=== PATIENT | female | born 1955 | race Caucasian/White ===

== ENCOUNTER 2021-04-30 12:50 | Emergency (ER) | payer OTHER, MEDICARE ==
--- OUTSIDE RECORDS SUMMARY | 2021-04-30 12:54 | XMS REPORT | Continuity of Care Document ---
:1955 Author Organization [facility] t Address [address] [place] [address] Care Team Providers Name Role Phone Arturo Salazar Primary Care Physician TESTING, COVID Attending Clinician Unavailable LAB90 Attending Clinician Unavailable ELVIA BECKETT Attending Clinician Unavailable Nba WANG T Attending Clinician Unavailable Jesus ESCOBEDO Attending Clinician Doctor Unassigned, Name Attending Clinician Unavailable Singer IRWIN Attending Clinician Stanislaw ESCOBEDO Attending Clinician Radiology Attending Clinician Unavailable Payers Payer Name Policy Policy Number Effective Expiration Source Type Date Date MEDICARE-PART B 5 [id number] 2020 00:00:00 AARP/IND 4 [id number] 2021 00:00:00 MEDICAREMEDICARE [id number] 2018 Univers ity of PART A & 00:00:00 [facility] [id number] 2018 Matthew -[phone] [address]IR[address] [place] [id number] [facility] [id number] 2019 [facility] HEALTHCAREUNITED 00:00:00 [facility] dicnd HEALTHCARE MEDICARE Branc h [id number] 2020-Present[address] [address], [place] [address]Medicare Supplement Problems Condition Condition Condition Status Onset Resolution Last Treating Co mments Source Name Details Category Date Date Treatment Clinician Date Obesity Obesity Disease Active Univers (BMI (BMI 2-06 ity of 30-39.9) 30-39.9) 00:00: [place] 00 Medical Branch Allergies, Adverse Reactions, Alerts Allergy Allergy Status Severity Reaction(s) Onset Inactive Treating Comm ents Source Name Type Date Date Clinician Sulfur Propensi Active Shortness Of Says she [facility] ty to Breath 3-18 can't [facility] - adverse 00:00: breath Medical reaction 00 Center s Sulfa DA Active [facility] (Sulfona 1 [place] mide 00:00: [facility] Antibiot 00 are ics) Medical Center Penicill Propensi Active Rash Univer s ins ty to 2-06 ity of adverse 00:00: [place] reaction 00 Medical s Branch Sulfa Propensi Active Rash Univers (Sulfona ty to 2-06 ity of mide adverse 00:00: [place] Antibiot reaction 00 Medica l ics) s Branch Penicill DA Active [facility] ins 09-15 [place] 00:00: [facility] 00 [facility] Sulfa DA Active [facility] (Sulfona 09-15 [place] mide 00:00: Orthope Antibiot 00 dic ics) Hospita l adhesive DA Active [facility] tape 09-15 [place] 00:00: [facility] 00 dic Hospita l Social History Social Habit Start Date Stop Date Quantity Comments Source Exposure to Not sure [facility] SARS-CoV-2 (event) Medica l Branch Sex Assigned At [facility] Tobacco use and 2021-04-27 2021-04-27 Never used [facility] [place] exposure 00:00:00 00:00:00 Medical Branch Smoking Status Start Date Stop Date Source Never smoker [facility] Medical Branch Medications Ordered Filled Start Stop Current Ordering Indication Dosage Frequency Signature Comments Components Source Medication Medication Date Date Medication? Clinician (SIG) Name Name acetdeliaph 2020- No [id number] 650mg 650 mg, Univers en 04-28 Oral, ity of (TYLENOL) 01:30: 00:30 ONCE, 1 [place] tablet 650 00 :00 dose, Tue Medi paul mg 04/27/21 at Branch 2030, Routine acetaminoph Yes [id number] 1{tbl} Take 1 Un sheila en-codeine 1-21 tablet by ity of (TYLENOL-CO 00:00: mouth [place] DEINE #3) 00 every 4 Medical 300-30 mg (four) Branch tablet hours as needed for Pain (scale 7-10). Indication s: acute pain ondansetron Yes [id number] 4mg Take 1 Univers 4 mg 1-21 [id number] tablet by ity of disintegrat 00:00: mouth [place] ing tablet 00 every 8 Medica l (eight) Branch hours as needed for Nausea and Vomiting (N/V). acetaminoph Yes [id number] 1{tbl} Take 1 Un sheila en-codeine 1-21 tablet by ity of (TYLENOL-CO 00:00: mouth [place] DEINE #3) 00 every 4 Medical 300-30 mg (four) Branch tablet hours as needed for Pain (scale 7-10). Indication s: acute pain ondansetron Yes [id number] 4mg Take 1 Univers 4 mg 1-21 [id number] tablet by ity of disintegrat 00:00: mouth [place] ing tablet 00 every 8 Medica l (eight) Branch hours as needed for Nausea and Vomiting (N/V). acetaminoph Yes [id number] 1{tbl} Take 1 Un sheila en-codeine 1-21 tablet by ity of (TYLENOL-CO 00:00: mouth [place] DEINE #3) 00 every 4 Medical 300-30 mg (four) Branch tablet hours as needed for Pain (scale 7-10). Indication s: acute pain ondansetron Yes [id number] 4mg Take 1 Univers 4 mg 1-21 [id number] tablet by ity of disintegrat 00:00: mouth [place] ing tablet 00 every 8 Medica l (eight) Branch hours as needed for Nausea and Vomiting (N/V). acetaminoph Yes [id number] 1{tbl} Take 1 Un sheila en-codeine 1-21 tablet by ity of (TYLENOL-CO 00:00: mouth [place] DEINE #3) 00 every 4 Medical 300-30 mg (four) Branch tablet hours as needed for Pain (scale 7-10). Indication s: acute pain ondansetron Yes [id number] 4mg Take 1 Univers 4 mg 1-21 [id number] tablet by ity of disintegrat 00:00: mouth [place] ing tablet 00 every 8 Medica l (eight) Branch hours as needed for Nausea and Vomiting (N/V). acetaminoph Yes [id number] 1{tbl} Take 1 Un sheila en-codeine 1-21 tablet by ity of (TYLENOL-CO 00:00: mouth [place] DEINE #3) 00 every 4 Medical 300-30 mg (four) Branch tablet hours as needed for Pain (scale 7-10). Indication s: acute pain ondansetron Yes [id number] 4mg Take 1 Univers 4 mg 1-21 [id number] tablet by ity of disintegrat 00:00: mouth [place] ing tablet 00 every 8 Medica l (eight) Branch hours as needed for Nausea and Vomiting (N/V). atorvastati Yes 10mg Take 10 mg Univers n 10 mg 4-14 by mouth ity of tablet 23:16: at [place] 42 bedtime. Medical Branch hydroCHLORO Yes 12.5mg Take 12.5 Univers thiazide 4-14 mg by ity of 12.5 mg 23:16: mouth [place] capsule 42 daily. Medical Branch valsartan-h Yes 1{tbl} Take 1 Un sheila ydrochlorot 4-14 tablet by ity of hiazide 23:16: mouth [place] 160-12.5 mg 42 daily. Medica l per tablet Branch estradiol 1 Yes 1mg Take 1 mg U nivers mg tablet 4-14 by mouth ity of 23:16: daily. [place] [address] Medical Branch PANTOPRAZOL 0 Yes 40mg Take 40 mg Univers E SODIUM 4-14 by mouth. ity of (PANTOPRAZO 23:16: [place] LE ORAL) 42 Medical Branch allopurinol 0 Yes 100mg Take 100 U nivers 100 mg 4-14 mg by ity of tablet 23:16: mouth [place] 42 daily. Medical Branch levothyroxi 0 Yes 50ug Take 50 Uni vers ne 4-14 mcg by ity of (SYNTHROID) 23:16: mouth [place] 50 mcg 42 every Medical tablet morning. Branch DULoxetine Yes 30mg Take 30 mg U nivers 30 mg 4-14 by mouth ity of capsule 23:16: daily. [place] [address] Medical Branch atorvastati 0 Yes 10mg Take 10 mg Univers n 10 mg 4-14 by mouth ity of tablet 23:16: at [place] [address] bedtime. Medical Branch hydroCHLORO 0 Yes 12.5mg Take 12.5 Univers thiazide 4-14 mg by ity of 12.5 mg 23:16: mouth [place] capsule 42 daily. Medical Branch valsartan-h 0 Yes 1{tbl} Take 1 Un sheila ydrochlorot 4-14 tablet by ity of hiazide 23:16: mouth [place] 160-12.5 mg 42 daily. Medica l per tablet Branch estradiol 1 0 Yes 1mg Take 1 mg U nivers mg tablet 4-14 by mouth ity of 23:16: daily. [place] [address] Medical Branch PANTOPRAZOL 0 Yes 40mg Take 40 mg Univers E SODIUM 4-14 by mouth. ity of (PANTOPRAZO 23:16: [place] LE ORAL) Medical Branch allopurinol 0 Yes 100mg Take 100 U nivers 100 mg 4-14 mg by ity of tablet 23:16: mouth [place] 42 daily. Medical Branch levothyroxi 0 Yes 50ug Take 50 Uni vers ne 4-14 mcg by ity of (SYNTHROID) 23:16: mouth [place] 50 mcg 42 every Medical tablet morning. Branch DULoxetine 20180 Yes 30mg Take 30 mg U nivers 30 mg 4-14 by mouth ity of capsule 23:16: daily. [place] [address] Medical Branch atorvastati 0 Yes 10mg Take 10 mg Univers n 10 mg 4-14 by mouth ity of tablet 23:16: at [place] [address] bedtime. Medical Branch hydroCHLORO 2017-0 Yes 12.5mg Take 12.5 Univers thiazide 4-14 mg by ity of 12.5 mg 23:16: mouth [place] capsule 42 daily. Medical Branch valsartan-h 2017- Yes 1{tbl} Take 1 Un sheila ydrochlorot 4-14 tablet by ity of hiazide 23:16: mouth [place] 160-12.5 mg 42 daily. Medica l per tablet Branch estradiol 1 Yes 1mg Take 1 mg U nivers mg tablet 4-14 by mouth ity of 23:16: daily. [place] [address] Medical Branch PANTOPRAZOL 0 Yes 40mg Take 40 mg Univers E SODIUM 4-14 by mouth. ity of (PANTOPRAZO 23:16: [place] LE ORAL) 42 Medical Branch allopurinol Yes 100mg Take 100 U nivers 100 mg 4-14 mg by ity of tablet 23:16: mouth [place] 42 daily. Medical Branch levothyroxi Yes 50ug Take 50 Uni vers ne 4-14 mcg by ity of (SYNTHROID) 23:16: mouth [place] 50 mcg 42 every Medical tablet morning. Branch DULoxetine Yes 30mg Take 30 mg U nivers 30 mg 4-14 by mouth ity of capsule 23:16: daily. [place] [address] Medical Branch atorvastati Yes 10mg Take 10 mg Univers n 10 mg 4-14 by mouth ity of tablet 23:16: at [place] 42 bedtime. Medical Branch hydroCHLORO Yes 12.5mg Take 12.5 Univers thiazide 4-14 mg by ity of 12.5 mg 23:16: mouth [place] capsule 42 daily. Medical Branch valsartan-h 2017- Yes 1{tbl} Take 1 Un sheila ydrochlorot 4-14 tablet by ity of hiazide 23:16: mouth [place] 160-12.5 mg 42 daily. Medica l per tablet Branch estradiol 1 Yes 1mg Take 1 mg U nivers mg tablet 4-14 by mouth ity of 23:16: daily. [place] [address] Medical Branch PANTOPRAZOL 0 Yes 40mg Take 40 mg Univers E SODIUM 4-14 by mouth. ity of (PANTOPRAZO 23:16: [place] LE ORAL) 42 Medical Branch allopurinol 0 Yes 100mg Take 100 U nivers 100 mg 4-14 mg by ity of tablet 23:16: mouth [place] 42 daily. Medical Branch levothyroxi Yes 50ug Take 50 Uni vers ne 4-14 mcg by ity of (SYNTHROID) 23:16: mouth [place] 50 mcg 42 every Medical tablet morning. Branch DULoxetine 0 Yes 30mg Take 30 mg U nivers 30 mg 4-14 by mouth ity of capsule 23:16: daily. [place] [address] Medical Branch atorvastati 0 Yes 10mg Take 10 mg Univers n 10 mg 4-14 by mouth ity of tablet 23:16: at [place] 42 bedtime. Medical Branch hydroCHLORO [id number] Yes 12.5mg Take 12.5 Univers thiazide 4-14 mg by ity of 12.5 mg 23:16: mouth [place] capsule 42 daily. Medical Branch valsartan-h 0 Yes 1{tbl} Take 1 Un sheila ydrochlorot 4-14 tablet by ity of hiazide 23:16: mouth [place] 160-12.5 mg 42 daily. Medica l per tablet Branch estradiol 1 Yes 1mg Take 1 mg U nivers mg tablet 4-14 by mouth ity of 23:16: daily. [place] [address] Medical Branch PANTOPRAZOL 0 Yes 40mg Take 40 mg Univers E SODIUM 4-14 by mouth. ity of (PANTOPRAZO 23:16: [place] LE ORAL) Medical Branch allopurinol 0 Yes 100mg Take 100 U nivers 100 mg 4-14 mg by ity of tablet 23:16: mouth [place] 42 daily. Medical Branch levothyroxi Yes 50ug Take 50 Uni vers ne 4-14 mcg by ity of (SYNTHROID) 23:16: mouth [place] 50 mcg 42 every Medical tablet morning. Branch DULoxetine 0 Yes 30mg Take 30 mg U nivers 30 mg 4-14 by mouth ity of capsule 23:16: daily. [place] [address] Medical Branch hydrOXYzine 2017-0 Yes [id number] 1-2 tabs Univers 25 mg 4-14 Every ity of tablet 00:00: 3-6hr as [place] 00 needed for Medical itch or Branch rash, at least 3 times a day. hydrOXYzine 2018-0 Yes [id number] 1-2 tabs Univers 25 mg 4-14 Every ity of tablet 00:00: 3-6hr as [place] 00 needed for Medical itch or Branch rash, at least 3 times a day. hydrOXYzine 0 Yes [id number] 1-2 tabs Univers 25 mg 4-14 Every ity of tablet 00:00: 3-6hr as [place] 00 needed for Medical itch or Branch rash, at least 3 times a day. hydrOXYzine 2018-0 Yes [id number] 1-2 tabs Univers 25 mg 4-14 Every ity of tablet 00:00: 3-6hr as [place] 00 needed for Medical itch or Branch rash, at least 3 times a day. hydrOXYzine 2018-0 Yes [id number] 1-2 tabs Univers 25 mg 4-14 Every ity of tablet 00:00: 3-6hr as [place] 00 needed for Medical itch or Branch rash, at least 3 times a day. ASPIR-81 81 2017-0 Yes 81mg Take 1 Univ ers mg EC 2-06 tablet by ity of tablet 00:00: mouth [place] 00 daily. Medical Branch LISINOPRIL 2017-0 Yes 10mg Take 1 Unive rs 10 mg 2-06 tablet by ity of tablet 00:00: mouth at [place] 00 bedtime. Medical Branch meclizine 2017-0 Yes 25mg Take 1 Univer s 25 mg 2-06 tablet by ity of tablet 00:00: mouth [place] 00 every 6 Medical (six) Branch hours. ASPIR- 81 2017-0 Yes 81mg Take 1 Univ ers mg EC 2-06 tablet by ity of tablet 00:00: mouth [place] 00 daily. Medical Branch LISINOPRIL 2017-0 Yes 10mg Take 1 Unive rs 10 mg 2-06 tablet by ity of tablet 00:00: mouth at [place] 00 bedtime. Medical Branch meclizine 2017-0 Yes 25mg Take 1 Univer s 25 mg 2-06 tablet by ity of tablet 00:00: mouth [place] 00 every 6 Medical (six) Branch hours. ASPIR-81 81 2017-0 Yes 81mg Take 1 Univ ers mg EC 2-06 tablet by ity of tablet 00:00: mouth [place] 00 daily. Medical Branch LISINOPRIL 2017-0 Yes 10mg Take 1 Unive rs 10 mg 2-06 tablet by ity of tablet 00:00: mouth at [place] 00 bedtime. Medical Branch meclizine 2017-0 Yes 25mg Take 1 Univer s 25 mg 2-06 tablet by ity of tablet 00:00: mouth [place] 00 every 6 Medical (six) Branch hours. ASPIR-81 81 0 Yes 81mg Take 1 Univ ers mg EC 2-06 tablet by ity of tablet 00:00: mouth [place] 00 daily. Medical Branch LISINOPRIL 0 Yes 10mg Take 1 Unive rs 10 mg 2-06 tablet by ity of tablet 00:00: mouth at [place] 00 bedtime. Medical Branch meclizine 0 Yes 25mg Take 1 Univer s 25 mg 2-06 tablet by ity of tablet 00:00: mouth [place] 00 every 6 Medical (six) Branch hours. ASPIR-81 81 0 Yes 81mg Take 1 Univ ers mg EC 2-06 tablet by ity of tablet 00:00: mouth [place] 00 daily. Medical Branch LISINOPRIL 0 Yes 10mg Take 1 Unive rs 10 mg 2-06 tablet by ity of tablet 00:00: mouth at [place] 00 bedtime. Medical Branch meclizine Yes 25mg Take 1 Univer s 25 mg 2-06 tablet by ity of tablet 00:00: mouth [place] 00 every 6 Medical (six) Branch hours. Vital Signs Vital Name Observation Time Observation Value Comments Source Systolic blood 2021-04-28 00:15:00 139 mm[Hg] Univer sity of pressure [facility] Diastolic blood 2021-04-28 00:15:00 77 mm[Hg] Unive rsity of pressure [facility] Heart rate 2021-04-28 00:15:00 103 /min [facility] Body temperature 2021-04-28 00:15:00 38.89 Katie [facility] Respiratory rate 2021-04-28 00:15:00 16 /min [facility] Body height 2021-04-28 00:15:00 160 cm [facility] Body weight 2021-04-28 00:15:00 79.493 kg [facility] BMI 2021-04-28 00:15:00 31.04 kg/m2 [facility] Oxygen saturation in 2021-04-28 00:15:00 94 /min [facility] blood by [facility] Pulse oximetry Branch Procedures Procedure Date / Time Performed Performing Clinician [facility] e ASSIGNMENT OF BENEFITS 2021-04-27 23:53:17 Doctor Unassigned, No [facility] Encounters Start End Encounter Admission Attending Care Care Encounter Source Date/Time Date/Time Type Type Clinicians Facility Department ID 2021-04-30 2021-04-30 Outpatient TESTING, LASHONDA BLANKENSHIP [id number] Angel[place] 15:45:00 15:45:00 Seybol d 2021-04-28 2021-04-28 Outpatient LAB90 ANGELIQUE BLANKENSHIP [id number] [place] 15:15:00 15:15:00 Seybol d 2021-04-28 2021-04-28 Outpatient ANGELIQUE BECKETT [id number] [place] 14:30:00 14:30:00 KELLY jennings 2021-04-28 2021-04-28 Letter YA [place] 1.2.840.114 [id number] Univers 00:00:00 00:00:00 (Out) Christine PERDOMO 350.1.13.10 it y of HOSPITAL 4.2.7.2.686 Tray as [id number] [facility] [address] [place] 2021-04-27 2021-04-27 Urgent Jesus [facility] 1.2.840.114 [id number] Univers 18:54:12 19:14:12 Care [facility] 350.1.13.10 it y of [place] 4.2.7.2.686 Tray as Joon?Blea [id number] [address] Medical Office Building 2021-04-27 2021-04-27 Outpatient ANGELIQUE BECKETT [id number] [place] 00:00:00 00:00:00 KELLY jennings 2021-04-27 2021-04-27 Letter Doctor PANDYA 1.2.840.114 [id number] Univers 00:00:00 00:00:00 (Out) UnassignedCONOR 350.1.13.10 ity of [place] [facility] 4.2.7.2.686 Tray as [id number] [facility] [address] [place] 2021-04-27 2021-04-27 Orders Doctor PANDYA 1.2.840.114 [id number] Univers 00:00:00 00:00:00 Only Unassigned CONOR 350.1.13.10 ity of [place] [facility] 4.2.7.2.686 Tray as [id number] [facility] 009 Branch 2021-04-27 2021-04-27 Letter Doctor YA 1.2.840.114 [id number] Univers 00:00:00 00:00:00 (Out) Unassigned, CONOR 350.1.13.10 ity of [place] [facility] 4.2.7.2.686 Tray as [id number] [facility] 044 Branch 2020-09-24 2020-09-24 Emergency [place], [facility] [id number] 13:18:00 17:07:00 Dmitriy Pastrana 350.1.13.10 [place] 4.2.7.2.686 [place] [id number] [id number] 2019-11-04 2019-11-04 Orders Doctor YA 1.2.840.114 [id number] 00:00:00 00:00:00 Only Unassigned, CONOR 350.1.13.10 [place] [facility] 4.2.7.2.686 [id number] 2019-10-10 2019-10-10 Office [place], [facility] 1.2.840.114 [id number] 14:17:48 16:43:56 Visit Perez AMBULATOR 350.1.13.21 Y 0.2.7.2.686 [id number] 2019-10-07 2019-10-07 Hospital Radiology [facility] 1.2.840.114 [id number] 10:00:00 23:59:00 Encounter Victoriano 350.1.13.10 [place] 4.2.7.2.686 [place] [id number] [id number] Results Test Description Test Time Test Comments Results Result Comments Source COVID 19 Asymptomatic IH AG 2020-09-29 15:12:00 Test Item Value Reference Range Interpretation Comme nts COVID 19 Asymptomatic IH AG (test code = COVNONPUIAG) NEGATIVE NEGATIVE SURGICAL [id number] 11:39:00 RUN DATE: 09/17/19 [facility] - LAB PAGE 1 RUN TIME: 1139 Specimen Inquiry RUN USER: INTERFACE PATIENT: JENNIFER VALLADARES LOC: [place] U #: [id number] AGE/SX: 64/F ROOM: RE09/13/19[facility] DR: Markie Holman MD : 53 BED: DIS: STATUS: [facility] [place]: SPEC #: [id number] RECD: 09/13/19 STATUS: NORMA GONZALES #: [id number] FACUNDO: 09/13/[address]: Markie Holman MD ENTERED: 09/13/19 SP TYPE: SURG OTHR DR: ORDERED: PATHGM4, PATH SPEC, H E STAIN HISTOLOGY: TISSUE ID BLK PCS CHRIS LEV / PROCEDURE DISPOSITION ____ ___ ___ ___ ___ ASCENDING COL PA 1 3 1 TISSUES: A. ASCENDING COLON POLYP - AscendingColon Polyp CLINICAL HISTORY Screening Colonoscopy COMMENT Multiple additional tissue levels were examined. FINAL DIAGNOSIS ASCENDING COLON POLYP, BIOPSY: - Non-neoplastic colonic mucosa, not otherwise specified. - No dysplasia or malignancy identified. GROSS DESCRIPTION ASCENDING COLON POLYP: One fragment of pink soft tissue, 0.7 cm. Entirely submitted in one cassette. ELIDA/shruthi MICROSCOPIC DESCRIPTION Microscopic performed. Signed SIGNATURE ON FILE Kierra Angel 09/17/19 1139 END OFREPORT SURGICAL [id number] 12:11:00 RUN DATE: 09/10/19 [facility] - LAB PAGE 1 RUN TIME: 1211 Specimen Inquiry RUN USER: INTERFACE PATIENT: JENNIFER VALLADARES LOC: [place] U #: [id number] AGE/SX: 64/F ROOM: RE09/06/19[facility] DR: Markie Holman MD : 53 BED: DIS: STATUS: [facility] TLOC: SPEC #: [id number] RECD: 09/06/19 STATUS: NORMA HERBERTHVel #: [id number] FACUNDO: [birth year][address]: Markie Holman MD ENTERED: 09/06/19 SP TYPE: SURG OTHR DR: Undefined Provider ORDERED: PATHGM4/2, PATH SPEC, H E STAIN/2, IHC AB STAIN I/2 HISTOLOGY: TISSUE ID BLK PCS CHRIS LEV / PROCEDURE DISPOSITION ____ ___ ___ ___ ___ GASTRIC BIOPSYA 1 3 1 GASTRIC POLYP B 1 3 1 TISSUES: A. GASTRIC BIOPSY - Gastric Antrum Bx B. GASTRIC POLYP - Gastric Polyp X2 CLINICAL HISTORY Abdominal Pain/ Family Hx Of Polyps FINAL DIAGNOSIS A-GASTRIC ANTRUM BIOPSY: - Antral type gastric mucosa with mild chronic gastritis and reactive epithelial changes. - Negative for H. pylori organisms (H. pylori immunostain). B-GASTRIC POLYP X2, BIOPSY: - Two pieces of fundic gland polyp. - Separate piece of antral type gastric mucosa with mild chronic gastritis and reactive epithelial changes, including features suggestive of reactive gastropathy/chemical gastritis versus hyperplastic polyp. - Negative for H. pylori organisms (H. pylori immunostain). GROSS DESCRIPTION A-GASTRIC ANTRUM: Two pieces of tissue which measure 2 mm each. Entirely submitted in a single cassette. B-GASTRIC POLYP X2: Three pices of tissue which measure less than 1 mm to 2 mm. Entirely submitted in single cassette. RAB/eb MICROSCOPIC DESCRIPTION Microscopic performed. CONTINUED ON NEXT PAGE RUN DATE: 09/10/19 [place] [facility] - LAB PAGE 2 RUN TIME: 1211 Specimen Inquiry RUN USER: INTERFACE SPEC #: [id number] PATIENT: JENNIFER VALLADARES#[id number] (Continued) Signed SIGNATURE ON FILE Nata Ortega MD 09/10/19 1211 -------- ---- END OF REPORT
[2021-04-30 13:28] LABS: Urine Blood Trace-intact (Negative); Urine Glucose Negative (Negative); Urine Protein 2+ (Negative); Urine Specific Gravity 1.025 (1.005-1.030); Urine pH 5.5 (5.0-7.0)
[2021-04-30] MEDS ORDERED: NA CHLORIDE 0.9% 1,000 ML ONE (14:21)
[2021-04-30] MEDS ORDERED: PROMETHAZINE INJ 25 MG/ML AMP ONE (14:21)
[2021-04-30] MEDS ORDERED: MEPERIDINE HCL 50 MG/ML ONE (14:21)
[2021-04-30 15:46] LABS: ALT/SGPT 36 U/L (12-78); AST/SGOT 36 U/L (15-37); Albumin 3.3 g/dL (3.4-5.0); Alkaline Phosphatase 116 U/L (45-117); BUN Blood Urea Nitrogen 25 mg/dL (7-18); Bicarbonate 29 mmol/L (21-32); Bilirubin Direct 0.2 mg/dL (0-0.2); Bilirubin Total 0.5 mg/dL (0.2-1.0); Glucose Level 109 mg/dL (74-106); Lipase 25 U/L (73-393); NT PRO-BNP 62 pg/mL (<125); Potassium 3.4 mmol/L (3.5-5.1); Protein, Total 8.5 g/dL (6.4-8.2); Sodium Level 133 mmol/L (136-145); Troponin (Emerg Dept Use Only) < 0.02 ng/mL (0.0-0.045); Urine Bacteria 20-50 /HPF (<20); Urine RBC <5 /HPF (NONE SEEN)
[2021-04-30 15:47] LABS: Calcium Oxalate Crystals- Ur FEW (NONE SEEN); Urine Urothelial Cells <5 /HPF (NONE SEEN)
[2021-04-30 16:47] LABS: Protime INR 1.11
[2021-04-30 17:08] LABS: Absolute Lymphocytes (CBC) 1.6 K/uL (0.7-4.9); Basophils % 0.5 % (0-1.3); Hematocrit 35.2 % (36.0-45.0); Lymphocytes % 16.4 % (15.3-44.8); RBC Red Blood Cell Count 4.05 M/uL (3.86-4.86)
[2021-04-30 17:09] LABS: MPV 9.1 fL (7.6-11.3)
--- NOTE | 2021-04-30 17:22 | RAD REPORT ---
EXAM DESCRIPTION: CT - Head Brain Wo Cont - 04/30/2021 5:07 pm CLINICAL HISTORY: Headache COMPARISON: 2011 TECHNIQUE: Computed axial tomography of the head was obtained. IV contrast was not requested. All CT scans are performed using dose optimization technique as appropriate and may include automated exposure control or mA/KV adjustment according to patient size. FINDINGS: An intracranial bleed is not seen . The ventricles are normal in caliber. No extra-axial fluid collection is noted. Fluid within the sinuses/ mastoids is not seen. IMPRESSION: No acute intracranial abnormality is seen. If patient's symptoms persist MRI of the bra in would be recommended.
--- NOTE | 2021-04-30 17:23 | RAD REPORT ---
EXAM DESCRIPTION: [place] Single View04/30/2021 3:06 pm CLINICAL HISTORY: Abdominal pain COMPARISON: 2019 FINDINGS: A few areas of scarring are present within the lungs The lungs appear clear of acute infiltrate. The heart is normal size IMPRESSION: No acute abnormalities displayed
--- NOTE | 2021-04-30 17:27 | RAD REPORT ---
EXAM DESCRIPTION: CT - Abdomen Pelvis Wo Contrast - 04/30/2021 5:07 pm CLINICAL HISTORY: Abdominal pain COMPARISON: 2015 TECHNIQUE: Computed axial tomography of the abdomen and pelvis was obtained. IV was not requested. O ral contrast was given. Coronal reconstructions performed. All CT scans are performed using dose optimization technique as appropriate and may include automated exposure control or mA/KV adjustment according to patient size. FINDINGS: The evaluation of solid organs and vessels is limited secondary to the lack of contrast a dministration. Cholecystectomy. The liver, spleen, pancreas, adrenals and kidneys appear grossly normal. Hysterectomy There is no evidence of diverticulitis. IMPRESSION: No acute abnormality is displayed.
--- NOTE | 2021-04-30 18:13 | ER ---
Nurse's Notes [facility] Name: Carlos Canada Age: 65 yrs Sex: Female : 1955 Arrival Date: 04/30/2021 Time: 12:56 Bed 14 Private MD: Diagnosis: Urinary tract infection. Chronic renal disease Presentation: 04/30 13:05 Chief complaint: Patient states: JAMES, abd pain, back pain and joint fatigue that began ss 4-5 days ago. Pt reports she had a negative covid test 3 days ago. Coronavirus screen: Client presents with at least one sign or symptom that may indicate coronavirus-19. Ebola Screen: Patient denies exposure to infectious person. Patient denies travel to an Ebola-affected area in the 21 days before illness onset. Initial Sepsis Screen: Does the patient meet any 2 criteria? No. Patient's initial sepsis screen is negative. Does the patient have a suspected source of infection? No. Patient's initial sepsis screen is negative. Risk Assessment: Do you want to hurt yourself or someone else? Patient reports no desire to harm self or others. Note Pt states, "When she ran my blood test she said that by WBC count was high, and she said she thought it might be kidney failure.". Onset of symptoms was April 26, 2021. 13:05 Method Of Arrival: Ambulatory ss 13:05 Acuity: REGINE 3 ss Triage Assessment: 13:12 General: Appears in no apparent distress. comfortable, well developed, well nourished, aj2 Behavior is calm, cooperative. 13:12 Pain: Denies pain. Complains of pain in Patients states "all over" aching pain. aj2 Historical: - Allergies: 13:08 PENICILLINS; ss 13:08 Sulfa (Sulfonamide Antibiotics); ss - PMHx: 13:08 High Cholesterol; Hypertension; Hypothyroidism; ss - Immunization history:: Client reports receiving the 2nd dose of the Covid vaccine. - Social history:: Smoking status: Patient denies any tobacco usage or history of. Vital Signs: 13:05 BP 121 / 77; Pulse 110; Resp 19; Temp 98.0(TE); Pulse Ox 99% on R/A; Weight 78.47 kg; ss Height 5 ft. 3 in. (160.02 cm); Pain 8/10; 13:05 Body Mass Index 30.65 (78.47 kg, 160.02 cm) ss ED Course: 12:56 Patient arrived in ED. ja2 13:08 Triage completed. ss 13:08 Arm band placed on right wrist. ss 13:09 Dc Dunlap MD is Attending Physician. pkl 13:11 Lisseth Plascencia is Primary Nurse. aj2 15:06 XRAY Chest (1 view) In Process Unspecified. EDMS 15:17 Patient has correct armband on for positive identification. Placed in gown. Bed in low mh5 position. Call light in reach. Side rails up X2. Warm blanket given. Pillow given. matcher on. Pulse ox on. NIBP on. 15:17 Initial lab(s) drawn, by ED staff, sent to lab. EKG done, by ED staff, reviewed by Dc Dunlap MD COVID swab sent to lab. 15:18 Lactate Sent. 5 15:18 Blood Culture Adult (2) Sent. 5 15:19 Lipase Sent. 5 15:19 Basic Metabolic Panel Sent. 5 15:19 CBC with Diff Sent. 5 15:19 LFT's Sent. 5 15:19 Magnesium Sent. 5 15:19 NT PRO-BNP Sent. 5 15:19 PT-INR Sent. 5 15:19 Troponin (emerg Dept Use Only) Sent. 5 15:22 TSH Sent. mh5 16:11 Inserted saline lock: 20 gauge. aj2 17:07 CT Head Brain wo Cont In Process Unspecified. EDMS 17:07 Abdomen In Process Unspecified. EDMS 18:53 No provider procedures requiring assistance completed. IV discontinued, intact, ss bleeding controlled, No redness/swelling at site. Pressure dressing applied. Administered Medications: 14:59 Drug: NS 0.9% 1000 ml Route: IV; Rate: 125 ml/hr; Site: right antecubital; tr6 14:59 Drug: Demerol (meperidine) 50 mg Route: IVP; Site: right antecubital; tr6 14:59 Drug: Phenergan (promethazine) 12.5 mg Route: IVP; Site: right antecubital; tr6 18:44 Not Given (Other Intervention Used): Cipro (ciprofloxacin) 400 mg 200 ml IVPB once over ss 60 mins 18:50 Drug: Cipro (ciprofloxacin) 500 mg Route: PO; tr6 18:54 Follow up: Response: Medication administered at discharge. Outcome: 18:12 Discharge ordered by . deirdre 18:53 Discharged to home ambulatory. ss 18:53 Condition: good 18:53 Discharge instructions given to patient, Instructed on discharge instructions, follow up and referral plans. Demonstrated understanding of instructions, follow-up care. 18:55 Patient left the ED. Signatures: Dispatcher [employer] EDSC Dc Dunlap MD MD pkl Smirch, Shelby, RN RN Beth Rajput [facility] Azucena Bolaños RN RN tr6 Lisseth Plascencia2 Zee Encarnacion Corrections: (The following items were deleted from the chart) 15:25 15:19 CORONAVIRUS+ drawn and sent. [address]
--- NOTE | 2021-04-30 18:13 | EDPHYS ---
Physician Documentation [facility] Name: Carlos Canada Age: 65 yrs Sex: Female : 1955 Arrival Date: 04/30/2021 Time: 12:56 Bed 14 Private MD: ED Physician Dc Dunlap HPI: 04/30 13:35 This 65 yrs old Female presents to ER via Ambulatory with complaints of pkl Fever, LIGHT HEADED, COVID SYMPTOMS. 13:35 The patient presents with abdominal pain in the upper abdomen. Onset: The pkl symptoms/episode began/occurred 4 day(s) ago. The symptoms do not radiate. Associated signs and symptoms: Pertinent positives: fever, nausea, headache, fever, chills, back pain fatigue. Historical: - Allergies: 13:08 PENICILLINS; ss 13:08 Sulfa (Sulfonamide Antibiotics); ss - PMHx: 13:08 High Cholesterol; Hypertension; Hypothyroidism; ss - Immunization history:: Client reports receiving the 2nd dose of the Covid vaccine. - Social history:: Smoking status: Patient denies any tobacco usage or history of. ROS: 13:38 Eyes: Negative for injury, pain, redness, and discharge, ENT: Negative for injury, pkl pain, and discharge, Neck: Negative for injury, pain, and swelling, Cardiovascular: Negative for chest pain, palpitations, and edema, Respiratory: Negative for shortness of breath, cough, wheezing, and pleuritic chest pain. 13:38 Abdomen/GI: Positive for abdominal pain, nausea, of the right upper quadrant and left upper quadrant. 13:38 Back: Positive for pain at rest, of the lower back. 13:38 : Negative for urinary symptoms. 13:38 MS/extremity: Negative for acute changes. 13:38 Skin: Negative for rash. 13:38 Neuro: Positive for headache, Negative for altered mental status, loss of consciousness. Exam: 13:38 Head/Face: Normocephalic, atraumatic. Eyes: Pupils equal round and reactive to light, pkl extra-ocular motions intact. Lids and lashes normal. Conjunctiva and sclera are non-icteric and not injected. Cornea within normal limits. Periorbital areas with no swelling, redness, or edema. ENT: Nares patent. No nasal discharge, no septal abnormalities noted. Tympanic membranes are normal and external auditory canals are clear. Oropharynx with no redness, swelling, or masses, exudates, or evidence of obstruction, uvula midline. Mucous membranes moist. Neck: Trachea midline, no thyromegaly or masses palpated, and no cervical lymphadenopathy. Supple, full range of motion without nuchal rigidity, or vertebral point tenderness. No Meningismus. Chest/axilla: Normal chest wall appearance and motion. Nontender with no deformity. No lesions are appreciated. Cardiovascular: Regular rate and rhythm with a normal S1 and S2. No gallops, murmurs, or rubs. Normal PMI, no JVD. No pulse deficits. Respiratory: Lungs have equal breath sounds bilaterally, clear to auscultation and percussion. No rales, rhonchi or wheezes noted. No increased work of breathing, no retractions or nasal flaring. 13:38 Abdomen/GI: Bowel sounds: normal, Palpation: soft, mild abdominal tenderness, in the right upper quadrant and left upper quadrant. 13:38 Back: Exam negative for acute changes. 13:38 : Exam negative for acute changes. 13:38 Musculoskeletal/extremity: Exam is negative for acute changes. 13:38 Skin: Exam negative for rash. 13:38 Neuro: Orientation: is normal, Mentation: is normal, Cranial nerves: grossly normal, Motor: is normal. Vital Signs: 13:05 BP 121 / 77; Pulse 110; Resp 19; Temp 98.0(TE); Pulse Ox 99% on R/A; Weight 78.47 kg; ss Height 5 ft. 3 in. (160.02 cm); Pain 8/10; 13:05 Body Mass Index 30.65 (78.47 kg, 160.02 cm) ss MDM: 13:09 Patient medically screened. pkl 18:08 Data reviewed: vital signs, nurses notes, lab test result(s), EKG, radiologic studies, pkl CT scan, plain films. ED course: Patient feeling better. Discussed lab and imaging results with patient. Advised to follow up with PCP in 2 to 3 days. To return if symptoms are worse. Patient understood instructions. 04/30 13:28 Order name: Urine Dipstick-Ancillary; Complete Time: 13:34 EDMS 04/30 13:28 Order name: Urine Culture eb 04/30 13:28 Order name: Urine Microscopic Only; Complete Time: 16:28 eb 04/30 13:29 Order name: Basic Metabolic Panel; Complete Time: 16:28 pkl 04/30 13:29 Order name: CBC with Diff pkl 04/30 13:29 Order name: LFT's; Complete Time: 16:28 pkl 04/30 13:29 Order name: Magnesium; Complete Time: 16:28 pkl 04/30 13:29 Order name: NT PRO-BNP; Complete Time: 16:28 pkl 04/30 13:29 Order name: PT-INR; Complete Time: 16:57 pkl 04/30 13:29 Order name: Troponin (emerg Dept Use Only); Complete Time: 16:28 pkl 04/30 13:29 Order name: Lipase; Complete Time: 16:28 pkl 04/30 13:34 Order name: Blood Culture Adult (2) pk 04/30 13:34 Order name: Lactate; Complete Time: 16:28 pkl 04/30 13:29 Order name: XRAY Chest (1 view); Complete Time: 18:02 pkl 04/30 13:29 Order name: EKG; Complete Time: 13:30 pkl 04/30 13:29 Order name: Cardiac monitoring; Complete Time: 14:59 pkl 04/30 13:29 Order name: EKG - Nurse/Tech; Complete Time: 15:19 pkl 04/30 13:29 Order name: IV Saline Lock; Complete Time: 14:59 pkl 04/30 13:34 Order name: CT Head Brain wo Cont; Complete Time: 18:02 pkl 04/30 13:38 Order name: TSH; Complete Time: 16:28 pkl 04/30 14:26 Order name: Abdomen ; Complete Time: 18:02 EDMS 04/30 16:23 Order name: SARS-COV-2 RT PCR; Complete Time: 16:28 EDMS 04/30 18:17 Order name: CBC Smear Scan EDMS 04/30 13:29 Order name: Labs collected and sent; Complete Time: 14:59 pkl 04/30 13:29 Order name: O2 Per Protocol; Complete Time: 14:59 pkl 04/30 13:29 Order name: O2 Sat Monitoring; Complete Time: 14:59 pkl 04/30 15:32 Order name: Labs - recollect needed: recollect blue and purple top; Complete Time: 16:53eb Administered Medications: 14:59 Drug: NS 0.9% 1000 ml Route: IV; Rate: 125 ml/hr; Site: right antecubital; tr6 14:59 Drug: Demerol (meperidine) 50 mg Route: IVP; Site: right antecubital; tr6 14:59 Drug: Phenergan (promethazine) 12.5 mg Route: IVP; Site: right antecubital; tr6 18:44 Not Given (Other Intervention Used): Cipro (ciprofloxacin) 400 mg 200 ml IVPB once over ss 60 mins 18:50 Drug: Cipro (ciprofloxacin) 500 mg Route: PO; tr6 18:54 Follow up: Response: Medication administered at discharge. Disposition Summary: 04/30/21 18:12 Discharge Ordered Location: Home pkl Problem: new pkl Symptoms: have improved pkl Condition: Stable pkl Diagnosis - Urinary tract infection. Chronic renal disease pkl Followup: pkl - With: Private Physician - When: 2 - 3 days - Reason: Re-evaluation by your physician Discharge Instructions: - Discharge Summary Sheet pkl Forms: - Medication Reconciliation Form pkl - Thank You Letter pkl - Antibiotic Education pkl - Prescription Opioid Use pkl Prescriptions: - Cipro 500 mg Oral Tablet - take 1 tablet by ORAL route every 12 hours for 7 days; 14 tablet; Refills: 0, pkl Product Selection Permitted Signatures: Dispatcher [employer] Dc Maddox MD MD pkl Massiel Navarro RN RN Dyana Patterson Tiffany RN RN tr6 Corrections: (The following items were deleted from the chart) 14:26 13:35 Abdomen Pelvis W Con+CT.RAD.BRZ ordered. EDMS EDMS 15:25 13:34 CORONAVIRUS+MR.LAB.BRZ ordered. EDMS EDMS
[2021-04-30 18:17] LABS: Blood Morphology Comment NOT SEEN (NOT SEEN); Platelet Estimate ADEQ; Platelets, Giant PRESENT; White Blood Cell Scan OK (OK)
[2021-04-30 19:04] VITALS: BP 121/77; TEMP 98; O2SAT 99
[2021-04-30] MEDS ORDERED: CIPROFLOXACIN HCL 500 MG TAB ONE (19:09)
== END 2021-04-30 18:55 | disposition home or self-care (01) ==
LOC: ER 12:50
DX: N39.0 Urinary tract infection, site not specified (principal); I12.9 Hypertensive chronic kidney disease with stage 1 through stage 4 chronic kidney disease, or unspecified chronic kidney disease; N18.9 Chronic kidney disease, unspecified; Z20.822 Contact with and (suspected) exposure to COVID-19; Z88.0 Allergy status to penicillin; Z88.2 Allergy status to sulfonamides
CPT/HCPCS: 93005; 87040 ×2; 87088; 85025; 87086; 80048; 36415; 83735; 85610; 82565; 80076; 83605; 84443; 84484; 83690; 83880; 70450; 74176; 71045; 96375; 96374; 99284; U0003; J2550; J2175; J7030; 81003; 81015

== ENCOUNTER 2022-12-28 09:01 | Day surgery (SDC) | payer OTHER, MEDICARE ==
--- OUTSIDE RECORDS SUMMARY | 2022-12-28 09:34 | XMS REPORT | Continuity of Care Document ---
:1955 Author Organization [facility] t Address [address] [place] [address]. [address] [place] [address] Care Team Providers Name Role Phone Asked, No Pcp Primary Care Physician Unavailable Larissa Lee MD Attending Clinician Unknown, Attending Attending Clinician Unavailable LARISSA LEE Attending Clinician Unavailable Doctor Unassigned, [place] Attending Clinician Unavailable KELLY BECKETT Attending Clinician Unavailable ABENA THOMPSON Attending Clinician Unavailable Kelly Beckett MD Attending Clinician Only, Ang Db Test Attending Clinician Unavailable Karolyn Cox Attending Clinician KAROLYN STOVALL Attending Clinician Unavailable Kelly Beckett MD Attending Clinician [phone] Attending Clinician Unavailable VANESSA YI Attending Clinician Unavailable Vanessa Yi MD Attending Clinician Kevin Rodríguez DO Attending Clinician KEVIN RODRÍGUEZ Attending Clinician Unavailable DANACAROLE Sharlene Attending Clinician Unavailable TESTING, PL ERICID Attending Clinician Unavailable Nba WANG, Christine Snow Attending Clinician Unavailable Vanessa Victoria Attending Clinician Unavailable Melendez DO Dmitriy Attending Clinician Perez Dover MD Attending Clinician Radiology Attending Clinician Unavailable Markie Holman Attending Clinician Unavailable VANESSA YI Admitting Clinician Unavailable Physician, No Primary or Family Admitting Clinician UnavailKETTY Saunders Admitting Clinician Unavailable Payers Payer Name Policy Type Policy Number Effective Date Expiration Date S luna MEDICARE PART A AND [id number] 2018 B 00:00:00 $20 F [id number] 2015 00:00:00 CIGNA II [id number] 2016 00:00:00 MEDICARE PART A \T\ [id number] 2018 B 00:00:00 [facility] [id number] 2019 MEDICARE SUPPLEMENT 00:00:00 MEDICARE-PART B 5 [id number] 2020 00:00:00 AARP/IND 4 [id number] 2021 00:00:00 Problems Condition Condition Condition Status Onset Resolution Last Treating Co mments Source Name Details Category Date Date Treatment Clinician Date Other Other Disease Active Tirso Merino specified specified 03-05 Assessmen S eybold menopausal menopausal 00:00: t & Plan: and and 00 Formattin perimenopa perimenopa g of this [facility] note disorders disorders might be different from the original. Unchanged , cont Estradiol 0.05mg/24 h transderm al patch biweekly as prescribe d. DEXA scan ordered. Other Other Disease Active Tirso Merino hyperlipid hyperlipid -14 Assessmen Filiberto emia emia 00:00: t & Plan: 00 Formattin g of this note might be different from the original. Controlle d, cont Atorvasta tin 10mg daily. Will increase as indicated pending lab results. Other Other Disease Active Tirso Merino chronic chronic -14 Assessmen Lamin ld pain pain 00:00: t & Plan: 00 Formattin g of this note might be different from the original. Unchanged , will get labs to eval for systemic disorders . Essential Essential Disease Active Tirso buchanan hypertensi hypertensi 4-08 Assessmen Filiberto on on 00:00: t & Plan: 00 Formattin g of this note might be different from the original. Juan jennings, cont w/ HCTZ 12.5mg. Hypothyroi Hypothyroi Disease Active Tirso jennings d 4-08 Assessrichard De Los Santos 00:00: t & Plan: 00 Formattin g of this note might be different from the original. Juan jennings, labs ordered, will contact Pt pending results. Gastroesop Gastroesop Disease Active Tirso Banks manju hageal hageal 4-08 Assessrichard De [place] reflux reflux 00:00: t & Plan: disease disease 00 Formattin without without g of this esophagiti esophagiti note s s might be different from the original. Juan jennings, cont current Rx. Obesity Obesity Disease Active Tirso Merino (BMI (BMI 2-06 Assessrichard De Los Santos 30-39.9) 30-39.9) 00:00: t & Plan: 00 Formattin g of this note might be different from the original. Unchanged , encourage d Pt to start exercise regimen as soon as pain is under control. Allergies, Adverse Reactions, Alerts Allergy Allergy Status Severity Reaction(s) Onset Inactive Treating Comm ents Source Name Type Date Date Clinician Penicill Propensi Active Rash Angelique in V ty to 908 Seybold Potassiu adverse 00:00: m reaction 00 s Sulfur Propensi Active Angelique ty to 4-08 Sey[facility] adverse 00:00: reaction 00 s SULFUR DRUG Active High SOB Univers INGREDI 3-18 ity of 00:00: [address] Branch Sulfur Propensi Active Shortness Of Says she [facility] Bre[facility] 3-18 [facility]: breath Medical reaction 00 Center s Sulfa DA Active SV [facility] (Sulfona 1-03 [facility] 00:00: [facility] Antibiot 00 are ics) Medical Center Sulfa DA Active SV CAN'T 2020 [facility] Antibiot 00 are ics) Medical Center Sulfa Propensi Active Rash Univers (Sulfona ty to 2-06 ity of mide adverse 00:00: [place] Antibiot reaction 00 Medica l ics) s Branch Penicill Propensi Active Rash Univer s ins ty to 2-06 ity of adverse 00:00: [place] reaction 00 Medical s Branch PENICILL Drug Active Rash Univers INS Class 2-06 ity of 00:00: [place] 00 Medical Branch SULFA Drug Active Rash Univers (SULFONA Class 2-06 ity of MIDE 00:00: [place] ANTIBIOT 00 Medical ICS) Branch Adhesive Propensi Active Rash Angelique ty to 1-12 [facility] adverse 00:00: reaction 00 s Adhesive Propensi Active Rash Univer s ty to 1-12 ity of adverse 00:00: [place] reaction 00 Medical s Branch ADHESIVE Drug Active Rash Univers Class 1-12 ity of 00:00: [place] 00 Medical Branch Penicill DA Active MO [facility] ins 09-15 [place] 00:00: [facility] 00 [facility] Sulfa DA Active SV [facility] (Sulfona 09-15 [facility] [place] 00:00: Orthope Antibiot 00 dic ics) Hospita l adhesive DA Active MO [facility] tape 09-15 [place] 00:00: Orthope 00 dic Hospita l Penicill DA Active MO ITCH [facility] ins 09-15 [place] 00:00: Orthope 00 dic Hospita l Sulfa DA Active SV CANT BREATH [facility] Antibiot 00 dic ics) Hospita l adhesive DA Active MO RASH [facility] tape 09-15 [place] 00:00: Orthope 00 dic Hospita l Penicill Propensi Active Shortness Of 2015-09 [facility] ins ty to Breath 09-05 st adverse 00:00: Hospita reaction 00 l s to drug Penicill Propensi Active Shortness Of 2015-09 Methodi ins ty to Breath 09-05 st adverse 00:00: Hospita reaction 00 l s to drug Sulfa Propensi Active Shortness Of 2015-09 [facility] th[facility] (Sulfona ty to Breath 09-05 st mide adverse 00:00: Hospita Antibiot reaction 00 l ics) s to drug Sulfa Propensi Active Anaphylaxis 2014-09 Can't [place] Antibiot ty to 0-12 breathe [place] ics adverse 00:00: of reaction 00 Medicin s to e drug Penicill Propensi Active Shortness Of [place] ins ty to Breath 6-12 College adverse 00:00: of reaction 00 Medicin s to e drug Penicill Propensi Active Shortness of Angelique ins ty to Breath 6-12 [facility] adverse 00:00: reaction 00 s SULFUR Allergy Active [facility] Social History Social Habit Start Date Stop Date Quantity Comments Source History SDOH [facility] Alcohol Frequency Hospita l History SDOH [facility] Alcohol Std Drinks Hospit al History SDOH [facility] Sexual orientation [facility] Exposure to 2022-04-22 2022-05-02 Not sure [facility]-CoV-2 (event) 00:00:00 19:16:00 [facility] Tobacco use and 2017-12-16 2017-12-16 Smokeless Universit y of exposure 00:00:00 00:00:00 tobacco non-user [facility] Alcohol intake 2016-07-07 2016-07-07 Current drinker [facility] 00:00:00 00:00:00 of alcohol [facility] (finding) Alcohol Comment 2016-07-06 2016-07-06 socially [facility]ast[facility]arian 00:00:00 00:00:00 Hospital Sex Assigned At [birth year] [facility] 00:00:00 00:00:00 Medical Center Smoking Status Start Date Stop Date Source Never smoked tobacco [facility] Medications Ordered Filled Start Stop Current Ordering Indication Dosage Frequency Signature Comments Components Source Medication Medication Date Date Medication? Clinician (SIG) Name Name gabapentin Yes 1 capsule Un sheila 300 mg 3-21 ity of capsule 19:22: [address] tiZANidine Yes 1 tablet Uni vers 2 mg tablet 3-21 as needed ity of 19:22: [address] atorvastati Yes 10mg Take 1 Univ ers n 10 mg 3-21 tablet by ity of tablet 19:21: mouth at [place] 02 bedtime. Medical Branch hydroCHLORO 0 Yes 12.5mg Take 1 Un sheila thiazide 3-21 capsule by ity o f 12.5 mg 19:21: mouth in [place] capsule 02 the Medical morning. Branch valsartan-h 2022-0 Yes 1{tbl} Take 1 Un sheila ydrochlorot 3-21 tablet by ity of hiazide 19:21: mouth in [place] 160-12.5 mg 02 the Medical per tablet morning. Branc h estradiol 1 2022-0 Yes 1mg Take 1 Univ ers mg tablet 3-21 tablet by ity o f 19:21: mouth in [place] 02 the Medical morning. Branch PANTOPRAZOL Yes 40mg Take 40 mg Univers E SODIUM 3-21 by mouth. ity of (PANTOPRAZO 19:21: [place] LE ORAL) 02 Medical Branch allopurinol 0 Yes 100mg Take 1 Uni vers 100 mg 3-21 tablet by ity of tablet 19:21: mouth in [place] 02 the Medical morning. Branch levothyroxi 0 Yes 50ug Take 1 Univ ers ne 50 mcg 3-21 tablet by ity o f tablet 19:21: mouth [place] 02 every Medical morning. Branch DULoxetine 0 Yes 30mg Take 1 Unive rs 30 mg 3-21 capsule by ity of capsule 19:21: mouth in [place] 02 the Medical morning. Branch benzonatate 0 Yes [id number] 200mg Take 2 Univers 100 mg 3-21 capsules ity of capsule 00:00: by mouth [place] 00 every 8 Medical (eight) Branch hours as needed for Cough. ondansetron 2022-0 Yes [id number] 4mg Take 1 Univers 4 mg 3-21 tablet by ity of disintegrat 00:00: mouth [place] ing tablet 00 every 8 Medica l (eight) Branch hours as needed for Nausea and Vomiting (N/V). ibuprofen 2022-0 Yes [id number] 600mg Take 1 U nivers 600 mg 3-21 tablet by ity of tablet 00:00: mouth [place] 00 every 6 Medical (six) Branch hours as needed for Pain (scale 4-6) or Pain (scale 1-3). Estradiol 2021-0 Yes 1{patch Place 1 Ke lsey 0.05 3-01 } patch onto Seybold MG/24HR 10:40: the skin transdermal 47 once a PATCH week BIWEEKLY Gabapentin Yes 1{capsu Take 1 Ke lsey 300 MG oral 3- le} capsule by Se ybold Capsule 10:40: mouth 47 daily hydroCHLORO Yes 1{tbl} Take 1 Ke lsey thiazide 3- tablet by Seybol d 12.5 MG 10:40: mouth oral Tablet 47 daily Meloxicam Yes 1{tbl} Take 1 Vanessa ey 15 MG oral 3 tablet by Seyb old Tablet 10:40: mouth 47 daily Omeprazole Yes 1{capsu Take 1 Ke lsey 40 MG oral 3- le} capsule by Sey bold Delayed 10:40: mouth 3 Release 47 times Capsule daily Influenza Yes Fluzone Kelse y Vac Split 11-02 High-Dose Seybo ld High-Dose 10:40: (Fluzone 47 (PF) 180 High-Dose) mcg/0.5 mL 0.5 ML intramuscu intramuscul lar ar syringe Suspension ADM 0.5ML Prefilled IM UTD Syringe Zoster Vac Yes Shingrix Jonathan sey Recomb 11-02 (PF) 50 Seybold Adjuvanted 10:40: mcg/0.5 mL (Shingrix) 47 intramuscu 50 lar MCG/0.5ML suspension intramuscul , kit ar Recon Susp Losartan Yes 1{tbl} Take 1 Kelse y Potassium-H - tablet by Michelle noble CTZ 50-12.5 10:40: mouth MG oral 47 Tablet Venlafaxine Yes [id number] 37.5mg Take 1 Angelique HCl 37.5 MG 11-02 tablet Seybol d oral Tablet 00:00: (37.5 mg 00 total) by mouth daily Duloxetine 2021- No 30mg Take 30 mg Angelique HCl 30 MG 10-05 by mouth [address] 09:55: 00:00 times Particles 08 :00 daily Estradiol Yes 1{patch Place 1 Ke lsey 0.05 2- } patch onto Seybold MG/24HR 09:38: the skin transdermal 14 once a PATCH week BIWEEKLY Gabapentin Yes 1{capsu Take 1 Ke lsey 300 MG oral 2-01 le} capsule by Se ybold Capsule 09:38: mouth 14 daily hydroCHLORO Yes 1{tbl} Take 1 Ke lsey thiazide 2-01 tablet by Seybol d 12.5 MG 09:38: mouth oral Tablet 14 daily Meloxicam Yes 1{tbl} Take 1 Vanessa ey 15 MG oral 2-01 tablet by Kim old Tablet 09:38: mouth 14 daily Omeprazole Yes 1{capsu Take 1 Ke lsey 40 MG oral 2-01 le} capsule by Michelle aide Delayed 09:38: mouth 3 Release 14 times Capsule daily Influenza Yes Fluzone Kelse y Vac Split - High-Dose Seybo ld High-Dose 09:38: (Fluzone 14 (PF) 180 High-Dose) mcg/0.5 mL 0.5 ML intramuscu intramuscul lar ar syringe Suspension ADM 0.5ML Prefilled IM UTD Syringe Zoster Vac Yes Shingrix Jonathan sey Recomb 2-01 (PF) 50 Seybold Adjuvanted 09:38: mcg/0.5 mL (Shingrix) 14 intramuscu 50 lar MCG/0.5ML suspension intramuscul , kit ar Recon Susp Losartan Yes 1{tbl} Take 1 Kelse y Potassium-H 2-01 tablet by Michelle noble CTZ 50-12.5 09:38: mouth MG oral 14 Tablet Doxycycline Yes [id number] 100mg Take 1 Angelique Hyclate 100 2-01 tablet Seybol d MG oral 00:00: (100 mg Tablet 00 total) by mouth 2 times daily Duloxetine Yes [id number] 30mg Take 1 K elsey HCl 30 MG 2-01 capsule Seybold oral Cap DR 00:00: (30 mg Particles 00 total) by mouth 3 times daily Doxycycline Yes [id number] 100mg Take 1 Angelique Hyclate 100 2-01 tablet Seybol d MG oral 00:00: (100 mg Tablet 00 total) by mouth 2 times daily Duloxetine Yes [id number] 30mg Take 1 K elsey HCl 30 MG 2-01 capsule Seybold oral Cap DR 00:00: (30 mg Particles 00 total) by mouth 3 times daily Cetirizine Yes 10mg Take 10 mg K elsey 10 MG oral 1-10 by mouth Seybo ld Tablet 00:00: daily 00 levoFLOXaci Yes TAKE 1 Vanessa ey n 500 MG 1-10 TABLET BY Seybol d oral Tablet 00:00: MOUTH 00 EVERY 24 HOURS FOR 7 DAYS Ondansetron Yes 8mg Q8H Take 8 mg K elsey (ZOFRAN) 8 1-10 by mouth Seybo ld MG oral 00:00: every 8 tablet 00 hours as needed Cetirizine Yes 10mg Take 10 mg K elsey 10 MG oral 1-10 by mouth Seybo ld Tablet 00:00: daily 00 levoFLOXaci Yes TAKE 1 Vanessa ey n 500 MG 1-10 TABLET BY Seybol d oral Tablet 00:00: MOUTH 00 EVERY 24 HOURS FOR 7 DAYS Ondansetron Yes 8mg Q8H Take 8 mg K elsey (ZOFRAN) 8 1-10 by mouth Seybo ld MG oral 00:00: every 8 tablet 00 hours as needed ondansetron Yes [id number] 8mg Take 1 Univers 8 mg tablet 1-10 tablet by ity of 00:00: mouth [place] 00 every 8 Medical (eight) Branch hours as needed for Nausea and Vomiting (N/V). cetirizine Yes [id number] 10mg Take 1 U nivers (ZYRTEC) 10 1-10 tablet by ity of mg tablet 00:00: mouth [place] 00 daily. Medical Branch ondansetron Yes [id number] 8mg Take 1 Univers 8 mg tablet 1-10 tablet by ity of 00:00: mouth [place] 00 every 8 Medical (eight) Branch hours as needed for Nausea and Vomiting (N/V). cetirizine 2021-0 Yes [id number] 10mg Take 1 U nivers (ZYRTEC) 10 1-10 tablet by ity of mg tablet 00:00: mouth [place] 00 daily. Medical Branch ondansetron Yes [id number] 8mg Take 1 Univers 8 mg tablet 1-10 tablet by ity of 00:00: mouth [place] 00 every 8 Medical (eight) Branch hours as needed for Nausea and Vomiting (N/V). cetirizine 2021-0 Yes [id number] 10mg Take 1 U nivers (ZYRTEC) 10 1-10 tablet by ity of mg tablet 00:00: mouth [place] 00 daily. Medical Branch ondansetron 2021-0 Yes [id number] 8mg Take 1 Univers 8 mg tablet 1-10 tablet by ity of 00:00: mouth [place] 00 every 8 Medical (eight) Branch hours as needed for Nausea and Vomiting (N/V). cetirizine 2021-0 Yes [id number] 10mg Take 1 U nivers (ZYRTEC) 10 1-10 tablet by ity of mg tablet 00:00: mouth [place] 00 daily. Medical Branch ondansetron 2021-0 Yes [id number] 8mg Take 1 Univers 8 mg tablet 1-10 tablet by ity of 00:00: mouth [place] 00 every 8 Medical (eight) Branch hours as needed for Nausea and Vomiting (N/V). cetirizine 2021-0 Yes [id number] 10mg Take 1 U nivers (ZYRTEC) 10 1-10 tablet by ity of mg tablet 00:00: mouth [place] 00 daily. Medical Branch ondansetron 2021-0 Yes [id number] 8mg Take 1 Univers 8 mg tablet 1-10 tablet by ity of 00:00: mouth [place] 00 every 8 Medical (eight) Branch hours as needed for Nausea and Vomiting (N/V). cetirizine 2021-0 Yes [id number] 10mg Take 1 U nivers (ZYRTEC) 10 1-10 tablet by ity of mg tablet 00:00: mouth [place] 00 daily. Medical Branch ondansetron 2021-0 Yes [id number] 8mg Take 1 Univers 8 mg tablet 1-10 tablet by ity of 00:00: mouth [place] 00 every 8 Medical (eight) Branch hours as needed for Nausea and Vomiting (N/V). cetirizine 2021-0 Yes [id number] 10mg Take 1 U nivers (ZYRTEC) 10 1-10 tablet by ity of mg tablet 00:00: mouth [place] 00 daily. Medical Branch cetirizine 2021-0 Yes [id number] 10mg Take 1 U nivers (ZYRTEC) 10 1-10 tablet by ity of mg tablet 00:00: mouth [place] 00 daily. Medical Branch ondansetron 2022- No [id number] 8mg Take 1 Univers 8 mg tablet 1-10 03-21 tablet by it y of 00:00: 00:00 mouth [place] 00 :00 every 8 Medical (eight) Branch hours as needed for Nausea and Vomiting (N/V). diazePAM 5 2020-09 Yes TAKE 1 Kelse y MG oral 2-09 TABLET BY Seybold Tablet 00:00: MOUTH 00 EVERY DAY FOR 1 DAY NEEDED diazePAM 5 2020-09 Yes TAKE 1 Kelse y MG oral 2-09 TABLET BY Seybold Tablet 00:00: MOUTH 00 EVERY DAY FOR 1 DAY NEEDED Allopurinol 2020-09 Yes TAKE 1 Vanessa ey 100 MG oral 1-29 TABLET(100 Se ybold Tablet 00:00: MG) BY 00 MOUTH DAILY Allopurinol 2020-09 Yes TAKE 1 Vanessa ey 100 MG oral 1-29 TABLET(100 Se ybold Tablet 00:00: MG) BY 00 MOUTH DAILY Duloxetine 2020-09- No 60mg Take 1 Vanessa ey HCl 60 MG 0-26 02- capsule Seybol d oral Cap DR 00:00: 00:00 (60 mg Particles 00 :00 total) by mouth daily Duloxetine Yes 30mg Take 30 mg K elsey HCl 30 MG 9-20 by mouth 3 Seyb old oral Cap DR 14:03: times Particles 39 daily Estradiol Yes 1{patch Place 1 Ke lsey 0.05 9-20 } patch onto Seybold MG/24HR 14:03: the skin transdermal 39 once a PATCH week BIWEEKLY Gabapentin Yes 1{capsu Take 1 Ke lsey 300 MG oral 9-20 le} capsule by Se ybold Capsule 14:03: mouth 39 daily hydroCHLORO Yes 1{tbl} Take 1 Ke lsey thiazide 9-20 tablet by Seybol d 12.5 MG 14:03: mouth oral Tablet 39 daily Meloxicam Yes 1{tbl} Take 1 Vanessa ey 15 MG oral 9-20 tablet by Seyb old Tablet 14:03: mouth 39 daily Omeprazole Yes 1{capsu Take 1 Ke lsey 40 MG oral 9-20 le} capsule by Michelle noble Delayed 14:03: mouth 3 Release 39 times Capsule daily Influenza Yes Fluzone Kelse y Vac Split 05-24 High-Dose Seybo ld High-Dose 14:03: (Fluzone 39 (PF) 180 High-Dose) mcg/0.5 mL 0.5 ML intramuscu intramuscul lar ar syringe Suspension ADM 0.5ML Prefilled IM UTD Syringe Zoster Vac Yes Shingrix Jonathan sey Recomb 9-20 (PF) 50 Seybold Adjuvanted 14:03: mcg/0.5 mL (Shingrix) 39 intramuscu 50 lar MCG/0.5ML suspension intramuscul , kit ar Recon Susp Losartan Yes 1{tbl} Take 1 Kelse y Potassium-H -20 tablet by Michelle noble CTZ 50-12.5 14:03: mouth MG oral 39 Tablet Fluconazole 2020- No [id number] 150mg Take 1 Angelique 150 MG oral 9-20 05-25 tablet Seybo ld Tablet 00:00: 04:59 (150 mg 00 :00 total) by mouth once for 1 dose Allopurinol Yes TAKE 1 Vansesa ey 100 MG oral 9-13 TABLET(100 Se ybold Tablet 00:00: MG) BY 00 MOUTH DAILY Nitrofurant Yes [id number] 100mg Take 1 Angelique oin Monohyd 9-08 capsule Seybo ld Macro 100 00:00: (100 mg MG oral 00 total) by Capsule mouth 2 times daily Nitrofurant Yes [id number] 100mg Take 1 Angelique oin Monohyd 9-08 capsule Seybo ld Macro 100 00:00: (100 mg MG oral 00 total) by Capsule mouth 2 times daily Nitrofurant Yes [id number] 100mg Take 1 Angelique oin Monohyd 9-08 capsule Seybo ld Macro 100 00:00: (100 mg MG oral 00 total) by Capsule mouth 2 times daily Losartan Yes 1{tbl} Take 1 Kelse y Potassium-H 9-07 tablet by Michelle noble CTZ 50-12.5 13:39: mouth MG oral 45 Tablet Duloxetine Yes 30mg Take 30 mg K elsey HCl 30 MG 05-11 by mouth [address] Seyb [address] oral Cap DR 13:39: times Particles 44 daily Estradiol Yes 1{patch Place 1 Ke lsey 0.05 05-11 } patch onto Seybold MG/24HR 13:39: the skin transdermal 44 once a PATCH week BIWEEKLY Gabapentin Yes 1{capsu Take 1 Ke lsey 300 MG oral 05-11 le} capsule by Se ybold Capsule 13:39: mouth 44 daily hydroCHLORO Yes 1{tbl} Take 1 Ke lsey thiazide 05-11 tablet by Seybol d 12.5 MG 13:39: mouth oral Tablet 44 daily Meloxicam Yes 1{tbl} Take 1 Vanessa ey 15 MG oral 05-11 tablet by Seyb old Tablet 13:39: mouth 44 daily Omeprazole Yes 1{capsu Take 1 Ke lsey 40 MG oral 05-11 le} capsule by Michelle bold Delayed 13:39: mouth 3 Release 44 times Capsule daily Influenza Yes Fluzone Kelse y Vac Split 05-11 High-Dose Seybo ld High-Dose 13:39: (Fluzone 44 (PF) 180 High-Dose) mcg/0.5 mL 0.5 ML intramuscu intramuscul lar ar syringe Suspension ADM 0.5ML Prefilled IM UTD Syringe Zoster Vac Yes Shingrix Jonathan sey Recomb 05-11 (PF) 50 Seybold Adjuvanted 13:39: mcg/0.5 mL (Shingrix) 44 intramuscu 50 lar MCG/0.5ML suspension intramuscul , kit ar Recon Susp Ciprofloxac Yes 500mg Take 500 K elsey in HCl 500 8-28 mg by Seybold MG oral 00:00: mouth Tablet 00 every 12 hours FOR 7 DAYS Ciprofloxac Yes 500mg Take 500 K elsey in HCl 500 8-28 mg by Seybold MG oral 00:00: mouth Tablet 00 every 12 hours FOR 7 DAYS Ciprofloxac Yes 500mg Take 500 K elsey in HCl 500 8-28 mg by Seybold MG oral 00:00: mouth Tablet 00 every 12 hours FOR 7 DAYS Ciprofloxac Yes 500mg Take 500 K elsey in HCl 500 8-28 mg by Seybold MG oral 00:00: mouth Tablet 00 every 12 hours FOR 7 DAYS Promethazin Yes [id number] 25mg Q6H Take 1 Angelique e HCl 25 MG 8-25 tablet (25 Se ybold oral Tablet 00:00: mg total) 00 by mouth every 6 hours as needed for nausea Promethazin Yes [id number] 25mg Q6H Take 1 Angelique e HCl 25 MG 8-25 tablet (25 Se ybold oral Tablet 00:00: mg total) 00 by mouth every 6 hours as needed for nausea Nitrofurant Yes [id number] 100mg Take 1 Angelique oin Monohyd 8-25 capsule Seybo ld Macro 100 00:00: (100 mg MG oral 00 total) by Capsule mouth 2 times daily Promethazin Yes [id number] 25mg Q6H Take 1 Angelique e HCl 25 MG 8-25 tablet (25 Se ybold oral Tablet 00:00: mg total) 00 by mouth every 6 hours as needed for nausea Promethazin Yes [id number] 25mg Q6H Take 1 Angelique e HCl 25 MG 8-25 tablet (25 Se ybold oral Tablet 00:00: mg total) 00 by mouth every 6 hours as needed for nausea Atorvastati Yes 10mg Take 1 Vanessa ey n Calcium 8-10 tablet (10 Seyb old 10 MG oral 00:00: mg total) Tablet 00 by mouth at bedtime Valsartan-h Yes 1{tbl} Take 1 Ke lsey ydroCHLOROt 8-10 tablet by Sey bold hiazide 00:00: mouth 160-12.5 MG 00 daily oral Tablet Atorvastati Yes 10mg Take 1 Vanessa ey n Calcium 8-10 tablet (10 Seyb old 10 MG oral 00:00: mg total) Tablet 00 by mouth at bedtime Valsartan-h Yes 1{tbl} Take 1 Ke lsey ydroCHLOROt 8-10 tablet by Sey bold hiazide 00:00: mouth 160-12.5 MG 00 daily oral Tablet Atorvastati 2021-0 Yes 10mg Take 1 Vanessa ey n Calcium 8-10 tablet (10 Seyb old 10 MG oral 00:00: mg total) Tablet 00 by mouth at bedtime Valsartan-h Yes 1{tbl} Take 1 Ke lsey ydroCHLOROt 8-10 tablet by Sey bold hiazide 00:00: mouth 160-12.5 MG 00 daily oral Tablet Atorvastati Yes 10mg Take 1 Vanessa ey n Calcium 8-10 tablet (10 Seyb old 10 MG oral 00:00: mg total) Tablet 00 by mouth at bedtime Valsartan-h Yes 1{tbl} Take 1 Ke lsey ydroCHLOROt 8-10 tablet by Sey bold hiazide 00:00: mouth 160-12.5 MG 00 daily oral Tablet Duloxetine Yes 60mg Take 60 mg K elsey HCl 60 MG 8-07 by mouth Seybol d oral Cap DR 00:00: daily Particles 00 Duloxetine Yes 60mg Take 60 mg K elsey HCl 60 MG 8-07 by mouth Seybol d oral Cap DR 00:00: daily Particles 00 Levothyroxi Yes TAKE 1 Vanessa ey ne Sodium 7-25 TABLET(100 Seyb old 100 MCG 00:00: MCG) BY oral Tablet 00 MOUTH EVERY MORNING Levothyroxi Yes TAKE 1 Vanessa ey ne Sodium 7-25 TABLET(100 Seyb old 100 MCG 00:00: MCG) BY oral Tablet 00 MOUTH EVERY MORNING Levothyroxi Yes TAKE 1 Vanessa ey ne Sodium 7-25 TABLET(100 Seyb old 100 MCG 00:00: MCG) BY oral Tablet 00 MOUTH EVERY MORNING Levothyroxi Yes TAKE 1 Vanessa ey ne Sodium 7-25 TABLET(100 Seyb old 100 MCG 00:00: MCG) BY oral Tablet 00 MOUTH EVERY MORNING Omeprazole 2020-0 Yes 20mg Take 20 mg K elsey 20 MG oral 7-15 by mouth 2 Sey bold Delayed 00:00: times Release 00 daily Capsule Omeprazole 2020-0 Yes 20mg Take 20 mg K elsey 20 MG oral 7-15 by mouth 2 Sey bold Delayed 00:00: times Release 00 daily Capsule Omeprazole Yes 20mg Take 20 mg K elsey 20 MG oral 7-15 by mouth 2 Sey bold Delayed 00:00: times Release 00 daily Capsule Omeprazole 1-0 Yes 20mg Take 20 mg K elsey 20 MG oral 7-15 by mouth 2 Sey bold Delayed 00:00: times Release 00 daily Capsule Cyclobenzap 2021-0 Yes 5mg Q8H Take 5-10 K elsey rine HCl 5 6-09 mg by Seybold MG oral 00:00: mouth Tablet 00 every 8 hours as needed methylPREDN 2021-0 Yes See Admin K elsey ISolone 4 6-09 Instructio Seyb old MG oral 00:00: ns Tablet 00 Therapy Pack Cyclobenzap 1-0 Yes 5mg Q8H Take 5-10 K elsey rine HCl 5 6-09 mg by Seybold MG oral 00:00: mouth Tablet 00 every 8 hours as needed methylPREDN 2021-0 Yes See Admin K elsey ISolone 4 6-09 Instructio Seyb old MG oral 00:00: ns Tablet 00 Therapy Pack Cyclobenzap 1-0 Yes 5mg Q8H Take 5-10 K elsey rine HCl 5 6-09 mg by Seybold MG oral 00:00: mouth Tablet 00 every 8 hours as needed methylPREDN 2021-0 Yes See Admin K elsey ISolone 4 6-09 Instructio Seyb old MG oral 00:00: ns Tablet 00 Therapy Pack Cyclobenzap 1-0 Yes 5mg Q8H Take 5-10 K elsey rine HCl 5 6-09 mg by Seybold MG oral 00:00: mouth Tablet 00 every 8 hours as needed methylPREDN 2021-0 Yes See Admin K elsey ISolone 4 6-09 Instructio Seyb old MG oral 00:00: ns Tablet 00 Therapy Pack Tizanidine 1-0 Yes [id number] Take 1-2 Angelique HCl 2 MG 5-12 tabs by Seybold oral Tablet 00:00: mouth 00 every 6-8 hours as needed for muscle spasm. Tizanidine 1-0 Yes [id number] Take 1-2 Angelique HCl 2 MG 5-12 tabs by Sey[facility] oral Tablet 00:00: mouth 00 every 6-8 hours as needed for muscle spasm. Tizanidine 1-0 Yes [id number] Take 1-2 Angelique HCl 2 MG 5-12 tabs by [facility] oral Tablet 00:00: mouth 00 every 6-8 hours as needed for muscle spasm. Tizanidine Yes [id number] Take 1-2 Angelique HCl 2 MG 5-12 tabs by Seybold oral Tablet 00:00: mouth 00 every 6-8 hours as needed for muscle spasm. Allopurinol Yes TAKE 1 Vanessa ey 100 MG oral 4-27 TABLET(100 Se ybold Tablet 00:00: MG) BY 00 MOUTH DAILY Furosemide Yes 1{tbl} Take 1 Jonathan sey 20 MG oral 3-25 tablet by Seyb old Tablet 00:00: mouth 00 daily Furosemide Yes 1{tbl} Take 1 Jonathan sey 20 MG oral 3-25 tablet by Seyb old Tablet 00:00: mouth 00 daily Furosemide Yes 1{tbl} Take 1 Jonathan sey 20 MG oral 3-25 tablet by Seyb old Tablet 00:00: mouth 00 daily Furosemide Yes 1{tbl} Take 1 Jonathan sey 20 MG oral 3-25 tablet by Seyb old Tablet 00:00: mouth 00 daily traMADol-Ac Yes 1{tbl} Take 1 Ke l[place] etaminophen 3-15 tablet by Sey bold 37.5-325 MG 00:00: mouth 3 oral Tablet 00 times daily traMADol-Ac Yes 1{tbl} Take 1 [place] etaminophen 3-15 tablet by Sey bold 37.5-325 MG 00:00: mouth 3 oral Tablet 00 times daily traMADol-Ac Yes 1{tbl} Take 1 [place] etaminophen 3-15 tablet by Sey bold 37.5-325 MG 00:00: mouth 3 oral Tablet 00 times daily traMADol-Ac Yes 1{tbl} Take 1 [place] etaminophen 3-15 tablet by Sey bold 37.5-325 MG 00:00: mouth 3 oral Tablet 00 times daily acetaminoph Yes [id number] 1{tbl} Take 1 Un [facility]ila en-codeine 1-21 tablet by barbie samayoa (TYLENOL-CO 00:00: mouth [place] DEINE #3) 00 every 4 Medical 300-30 mg (four) Branch tablet hours as needed for Pain (scale 7-10). Indication s: acute pain ondansetron 2020-0 Yes [id number] 4mg Take 1 [facility] 4 mg 1-21 [id number] tablet by ity of disintegrat 00:00: mouth [place] ing tablet 00 every 8 Medica l (eight) Branch hours as needed for Nausea and Vomiting (N/V). acetaminoph 2020-0 Yes [id number] 1{tbl} Take 1 Un sheila en-codeine 1-21 tablet by ity of (TYLENOL-CO 00:00: mouth [place] DEINE #3) 00 every 4 Medical 300-30 mg (four) Branch tablet hours as needed for Pain (scale 7-10). Indication s: acute pain ondansetron 2020-0 Yes [id number] 4mg Take 1 [facility] 4 mg 1-21 [id number] tablet by ity of disintegrat 00:00: mouth [place] ing tablet 00 every 8 Medica l (eight) Branch hours as needed for Nausea and Vomiting (N/V). acetaminoph 2020-0 Yes [id number] 1{tbl} Take 1 Un sheila en-codeine 1-21 tablet by ity of (TYLENOL-CO 00:00: mouth [place] DEINE #3) 00 every 4 Medical 300-30 mg (four) Branch tablet hours as needed for Pain (scale 7-10). Indication s: acute pain ondansetron 2020-0 Yes [id number] 4mg Take 1 [facility] 4 mg 1-21 [id number] tablet by ity of disintegrat 00:00: mouth [place] ing tablet 00 every 8 Medica l (eight) Branch hours as needed for Nausea and Vomiting (N/V). acetaminoph 2020-0 Yes [id number] 1{tbl} Take 1 Un sheila en-codeine 1-21 tablet by ity of (TYLENOL-CO 00:00: mouth [place] DEINE #3) 00 every 4 Medical 300-30 mg (four) Branch tablet hours as needed for Pain (scale 7-10). Indication s: acute pain ondansetron 2020-0 Yes [id number] 4mg Take 1 [facility] 4 mg 1-21 [id number] tablet by ity of disintegrat 00:00: mouth [place] ing tablet 00 every 8 Medica l (eight) Branch hours as needed for Nausea and Vomiting (N/V). acetaminoph 2021-0 Yes [id number] 1{tbl} Take 1 Un sheila en-codeine 1-21 tablet by ity of (TYLENOL-CO 00:00: mouth [place] DEINE #3) 00 every 4 Medical 300-30 mg (four) Branch tablet hours as needed for Pain (scale 7-10). Indication s: acute pain ondansetron 2021-0 Yes [id number] 4mg Take 1 [facility] 4 mg 1-21 [id number] tablet by ity of disintegrat 00:00: mouth [place] ing tablet 00 every 8 Medica l (eight) Branch hours as needed for Nausea and Vomiting (N/V). acetaminoph 2020-0 Yes [id number] 1{tbl} Take 1 Un sheila en-codeine 1-21 tablet by ity of (TYLENOL-CO 00:00: mouth [place] DEINE #3) 00 every 4 Medical 300-30 mg (four) Branch tablet hours as needed for Pain (scale 7-10). Indication s: acute pain ondansetron 202-0 Yes [id number] 4mg Take 1 [facility] 4 mg 1-21 [id number] tablet by ity of disintegrat 00:00: mouth [place] ing tablet 00 every 8 Medica l (eight) Branch hours as needed for Nausea and Vomiting (N/V). acetaminoph 2020-0 Yes [id number] 1{tbl} Take 1 Un sheila en-codeine 1-21 tablet by ity of (TYLENOL-CO 00:00: mouth [place] DEINE #3) 00 every 4 Medical 300-30 mg (four) Branch tablet hours as needed for Pain (scale 7-10). Indication s: acute pain ondansetron 2021-0 Yes [id number] 4mg Take 1 [facility] 4 mg 1-21 [id number] tablet by ity of disintegrat 00:00: mouth [place] ing tablet 00 every 8 Medica l (eight) Branch hours as needed for Nausea and Vomiting (N/V). acetaminoph 2020-0 Yes [id number] 1{tbl} Take 1 Un sheila en-codeine 1-21 tablet by ity of (TYLENOL-CO 00:00: mouth [place] DEINE #3) 00 every 4 Medical 300-30 mg (four) Branch tablet hours as needed for Pain (scale 7-10). Indication s: acute pain ondansetron 3- No [id number] 4mg Take 1 [facility] 4 mg 09-24 [id number] tablet by ity of disintegrat 00:00: 00:00 [place] tablet 00 :00 every 8 Medica l (eight) Branch hours as needed for Nausea and Vomiting (N/V). duloxetine 2019-0 Yes duloxetine [facility] (CYMBALTA) 2-06 60 mg [facility] 60 MG 20:35: capsule,de of capsule 13 layed Medicin release e valsartan 2019-0 Yes 160mg Take 160 [place] (DIOVAN) 2-06 mg by [place] 160 MG 20:35: mouth of tablet 13 daily. Medicin e meloxicam 2019-0 Yes 15mg Take 15 mg [facility] (MOBIC) 15 2-06 by mouth Colle ge MG tablet 20:35: daily. of 13 Medicin e allopurinol 2019-0 Yes 100mg Take 100 [facility] (ZYLOPRIM) 2-06 mg by [place] 100 MG 20:35: mouth of tablet 13 daily. Medicin e hydrochloro 2019-0 Yes 12.5mg Take 12.5 [place] thiazide 2-06 mg by [place] 12.5 MG 20:35: mouth of TABS 13 daily. Medicin e omeprazole 2019-0 Yes 40mg Take 40 mg [facility] (PRILOSEC) 2-06 by mouth Colle [facility] 40 MG 20:35: two times of capsule 13 daily. Medicin e levothyroxi 2019-0 Yes 50ug Take 50 [place] ne 2-06 mcg by [place] (SYNTHROID) 20:35: mouth of 50 MCG 13 daily. Medicin tablet e atorvastati Yes 10mg Take 10 mg [facility] n 10 mg 4-14 by mouth ity of tablet 18:16: at [place] 42 bedtime. Medical Branch hydroCHLORO 2017- Yes 12.5mg Take 12.5 [facility] thiazide 4-14 mg by ity of 12.5 mg 18:16: mouth [place] capsule 42 daily. Medical Branch valsartan-h Yes 1{tbl} Take 1 Un sheila ydrochlorot 4-14 tablet by ity of hiazide 18:16: mouth [place] 160-12.5 mg 42 daily. Medica l per tablet Branch estradiol 1 Yes 1mg Take 1 mg U nivers mg tablet 4-14 by mouth ity of 18:16: daily. [place] [address] Medical Branch PANTOPRAZOL 0 Yes 40mg Take 40 mg [facility] E SODIUM 4-14 by mouth. ity of (PANTOPRAZO 18:16: [place] LE ORAL) 42 Medical Branch allopurinol Yes 100mg Take 100 U nivers 100 mg 4-14 mg by ity of tablet 18:16: mouth [place] 42 daily. Medical Branch levothyroxi Yes 50ug Take 50 Uni vers ne 4-14 mcg by ity of (SYNTHROID) 18:16: mouth [place] 50 mcg 42 every Medical tablet morning. Branch DULoxetine Yes 30mg Take 30 mg U nivers 30 mg 4-14 by mouth ity of capsule 18:16: daily. [place] [address] Medical Branch atorvastati Yes 10mg Take 10 mg [facility] n 10 mg 4-14 by mouth ity of tablet 18:16: at [place] 42 bedtime. Medical Branch hydroCHLORO Yes 12.5mg Take 12.5 [facility] thiazide 4-14 mg by ity of 12.5 mg 18:16: mouth [place] capsule 42 daily. Medical Branch valsartan-h Yes 1{tbl} Take 1 Un sheila ydrochlorot 4-14 tablet by ity of hiazide 18:16: mouth [place] 160-12.5 mg 42 daily. Medica l per tablet Branch estradiol 1 Yes 1mg Take 1 mg U nivers mg tablet 4-14 by mouth ity of 18:16: daily. [place] [address] Medical Branch PANTOPRAZOL 0 Yes 40mg Take 40 mg [facility] E SODIUM 4-14 by mouth. ity of (PANTOPRAZO 18:16: [place] LE ORAL) Medical Branch allopurinol 0 Yes 100mg Take 100 U nivers 100 mg 4-14 mg by ity of tablet 18:16: mouth [place] 42 daily. Medical Branch levothyroxi 0 Yes 50ug Take 50 Uni vers ne 4-14 mcg by ity of (SYNTHROID) 18:16: mouth [place] 50 mcg 42 every Medical tablet morning. Branch DULoxetine Yes 30mg Take 30 mg U nivers 30 mg 4-14 by mouth ity of capsule 18:16: daily. [place] [address] Medical Branch atorvastati 2017-0 Yes 10mg Take 10 mg [facility] n 10 mg 4-14 by mouth ity of tablet 18:16: at [place] 42 bedtime. Medical Branch hydroCHLORO 2017-0 Yes 12.5mg Take 12.5 [facility] thiazide 4-14 mg by ity of 12.5 mg 18:16: mouth [place] capsule 42 daily. Medical Branch valsartan-h 2017-0 Yes 1{tbl} Take 1 Un sheila ydrochlorot 4-14 tablet by ity of hiazide 18:16: mouth [place] 160-12.5 mg 42 daily. Medica l per tablet Branch estradiol 1 Yes 1mg Take 1 mg U nivers mg tablet 4-14 by mouth ity of 18:16: daily. [place] [address] Medical Branch PANTOPRAZOL 0 Yes 40mg Take 40 mg [facility] E SODIUM 4-14 by mouth. ity of (PANTOPRAZO 18:16: [place] LE ORAL) Medical Branch allopurinol 0 Yes 100mg Take 100 U nivers 100 mg 4-14 mg by ity of tablet 18:16: mouth [place] 42 daily. Medical Branch levothyroxi 0 Yes 50ug Take 50 Uni vers ne 4-14 mcg by ity of (SYNTHROID) 18:16: mouth [place] 50 mcg 42 every Medical tablet morning. Branch DULoxetine Yes 30mg Take 30 mg U nivers 30 mg 4-14 by mouth ity of capsule 18:16: daily. [place] [address] Medical Branch atorvastati 0 Yes 10mg Take 10 mg [facility] n 10 mg 4-14 by mouth ity of tablet 18:16: at [place] [address] bedtime. Medical Branch hydroCHLORO Yes 12.5mg Take 12.5 [facility] thiazide 4-14 mg by ity of 12.5 mg 18:16: mouth [place] capsule 42 daily. Medical Branch valsartan-h 2017-0 Yes 1{tbl} Take 1 Un sheila ydrochlorot 4-14 tablet by ity of hiazide 18:16: mouth [place] 160-12.5 mg 42 daily. Medica l per tablet Branch estradiol 1 Yes 1mg Take 1 mg U nivers mg tablet 4-14 by mouth ity of 18:16: daily. [place] [address] Medical Branch PANTOPRAZOL Yes 40mg Take 40 mg [facility] E SODIUM 4-14 by mouth. ity of (PANTOPRAZO 18:16: [place] LE ORAL) 42 Medical Branch allopurinol 0 Yes 100mg Take 100 U nivers 100 mg 4-14 mg by ity of tablet 18:16: mouth [place] 42 daily. Medical Branch levothyroxi Yes 50ug Take 50 Uni vers ne 4-14 mcg by ity of (SYNTHROID) 18:16: mouth [place] 50 mcg 42 every Medical tablet morning. Branch DULoxetine Yes 30mg Take 30 mg U nivers 30 mg 4-14 by mouth ity of capsule 18:16: daily. [place] [address] Medical Branch atorvastati Yes 10mg Take 10 mg [facility] n 10 mg 4-14 by mouth ity of tablet 18:16: at [place] 42 bedtime. Medical Branch hydroCHLORO Yes 12.5mg Take 12.5 [facility] thiazide 4-14 mg by ity of 12.5 mg 18:16: mouth [place] capsule 42 daily. Medical Branch valsartan-h Yes 1{tbl} Take 1 Un sheila ydrochlorot 4-14 tablet by ity of hiazide 18:16: mouth [place] 160-12.5 mg 42 daily. Medica l per tablet Branch estradiol 1 Yes 1mg Take 1 mg U nivers mg tablet 4-14 by mouth ity of 18:16: daily. [place] [address] Medical Branch PANTOPRAZOL Yes 40mg Take 40 mg [facility] E SODIUM 4-14 by mouth. ity of (PANTOPRAZO 18:16: [place] LE ORAL) Medical Branch allopurinol 0 Yes 100mg Take 100 U nivers 100 mg 4-14 mg by ity of tablet 18:16: mouth [place] 42 daily. Medical Branch levothyroxi 0 Yes 50ug Take 50 Uni vers ne 4-14 mcg by ity of (SYNTHROID) 18:16: mouth [place] 50 mcg 42 every Medical tablet morning. Branch DULoxetine [id number] Yes 30mg Take 30 mg U nivers 30 mg 4-14 by mouth ity of capsule 18:16: daily. [place] [address] Medical Branch atorvastati 0 Yes 10mg Take 10 mg [facility] n 10 mg 4-14 by mouth ity of tablet 18:16: at [place] 42 bedtime. Medical Branch hydroCHLORO Yes 12.5mg Take 12.5 [facility] thiazide 4-14 mg by ity of 12.5 mg 18:16: mouth [place] capsule 42 daily. Medical Branch valsartan-h Yes 1{tbl} Take 1 Un sheila ydrochlorot 4-14 tablet by ity of hiazide 18:16: mouth [place] 160-12.5 mg 42 daily. Medica l per tablet Branch estradiol 1 Yes 1mg Take 1 mg U nivers mg tablet 4-14 by mouth ity of 18:16: daily. [place] [address] Medical Branch PANTOPRAZOL Yes 40mg Take 40 mg [facility] E SODIUM 4-14 by mouth. ity of (PANTOPRAZO 18:16: [place] LE ORAL) Medical Branch allopurinol Yes 100mg Take 100 U nivers 100 mg 4-14 mg by ity of tablet 18:16: mouth [place] 42 daily. Medical Branch levothyroxi Yes 50ug Take 50 Uni vers ne 4-14 mcg by ity of (SYNTHROID) 18:16: mouth [place] 50 mcg 42 every Medical tablet morning. Branch DULoxetine Yes 30mg Take 30 mg U nivers 30 mg 4-14 by mouth ity of capsule 18:16: daily. [place] [address] Medical Branch atorvastati 0 Yes 10mg Take 10 mg [facility] n 10 mg 4-14 by mouth ity of tablet 18:16: at [place] [address] bedtime. Medical Branch hydroCHLORO Yes 12.5mg Take 12.5 [facility] thiazide 4-14 mg by ity of 12.5 mg 18:16: mouth [place] capsule 42 daily. Medical Branch valsartan-h Yes 1{tbl} Take 1 Un sheila ydrochlorot 4-14 tablet by ity of hiazide 18:16: mouth [place] 160-12.5 mg 42 daily. Medica l per tablet Branch estradiol 1 Yes 1mg Take 1 mg U nivers mg tablet 4-14 by mouth ity of 18:16: daily. [place] [address] Medical Branch PANTOPRAZOL 0 Yes 40mg Take 40 mg [facility] E SODIUM 4-14 by mouth. ity of (PANTOPRAZO 18:16: [place] LE ORAL) 42 Medical Branch allopurinol 2018-0 Yes 100mg Take 100 U nivers 100 mg 4-14 mg by ity of tablet 18:16: mouth [place] 42 daily. Medical Branch levothyroxi 2018-0 Yes 50ug Take 50 Uni vers ne 4-14 mcg by ity of (SYNTHROID) 18:16: mouth [place] 50 mcg 42 every Medical tablet morning. Branch DULoxetine 2018-0 Yes 30mg Take 30 mg U nivers 30 mg 4-14 by mouth ity of capsule 18:16: daily. [place] 42 Medical Branch hydrOXYzine 2018-0 Yes [id number] 1-2 tabs [facility] 25 mg 4-14 Every ity of tablet 00:00: 3-6hr as [place] 00 needed for Medical itch or Branch rash, at least 3 times a day. hydrOXYzine 2017-0 Yes [id number] 1-2 tabs [facility] 25 mg 4-14 Every ity of tablet 00:00: 3-6hr as [place] 00 needed for Medical itch or Branch rash, at least 3 times a day. hydrOXYzine 2017-0 Yes [id number] 1-2 tabs [facility] 25 mg 4-14 Every ity of tablet 00:00: 3-6hr as [place] 00 needed for Medical itch or Branch rash, at least 3 times a day. hydrOXYzine 2018-0 Yes [id number] 1-2 tabs [facility] 25 mg 4-14 Every ity of tablet 00:00: 3-6hr as [place] 00 needed for Medical itch or Branch rash, at least 3 times a day. hydrOXYzine 2018-0 Yes [id number] 1-2 tabs [facility] 25 mg 4-14 Every ity of tablet 00:00: 3-6hr as [place] 00 needed for Medical itch or Branch rash, at least 3 times a day. hydrOXYzine 2018-0 Yes [id number] 1-2 tabs [facility] 25 mg 4-14 Every ity of tablet 00:00: 3-6hr as [place] 00 needed for Medical itch or Branch rash, at least 3 times a day. hydrOXYzine 2018-0 Yes [id number] 1-2 tabs [facility] 25 mg 4-14 Every ity of tablet 00:00: 3-6hr as [place] 00 needed for Medical itch or Branch rash, at least 3 times a day. hydrOXYzine 2017-0 Yes [id number] 1-2 tabs [facility] 25 mg 4-14 Every ity of tablet 00:00: 3-6hr as [place] 00 needed for Medical itch or Branch rash, at least 3 times a day. Aspirin 2017-0 Yes 81mg Take 81 mg [place] (ASPIRIN 2-06 by mouth [place] [address]) 81 MG 00:00: daily. of tablet 00 Medicin e ASPIR- 81 2017-0 Yes 81mg Take 1 Univ ers mg EC 2-06 tablet by ity of tablet 00:00: mouth [place] 00 daily. Medical Branch LISINOPRIL 2017-0 Yes 10mg Take 1 Un[facility] rs 10 mg 2-06 tablet by ity of tablet 00:00: mouth at [place] 00 bedtime. Medical Branch meclizine 2017-0 Yes 25mg Take 1 Univer s 25 mg 2-06 tablet by ity of tablet 00:00: mouth [place] 00 every 6 Medical (six) Branch hours. ASPIR 81 2017-0 Yes 81mg Take 1 Univ ers mg EC 2-06 tablet by ity of tablet 00:00: mouth [place] 00 daily. Medical Branch LISINOPRIL 2017-0 Yes 10mg Take 1 Unive rs 10 mg 2-06 tablet by ity of tablet 00:00: mouth at [place] 00 bedtime. Medical Branch meclizine 2017-0 Yes 25mg Take 1 Univer s 25 mg 2-06 tablet by ity of tablet 00:00: mouth [place] 00 every 6 Medical (six) Branch hours. ASPIR-81 81 2017-0 Yes 81mg Take 1 Univ ers mg EC 2-06 tablet by ity of tablet 00:00: mouth [place] 00 daily. Medical Branch LISINOPRIL 2017-0 Yes 10mg Take 1 Unive rs 10 mg 2-06 tablet by ity of tablet 00:00: mouth at [place] 00 bedtime. Medical Branch meclizine 2017-0 Yes 25mg Take 1 Univer s 25 mg 2-06 tablet by ity of tablet 00:00: mouth [place] 00 every 6 Medical (six) Branch hours. ASPIR-81 81 2017-0 Yes 81mg Take 1 Univ ers mg EC 2-06 tablet by ity of tablet 00:00: mouth [place] 00 daily. Medical Branch LISINOPRIL 2017-0 Yes 10mg Take 1 Unive rs 10 mg 2-06 tablet by ity of tablet 00:00: mouth at [place] 00 bedtime. Medical Branch meclizine 2017-0 Yes [...] 00 every 6 Medical (six) Branch hours. valsartan 2015-09 Yes 160mg QD Take 160 [facility] (DIOVAN) 1-[address] 160 MG 08:03: [facility] tablet 15 daily. l DULoxetine 2015-09 Yes 30mg Q.[id number] Take 30 mg [facility] (CYMBALTA) 1-04 [id number] by mouth [address] 30 MG 08:03: 3D (three) [facility]osp[facility] capsule 15 times a l day. thyroid, 2015-09 Yes 120mg QD Take 120 [facility] herb pork, 1-[address] (ARMOUR 08:03: mouth [facility] THYROID) 15 daily. l 120 mg tablet levothyroxi 2015-09 Yes 100ug QD Take 100 M [facility]i ne 1-[address] (SYNTHROID, 08:03: mouth Hospi [facility] LEVOTHROID) 15 every l 100 MCG morning. tablet estradiol 2015-09 Yes 1mg QD Take 1 mg [facility] (ESTRACE) [address] MG tablet 08:03: daily. Hospit a 15 l omeprazole 2015-09 Yes 40mg QD Take 40 mg [facility] (PriLOSEC) [address] 40 MG 08:03: daily. [facility]osp[facility] capsule 15 l gabapentin 2015-09 Yes 300mg Q.[id number] Take 300 [facility] (NEURONTIN) 1-04 [id number] mg by s t 300 MG 08:03: 3D mouth 3 [facility]ospita capsule 15 (three) l times a day. valsartan 2015-09 Yes 160mg QD Take 160 [facility] (DIOVAN) 1-[address] 160 MG 03:03: mouth [facility] tablet 15 daily. l DULoxetine 2015-09 Yes 30mg Q.[id number] Take 30 mg [facility] (CYMBALTA) 1-04 [id number] by mouth [facility] 30 MG 03:03: 3D (three) [facility]ospita capsule 15 times a l day. thyroid, 2015-09 Yes 120mg QD Take 120 Meth herb pork, 1-[address] (ARMOUR 03:03: mouth [facility] THYROID) 15 daily. l 120 mg tablet levothyroxi 2015-09 Yes 100ug QD Take 100 M ethodi ne 1-[address] (SYNTHROID, 03:03: mouth [facility]pi [facility] LEVOTHROID) 15 every l 100 MCG morning. tablet estradiol 2015-09 Yes 1mg QD Take 1 mg [facility] (ESTRACE) [address] MG tablet 03:03: daily. Hospit a 15 l omeprazole 2015-09 Yes 40mg QD Take 40 mg [facility] (PriLOSEC) [address] 40 MG 03:03: daily. [facility]osp[facility] capsule 15 l gabapentin 2015-09 Yes 300mg Q.[id number] Take 300 [facility] (NEURONTIN) 1-04 [id number] mg by s t 300 MG 03:03: 3D mouth 3 [facility]ospita capsule 15 (three) l times a day. valsartan 2015-09 Yes 160mg QD Take 160 [facility] (DIOVAN) 1-[address] 160 MG 03:03: mouth [facility] tablet 15 daily. l DULoxetine 2015-09 Yes 30mg Q.[id number] Take 30 mg [facility] (CYMBALTA) 1-04 [id number] by mouth [facility] [address] 30 MG 03:03: 3D (three) [facility]ospita capsule 15 times a l day. thyroid, 2015-09 Yes 120mg QD Take 120 Meth herb [place], 1-[address] (ARMOUR 03:03: mouth [facility] THYROID) 15 daily. l 120 mg tablet estradiol 2015-09 Yes 1mg QD Take 1 mg [facility] (ESTRACE) 1 09-[address] MG tablet 03:03: daily. Hospit a 15 l omeprazole 2015-09 Yes 40mg QD Take 40 mg [facility] (PriLOSEC) [address] 40 MG 03:03: daily. [facility]osp[facility] capsule 15 l gabapentin 2015-09 Yes 300mg Q.[id number] Take 300 [facility] (NEURONTIN) 1-04 [id number] mg by s t 300 MG 03:03: 3D mouth 3 [facility]ospita capsule 15 (three) l times a day. valsartan 2015-09 Yes 160mg QD Take 160 [facility] (DIOVAN) 1-[address] 160 MG 03:03: mouth [facility] tablet 15 daily. l DULoxetine 2015-09 Yes 30mg Q.[id number] Take 30 mg [facility] (CYMBALTA) 1-04 [id number] by mouth [facility] 30 MG 03:03: 3D (three) [facility]ospita capsule 15 times a l day. thyroid, 2015-09 Yes 120mg QD Take 120 Meth herb pork, 1-[address] (ARMOUR 03:03: mouth [facility] THYROID) 15 daily. l 120 mg tablet levothyroxi 2015-09 Yes 100ug QD Take 100 M ethodi ne 1-[address] (SYNTHROID, 03:03: mouth [facility] LEVOTHROID) 15 every l 100 MCG morning. tablet levothyroxi 2015-09 Yes 100ug QD Take 100 M ethodi ne 1-[address] (SYNTHROID, 03:03: mouth [facility]pi [facility] LEVOTHROID) 15 every l 100 MCG morning. tablet estradiol 2015-09 Yes 1mg QD Take 1 mg [facility] (ESTRACE) [address] MG tablet 03:03: daily. Hospit a 15 l omeprazole 2015-09 Yes 40mg QD Take 40 mg [facility] (PriLOSEC) [address] 40 MG 03:03: daily. [facility]ospita capsule 15 l gabapentin 2015-09 Yes 300mg Q.[id number] Take 300 [facility] (NEURONTIN) 1-04 [id number] mg by s t 300 MG 03:03: 3D mouth 3 [facility]ospita capsule 15 (three) l times a day. gabapentin Yes 300mg Take 300 [facility] (NEURONTIN) 8-18 mg by [place] 300 MG 00:00: mouth of capsule 00 daily. Medicin e Immunizations Ordered Immunization Filled Immunization Date Status Commen ts Source Name Name Influenza Virus 2021-05-27 Completed Angelique smith Vaccine, Quadrivalent, 00:00:00 High Dose, Age 65 And Up Influenza Virus 2021-05-27 Completed Angelique riveraold Vaccine, Quadrivalent, 00:00:00 High Dose, Age 65 And Up Covid-19 Vaccine 2020-11-29 Completed Angelique palmaboitalo (Moderna), Mrna-lnp, 00:00:00 Guy Protein, Pf, 100 Mcg/0.5ml,IM Covid-19 Vaccine 2020-11-29 Completed Angelique palmabold (Moderna), Mrna-lnp, 00:00:00 Guy Protein, Pf, 100 Mcg/0.5ml,IM Covid-19 Vaccine 2020-11-29 Completed Angelique gonsalesld (Moderna), Mrna-lnp, 00:00:00 Guy Protein, Pf, 100 Mcg/0.5ml,IM Covid-19 Vaccine 2020-11-29 Completed Angelique chung Moderna (Spikevax), 00:00:00 Mrna-lnp, Guy Protein, Pf Covid-19 Vaccine 2020-11-29 Completed Angelique gonsalesld (Moderna), Mrna-lnp, 00:00:00 Guy Protein, Pf, 100 Mcg/0.5ml,IM Covid-19 Vaccine 2020-11-29 Completed Angelique gonsalesld (Moderna), Mrna-lnp, 00:00:00 Guy Protein, Pf, 100 Mcg/0.5ml,IM Covid-19 Vaccine 2020-11-01 Completed Angelique chung (Moderna), Mrna-lnp, 00:00:00 Guy Protein, Pf, 100 Mcg/0.5ml,IM Covid-19 Vaccine 2020-11-01 Completed Angelique chung (Moderna), Mrna-lnp, 00:00:00 Guy Protein, Pf, 100 Mcg/0.5ml,IM Covid-19 Vaccine 2020-11-01 Completed Angelique palmabold (Moderna), Mrna-lnp, 00:00:00 Gyu Protein, Pf, 100 Mcg/0.5ml,IM Covid-19 Vaccine 2020-11-01 Completed Angelique chung Moderna (Spikevax), 00:00:00 Mrna-lnp, Guy Protein, Pf Covid-19 Vaccine 2020-11-01 Completed Angelique gonsalesld (Moderna), Mrna-lnp, 00:00:00 Guy Protein, Pf, 100 Mcg/0.5ml,IM Covid-19 Vaccine 2020-11-01 Completed Angelique palmabold (Moderna), Mrna-lnp, 00:00:00 Guy Protein, Pf, 100 Mcg/0.5ml,IM Shingles SQ (Zostavax) 2017-07-18 Completed Ke lsey Seybold 00:00:00 Shingles SQ (Zostavax) 2017-07-18 Completed Ke lsey Seybold 00:00:00 Shingles SQ (Zostavax) 2017-07-18 Completed Ke lsey Seybold 00:00:00 Shingles SQ (Zostavax) 2017-07-18 Completed Ke lsey Seybold 00:00:00 Tdap- (Boostrix, 2015-11-04 Completed Angelique S eybold Adacel) 00:00:00 Pneumococcal Vaccine, 2015-11-04 Completed Jonathan sey Seybold Polysaccharide 00:00:00 Tdap- (Boostrix, 2015-11-04 Completed Angelique S eybold Adacel) 00:00:00 Pneumococcal Vaccine, 2015-11-04 Completed Jonathan sey [facility] Polysaccharide 00:00:00 Tdap- (Boostrix, 2015-11-04 Completed Angelique S eybold Adacel) 00:00:00 Pneumococcal Vaccine, 2015-11-04 Completed Jonathan sey [facility] Polysaccharide 00:00:00 Tdap- (Boostrix, 2015-11-04 Completed Angelique S eybold Adacel) 00:00:00 Pneumococcal Vaccine, 2015-11-04 Completed Jonathan sey Sey[facility] Polysaccharide 00:00:00 Tdap- (Boostrix, 2012-04-12 Completed Angelique S eybold Adacel) 00:00:00 Tdap- (Boostrix, 2012-04-12 Completed Angelique S eybold Adacel) 00:00:00 Tdap- (Boostrix, 2012-04-12 Completed Angelique S eybold Adacel) 00:00:00 Tdap- (Boostrix, 2012-04-12 Completed Angelique S eybold Adacel) 00:00:00 Vital Signs Vital Name Observation Time Observation Value Comments Source Systolic blood 2022-11-23 00:13:00 134 mm[Hg] Univer sity of pressure [facility] Diastolic blood 2022-11-23 00:13:00 79 mm[Hg] [facility] Heart rate 2022-11-23 00:13:00 98 /min [facility] Body temperature 2022-11-23 00:13:00 37.72 Katie [facility] Respiratory rate 2022-11-23 00:13:00 18 /min [facility] Body height 2022-11-23 00:13:00 160 cm [facility] Body weight 2022-11-23 00:13:00 87.635 kg [facility] BMI 2022-11-23 00:13:00 34.22 kg/m2 [facility] Oxygen saturation in 2022-11-23 00:13:00 95 /min University of Arterial blood by [facility] Pulse oximetry Branch Systolic blood 2022-05-03 00:20:00 125 mm[Hg] Univer [facility] Diastolic blood 2022-05-03 00:20:00 84 mm[Hg] Unive rsity of pressure [facility] Heart rate 2022-05-03 00:18:00 106 /min [facility] [place] [facility] [place] Body temperature 2022-05-03 00:18:00 37.06 Katie [facility] [place] [facility] [place] Respiratory rate 2022-05-03 00:18:00 16 /min Univ ersity of [facility] Body height 2022-05-03 00:18:00 160 cm Universi ty [facility] Medical [place] Body weight 2022-05-03 00:18:00 82.736 kg Universi ty [facility] Medical Branch BMI 2022-05-03 00:18:00 32.31 kg/m2 Universi ty [facility] Medical Branch Oxygen saturation in 2022-05-03 00:18:00 98 /min University of Arterial blood by [facility] Pulse oximetry Branch Systolic blood 2021-11-02 16:35:00 132 mm[Hg] Angelique Seybold pressure Diastolic blood 2021-11-02 16:35:00 64 mm[Hg] Kelse y Seybold pressure Heart rate 2021-11-02 16:35:00 86 /min Angelique S eybold Body temperature 2021-11-02 16:35:00 36.56 Katie Vanessa ey Seybold Respiratory rate 2021-11-02 16:35:00 16 /min Vanessa ey Seybold Body height 2021-11-02 16:35:00 160 cm Angelique S eybold Body weight 2021-11-02 16:35:00 82.555 kg Angelique S eybold BMI 2021-11-02 16:35:00 32.24 kg/m2 Angelique S eybold Systolic blood 2021-10-05 15:27:00 144 mm[Hg] Angelique Seybold pressure Diastolic blood 2021-10-05 15:27:00 64 mm[Hg] Kelse y Seybold pressure Heart rate 2021-10-05 15:27:00 98 /min Angelique S eybold Body temperature 2021-10-05 15:27:00 36.5 Katie Vanessa ey Seybold Respiratory rate 2021-10-05 15:27:00 14 /min Vanessa ey Seybold Body height 2021-10-05 15:27:00 160 cm Angelique S eybold Body weight 2021-10-05 15:27:00 81.194 kg Angelique S eybold BMI 2021-10-05 15:27:00 31.71 kg/m2 Angelique S eybold Systolic blood 2021-05-24 18:59:00 140 mm[Hg] Angelique Seybold pressure Diastolic blood 2021-05-24 18:59:00 68 mm[Hg] Kelse y Seybold pressure Heart rate 2021-05-24 18:59:00 80 /min Angelique S eybold Body temperature 2021-05-24 18:59:00 36.06 Katie Vanessa ey Seybold Respiratory rate 2021-05-24 18:59:00 16 /min Vanessa ey Seybold Body height 2021-05-24 18:59:00 160 cm Angelique S eybold Body weight 2021-05-24 18:59:00 79.833 kg Angelique S eybold BMI 2021-05-24 18:59:00 31.18 kg/m2 Angelique S eybold Systolic blood 2021-05-11 18:36:00 106 mm[Hg] Angelique Seybold pressure Diastolic blood 2021-05-11 18:36:00 58 mm[Hg] Kelse y Seybold pressure Heart rate 2021-05-11 18:36:00 70 /min Angelique S eybold Body temperature 2021-05-11 18:36:00 36.5 Katie Vanessa ey Seybold Respiratory rate 2021-05-11 18:36:00 14 /min Vanessa ey Seybold Body height 2021-05-11 18:36:00 160 cm Angelique S eybold Body weight 2021-05-11 18:36:00 79.379 kg Angelique Saxena eyboitalo BMI 2021-05-11 18:36:00 31.00 kg/m2 Angelique chung Oxygen saturation in 2021-05-11 18:36:00 98 /min Angelique De Los Santos Arterial blood by Pulse oximetry Body height 2019-10-10 20:28:00 160 cm [facility] ollege of [facility] Body weight 2019-10-10 20:28:00 86.183 kg [facility] ollege of Medicine BMI 2019-10-10 20:28:00 33.66 kg/m2 [facility] ollege of Medicine Body height 2019-10-10 20:28:00 160 cm [facility] ollege of Medicine Body weight 2019-10-10 20:28:00 86.183 kg [facility] ollege of Medicine BMI 2019-10-10 20:28:00 33.66 kg/m2 [facility] ollege of Medicine Procedures Procedure Date / Time Performed Performing Clinician Sourc e POCT SARS-COV-2 2022-11-23 00:35:00 Larissa Lee [place] ANTIGEN (BINAX NOW) [facility] PATIENT FINANCIAL 2022-11-23 00:11:51 Doctor Unassigned, No [facility] POLICY Name Medical Branch XR HIPS 2 VW LEFT 2022-05-03 00:55:00 Jesus [facility] XR FOOT 3+ VW LEFT 2022-05-03 00:55:00 [facility] Larissa [facility] XR ANKLE 3+ VW LEFT 2022-05-03 00:55:00 Jesus Larissa [facility] URINALYSIS NONAUTO W/O 2021-05-24 19:34:00 Kelly Beckett SCOPE Somogyi Plan of Care Planned Activity Planned Date Details Comments Source Future Scheduled 2022-12-09 COVID-19 VACCINE (#1) [facility] Test 09:08:48 [code = COVID-19 VACCINE (#1)] Future Scheduled 2022-12-09 BREAST CANCER [facility] Test 09:08:48 SCREENING [code = BREAST CANCER SCREENING] Future Scheduled 2022-12-09 [facility] Test 09:08:48 [code = COLONOSCOPY SCREENING] Future Scheduled 2022-12-09 SHINGLES VACCINES (1 [facility] Test 09:08:48 of 2) [code = SHINGLES VACCINES (1 of 2)] Future Scheduled 2022-12-09 65+ P[facility]UMOCOCCAL [facility] Test 09:08:48 VACCINE (1 - PCV) [code = 65+ PNEUMOCOCCAL VACCINE (1 - PCV)] Future Scheduled 2022-12-09 INFLUENZA VACCINE [facility] Test 09:08:48 [code = INFLUENZA VACCINE] Future Scheduled 2021-08-25 COVID-19 VACCINE (1) Met [facility] Test 16:16:21 [code = COVID-19 VACCINE (1)] Future Scheduled 2021-08-25 BREAST CANCER [facility] Test 16:16:21 SCREENING [code = BREAST CANCER SCREENING] Future Scheduled 2021-08-25 COLONOSCOPY SCREENING [facility] Test 16:16:21 [code = COLONOSCOPY SCREENING] Future Scheduled 2021-08-25 SHINGLES VACCINES (#1) [facility] Test 16:16:21 [code = SHINGLES VACCINES (#1)] Future Scheduled 2021-08-25 65+ PNEUMOCOCCAL [facility] Test 16:16:21 VACCINE (1 of 1 - PPSV23) [code = 65+ PNEUMOCOCCAL VACCINE (1 of 1 - PPSV23)] Future Scheduled 2021-08-25 INFLUENZA VACCINE [facility] Test 16:16:21 [code = INFLUENZA VACCINE] Future Scheduled 2021-08-25 COVID-19 VACCINE (1) [facility] Hospital Test 16:16:21 [code = COVID-19 VACCINE (1)] Future Scheduled 2021-08-25 [facility]AST [facility]CER [facility] Test 16:16:21 SCREENING [code = BREAST CANCER SCREENING] Future Scheduled 2021-08-25 COLONOSCOPY SCREENING [facility] Test 16:16:21 [code = COLONOSCOPY SCREENING] Future Scheduled 2021-08-25 SHINGLES VACCINES (#1) [facility] Test 16:16:21 [code = SHINGLES VACCINES (#1)] Future Scheduled 2021-08-25 65+ PNEUMOCOCCAL [facility] Test 16:16:21 VACCINE (1 of 1 - PPSV23) [code = 65+ PNEUMOCOCCAL VACCINE (1 of 1 - PPSV23)] Future Scheduled 2021-08-25 INFLUENZA VACCINE [facility] Test 16:16:21 [code = INFLUENZA VACCINE] Future Scheduled COVID-19 VACCINE (1) [facility] Test [code = COVID-19 VACCINE (1)] Future Scheduled BREAST CANCER [facility] Test SCREENING [code = BREAST CANCER SCREENING] Future Scheduled [facility]ONOSCOPY [facility]ING [facility] Test [code = COLONOSCOPY SCREENING] Future Scheduled SHINGLES VACCINES (#1) [facility] Test [code = SHINGLES VACCINES (#1)] Future Scheduled 65+ [facility]OCOCCAL [facility] Test VACCINE (1 of 1 - PPSV23) [code = 65+ PNEUMOCOCCAL VACCINE (1 of 1 - PPSV23)] Future Scheduled INFLUENZA VACCINE [facility] Test [code = INFLUENZA VACCINE] Future Scheduled COLON CANCER [facility] ege of Test SCREENING: COLONOSCOPY Medic ine [code = COLON CANCER SCREENING: COLONOSCOPY] Future Scheduled MAMMOGRAM ANNUAL [code [facility] Test = MAMMOGRAM ANNUAL] Medicine Future Scheduled TETANUS SHOT (ADULT) [facility] of Test [code = TETANUS SHOT Medicin e (ADULT)] Future Scheduled BMI FOLLOW UP PLAN [facility] of Test [code = BMI FOLLOW UP Medici ne PLAN] Future Scheduled HEPATITIS C SCREENING Ba [facility] of Test [code = HEPATITIS C Medicine SCREENING] Future Scheduled MEDICARE AWV (Initial) [facility] Test [code = MEDICARE AWV Medicin e (Initial)] Future Scheduled FALL SCREEN [code = [employer] Test FALL SCREEN] Medicine Future Scheduled OSTEOPOROSIS SCREENING B [facility] of Test [code = OSTEOPOROSIS Medicin e SCREENING] Future Scheduled PNEUMOVAX >=65 [facility] llege of Test (PPSV23) [code = Medicine PNEUMOVAX >=65 (PPSV23)] Future Scheduled PREVNAR >= 65 (PCV13) [facility] [employer] [facility] Test [code = PREVNAR >= 65 Medici ne (PCV13)] Future Scheduled FLU VACCINE > [facility] [code = FLU VACCINE > Medici ne 6 MONTHS] Encounters Start End Encounter Admission Attending Care Care Encounter Source Date/Time Date/Time Type Type Clinicians Facility Department ID 2022-07-11 Outpatient [facility] [id number] [place] 14:43:[id number] [place] [address] 2022-06-27 Outpatient [facility] [id number] [place] 15:54:29 [id number] [facility] 2022-06-17 Outpatient [facility] [id number] [place] 10:04:52 [id number] [facility] 2021-11-27 Outpatient [facility] [id number] [place] 04:09:25 [id number] [facility] 2021-07-03 Emergency [facility] [id number] Univers 18:36:53 ity of [facility] 2022-11-22 2022-11-22 Urgent Larissa Lee [facility] 1.2.840.114 [id number] Univers 19:20:00 19:40:00 Care Unknown, Attending [facility] 350.1.13.10 ity of [place] 4.2.7.2.686 Tray as JOON?BLEA [id number] [address] MEDICAL OFFICE BUILDING 2022-11-22 2022-11-22 Outpatient R JESUS [facility] [id number] Univers 19:20:00 19:20:00 [facility] 2022-11-22 2022-11-22 Orders Doctor YA 1.2.840.114 [id number] Univers 00:00:00 00:00:00 Only Unassigned, CONOR 350.1.13.10 [facility] 4.2.7.2.686 Tray as [id number] [address] 2022-11-19 2022-11-19 Outpatient ANGELIQUE BECKETT [id number] Angelique 00:00:00 00:00:00 KELLY jennings 2022-09-20 2022-09-20 Outpatient ANGELIQUE BECKETT [id number] Angelique 00:00:00 00:00:00 KELLY jennings 2022-08-23 2022-08-23 Outpatient ANGELIQUE BECKETT [id number] Angelique 00:00:00 00:00:00 KELLY jennings 2022-07-11 2022-07-11 Outpatient JAY [facility] [id number] [place] 13:30:00 15:35:57 [facility] 2022-05-03 2022-05-03 Drake Lee [facility] 1.2.396.460 [id number] Univers 00:00:00 00:00:00 Larissa HEALTH 350.1.13.10 it y of [place] 4.2.7.2.686 Tray as JOON?BLEA [id number] [facility] [address] MEDICAL OFFICE [facility] 2022-05-03 2022-05-03 [facility] 1.2.840.114 [id number] Univers 00:00:00 00:00:00 Kelly HEALTH 350.1.13.10 it y of [place] 4.2.7.2.686 Tray as JOON?BLEA [id number] [address] MEDICAL OFFICE [facility] 2022-05-02 2022-05-02 [facility] [id number] Univers 19:33:59 23:59:00 LARISSA [facility] 2022-05-02 2022-05-02 [facility] 1.2.840.114 [id number] Univers 19:33:59 23:59:00 Encounter Larissa HEALTH 350.1.13.10 ity of [place] 4.2.7.2.686 Tray as JOON?BLEA [id number] [facility] [address] [place] [address] OFFICE [facility] 2022-05-02 2022-05-02 [facility] 1.2.840.114 [id number] Univers 19:33:59 23:59:00 Encounter Larissa HEALTH 350.1.13.10 ity of [place] 4.2.7.2.686 Tray as JOON?BLEA [id number] [address] MEDICAL OFFICE [facility] 2022-05-02 2022-05-02 [facility] 1.2.840.114 [id number] Univers 19:33:58 23:59:00 Encounter Larissa HEALTH 350.1.13.10 ity of [place] 4.2.7.2.686 Tray as JOON?BLEA [id number] [address] MEDICAL OFFICE [facility] 2022-05-02 2022-05-02 [facility] [id number] Univers 19:20:00 19:44:57 LARISSA ity [facility] 2022-05-022022-05-02 Urgent Song, [facility] 1.2.840.114 [id number] Univers 19:20:00 19:44:57 Care Larissa HEALTH 350.1.13.10 it y of [place] 4.2.7.2.686 Tray as JOON?BLEA [id number] [address] MEDICAL OFFICE [facility] 2022-05-02 2022-05-02 Orders Doctor YA 1.2.840.114 [id number] Univers 00:00:00 00:00:00 Only Unassigned, CONOR 350.1.13.10 ity of [place] [facility] 4.2.7.2.686 Tray as [id number] [facility] [address] [place] 2022-03-14 2022-03-14 Laboratory Only, Ang Db Test [facility] 1.2.8 40.114 [id number] Univers 12:45:00 13:00:00 Only Jackie Karolyn [facility] 350.1.13.10 [facility] 4.2.7.2.686 Tray as JOON?BLEA [id number] [address] MEDICAL OFFICE [facility] 2022-03-14 2022-03-14 Outpatient R JACKIE [facility] [id number] Univers 12:45:00 12:45:00 KAROLYN barbie o f [facility] 2022-03-14 2022-03-14 Letter Doctor YA 1.2.840.114 [id number] Univers 00:00:00 00:00:00 (Out) Unassigned, CONOR 350.1.13.10 ity of [place] [facility] 4.2.7.2.686 Tray as [id number] [facility] [address] [place] 2021-11-30 2021-11-30 Outpatient ANGELIQUE BECKETT [id number] Angelique 13:30:00 13:30:00 KELLY jennings 2021-11-30 2021-11-30 Outpatient ANGELIQUE BECKETT [id number] Angelique 00:00:00 00:00:00 KELLY jennings 2021-11-02 2021-11-02 Office Zachary Beckett 1.2.840.114 [id number] Angelique 10:45:00 11:15:00 Visit Kelly Almonte 350.1.13.13 Se ybold Somogyi 1.2.7.2.686 [id number] 2021-10-05 2021-10-05 Outpatient LAB90 ANGELIQUE MERINO [id number] Angelique 10:05:00 10:05:00 Seybol d 2021-10-05 2021-10-05 Office Zachary Beckett 1.2.840.114 [id number] Angelique 09:30:00 09:45:00 Visit Kelly Almonte 350.1.13.13 Se ybold Somogyi 1.2.7.2.686 [id number] 2021-09-13 2021-09-13 Emergency X LAINEY [facility] ERT [id number] Univers 13:13:00 17:20:00 [facility] 2021-09-13 2021-09-13 [facility] 1.2.958.556 [id number] Univers 13:13:00 17:20:00 Vanessa KIM 350.1.13.10 [facility] 4.2.7.2.686 [facility] [id number] [address] 2021-09-13 2021-09-13 Outpatient ANGELIQUE BECKETT [id number] Angelique 00:00:00 00:00:00 KELLY Alvarezol dick 2021-09-10 2021-09-10 Laboratory Only, Ang Db Test [facility] 1.2.8 40.114 [id number] Univers 12:15:00 12:30:00 Only Kevin Rodríguez Claudio [facility] 350.1.13. 10 [facility] 4.2.7.2.686 Tray as JOON?BLEA [id number] [address] MEDICAL OFFICE BUILDING 2021-09-10 2021-09-10 Outpatient Seth RODRÍGUEZ [facility] [id number] Univers 12:15:00 12:15:00 KEVIN [facility] 2021-08-02 2021-08-02 Outpatient CAROLE CORTEZ [id number] Angelique 00:00:00 00:00:00 Kimol dick 2021-05-24 2021-05-24 Office Zachary Beckett 1.2.840.114 [id number] Angelique 13:45:59 14:15:59 Visit Kelly Almonte 350.1.13.13 Se sarah Bennetthiginio 1.2.7.2.686 [id number] 2021-05-20 2021-05-20 Outpatient ANGELIQUE BECKETT [id number] Angelique 14:00:00 14:00:00 KELLY Seybol d 2021-05-11 2021-05-11 Outpatient LAB90 ANGELIQUE MERINO [id number] Angelique 14:20:00 14:20:00 Seybol d 2021-05-11 2021-05-11 Office PrinceZachary 1.2.840.114 [id number] Angelique 13:33:51 14:03:51 Visit Kelly Almonte 350.1.13.13 Se sarah Rachel 1.2.7.2.686 [id number] 2021-04-30 2021-04-30 Outpatient TESTING, PL ANGELIQUE MERINO [id number] Angelique 15:45:00 15:45:00 Seybol d 2021-04-28 2021-04-28 Outpatient LAB90 ANGELIQUE MERINO [id number] Angelique 15:15:00 15:15:00 Seybol d 2021-04-28 2021-04-28 Outpatient ANGELIQUE BECKETT [id number] Angelique 14:30:00 14:30:00 KELLY ybol d 2021-04-28 2021-04-28 Letter YA Arango 1.2.840.114 [id number] Univers 00:00:00 00:00:00 (Out) Christine PERDOMO 350.1.13.10 it y of [facility] 4.2.7.2.686 Tray as [id number] [address] 2021-04-27 2021-04-27 JOEL Oconnor 1.2.840.114 [id number] Univers 18:54:12 19:14:12 Care [facility] 350.1.13.10 it y of [place] 4.2.7.2.686 Tray as Joon?Blea [id number] Ma haris gonsalez [address] [place] [address] Medical Office Building 2021-04-27 2021-04-27 Outpatient Seth LEE [facility] [id number] Univers 19:00:00 19:00:00 LARISSA ittania of [facility] 2021-04-27 2021-04-27 Outpatient ANGELIQUE BECKETT [id number] Angelique 00:00:00 00:00:00 KELLY jennings 2021-04-27 2021-04-27 Letter Doctor YA 1.2.840.114 [id number] Univers 00:00:00 00:00:00 (Out) Unassigned, CONOR 350.1.13.10 ity of [place] [facility] 4.2.7.2.686 Tray as [id number] [address] 2021-04-27 2021-04-27 Orders Doctor YA 1.2.840.114 [id number] Univers 00:00:00 00:00:00 Only Unassigned, CONOR 350.1.13.10 ity of [place] [facility] 4.2.7.2.686 Tray as [id number] [facility] [address] 2021-04-27 2021-04-27 Letter Doctor YA 1.2.840.114 [id number] Univers 00:00:00 00:00:00 (Out) Unassigned, CONOR 350.1.13.10 ity of [place] [facility] 4.2.7.2.686 Tray as [id number] [facility] [address] 2020-10-01 2020-09-29 Inpatient EL Victoria, [facility]G [id number] [facility] 14:20:00 14:20:00 Vanessa [facility] 2020-09-24 2020-09-24 Emergency Singer [facility] 1.2.163.311 [id number] 13:18:00 17:07:00 Dmitriy Kim 350.1.13.10 [place] 4.2.7.2.686 [place] [id number] 2020-09-24 2020-09-24 Emergency Singer [facility] 1.2.655.302 [id number] [facility] 13:18:00 17:07:00 Dmitriy Kim 350.1.13.10 i ty of [place] 4.2.7.2.686 [facility] [id number] [facility] [address] 2019-11-20 2019-11-20 Outpatient [facility] [id number] [facility] 00:00:00 00:00:00 [id number] 2019-11-04 2019-11-04 Orders Doctor YA 1.2.840.114 [id number] 00:00:00 00:00:00 Only Unassigned, CONOR 350.1.13.10 [place] [facility] 4.2.7.2.686 [id number] 2019-11-04 2019-11-04 Orders Doctor YA 1.2.840.114 [id number] Univers 00:00:00 00:00:00 Only Unassigned, CONOR 350.1.13.10 ity of [place] [facility] 4.2.7.2.686 Tray [id number] [facility] [address] 2019-10-10 2019-10-10 Office Stanislaw, BCM 1.2.840.114 [id number] 14:17:48 16:43:56 Visit Perez AMBULATOR 350.1.13.21 Y 0.2.7.2.686 [id number] 2019-10-10 2019-10-10 Office Stanislaw, BCM 1.2.840.[id number] [place] [address] 14:17:48 16:43:56 Visit Perez AMBULATOR 350.1.13.21 College Y 0.2.7.2.686 [id number] [facility] 810 e 2019-10-07 2019-10-07 Hospital Radiology [facility] 1.2.840.114 [id number] 10:00:00 23:59:00 Encounter Victoriano 350.1.13.10 [place] 4.2.7.2.686 [place] [id number] 2019-10-07 2019-10-07 [facility] Radiology [facility] 1.2.840.114 [id number] Univers 10:00:00 23:59:00 Encounter [place] 350.1.13.10 ity of [place] 4.2.7.2.686 [facility] [id number] [place] [address] Branch 2019-09-13 2019-09-18 Inpatient Manda [facility] ENDO [id number] [facility] 10:30:00 04:41:58 Markie 58 [facility] Center 2019-09-06 2019-09-11 Inpatient EL Manda [facility] ENDO BP00 [id number] [facility] 08:30:00 23:45:52 Markie 88 [facility] Results Test Description Test Time Test Comments Results Result Comments Source POCT SARS-COV-2 ANTIGEN (BINAX NOW) 2022-11-23 00:35:00 Test Item Value Reference Range Interpretation Comme nts POCT SARS-COV-2 ANTIGEN (test code Not Detected Not Detected = 89317-2) On board controls acceptable with Yes C Line (test code = 3574) MARVA (test code = MARVA) accurate development and interpretation of all internal controls Lab Interpretation (test code = Normal 29312-6) [facility]/O [id number] 19:34:00 Test Item Value Reference Range Interpretation Comments UD KETONES (test code = neg 5-160 287793) UD GLUCOSE (test code = neg 100-2000 435960) UD PROTEIN (test code = neg Trace - 2000 mg/dL 372125) UD LEUKOCYTES (test neg Trace - Large @ 2 code = 515348) min. UD NITRITE (test code = neg Neg. - Pos. @ 60 534808) sec. UD UROBILINOGEN (test 0.2 mg/dL 0.2-8 code = 396007) UD PH (test code = See_Comment [Automat ed 850822) message] The sy stem which generated this result transmitted reference range : 5.0 - 8.5 @ 60 sec.. The refer ence range was not u sed to interpret th is result as normal/abnormal . UD BLOOD (test code = neg Neg. - Large @ 60 465024) sec. UD SPECIFIC GRAVITY See_Comment [Automa ann (test code = 410463) message ] The system which generated this result transmitted reference range : 1.000 - 1.030 @ 45 sec.. The refer ence range was not u sed to interpret th is result as normal/abnormal . UD BILIRUBIN (test code neg Neg. - Large @ 45 = 120665) sec. Lab Interpretation Normal (test code = 55306-6) Angelique Didier 19 Asymptomatic I[facility] [id number] 15:12:00 Test Item Value Reference Range Interpretation Comments COVID 19 Asymptomatic IH AG (test NEGATIVE NEGATIVE code = COVNONPUIAG) SURGICAL [id number] 11:39:00 RUN DATE: 09/17/19 [facility] - LAB PAGE 1 RUN TIME: 113 Specimen Inquiry RUN USER: INTERFACE ------- -----PATIENT: JENNIFER VALLADARES LOC: TyreeSEBLE U #: [id number] AGE/SX: 64/F ROOM: RE09/13/19[facility] DR:Markie Holman MD : 53 BED: DIS: STATUS: MAGAN ELLISON TLOC: SPEC #: [id number] RECD: 09/13/19 STATUS: NORMA REQ #: [id number] FACUNDO: 09/13/19 [facility] [address]: Markie Holman MD ENTERED: 01/10/20-1222 SP TYPE: SURG OTHR DR: ORDERED: PATHGM4, PATH SPEC, H E STAIN HISTOLOGY: TISSUE ID BLK PCS CHRIS LEV / PROCEDURE DISPOSITION ____ ___ ___ ___ ___ ASCENDING COL P A 1 3 1 TISSUES: A. ASCENDING COLON POLYP - Ascending Colon Polyp CLINICAL HISTORY Screening Colonoscopy COMMENT Multiple additional tissue levels were examined. FINAL DIAGNOSIS ASCENDING COLON POLYP, BIOPSY: - Non-neoplastic colonic mucosa, not otherwise specified. - No dysplasia or malignancy identified. GROSS DESCRIPTION ASCENDING COLON POLYP: One fragment of pink soft tissue, 0.7 cm. Entirely submitted in one cassette. ELIDA/shruthi MICROSCOPIC DESCRIPTION Microscopic performed. Signed SIGNATURE ON FILE Kierra Angel 09/17/19 1139 END OF REPORT SURGICAL [id number] 12:11:00 RUN DATE: 09/10/19 [facility] - LAB PAGE 1 RUN TIME: 1211 Specimen Inquiry RUN USER: INTERFACE ------ ------PATIENT: JENNIFER VALLDAARES LOC: [facility] U #: [id number] AGE/SX: 64/F ROOM: RE09/06/19[facility] DR: Markie Holman MD : [id number] BED: DIS: STATUS: [facility] TLOC: SPEC #: [id number] RECD: 09/06/19 STATUS: NORMA HERBERTHVel #: [id number] FACUNDO: 09/06/1944 [facility] DR: Markie Holman MD ENTERED: 09/06/19 SP TYPE: SURG OTHR DR: Undefined Provider ORDERED: PATHGM4/2, PATH SPEC, H E STAIN/2, IHC AB STAIN I/2 HISTOLOGY: TISSUE ID BLK PCS CHRIS LEV / PROCEDURE DISPOSITION ____ ___ ___ ___ ___ GASTRIC BIOPSY A 1 3 1 GASTRIC POLYP B 1 [...] A-GASTRIC ANTRUM: Two pieces of tissue which measure2 mm each. Entirely submitted in a single cassette. B-GASTRIC POLYP X2: Three pices of tissue which measure less than 1 mm to 2 mm. Entirely submitted in single cassette. RAB/eb MICROSCOPIC DESCRIPTIONMicroscopic performed. CONTINUED ON NEXT PAGE RUN DATE: 09/10/19 [facility] - LAB PAGE 2 RUN TIME: 1211 Specimen Inquiry RUN USER: INTERFACE SPEC #: [id number] PATIENT: JACQUELYNDUNGLETICIA BLEDSOE #[id number] (Con tinued) - Signed SIGNATURE ON Nata Garcia MD 09/10/19 1211 END OF REPORT
[2022-12-28 10:03] LABS: Absolute Lymphocytes (CBC) 3.1 K/uL (0.7-4.9); Hematocrit 39.6 % (36.0-45.0); MCV 87.2 fL (80-100); MPV 8.3 fL (7.6-11.3); RBC Red Blood Cell Count 4.54 M/uL (3.86-4.86)
[2022-12-28] MEDS ORDERED: AMPICILLIN/SULBACT 1.5GM VIAL ONE (10:16)
[2022-12-28] MEDS ORDERED: NA CHLORIDE 0.9% 100 ML ONE (10:17)
[2022-12-28] MEDS ORDERED: TETANUS & DIPHTHERIA TOX,ADULT 0.5 ML VIAL ONE (10:17)
--- NOTE | 2022-12-28 10:22 | EDPHYS ---
Physician Documentation [facility] Name: Carlos Canada Age: 67 yrs Sex: Female : 1955 Arrival Date: 12/28/2022 Time: 09:01 Bed 12 Private MD: Aakash Maynard V ED Physician Emile Watkins HPI: 12/28 09:39 This 67 yrs old Female presents to ER via Ambulatory with complaints of Laceration To pm1 right hand. 09:39 The patient has a laceration related to: Working on car occurred at home, The injury pm1 was accidental. The laceration(s) is(are) located on the dorsum of right hand just proximal to 4th knuckle. Onset: The symptoms/episode began/occurred yesterday, at 19:00. Associated signs and symptoms: Pertinent positives: Inability to move right ring finger. The patient has not experienced similar symptoms in the past. The patient has not recently seen a physician. 67-year-old female presents ER with complaints of laceration to right hand. Patient was attempting to work on her car, flip a switch in the motor resulting in a laceration to her right hand just proximal to the right fourth knuckle. Patient reports inability to move her fourth right finger since onset of injury. Historical: - Allergies: 09:20 PENICILLINS; ss 09:20 Sulfa (Sulfonamide Antibiotics); ss - PMHx: 09:20 High Cholesterol; Hypertension; Hypothyroidism; ss - Immunization history:: Vaccine Information Sheet provided regarding tetanus vaccine. - Social history:: Smoking status: Patient denies any tobacco usage or history of. ROS: 09:39 Constitutional: Negative for fever, chills, and weight loss. pm1 09:39 Neuro: Negative for headache, weakness, numbness, tingling, and seizure. 09:39 MS/extremity: Positive for decreased range of motion, of the right ring finger. 09:39 Skin: Positive for laceration(s), of the dorsum of right hand. 09:39 All other systems are negative. Exam: 09:39 Constitutional: This is a well developed, well nourished patient who is awake, alert, pm1 and in no acute distress. Head/Face: Normocephalic, atraumatic. 09:39 Back: No spinal tenderness. No costovertebral tenderness. Full range of motion. 09:39 Cardiovascular: Exam negative for acute changes, Rate: normal, Rhythm: regular, Pulses: no pulse deficits are appreciated. 09:39 Respiratory: Exam negative for acute changes, respiratory distress, shortness of breath. 09:39 Abdomen/GI: Exam negative for acute changes, Inspection: obese 09:39 Musculoskeletal/extremity: Extremities: grossly normal except: noted in the dorsum of right hand, just proximal to right knuckle: laceration approximately 2 cm in length 1 cm deep, inability to flex right fourth finger, Circulation is intact in all extremities. Sensation intact. 11:19 ECG was reviewed by the Attending Physician. pm1 Vital Signs: 09:17 BP 134 / 86; Pulse 85; Resp 18; Temp 98(TE); Pulse Ox 97% on R/A; Weight 83.91 kg; ss Height 5 ft. 3 in. ; Pain 9/10; 10:50 BP 135 / 64; Pulse 79; Resp 18; Pulse Ox 98% on R/A; nj1 13:50 BP 144 / 80; Pulse 67; Resp 17; Pulse Ox 99% on R/A; Pain 8/10; nj1 09:17 Body Mass Index 32.77 (83.91 kg, 160.02 cm) ss 09:17 Pain Scale: Adult ss 13:50 Pain Scale: Adult nj1 MDM: 09:05 Patient medically screened. pm1 09:46 Data reviewed: vital signs. pm1 09:46 Independent interpretation of the following test(s) in the Emergency Department X-Ray: pm1 My interpretation is Negative for fracture or dislocation to right hand. 09:46 Differential diagnosis: tendon injury, fracture, dislocation, superficial laceration. pm1 09:46 Consideration of Admission/Observation Discussed with patient need to admit or transfer pm1 for further treatment and evaluation due to concern of tendon laceration to dominant hand. 09:54 I considered the following discharge prescriptions or medication management in the pm1 emergency department Medications were administered in the Emergency Department. See NOV. 09:54 Care significantly affected by the following chronic conditions: Hypertension, pm1 hyperlipidemia. 10:13 Counseling: I had a detailed discussion with the patient and/or guardian regarding: the pm1 historical points, exam findings, and any diagnostic results supporting the discharge/admit diagnosis, radiology results, the need for further work-up and treatment in the hospital. 10:15 Management of patient was discussed with the following: Logistics Planning Manager: Dr Arroyo. Will pm1 take the patient to OR today. Would like NPO, CBC, chest xray, ekg, and antibiotics. 10:17 Management of patient was discussed with the following: Primary Care Provider: Aleyda. pm1 Admit outpatient to Dr Arroyo. Dr Maynard does not need to admit if she is discharged after surgery. 10:22 ED course: Patient's last PO intake of food and water at 1700 yesterday. pm1 10:39 ED course: Patient with anaphylaxis with PCN. Changed abx to vancomycin. pm1 11:20 ED course: Patient was concerned about possible yeast infection after antibiotics. pm1 Patient without any current urinary symptoms. Informed her abx therapy is important for her surgery and yeast infection can be address after surgery if it does occur. 11:23 ED course: Elevated troponin at 115.1 Patient without any chest pain, shortness of pm1 breath. Normal EKG - no STEMI. Patient given ASA in the ER. 12/28 09:22 Order name: CBC with Diff; Complete Time: 10:22 pm12/28 09:22 Order name: BMP; Complete Time: 10:22 pm12/28 09:17 Order name: Hand Right 3 View XRAY; Complete Time: 11:19 pm1 12/28 10:16 Order name: Chest Pa And Lat (2 Views) XRAY pm1 12/28 11:17 Order name: RAD; Complete Time: 11:19 EDMS 12/28 10:16 Order name: EKG; Complete Time: 10:17 pm12/28 09:22 Order name: IV Saline Lock; Complete Time: 09:57 pm1 12/28 10:13 Order name: NPO; Complete Time: 10:21 pm1 12/28 10:16 Order name: EKG - Nurse/Tech; Complete Time: 11:01 pm1 EC:19 Rate is 70 beats/min. Rhythm is regular, Normal Sinus Rhythm with No ectopy. QRS [place] pm1 is Normal. [place] interval is normal. QRS interval is normal. QT interval is normal. No Q waves. T waves are Normal. No ST changes noted. Clinical impression: Normal ECG. Administered Medications: 10:19 Drug: Tetanus-Diphtheria Toxoid IM Adult 0.5 ml {Tape Weaver: [employer]. Exp: nj1 02/12/2024. Lot #: [id number]. } Route: IM; Site: right deltoid; 10:31 Not Given (Physician Discretion; Allergy): Ampicillin-Sulbactam Sodium IVPB 1.5 grams pm1 IVPB once over 30 mins; (mix in 100 mL NS) 10:33 Drug: NS 0.9% IV 1000 ml Route: IV; Rate: 100 ml/hr; Site: right antecubital; nj1 12:50 Follow up: Response: No adverse reaction nj1 10:52 Drug: NS 0.9% IV 250 ml, vancoMYCIN IVPB 1 grams 1 grams Route: IVPB; Rate: 125 ml/hr; nj1 Infused Over: 2 hrs; Site: right antecubital; 12:50 Follow up: Response: No adverse reaction; IV Status: Completed infusion; IV Intake: nj1 250ml Disposition: 17:19 Co-signature as Attending Physician, Emile Watkins MD I reviewed the patient's care rn provided by the Advanced Practice Provider and agree with the diagnosis and treatment plan. Disposition Summary: 12/28/22 10:22 Hospitalization Ordered Hospitalization Status: Observation pm1 Provider: Wilder Arroyo pm1 Location: Telemetry/MedSurg (observation) pm1 Condition: Stable pm1 Problem: new pm1 Symptoms: have improved pm1 Bed/Room Type: Standard pm1 Room Assignment: pm1 Diagnosis - Laceration without foreign body of right hand pm1 - Laceration of extensor muscle, fascia and tendon of right ring finger at wrist and pm1 hand level, initial encounter Forms: - Medication Reconciliation Form pm1 - SBAR form pm1 Signatures: Dispatcher [employer] Emile Joseph MD MD rn Smirch, Shelby, RN RN ss Marinas, Patrick, NP MECHANICAL EQUIPMENT SALES ENGINEER pm1 Sybil Rodas RN RN nj1 Corrections: (The following items were deleted from the chart) 09:54 09:54 Care significantly affected by the following chronic conditions: Hypertension, pm1pm1 10:45 09:39 Musculoskeletal/extremity: Extremities: grossly normal except: noted in the pm1 dorsum of right hand, just proximal to right knuckle: inability to flex right fourth finger, Circulation is intact in all extremities. Sensation intact. pm1
--- NOTE | 2022-12-28 10:22 | ER ---
Nurse's Notes [facility] Name: Carlos Canada Age: 67 yrs Sex: Female : 1955 Arrival Date: 12/28/2022 Time: 09:01 Bed 12 Private MD: Aakash Maynard V Diagnosis: Laceration without foreign body of right hand;Laceration of extensor muscle, fascia and tendon of right ring finger at wrist and hand level, initial encounter Presentation: 12/28 09:17 Chief complaint: Patient states: 1 cm laceration to top of R hand that occurred at 1900 ss last night. 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 Coronavirus screen: Client denies travel out of the [place] in the last 14 days. Ebola Screen: Patient denies exposure to infectious person. Patient denies travel to an Ebola-affected area in the 21 days before illness onset. Complicating Factors: There are no complicating factors for this patient. Initial Sepsis Screen: Does the patient meet any 2 criteria? No. Patient's initial sepsis screen is negative. Does the patient have a suspected source of infection? No. Patient's initial sepsis screen is negative. Risk Assessment: Do you want to hurt yourself or someone else? Patient reports no desire to harm self or others. Onset of symptoms was December 27, 2022. 09:17 Method Of Arrival: Ambulatory 09:17 Acuity: REGINE 4 ss Historical: - Allergies: 09:20 PENICILLINS; ss 09:20 Sulfa (Sulfonamide Antibiotics); ss - PMHx: 09:20 High Cholesterol; Hypertension; Hypothyroidism; ss - Immunization history:: Vaccine Information Sheet provided regarding tetanus vaccine. - Social history:: Smoking status: Patient denies any tobacco usage or history of. Screenin:[address] [facility] ED Fall Risk Assessment (Adult) History of falling in the last 3 months, nj1 including since admission No falls in past 3 months (0 pts) Confusion or Disorientation No (0 pts) Intoxicated or Sedated No (0 pts) Impaired Gait No (0 pts) Mobility Assist Device Used No (0 pt) Altered Elimination No (0 pt) Score/Fall Risk Level 0 - 2 = Low Risk Oriented to surroundings, Maintained a safe environment, Hourly rounding (assess needs \T\ fall precautionary measures) done. Abuse screen: Denies threats or abuse. Denies injuries from another. Nutritional screening: No deficits noted. Tuberculosis screening: No symptoms or risk factors identified. Assessment: 10:15 Reassessment: Patient appears in no apparent distress at this time. Patient and/or nj1 family updated on plan of care and expected duration. Pain level reassessed. Patient is alert, oriented x 3, equal unlabored respirations, skin warm/dry/pink. General: Appears in no apparent distress. comfortable, Behavior is calm, cooperative, appropriate for age. Cardiovascular: Patient's skin is warm and dry. Respiratory: Airway is patent Respiratory effort is even, unlabored. Musculoskeletal: Unable to move right 4th digit. Injury Description: Laceration sustained to right hand is 0.5 to 2.5 cm long, not bleeding. 10:15 Pain: Complains of pain in right hand Pain currently is 8 out of 10 on a pain scale. nj1 11:00 Reassessment: Patient appears in no apparent distress at this time. Patient and/or nj1 family updated on plan of care and expected duration. Pain level reassessed. Patient is alert, oriented x 3, equal unlabored respirations, skin warm/dry/pink. 12:05 Reassessment: Patient appears in no apparent distress at this time. Patient and/or nj1 family updated on plan of care and expected duration. Pain level reassessed. Patient is alert, oriented x 3, equal unlabored respirations, skin warm/dry/pink. On the phone. 13:00 Reassessment: Patient appears in no apparent distress at this time. Patient and/or nj1 family updated on plan of care and expected duration. Pain level reassessed. Patient is alert, oriented x 3, equal unlabored respirations, skin warm/dry/pink. 13:00 Pain: Complains of pain in right hand Pain currently is 9 out of 10 on a pain scale. nj1 13:50 Reassessment: Patient appears in no apparent distress at this time. Patient and/or nj1 family updated on plan of care and expected duration. Pain level reassessed. Patient is alert, oriented x 3, equal unlabored respirations, skin warm/dry/pink. Vital Signs: 09:17 BP 134 / 86; Pulse 85; Resp 18; Temp 98(TE); Pulse Ox 97% on R/A; Weight 83.91 kg; Height 5 ft. 3 in. ; Pain 9/10; 10:50 BP 135 / 64; Pulse 79; Resp 18; Pulse Ox 98% on R/A; nj1 13:50 BP 144 / 80; Pulse 67; Resp 17; Pulse Ox 99% on R/A; Pain 8/10; nj1 09:17 Body Mass Index 32.77 (83.91 kg, 160.02 cm) ss 09:17 Pain Scale: Adult ss 13:50 Pain Scale: Adult [facility] ED Course: 09:02 Patient arrived in ED. mr 09:03 Aakash Maynard MD is Private Physician. mr 09:05 Raji Pacheco NP is PHCP. pm1 09:05 Emile Watkins MD is Attending Physician. pm1 09:20 Triage completed. ss 09:20 Arm band placed on left wrist. ss 09:34 Hand Right 3 View XRAY In Process Unspecified. EDMS 09:57 BMP Sent. bc6 09:57 CBC with Diff Sent. bc6 09:57 Inserted saline lock: 20 gauge in right antecubital area, using aseptic technique. bc6 10:07 Sybil Rodas, KATHLEEN is Primary Nurse. nj1 10:15 Patient has correct armband on for positive identification. Bed in low position. Call [facility] light in reach. 10:21 Wilder Arroyo MD is Hospitalizing Provider. pm1 11:00 Wound care: to laceration located on right hand was cleaned with soap and water, [facility] dressed with 4X4s. 13:00 Patient requests pain medication. Tryee Pacheco WELD ENGINEER notified. nj1 15:15 No provider procedures requiring assistance completed. Patient admitted, IV remains in ss place. Administered Medications: 10:19 Drug: Tetanus-Diphtheria Toxoid IM Adult 0.5 ml {Literacy Tutor: [employer]. Exp: nj1 02/12/2024. Lot #: [id number]. } Route: IM; Site: right deltoid; 10:31 Not Given (Physician Discretion; Allergy): Ampicillin-Sulbactam Sodium IVPB 1.5 grams pm1 IVPB once over 30 mins; (mix in 100 mL NS) 10:33 Drug: NS 0.9% IV 1000 ml Route: IV; Rate: 100 ml/hr; Site: right antecubital; nj1 12:50 Follow up: Response: No adverse reaction nj1 10:52 Drug: NS 0.9% IV 250 ml, vancoMYCIN IVPB 1 grams 1 grams Route: IVPB; Rate: 125 ml/hr; nj1 Infused Over: 2 hrs; Site: right antecubital; 12:50 Follow up: Response: No adverse reaction; IV Status: Completed infusion; IV Intake: nj1 250ml Medication: 10:19 Vaccine Information Statement (VIS) provided today. Questions and/or concerns nj1 addressed. VIS edition date: April 09, 2021. Intake: 12:50 IV: 250ml; Total: 250ml. nj1 Outcome: 10:22 Decision to Hospitalize by Provider. pm1 15:05 Admitted to OR accompanied by nurse, via stretcher, Report called to Dilan shelton 15:05 Condition: good 15:05 Instructed on the need for admit, Demonstrated understanding of instructions. 15:16 Patient left the ED. Signatures: Dispatcher [employer] Padmini Santizo Shelby, RN RN Raji Pacheco, WELD ENGINEER WELD ENGINEER pm1 Zora Spivey 6 Sybil Rodas, KATHLEEN RN nj1
[2022-12-28] MEDS ORDERED: NA CHLORIDE 0.9% 1,000 ML ONE ×2 (10:31→15:15)
[2022-12-28] MEDS ORDERED: VANCOMYCIN 1 GM/VIAL ONE (10:47)
[2022-12-28] MEDS ORDERED: NA CHLORIDE 0.9% 250 ML ONE (10:51)
[2022-12-28] MEDS ORDERED: BUPIVACAINE 0.25% PF 30 ML VIAL ONE (11:01)
--- NOTE | 2022-12-28 11:11 | RAD REPORT ---
EXAM DESCRIPTION: RAD - Hand Right 3 View - 12/28/2022 9:33 am CLINICAL HISTORY: Right hand pain status post injury FINDINGS: No acute fracture or dislocation is seen. Sideplate and screws affix an old radial fracture
--- NOTE | 2022-12-28 11:16 | RAD REPORT ---
EXAM DESCRIPTION: Maximus Newby (2 Views)12/28/2022 10:42 am CLINICAL HISTORY: Preop for hand surgery COMPARISON: 2020 FINDINGS: Chronic elevation right hemidiaphragm The lungs appear clear of acute infiltrate. The heart is normal size IMPRESSION: No acute abnormalities displayed
[2022-12-28] MEDS ORDERED: SUCCINYLCHOLINE 20 MG/ML (10 ML) IV ONE (15:30)
[2022-12-28] MEDS ORDERED: MIDAZOLAM HCL 2 MG/2 ML INJ ONE (15:34)
[2022-12-28] MEDS ORDERED: FENTANYL CITR 100 MCG/2 ML ONE (15:34)
[2022-12-28] MEDS ORDERED: propofoL 200 MG/20 ML VIAL IV ONE (15:34)
[2022-12-28] MEDS: FENTANYL CITR 100 MCG/2 ML ONE ×3 (16:51→17:09)
[2022-12-28] MEDS ORDERED: KETOROLAC 30 MG/ML INJ ONE (16:55)
[2022-12-28 17:11] VITALS: O2SAT 97
[2022-12-28] MEDS: HYDROMORPHONE HCL 1 MG/ML INJ ONE ×2 (17:15→17:22)
[2022-12-28] MEDS ORDERED: HYDROCODONE/APAP 7.5/325 MG TAB ONE (17:48)
[2022-12-28 17:55] VITALS: BP 127/63; TEMP 97.6
--- NOTE | 2022-12-29 11:37 | HP ---
Date of Admission: 12/28/2022 History Of Present Illness: This is a 67-year-old white female, right-hand dominant, who cut her rig ht ring finger today . Past Medical History: History of high blood pressure, thyroid disease, and gout. Past Surgical History: Appendectomy, gallbladder, breast reduction, tummy tuck, and fracture of the right wrist. Social History: Does smoke, does drink. Allergies: NO ALLERGIES. Medications: Multiple medications, see list. Physical Examination: Vital Signs: 5 feet, 185 pounds. Extremities: Transverse laceration over the MCP, right ring finger V shaped and inability to extend. Assessment: . Plan: Extensor tendon repair. ZACK/ALY Voice ID: [id number]
--- NOTE | 2022-12-29 11:39 | OP ---
Surgeon: Wilder Arroyo MD Preoperative Diagnosis: Laceration of right ring finger extensor tendon. Postoperative Diagnosis: Laceration of right ring finger extensor tendon. Procedure Performed: Debridement of skin and subcutaneous tissue, simple closure of 2 cm wounds, ext ensor tendon repair, and splint. Anesthesia: General. Procedure In Detail: After satisfactory induction of general anesthesia, the hand was prepped with B etadine scrub and paint. Dry sterile drapes were applied in the usual manner. The arm was elevated and exsanguinated with Esmarch. Tourniquet was inflated to 250 mmHg. The hand placed on roll lock ta ble. Skin and subcu tissue were debrided as needed. The wound had some debris in it and it was debr ided with 4 x 4 and then jet lavaged and irrigated with 3 L of dilute Betadine solution. The edges o f tendon were fashioned with tenotomy scissors, undermined, and repaired with 4-Prolene clear sutures , 2 of them. Then tourniquet released and electrocautery used for hemostasis and wound closed with 4 -0 Prolene vertical mattresses. Dressings consisted of Xeroform, 2-inch Charito, Kerlix, and a splint holding wrist 10 degrees dorsally and MCP, PIP, and DIP at 0 degrees. GH/MODL Voice ID: [id number] Report ID: [id number]
--- NOTE | 2022-12-30 07:05 | EKG ---
Test Date: 2022-12-28 Test Time: 10:51:19 Dock Operations Supervisor: SANTANA MEASUREMENT RESULTS: Intervals: Rate: 70 SD: 134 QRSD: 72 QT: 384 QTc: 414 [place]: P: 55 SD: 134 QRS: 70 T: 38 INTERPRETIVE STATEMENTS: Normal sinus rhythm Normal ECG Compared to ECG 04/30/2021 15:07:15 Myocardial infarct finding no longer present Electronically Signed On 12-30-22 07:00:30 CDT by Justen Simms
== END 2022-12-28 18:02 | disposition home or self-care (01) ==
LOC: ER 09:01 → DS 10:39
PROVIDERS: ATTEND Specialist
PROC: 0JQJ0ZZ Repair Right Hand Subcutaneous Tissue and Fascia, Open Approach (ICD-10-PCS; principal; 2022-12-28 14:30)
DX: S61.214A Laceration without foreign body of right ring finger without damage to nail, initial encounter (principal)
CPT/HCPCS: 96365; 93005; 85025; 80048; 36415; 71046; 73130; 90471; 90714; 99285; 96366; 13131; J2704; J2250; J3010 ×2; J1170; J7050; J7030 ×2; J0295

== ENCOUNTER 2023-01-03 07:33 | Day surgery (SDC) | payer OTHER, MEDICARE ==
[2023-01-03] MEDS ORDERED: Ringers Lactate 1,000 ML IV ONE (07:55)
[2023-01-03] MEDS ORDERED: propofoL 200 MG/20 ML VIAL IV ONE (08:39)
[2023-01-03] MEDS ORDERED: FENTANYL CITR 100 MCG/2 ML ONE (08:40)
[2023-01-03] MEDS ORDERED: MIDAZOLAM HCL 2 MG/2 ML INJ ONE (08:40)
[2023-01-03] MEDS ORDERED: ONDANSETRON 4 MG/2 ML VIAL ONE (08:42)
[2023-01-03] MEDS ORDERED: LIDOCAINE 2% MPF 5 ML VIAL ONE (08:45)
[2023-01-03] MEDS ORDERED: CLINDAMYCIN 600MG/D5W 50 ML IV ONE (08:51)
[2023-01-03] MEDS ORDERED: dexAMETHasone 4 MG/ML VIAL ONE (09:27)
[2023-01-03] MEDS: HYDROMORPHONE HCL 1 MG/ML INJ ONE ×4 (10:10→10:30)
[2023-01-03] MEDS ORDERED: HYDROCODONE/APAP 7.5/325 MG TAB ONE (11:25)
[2023-01-03 13:13] VITALS: BP 138/66; TEMP 98; O2SAT 98
--- NOTE | 2023-01-03 21:55 | HP ---
Date of Admission: 01/03/2023 History Of Present Illness: The patient is a 67-year-old white female who is right-hand dominant who tore her right ring finger extensor tendon that was lacerated on a sharp metal object and underwent repair. She returned to office for first postoperative visit. Has torn the repair despite wearing t he splint. She does not know how she did it, but in all, she was trying to use the hands, she said. Past Medical History: Increased blood pressure and gout. Past Surgical History: She had previously gallbladder, appendectomy, breast reduction, tummy tuck, _ and tendon repair. Allergies: PENICILLIN AND SULFA. Medications: She is on multiple medications. See her list. Physical Examination: Vital Signs: She is 5 feet 3 inches, 182 pounds. Extremities: Examination of the right ring finger is flexed at the MCP joint, cannot fully extend. Assessment: Torn tendon repair. Plan: Tendon repair. ZACK/ALY Voice ID: [id number]
--- NOTE | 2023-01-03 22:40 | OP ---
Surgeon: Wilder Arroyo MD Preoperative Diagnosis: Extensor tendon repair failure. Postoperative Diagnosis: Extensor tendon repair failure. Procedure Performed: Extensor tendon repair and splint surgical dressing. Anesthesia: General Procedure In Detail: After satisfactory induction of general anesthesia, the right hand was prepped with Betadine scrub, Betadine paint, dry sterile drapes applied in the usual manner. The arm was lisa vated and exsanguinated with Esmarch. Tourniquet was inflated to 250 mmHg. Hand was placed on the R emily Lock table. Sutures removed and then the wound was extended distally. Dissection proceeded down to the extensor tendon repair. Sutures which were intact were torn through. The wound was irrigate d with dilute Betadine solution and underwent core repair with 4-0 Prolene core sutures and epitendin ous repair with 6-0 Prolene. After this was done, the tourniquet was released and electrocautery was used for hemostasis. Skin closed with 4-0 Prolene vertical mattresses. Dressing consisted of Xerof orm, 2-inch Charito, Kerlix, and a splint holding the wrist 10 degrees dorsally, and MCP, PIP, and DIP at 0 degree. GH/MODL Voice ID: [id number] Report ID: [id number]
== END 2023-01-03 12:08 | disposition home or self-care (01) ==
LOC: OR 07:33
PROVIDERS: ATTEND Specialist
PROC: 0LQ70ZZ Repair Right Hand Tendon, Open Approach (ICD-10-PCS; principal; 2023-01-03 09:00)
DX: S61.214A Laceration without foreign body of right ring finger without damage to nail, initial encounter (principal); I10 Essential (primary) hypertension; E03.9 Hypothyroidism, unspecified; K21.9 Gastro-esophageal reflux disease without esophagitis; F32.A Depression, unspecified; M19.90 Unspecified osteoarthritis, unspecified site; K76.0 Fatty (change of) liver, not elsewhere classified; Z88.0 Allergy status to penicillin; Z88.2 Allergy status to sulfonamides
CPT/HCPCS: 26418; J2704; J1100; J2001; J2250; J3010; J1170 ×2; J2405; J7120

== ENCOUNTER 2023-03-21 13:39 | Observation (INO) | payer OTHER, MEDICARE ==
[2023-03-21] MEDS ORDERED: NA CHLORIDE 0.9% 1,000 ML ONE (14:37)
[2023-03-21] MEDS ORDERED: ONDANSETRON 4 MG/2 ML VIAL ONE (14:37)
[2023-03-21 14:38] LABS: Absolute Lymphocytes (CBC) 2.5 K/uL (0.7-4.9); Hematocrit 39.9 % (36.0-45.0); MCV 88.8 fL (80-100); MPV 8.9 fL (7.6-11.3)
[2023-03-21 14:42] LABS: Protime INR 1.06
[2023-03-21 14:52] LABS: Albumin 3.6 g/dL (3.4-5.0); Bilirubin Total 0.4 mg/dL (0.2-1.0); Potassium 3.5 mEq/L (3.5-5.1); Protein, Total 7.5 g/dL (6.4-8.2)
--- OUTSIDE RECORDS SUMMARY | 2023-03-21 14:58 | XMS REPORT | Continuity of Care Document ---
:1955 Author Organization [facility] t Address [address] [place] [address] Care Team Providers Name Role Phone Asked, No Pcp Primary Care Physician Unavailable MEG LOWE Attending Clinician Unavailable Meg Samano Attending Clinician Unknown, Attending Attending Clinician Unavailable KELLY BECKETT Attending Clinician Unavailable Larissa Lee MD Attending Clinician LARISSA LEE Attending Clinician Unavailable Doctor Unassigned, [place] Attending Clinician Unavailable ABENA THOMPSON Attending Clinician Unavailable Kelly Beckett MD Attending Clinician Only, Ang Db Test Attending Clinician Unavailable Karolyn Cxo Attending Clinician KAROLYN STOVALL Attending Clinician Unavailable Kelly Beckett MD Attending Clinician [phone] Attending Clinician Unavailable VANESSA YI Attending Clinician Unavailable Vanessa Yi MD Attending Clinician Kevin Rodríguez DO Attending Clinician KEVIN RODRÍGUEZ Attending Clinician Unavailable DANA CAROLE W Attending Clinician Unavailable TESTING, PL COVID Attending Clinician Unavailable Christine Arango RN Attending Clinician Unavailable Vanessa Victoria Attending Clinician Unavailable Dmitriy Melendez DO Attending Clinician Radiology Attending Clinician Unavailable Markie Holman Attending Clinician Unavailable VANESSA YI Admitting Clinician Unavailable Physician, No Primary or Family Admitting Clinician UnavailKETTY Saunders Admitting Clinician Unavailable Payers Payer Name Policy Type Policy Number Effective Date Expiration Date S lnua MEDICARE PART A AND [id number] 2018 B 00:00:00 $20 F [id number] 2015 00:00:00 CIGNA II [id number] 2016 00:00:00 MEDICARE PART A \T\ [id number] 2018 B 00:00:00 [facility] [id number] 2019 MEDICARE SUPPLEMENT 00:00:00 MEDICARE-PART B 5 [id number] 2020 00:00:00 AARP/IND 4 [id number] 2021 00:00:00 Problems Condition Condition Condition Status Onset Resolution Last Treating Co mments Source Name Details Category Date Date Treatment Clinician Date Other Other Disease Active Last Angelique specified specified 03-05 Assessmen S eybold menopausal menopausal 00:00: t & Plan: and and 00 Formattin perimenopa perimenopa g of this [facility] note disorders disorders might be different from the original. Unchanged , cont Estradiol 0.05mg/24 h transderm al patch biweekly as prescribe d. DEXA scan ordered. Other Other Disease Active Tirso Merino hyperlipid hyperlipid - Assessmen Filiberto juancarlos emia 00:00: t & Plan: 00 Formattin g of this note might be different from the original. Controlle d, cont Atorvasta tin 10mg daily. Will increase as indicated pending lab results. Other Other Disease Active Last Angelique chronic chronic 6-14 Assessmen Kimo ld pain pain 00:00: t & Plan: 00 Formattin g of this note might be different from the original. Unchanged , will get labs to evnd for systemic disorders . Essential Essential Disease Active Tirso buchanan hypertensi hypertensi 4-08 Assessmen Filiberto on on 00:00: t & Plan: 00 Formattin g of this note might be different from the original. Juan jennings, cont w/ HCTZ 12.5mg. Hypothyroi Hypothyroi Disease Active Tirso Banks manju jennings d 4-08 Assessmen Filiberto 00:00: t & Plan: 00 Formattin g of this note might be different from the original. Juan jennings, labs ordered, will contact Pt pending results. Gastroesop Gastroesop Disease Active Tirso nunes hageal hageal 4-08 Assessmen Filiberto reflux reflux 00:00: t & Plan: disease disease 00 Formattin without without g of this esophagiti esophagiti note s s might be different from the original. Juan jennings, cont current Rx. Obesity Obesity Disease Active Tirso Merino (BMI (BMI 2-06 Assessmen Filiberto 30-39.9) 30-39.9) 00:00: t & Plan: 00 Formattin g of this note might be different from the original. Unchanged , encourage d Pt to start exercise regimen as soon as pain is under control. Allergies, Adverse Reactions, Alerts Allergy Allergy Status Severity Reaction(s) Onset Inactive Treating Comm ents Source Name Type Date Date Clinician Penicill Propensi Active Rash Angelique in V ty to 9-08 Seybold Potassiu adverse 00:00: m reaction 00 s Sulfur Propensi Active Angelique ty to 4-08 Seybold adverse 00:00: reaction 00 s Sulfur Propensi Active Shortness of Says she Univers ty to Breath 3-18 can't ity of adverse 00:00: breathSay [place] reaction 00 s she Medical s can't Branch breath SULFUR DRUG Active High SOB Univers INGREDI 3-18 ity of 00:00: [place] 00 Medical Branch Sulfa DA Active SV [facility] (Sulfona 1- [facility] 00:00: [facility] Antibiot 00 are ics) Medical Center Sulfa DA Active SV CAN'T 2020-0 [facility] Antibiot 00 are ics) Medical Center Sulfa [...] 00 Medical Branch Penicill DA Active MO 0 [facility] ins 09-15 [place] 00:00: [facility] 00 dic [facility] l Sulfa DA Active SV 2016-0 [facility] (Sulfona 09-[address] [facility] Antibiot 00 dic ics) Hospita l adhesive DA Active MO 2016-0 [facility] tape 09-15 [place] 00:00: Orthope 00 dic Hospita l Penicill DA Active MO ITCH 2016-0 [facility] ins 09-15 [place] 00:00: Orthope 00 dic Hospita l Sulfa DA Active SV CANT BREATH 2016-0 [facility] (Sulfona 09-[address] [facility]: Orthope Antibiot 00 dic ics) Hospita l adhesive DA Active MO RASH 0 [facility] tape 09-15 [place] 00:00: Orthope 00 dic Hospita l Penicill Propensi Active Shortness Of 2015-09 Methodi ins ty to Breath 09-05 st adverse 00:00: Hospita reaction 00 l s to drug Sulfa Propensi Active Shortness Of 2015-09 Me thodi (Sulfona ty to Breath 09-05 st mide adverse 00:00: Hospita Antibiot reaction 00 l ics) s to drug Penicill Propensi Active Shortness Of 2015-09 Methodi ins ty to Breath 1-02 st adverse 00:00: Hospita reaction 00 l s to drug Penicill Propensi Active Shortness of Angelique ins ty to Breath 6-12 Seybold adverse 00:00: reaction 00 s SULFUR Allergy Active [facility] Social History Social Habit Start Date Stop Date Quantity Comments Source History SDOH Taoist Alcohol Frequency Hospita l History SDOH Taoist Alcohol Std Drinks Hospit al History SDSD Taoist Alcohol Binge Hospital Sexual orientation [facility] Gender identity [facility] Exposure to 2022-04-22 2022-05-02 Not sure [facility] SARS-CoV-2 (event) 00:00:00 19:16:00 [facility] Tobacco use and 2017-12-16 2017-12-16 Smokeless Universit y of exposure 00:00:00 00:00:00 tobacco non-user [facility] History of Social 2017-03-05 2017-03-[address] function 00:00:00 00:00:00 Hospital Alcohol intake 2016-07-07 2016-07-07 Current drinker [facility] dist 00:00:00 00:00:00 of [facility] (finding) Alcohol Comment 2016-07-06 2016-07-06 socially Taoist 00:00:00 00:00:00 Hospital Sex [birth year] Taoist 00:00:00 00:00:00 Hospital Smoking Status Start Date Stop Date Source Never smoked tobacco [facility] Medications Ordered Filled Start Stop Current Ordering Indication Dosage Frequency Signature Comments Components Source Medication Medication Date Date Medication? Clinician (SIG) Name Name benzonatate Yes [id number] 100mg Take 1 Univers (TESSALON 6-21 capsule by ity of PERLES) 100 00:00: mouth [place] mg capsule 00 every 8 Medica l (eight) Branch hours as needed for Cough. methylPREDN Yes [id number] Take by Univers ISolone 6-21 mouth ity of (MEDROL, 00:00: SEE-INSTRU Tray as JOAQUÍN,) 4 mg 00 CTIONS. Medica l tablets follow Branch package directions ondansetron Yes [id number] 4mg Take 1 Univers 4 mg 6-21 tablet by ity of disintegrat 00:00: mouth [place] ing tablet 00 every 8 Medica l (eight) Branch hours as needed for Nausea and Vomiting (N/V). gabapentin Yes 1 capsule Un sheila 300 mg 3-21 ity of capsule 19:22: [address] Branch tiZANidine 0 Yes 1 tablet Uni vers 2 mg tablet 3-21 as needed ity of 19:22: [address] gabapentin 0 Yes 1 capsule Un sheila 300 mg 3-21 ity of capsule 19:22: [address] Branch tiZANidine Yes 1 tablet Uni vers 2 mg tablet 3-21 as needed ity of 19:22: [address] Branch atorvastati Yes 10mg Take 1 Univ ers n 10 mg 3-21 tablet by ity of tablet 19:21: mouth at [place] [address] bedtime. Medical Branch hydroCHLORO Yes 12.5mg Take 1 Un sheila thiazide 3-21 capsule by ity o f 12.5 mg 19:21: mouth in [place] capsule 02 the Medical morning. Branch valsartan-h Yes 1{tbl} Take 1 Un sheila ydrochlorot 3-21 tablet by ity of hiazide 19:21: mouth in [place] 160-12.5 mg 02 the Medical per tablet morning. Branc h estradiol 1 Yes 1mg Take 1 Univ ers mg tablet 3-21 tablet by ity o f 19:21: mouth in [place] 02 the Medical morning. Branch PANTOPRAZOL Yes 40mg Take 40 mg Univers E SODIUM 3-21 by mouth. ity of (PANTOPRAZO 19:21: [place] LE ORAL) 02 Medical Branch allopurinol 0 Yes 100mg Take 1 Uni vers 100 mg 3-21 tablet by ity of tablet 19:21: mouth in [place] 02 the Medical morning. Branch levothyroxi Yes 50ug Take 1 Univ ers ne 50 mcg 3-21 tablet by ity o f tablet 19:21: mouth [place] 02 every Medical morning. Branch DULoxetine Yes 30mg Take 1 Unive rs 30 mg 3-21 capsule by ity of capsule 19:21: mouth in [place] 02 the Medical morning. Branch atorvastati 2023-0 Yes 10mg Take 1 Univ ers n 10 mg 3-21 tablet by ity of tablet 19:21: mouth at [place] 02 bedtime. Medical Branch hydroCHLORO 2022-0 Yes 12.5mg Take 1 Un sheila thiazide 3-21 capsule by ity o f 12.5 mg 19:21: mouth in [place] capsule 02 the Medical morning. Branch valsartan-h 2022-0 Yes 1{tbl} Take 1 Un sheila ydrochlorot 3-21 tablet by ity of hiazide 19:21: mouth in [place] 160-12.5 mg 02 the Medical per tablet morning. Branc h estradiol 1 2022-0 Yes 1mg Take 1 Univ ers mg tablet 3-21 tablet by ity o f 19:21: mouth in [place] 02 the Medical morning. Branch PANTOPRAZOL 0 Yes 40mg Take 40 mg Univers E SODIUM 3-21 by mouth. ity of (PANTOPRAZO 19:21: [place] LE ORAL) 02 Medical Branch allopurinol 2022-0 Yes 100mg Take 1 Uni vers 100 mg 3-21 tablet by ity of tablet 19:21: mouth in [place] 02 the Medical morning. Branch levothyroxi 0 Yes 50ug Take 1 Univ ers ne 50 mcg 3-21 tablet by ity o f tablet 19:21: mouth [place] 02 every Medical morning. Branch DULoxetine 0 Yes 30mg Take 1 Unive rs 30 mg 3-21 capsule by ity of capsule 19:21: mouth in [place] 02 the Medical morning. Branch benzonatate 2022-0 Yes [id number] 200mg Take 2 Univers 100 mg 3-21 capsules ity of capsule 00:00: by mouth [place] 00 every 8 Medical (eight) Branch hours as needed for Cough. ondansetron 2022-0 Yes [id number] 4mg Take 1 Univers 4 mg 3-21 tablet by ity of disintegrat 00:00: mouth [place] ing tablet 00 every 8 Medica l (eight) Branch hours as needed for Nausea and Vomiting (N/V). ibuprofen 2022-0 Yes [id number] 600mg Take 1 U nivers 600 mg 3-21 tablet by ity of tablet 00:00: mouth [place] 00 every 6 Medical (six) Branch hours as needed for Pain (scale 4-6) or Pain (scale 1-3). ibuprofen 2023-0 Yes [id number] 600mg Take 1 U nivers 600 mg 3-21 tablet by ity of tablet 00:00: mouth [place] 00 every 6 Medical (six) Branch hours as needed for Pain (scale 4-6) or Pain (scale 1-3). benzonatate 2022- No [id number] 200mg Take 2 Univers 100 mg 3-21 06-21 capsules ity of capsule 00:00: 00:00 by mouth [place] 00 :00 every 8 Medical (eight) Branch hours as needed for Cough. ondansetron 2022- No [id number] 4mg Take 1 Univers 4 mg 3-21 - tablet by ity of disintegrat 00:00: 00:00 [place] tablet 00 :00 every 8 Medica l (eight) Branch hours as needed for Nausea and Vomiting (N/V). Estradiol Yes 1{patch Place 1 Ke lsey 0.05 - } patch onto Seybold MG/24HR 10:40: the skin transdermal 47 once a PATCH week BIWEEKLY Gabapentin Yes 1{capsu Take 1 Ke lsey 300 MG oral 3-01 le} capsule by Se ybold Capsule 10:40: mouth 47 daily hydroCHLORO Yes 1{tbl} Take 1 Ke lsey thiazide 3-01 tablet by Seybol d 12.5 MG 10:40: mouth oral Tablet 47 daily Meloxicam Yes 1{tbl} Take 1 Vanessa ey 15 MG oral 3-01 tablet by Seyb old Tablet 10:40: mouth 47 daily Omeprazole Yes 1{capsu Take 1 Ke lsey 40 MG oral 3-01 le} capsule by Sey bold Delayed 10:40: [...] Yes 1{tbl} Take 1 Kelse y Potassium-H 3- tablet by Michelle noble CTZ 50-12.5 10:40: mouth MG oral 47 Tablet Venlafaxine Yes [id number] 37.5mg Take 1 Angelique HCl 37.5 MG 11-02 tablet Seybol d oral Tablet 00:00: (37.5 mg 00 total) by mouth daily Duloxetine 30mg Take 30 mg Angelique HCl 30 MG 10-05 by mouth 3 Michelle noble oral Cap DR 09:55: 00:00 times Particles 08 :00 daily Estradiol Yes 1{patch Place 1 Ke lsey 0.05 10-05 } patch onto Seybold MG/24HR 09:38: the skin transdermal 14 once a PATCH week BIWEEKLY Gabapentin Yes 1{capsu Take 1 Ke lsey 300 MG oral 2- le} capsule by ybold Capsule 09:38: mouth 14 daily hydroCHLORO Yes 1{tbl} Take 1 Ke lsey thiazide 2-01 tablet by Kimol d 12.5 MG 09:38: mouth oral Tablet 14 daily Meloxicam Yes 1{tbl} Take 1 Vanessa ey 15 MG oral 10-05 tablet by Kim old Tablet 09:38: mouth 14 daily Omeprazole Yes 1{capsu Take 1 Ke lsey 40 MG oral 2- le} capsule by Michelle noble Delayed 09:38: mouth 3 Release 14 times Capsule daily Influenza Yes Fluzone Kelse y Vac Split 10-05 High-Dose Seybo ld High-Dose 09:38: (Fluzone 14 (PF) 180 High-Dose) mcg/0.5 mL 0.5 ML intramuscu intramuscul lar ar syringe Suspension ADM 0.5ML Prefilled IM UTD Syringe Zoster Vac Yes Shingrix Jonathan sey Recomb 2- (PF) 50 Seybold Adjuvanted 09:38: mcg/0.5 mL (Shingrix) 14 intramuscu 50 lar MCG/0.5ML suspension intramuscul , kit ar Recon Susp Losartan Yes 1{tbl} Take 1 Kelse y Potassium-H 2-01 tablet by Michelle noble CTZ 50-12.5 09:38: mouth MG oral 14 Tablet Doxycycline Yes [id number] 100mg Take 1 Angelique Hyclate 100 2-01 tablet Seybol d MG oral 00:00: (100 mg Tablet 00 total) by mouth 2 times daily Duloxetine Yes [id number] 30mg Take 1 K elsey HCl 30 MG 2-01 capsule Seybold oral Cap DR 00:00: (30 mg Particles 00 total) by mouth 3 times daily Doxycycline Yes [id number] 100mg Take 1 Angelique Hyclate 100 2-01 tablet Seybol d MG oral 00:00: (100 mg Tablet 00 total) by mouth 2 times daily Duloxetine Yes [id number] 30mg Take 1 K elsey HCl 30 [...] tablet 00 hours as needed ondansetron Yes [id number] 8mg Take 1 Univers 8 mg tablet 1-10 tablet by ity of 00:00: mouth [place] 00 every 8 Medical (eight) Branch hours as needed for Nausea and Vomiting (N/V). cetirizine 2021-0 Yes [id number] 10mg Take 1 U nivers (ZYRTEC) 10 1-10 tablet by ity of mg tablet 00:00: mouth [place] 00 daily. Medical Branch ondansetron 2021-0 Yes [id number] 8mg Take 1 Univers 8 mg tablet 1-10 tablet by ity of 00:00: mouth [place] 00 every 8 Medical (eight) Branch hours as needed for Nausea and Vomiting (N/V). cetirizine 2021-0 Yes [id number] 10mg Take 1 U nivers (ZYRTEC) 10 1-10 tablet by ity of mg tablet 00:00: mouth [place] 00 daily. Medical Branch ondansetron 2021-0 Yes [id number] 8mg Take 1 Univers 8 mg tablet 1-10 tablet by ity of 00:00: mouth [place] 00 every 8 Medical (eight) Branch hours as needed for Nausea and Vomiting (N/V). cetirizine 2021-0 Yes [id number] 10mg Take 1 U nivers (ZYRTEC) 10 1-10 tablet by ity of mg tablet 00:00: mouth [place] 00 daily. Medical Branch ondansetron 2021-0 Yes [id number] 8mg Take 1 Univers 8 mg tablet 1-10 tablet by ity of 00:00: mouth [place] 00 every 8 Medical (eight) Branch hours as needed for Nausea and Vomiting (N/V). cetirizine 2021-0 Yes [id number] 10mg Take 1 U nivers (ZYRTEC) 10 1-10 tablet by ity of mg tablet 00:00: mouth [place] 00 daily. Medical Branch ondansetron 2021-0 Yes [id number] 8mg Take 1 Univers 8 mg tablet 1-10 tablet by ity of 00:00: mouth [place] 00 every 8 Medical (eight) Branch hours as needed for Nausea and Vomiting (N/V). cetirizine 2021-0 Yes [id number] 10mg Take 1 U nivers (ZYRTEC) 10 1-10 tablet by ity of mg tablet 00:00: mouth [place] 00 daily. Medical Branch ondansetron 2022-0 Yes [id number] 8mg Take 1 Univers 8 mg tablet 1-10 tablet by ity of 00:00: mouth [place] 00 every 8 Medical (eight) Branch hours as needed for Nausea and Vomiting (N/V). cetirizine Yes [id number] 10mg Take 1 U nivers (ZYRTEC) 10 1-10 tablet by ity of mg tablet 00:00: mouth [place] 00 daily. Medical Branch ondansetron Yes [id number] 8mg Take 1 Univers 8 mg tablet 1-10 tablet by ity of 00:00: mouth [place] 00 every 8 Medical (eight) Branch hours as needed for Nausea and Vomiting (N/V). cetirizine Yes [id number] 10mg Take 1 U nivers (ZYRTEC) 10 1-10 tablet by ity of mg tablet 00:00: mouth [place] 00 daily. Medical Branch cetirizine Yes [id number] 10mg Take 1 U nivers (ZYRTEC) 10 1-10 tablet by ity of mg tablet 00:00: mouth [place] 00 daily. Medical Branch cetirizine Yes [id number] 10mg Take 1 U nivers (ZYRTEC) 10 1-10 tablet by ity of mg tablet 00:00: mouth [place] 00 daily. Medical Branch ondansetron 0 3- No [id number] 8mg Take 1 Univers 8 mg tablet 1-10 03-21 tablet by it y of 00:00: 00:00 mouth [place] 00 :00 every 8 Medical (eight) Branch hours as needed for Nausea and Vomiting (N/V). diazePAM 2020-09 Yes TAKE 1 Kelse y MG [...] 00:00: MG) BY 00 MOUTH DAILY Duloxetine 2020-09 No 60mg Take 1 Vanessa ey HCl 60 MG 010-05 capsule Seybol d oral Cap DR 00:00: [...] MG oral 9-20 le} capsule by Se smith Capsule 14:03: mouth 39 daily hydroCHLORO Yes 1{tbl} Take 1 Ke lsey thiazide 9-20 tablet by Semiguelol d 12.5 MG 14:03: mouth oral Tablet 39 daily Meloxicam Yes 1{tbl} Take 1 Vanessa ey 15 MG oral 9-20 tablet by Kim fry Tablet 14:03: mouth 39 daily Omeprazole Yes 1{capsu Take 1 Ke lsey 40 MG oral 9-20 le} capsule by Michelle noble Delayed 14:03: mouth 3 Release 39 times Capsule daily Influenza Yes Fluzone Kelse y Vac Split 9-20 High-Dose Seybo ld High-Dose 14:03: (Fluzone 39 (PF) 180 High-Dose) mcg/0.5 mL 0.5 ML intramuscu intramuscul lar ar syringe Suspension ADM 0.5ML Prefilled IM UTD Syringe Zoster Vac Yes Shingrix Jonathan sey Recomb 9-20 (PF) 50 Seybold Adjuvanted 14:03: mcg/0.5 mL (Shingrix) 39 intramuscu 50 lar MCG/0.5ML suspension intramuscul , kit ar Recon Susp Losartan Yes 1{tbl} Take 1 Kelse y Potassium-H 9-20 tablet by Michelle noble CTZ 50-12.5 14:03: mouth MG oral 39 Tablet Fluconazole 2020- No [id number] 150mg Take 1 Angelique 150 MG oral 9-20 -21 tablet Seybo ld Tablet 00:00: 04:59 (150 mg 00 :00 total) by mouth once for 1 dose Allopurinol Yes TAKE 1 Vanessa ey 100 MG oral 9-13 TABLET(100 Se ybold Tablet 00:00: MG) BY 00 MOUTH DAILY Nitrofurant Yes [id number] 100mg Take 1 Angelique oin Monohyd 9-08 capsule Seybo ld Macro 100 00:00: (100 mg MG oral 00 total) by Capsule mouth 2 times daily Nitrofurant Yes [id number] 100mg Take 1 Angelique oin Monohyd 9-08 capsule Seybo ld Macro 100 00:00: (100 mg MG oral 00 total) by Capsule mouth 2 times daily Nitrofurant Yes [id number] 100mg Take 1 Angelique oin Monohyd 9-08 capsule Seybo ld Macro 100 00:00: (100 mg MG oral 00 total) by Capsule mouth 2 times daily Losartan Yes 1{tbl} Take 1 Kelse y Potassium-H - tablet by Michelle noble CTZ 50-12.5 13:39: mouth MG oral 45 Tablet Duloxetine Yes 30mg Take 30 mg K elsey HCl 30 MG 07 by mouth 3 Seyb old oral Cap [...] Yes 1{tbl} Take 1 Ke lsey thiazide 9-07 tablet by ybol d 12.5 MG 13:39: mouth oral Tablet 44 daily Meloxicam Yes 1{tbl} Take 1 Vanessa ey 15 MG oral -07 tablet by Seyb old Tablet 13:39: mouth 44 daily Omeprazole Yes 1{capsu Take 1 Ke lsey 40 MG oral - le} capsule by Michelle noble Delayed 13:39: mouth 3 Release 44 times Capsule daily Influenza Yes Fluzone Kelse y Vac Split 05-11 High-Dose Seybo ld High-Dose 13:39: 2019- (Fluzone 44 (PF) 180 High-Dose) mcg/0.5 mL [...] 12 hours FOR 7 DAYS Promethazin Yes [id number] 25mg Q6H Take 1 Angelique e HCl 25 MG 8-25 tablet (25 Se ybold oral Tablet 00:00: mg total) 00 by mouth every 6 hours as needed for nausea Promethazin Yes [id number] 25mg Q6H Take 1 Angelique e HCl 25 MG 8-25 tablet (25 Se ybold oral Tablet 00:00: mg total) 00 by mouth every 6 hours as needed for nausea Nitrofurant Yes [id number] 100mg Take 1 Angelique oin Monohyd 8-25 capsule Seybo ld Macro 100 00:00: (100 mg MG oral 00 total) by Capsule mouth 2 times daily Promethazin Yes [id number] 25mg Q6H Take 1 Angelique e HCl 25 MG 8-25 tablet (25 Se ybold oral Tablet 00:00: mg total) 00 by mouth every 6 hours as needed for nausea Promethazin 2020-0 Yes [id number] 25mg Q6H Take 1 Angelique e HCl 25 MG 8-25 tablet (25 Se ybold oral Tablet 00:00: mg total) 00 by mouth every 6 hours as needed for nausea Atorvastati 0 Yes 10mg Take 1 Vanessa ey n Calcium 8-10 tablet (10 Seyb old 10 MG oral 00:00: mg total) Tablet 00 by mouth at bedtime Valsartan-h Yes 1{tbl} Take 1 Ke lsey ydroCHLOROt 8-10 tablet by Sey bold hiazide 00:00: mouth 160-12.5 MG 00 daily oral Tablet Atorvastati 0 Yes 10mg Take 1 Vanessa ey n Calcium 8-10 tablet (10 Seyb old 10 MG oral 00:00: mg total) Tablet 00 by mouth at bedtime Valsartan-h Yes 1{tbl} Take 1 Ke lsey ydroCHLOROt 8-10 tablet by Sey bold hiazide 00:00: mouth 160-12.5 MG 00 daily oral Tablet Atorvastati 0 Yes 10mg Take 1 Vanessa ey n Calcium 8-10 tablet (10 Seyb old 10 MG oral 00:00: mg total) Tablet 00 by mouth at bedtime Valsartan-h Yes 1{tbl} Take 1 Ke lsey ydroCHLOROt 8-10 tablet by Sey bold hiazide 00:00: mouth 160-12.5 MG 00 daily oral Tablet Atorvastati 0 Yes 10mg Take 1 Vanessa ey n Calcium 8-10 tablet (10 Seyb old 10 MG oral 00:00: mg total) Tablet 00 by mouth at bedtime Valsartan-h Yes 1{tbl} Take 1 Ke lsey ydroCHLOROt 8-10 tablet by Sey bold hiazide 00:00: mouth 160-12.5 MG 00 daily oral Tablet Duloxetine 2020-0 Yes 60mg Take 60 mg K elsey HCl 60 MG 8-07 by mouth Seybol d oral Cap DR 00:00: daily Particles 00 Duloxetine 2020-0 Yes 60mg Take 60 mg K elsey [...] 00:00: times Release 00 daily Capsule Cyclobenzap 2020-0 Yes 5mg Q8H Take 5-10 K elsey rine HCl 5 6-09 mg by Seybold MG oral 00:00: mouth Tablet 00 every 8 hours as needed methylPREDN 2020-0 Yes See Admin K elsey ISolone 4 6-09 Instructio Seyb old MG oral 00:00: ns Tablet 00 Therapy Pack Cyclobenzap 2020-0 Yes 5mg Q8H Take 5-10 K elsey rine HCl 5 6-09 mg by Seybold MG oral 00:00: mouth Tablet 00 every 8 hours as needed methylPREDN 2021-0 Yes See Admin K elsey ISolone 4 6-09 Instructio Seyb old MG oral 00:00: ns Tablet 00 Therapy Pack Cyclobenzap 2020-0 Yes 5mg Q8H Take 5-10 K elsey rine HCl 5 6-09 mg by Seybold MG oral 00:00: mouth Tablet 00 every 8 hours as needed methylPREDN 2020-0 Yes See Admin K elsey ISolone 4 6-09 Instructio Seyb old MG oral 00:00: ns Tablet 00 Therapy Pack Cyclobenzap 2020-0 Yes 5mg Q8H Take 5-10 K elsey rine HCl 5 6-09 mg by Seybold MG oral 00:00: mouth Tablet 00 every 8 hours as needed methylPREDN 2020-0 Yes See Admin K elsey ISolone 4 6-09 Instructio Seyb old MG oral 00:00: ns Tablet 00 Therapy Pack Tizanidine 0 Yes [id number] Take 1-2 Angelique HCl 2 MG 5-12 tabs by Seybold oral Tablet 00:00: mouth 00 every 6-8 hours as needed for muscle spasm. Tizanidine 2020-0 Yes [id number] Take 1-2 Angelique HCl 2 MG 5-12 tabs by Seybold oral Tablet 00:00: mouth 00 every 6-8 hours as needed for muscle spasm. Tizanidine 2020-0 Yes [id number] Take 1-2 Angelique HCl 2 MG 5-12 tabs by Seybold oral Tablet 00:00: mouth 00 every 6-8 hours as needed for muscle spasm. Tizanidine 2020-0 Yes [id number] Take 1-2 Angelique HCl 2 MG 5-12 tabs by Seybold oral Tablet 00:00: mouth 00 every 6-8 hours as needed for muscle spasm. Allopurinol Yes TAKE 1 Vanessa ey 100 MG oral 4-27 TABLET(100 Se ybold Tablet 00:00: MG) BY 00 MOUTH DAILY Furosemide 2020-0 Yes 1{tbl} Take 1 Jonathan sey 20 MG oral 3-25 tablet by Seyb old Tablet 00:00: mouth 00 daily Furosemide 2020-0 Yes 1{tbl} Take 1 Jonathan sey 20 MG oral 3-25 tablet by Seyb old Tablet 00:00: mouth 00 daily Furosemide 2020-0 Yes 1{tbl} Take 1 Jonathan sey 20 MG oral 3-25 tablet by Seyb old Tablet 00:00: mouth 00 daily Furosemide 2020-0 Yes 1{tbl} Take 1 Jonathan sey 20 [...] 7-10). Indication s: acute pain ondansetron Yes [id number] 4mg Take 1 Univers 4 mg 1-21 [id number] tablet by ity of disintegrat 00:00: mouth [...] 7-10). Indication s: acute pain ondansetron Yes [id number] 4mg Take 1 Univers 4 mg 1-21 [id number] tablet by ity of disintegrat 00:00: mouth [...] Indication s: acute pain ondansetron 2020-0 Yes [id number] 4mg Take 1 Univers 4 mg 1-21 [id number] tablet by ity of disintegrat 00:00: mouth [...] Indication s: acute pain ondansetron 2020-0 Yes [id number] 4mg Take 1 Univers 4 mg 1-21 [id number] tablet by ity of disintegrat 00:00: mouth [...] Indication s: acute pain ondansetron 2020-0 Yes [id number] 4mg Take 1 Univers 4 mg 1-21 [id number] tablet by ity of disintegrat 00:00: mouth [...] (scale 7-10). Indication s: acute pain ondansetron 0 Yes [id number] 4mg Take 1 Univers 4 mg 1-21 [id number] tablet by ity of disintegrat 00:00: mouth [place] ing tablet 00 every 8 Medica l (eight) Branch hours as needed for Nausea and Vomiting (N/V). acetaminoph 0 Yes [id number] 1{tbl} Take 1 Un sheila en-codeine 1-21 tablet by ity of (TYLENOL-CO 00:00: mouth [place] DEINE #3) 00 every 4 Medical 300-30 mg (four) Branch tablet hours as needed for Pain (scale 7-10). Indication s: acute pain ondansetron Yes [id number] 4mg Take 1 Univers 4 mg 1-21 [id number] tablet by ity of disintegrat 00:00: mouth [...] Pain (scale 7-10). Indication s: acute pain acetaminoph 0 Yes [id number] 1{tbl} Take 1 Un sheila en-codeine 1-21 tablet by ity of (TYLENOL-CO 00:00: mouth [place] DEINE #3) 00 every 4 Medical 300-30 mg (four) Branch tablet hours as needed for Pain (scale 7-10). Indication s: acute pain ondansetron 0 2023- No [id number] 4mg Take 1 Univers 4 mg 1-21 03-21 [id number] tablet by ity of disintegrat 00:00: 00[place] tablet [place] :00 every 8 Medica l (eight) Branch hours as needed for Nausea and Vomiting (N/V). atorvastati Yes 10mg Take 10 mg Univers n 10 mg 4-14 by mouth ity of tablet 18:16: at [place] 42 bedtime. Medical Branch hydroCHLORO Yes 12.5mg [...] 4-14 by mouth ity of 18:16: daily. [place] [address] Medical Branch PANTOPRAZOL 0 Yes 40mg Take [...] by mouth ity of capsule 18:16: daily. [place] [address] Medical Branch atorvastati Yes 10mg Take 10 [...] 4-14 by mouth ity of 18:16: daily. [place] [address] Medical Branch PANTOPRAZOL 0 Yes 40mg Take [...] by mouth ity of capsule 18:16: daily. [place] [address] Medical Branch atorvastati Yes 10mg Take 10 [...] 4-14 by mouth ity of 18:16: daily. [place] [address] Medical Branch PANTOPRAZOL Yes 40mg Take 40 [...] by mouth ity of capsule 18:16: daily. [place] [address] Medical Branch atorvastati 0 Yes 10mg Take 10 mg Univers n 10 mg 4-14 by mouth ity of tablet 18:16: at [place] 42 bedtime. Medical Branch hydroCHLORO Yes 12.5mg [...] 4-14 by mouth ity of 18:16: daily. [place] [address] Medical Branch PANTOPRAZOL Yes 40mg Take 40 [...] by mouth ity of capsule 18:16: daily. [place] [address] Medical Branch atorvastati Yes 10mg Take 10 [...] 4-14 by mouth ity of 18:16: daily. [place] [address] Medical Branch PANTOPRAZOL Yes 40mg Take 40 [...] by mouth ity of capsule 18:16: daily. [place] [address] Medical Branch atorvastati Yes 10mg Take 10 [...] 4-14 by mouth ity of 18:16: daily. [place] [address] Medical Branch PANTOPRAZOL Yes 40mg Take 40 [...] by mouth ity of capsule 18:16: daily. [place] [address] Medical Branch atorvastati Yes 10mg Take 10 [...] 4-14 by mouth ity of 18:16: daily. [place] [address] Medical Branch PANTOPRAZOL 2018-0 Yes 40mg Take 40 mg Univers E [...] by mouth ity of capsule 18:16: daily. [place] [address] Medical Branch hydrOXYzine 2017-0 Yes [id number] 1-2 tabs Univers 25 mg 4-14 Every ity of tablet 00:00: 3-6hr as [place] 00 needed for Medical itch or Branch rash, at least 3 times a day. hydrOXYzine 2017-0 Yes [id number] 1-2 tabs Univers 25 mg 4-14 Every ity of tablet 00:00: 3-6hr as [place] 00 needed for Medical itch or Branch rash, at least 3 times a day. hydrOXYzine 2017-0 Yes [id number] 1-2 tabs Univers 25 mg 4-14 Every ity of tablet 00:00: 3-6hr as [place] 00 needed for Medical itch or Branch rash, at least 3 times a day. hydrOXYzine 2018-0 Yes [id number] 1-2 tabs Univers 25 mg 4-14 Every ity of tablet 00:00: 3-6hr as [place] 00 needed for Medical itch or Branch rash, at least 3 times a day. hydrOXYzine 2018-0 Yes [id number] 1-2 tabs Univers 25 mg 4-14 Every ity of tablet 00:00: 3-6hr as [place] 00 needed for Medical itch or Branch rash, at least 3 times a day. hydrOXYzine 2018-0 Yes [id number] 1-2 tabs Univers 25 mg 4-14 Every ity of tablet 00:00: 3-6hr as [place] 00 needed for Medical itch or Branch rash, at least 3 times a day. hydrOXYzine 2017-0 Yes [id number] 1-2 tabs Univers 25 mg 4-14 Every ity of tablet 00:00: 3-6hr as [place] 00 needed for Medical itch or Branch rash, at least 3 times a day. hydrOXYzine 2018-0 Yes [id number] 1-2 tabs Univers 25 mg 4-14 Every ity of tablet 00:00: 3-6hr as [place] 00 needed for Medical itch or Branch rash, at least 3 times a day. hydrOXYzine 2018-0 Yes [id number] 1-2 tabs Univers 25 mg 4-14 Every [...] at [place] 00 bedtime. Medical Branch meclizine 2017 Yes 25mg Take 1 Univer s 25 mg 2-06 tablet by ity of tablet 00:00: mouth [place] 00 every 6 Medical (six) Branch hours. ASPIR-81 [id number] Yes 81mg Take 1 Univ ers mg EC 2-06 tablet by ity of tablet 00:00: mouth [place] 00 daily. Medical Branch LISINOPRIL Yes 10mg Take 1 Unive rs 10 [...] 15 daily. l DULoxetine 2015-09 Yes 30mg Q.[id number] Take 30 mg [facility] (CYMBALTA) 04 [id number] mouth [address] 30 MG 08:03: [...] capsule 15 l gabapentin 2015-09 Yes 300mg Q.[id number] Take 300 [facility] (NEURONTIN) 1-04 [id number] mg by s t 300 MG 08:03: 3D mouth [facility]osp[facility] capsule 15 (three) l times a day. estradiol 2015-09 Yes 1mg QD Take 1 mg [facility] (ESTRACE) [address] MG tablet 03:03: daily. Hospit a 15 l omeprazole 2015-09 Yes 40mg QD Take 40 mg M [facility] (PriLOSEC) -[address] 40 MG 03:03: daily. [facility]ospita capsule 15 l gabapentin 2015-09 Yes 300mg Q.[id number] Take 300 [facility] (NEURONTIN) 1-04 [id number] mg by s t 300 MG 03:03: 3D mouth 3 [facility]ospita capsule 15 (three) l times a day. valsartan 2015-09 Yes 160mg QD Take 160 [facility] (DIOVAN) 1-[address] 160 MG 03:03: mouth [facility]ospita tablet 15 daily. l DULoxetine 2015-09 Yes 30mg Q.[id number] Take 30 mg [facility] (CYMBALTA) -04 [id number] by mouth [address] 30 MG 03:03: [...] QD Take 40 mg M [facility] (PriLOSEC) -[address] 40 MG 03:03: daily. Hospita capsule 15 l gabapentin 2015-09 Yes 300mg Q.[id number] Take 300 [facility] (NEURONTIN) 1-04 [id number] mg by s t 300 MG 03:03: 3D mouth 3 Hospita capsule 15 (three) l times a day. valsartan 2015-09 Yes 160mg QD Take 160 [facility] (DIOVAN) 1-[address] 160 MG 03:03: mouth [facility]ospita tablet 15 daily. l DULoxetine 2015-09 Yes 30mg Q.[id number] Take 30 mg [facility] (CYMBALTA) 1-[id number] mouth [address] 30 MG 03:03: [...] capsule 15 l gabapentin 2015-09 Yes 300mg Q.[id number] Take 300 [facility] (NEURONTIN) -04 [id number] mg by s t 300 MG 03:03: 3D mouth 3 Hospita capsule 15 (three) l times a day. valsartan 2015-09 Yes 160mg QD Take 160 [facility] (DIOVAN) 1-[address] 160 MG 03:03: mouth [facility]ospita tablet 15 daily. l DULoxetine 2015-09 Yes 30mg Q.[id number] Take 30 mg [facility] (CYMBALTA) -04 [id number] by mouth [address] 30 MG 03:03: [...] QD Take 40 mg M [facility] (PriLOSEC) 1-[address] 40 MG 03:03: daily. Hospita capsule 15 l gabapentin 2015-09 Yes 300mg Q.[id number] Take 300 [facility] (NEURONTIN) -04 [id number] mg by s t 300 MG 03:03: 3D mouth 3 Hospita capsule 15 (three) l times a day. valsartan 2015-09 Yes 160mg QD Take 160 [facility] (DIOVAN) 1-[address] 160 MG 03:03: mouth Hospita tablet 15 daily. l DULoxetine 2015-09 Yes 30mg Q.[id number] Take 30 mg [facility] (CYMBALTA) -04 [id number] by mouth [address] 30 MG 03:03: [...] 15 every l 100 MCG morning. tablet Immunizations Ordered Immunization Filled Immunization Date Status Commen ts Source Name Name Influenza Virus 2021-05-27 Completed Angelique smith Vaccine, Quadrivalent, 00:00:00 High Dose, Age 65 And Up Influenza Virus 2021-05-27 Completed Angelique riveraold Vaccine, Quadrivalent, 00:00:00 High Dose, Age 65 And Up Covid-19 Vaccine 2020-11-29 Completed Angelique chung (Moderna), Mrna-lnp, 00:00:00 Guy Protein, Pf, 100 Mcg/0.5ml,IM Covid-19 Vaccine 2020-11-29 Completed Angelique chung (Moderna), Mrna-lnp, 00:00:00 Guy Protein, Pf, 100 Mcg/0.5ml,IM Covid-19 Vaccine 2020-11-29 Completed Angelique chung (Moderna), Mrna-lnp, 00:00:00 Guy [...] 100 Mcg/0.5ml,IM Covid-19 Vaccine 2020-11-01 Completed Angelique gonsalesld (Moderna), Mrna-lnp, 00:00:00 Guy Protein, Pf, 100 Mcg/0.5ml,IM Covid-19 Vaccine 2020-11-01 Completed Angelique chung (Moderna), Mrna-lnp, 00:00:00 Guy Protein, Pf, 100 Mcg/0.5ml,IM Covid-19 Vaccine 2020-11-01 Completed Angelique chung Moderna (Spikevax), 00:00:00 Mrna-lnp, Guy Protein, Pf Covid-19 Vaccine 2020-11-01 Completed Angelique chung (Moderna), Mrna-lnp, 00:00:00 Guy Protein, Pf, 100 Mcg/0.5ml,IM Covid-19 Vaccine 2020-11-01 Completed Angelique gonsalesld (Moderna), [...] eybold Adacel) 00:00:00 Tdap- (Boostrix, 2012-04-12 Completed Angeliuqe S eybold Adacel) 00:00:00 Tdap- (Boostrix, 2012-04-12 Completed Angelique S eybold Adacel) 00:00:00 Vital Signs Vital Name Observation Time Observation Value Comments Source Systolic blood 2023-02-22 19:05:00 107 [facility] Diastolic blood 2023-02-22 19:05:00 67 mm[Hg] [facility] [place] Heart rate 2023-02-22 19:05:00 105 /min [facility] Body temperature 2023-02-22 19:05:00 37.11 Katie [facility] Respiratory rate 2023-02-22 19:05:00 17 /min [facility] Body weight 2023-02-22 19:05:00 81.103 kg [facility] BMI 2023-02-22 19:05:00 31.67 kg/m2 [facility] Oxygen saturation in 2023-02-22 19:05:00 97 /min University of Arterial blood by [place] Medi paul Pulse oximetry Branch Systolic blood 2022-11-23 00:13:00 134 mm[Hg] Univer sity of pressure [place] [facility] Diastolic blood 2022-11-23 00:13:00 79 mm[Hg] Unive rsity of pressure [place] [facility] Heart rate 2022-11-23 00:13:00 98 /min Universi ty of [place] [facility] Body temperature 2022-11-23 00:13:00 37.72 Katie Univ ersity of [place] [facility] Respiratory rate 2022-11-23 00:13:00 18 /min Univ ersity of [place] [facility] Body height 2022-11-23 00:13:00 160 cm [facility]i [facility] [place] [facility] Body weight 2022-11-23 00:13:00 87.635 kg [facility] [place] [facility] BMI 2022-11-23 00:13:00 34.22 kg/m2 [facility]i [facility] [place] [facility] Oxygen saturation in 2022-11-23 00:13:00 95 /min University of Arterial blood by [place] Medi paul Pulse oximetry Branch Systolic blood 2022-05-03 00:20:00 125 mm[Hg] Univer sity of pressure [place] [facility] Diastolic blood 2022-05-03 00:20:00 84 mm[Hg] Unive rsity of pressure [place] [facility] Heart rate 2022-05-03 00:18:00 106 /min Universi ty [facility] [place] [facility] Body temperature 2022-05-03 00:18:00 37.06 Katie Univ ersity of [place] [facility] Respiratory rate 2022-05-03 00:18:00 16 /min Univ ersity of [place] [facility] Body height 2022-05-03 00:18:00 160 cm Universi ty of [place] [facility] Body weight 2022-05-03 00:18:00 82.736 kg [facility]i ty [facility] [place] [facility] BMI 2022-05-03 00:18:00 32.31 kg/m2 [facility] [place] [facility] Oxygen saturation in 2022-05-03 00:18:00 98 /min University of Arterial blood by [place] Medi paul Pulse oximetry Branch Systolic blood 2021-11-02 16:35:00 132 mm[Hg] Angelique Seybold pressure Diastolic blood 2021-11-02 16:35:00 64 mm[Hg] Kelse y Seybold pressure Heart rate 2021-11-02 16:35:00 86 /min Angelique Saxena eybold Body temperature 2021-11-02 16:35:00 36.56 Katie Vanessa ey Seybold Respiratory rate 2021-11-02 16:35:00 16 /min Vanessa ey Seybold Body height 2021-11-02 16:35:00 160 cm Angelique S eybold Body weight 2021-11-02 16:35:00 82.555 kg Angelique Saxena eybold BMI 2021-11-02 16:35:00 32.24 kg/m2 Angelique S eybold Systolic blood 2021-10-05 15:27:00 144 mm[Hg] Angelique Seybold pressure Diastolic blood 2021-10-05 15:27:00 64 mm[Hg] Kelse y Seybold pressure Heart rate 2021-10-05 15:27:00 98 /min Angelique S eybold Body temperature 2021-10-05 15:27:00 36.5 Katie Vanessa ey Seybold Respiratory rate 2021-10-05 15:27:00 14 /min Vanessa ey Seybold Body height 2021-10-05 15:27:00 160 cm Angelique Saxena eybold Body weight 2021-10-05 15:27:00 81.194 kg Angelique Saxena eybold BMI 2021-10-05 15:27:00 31.71 kg/m2 Angelique S eybold Systolic blood 2021-05-24 18:59:00 140 mm[Hg] Angelique Seybold pressure Diastolic blood 2021-05-24 18:59:00 68 mm[Hg] Kelse y Seybold pressure Heart rate 2021-05-24 18:59:00 80 /min Angelique S eybold Body temperature 2021-05-24 18:59:00 36.06 Katie Vanessa ey Seybold Respiratory rate 2021-05-24 18:59:00 16 /min Vanessa ey Seybold Body height 2021-05-24 18:59:00 160 cm Angelique Saxena eybold Body weight 2021-05-24 18:59:00 79.833 kg Angelique palmaboitalo BMI 2021-05-24 18:59:00 31.18 kg/m2 Angelique palmaboitalo Systolic blood 2021-05-11 18:36:00 106 mm[Hg] Angelique Seybold pressure Diastolic blood 2021-05-11 18:36:00 58 mm[Hg] Ayan y Seybold pressure Heart rate 2021-05-11 18:36:00 70 /min Angelique palmaboitalo Body temperature 2021-05-11 18:36:00 36.5 Katie Vanessa palma Seybold Respiratory rate 2021-05-11 18:36:00 14 /min Vanessa palma Seybold Body height 2021-05-11 18:36:00 160 cm Angelique palmaboitalo Body weight 2021-05-11 18:36:00 79.379 kg Angelique chung BMI 2021-05-11 18:36:00 31.00 kg/m2 Angelique chung Oxygen saturation in 2021-05-11 18:36:00 98 /min Angelique De Los Santos Arterial blood by Pulse oximetry Procedures Procedure Date / Time Performed Performing Clinician Sour e POCT SARS-COV-2 2023-02-22 19:15:00 Nicol Giron [place] ANTIGEN (BINAX NOW) [facility] POCT MOLECULAR FLU 2023-02-22 19:13:00 Unknown, Attending [facility] POCT MOLECULAR STREP 2023-02-22 19:10:00 Unknown, Attending [facility] POCT SARS-COV-2 2022-11-23 00:35:00 Larissa Lee [place] ANTIGEN (BINAX NOW) Medical [facility] PATIENT FINANCIAL 2022-11-23 00:11:51 Doctor Unassigned, No [facility] POLICY Name [facility] XR HIPS 2 VW LEFT 2022-05-03 00:55:00 Larissa Lee [facility] XR FOOT 3+ VW LEFT 2022-05-03 00:55:00 Larissa [facility] XR ANKLE 3+ VW LEFT 2022-05-03 00:55:00 Larissa Lee [facility] URINALYSIS NONAUTO W/O 2021-05-24 19:34:00 Kelly Beckett y Filiberto SCOPE Somogyi Plan of Care Planned Activity Planned Date Details Comments Source Future Scheduled 2023-02-16 Screening for [facility] Test 22:14:42 malignant neoplasm of colon (procedure) [code = 154798771] Future Scheduled 2023-02-16 Screening for [facility] Test 22:14:42 malignant neoplasm of colon (procedure) [code = 391250729] Future Scheduled 2023-02-16 Screening for [facility] Test 22:14:42 malignant neoplasm of colon (procedure) [code = 683859421] Future Scheduled 2023-02-16 COVID-19 VACCINE (#1) [facility] Test 22:14:42 [code = COVID-19 VACCINE (#1)] Future Scheduled 2023-02-16 BREAST CANCER [facility] Test 22:14:42 SCREENING [code = BREAST CANCER SCREENING] Future Scheduled 2023-02-16 Screening for [facility] Test 22:14:42 malignant neoplasm of colon (procedure) [code = 343791865] Future Scheduled 2023-02-16 Screening for [facility] Test 22:14:42 malignant neoplasm of colon (procedure) [code = 749842262] Future Scheduled 2023-02-16 SHINGLES VACCINES (1 Met [facility] Test 22:14:42 of 2) [code = SHINGLES VACCINES (1 of 2)] Future Scheduled 2023-02-16 65+ [facility]OCOCCAL [facility] Test 22:14:42 VACCINE (1 - PCV) [code = 65+ PNEUMOCOCCAL VACCINE (1 - PCV)] Future Scheduled 2023-02-16 INFLUENZA VACCINE [facility] Test 22:14:42 [code = INFLUENZA VACCINE] Future Scheduled 2022-12-09 COVID-19 VACCINE (#1) [facility] Test 09:08:48 [code = COVID-19 VACCINE (#1)] Future Scheduled 2022-12-09 BREAST CANCER [facility] Test 09:08:48 SCREENING [code = BREAST CANCER SCREENING] Future Scheduled 2022-12-09 COLONOSCOPY SCREENING [facility] Test 09:08:48 [code = COLONOSCOPY SCREENING] Future Scheduled 2022-12-09 SHINGLES VACCINES (1 [facility] Test 09:08:48 of 2) [code = SHINGLES VACCINES (1 of 2)] Future Scheduled 2022-12-09 65+ P[facility]UMOCOCCAL [facility] Test 09:08:48 VACCINE (1 - PCV) [code = 65+ PNEUMOCOCCAL VACCINE (1 - PCV)] Future Scheduled 2022-12-09 INFLUENZA VACCINE Method [facility] Hospital Test 09:08:48 [code = INFLUENZA VACCINE] Future Scheduled 2021-08-25 COVID-19 VACCINE (1) [facility] Test 16:16:21 [code = COVID-19 VACCINE (1)] Future Scheduled 2021-08-25 BREAST CANCER [facility] Test 16:16:21 SCREENING [code = BREAST CANCER SCREENING] Future Scheduled 2021-08-25 COLONOSCOPY SCREENING [facility] Test 16:16:21 [code = COLONOSCOPY SCREENING] Future Scheduled 2021-08-25 SHINGLES VACCINES (#1) [facility] Test 16:16:21 [code = SHINGLES VACCINES (#1)] Future Scheduled 2021-08-25 65+ [facility]AL [facility] 16:16:21 VACCINE (1 of 1 - PPSV23) [code = 65+ PNEUMOCOCCAL VACCINE (1 of 1 - PPSV23)] Future Scheduled 2021-08-25 INFLUENZA VACCINE Method [facility] Test 16:16:21 [code = INFLUENZA VACCINE] Future Scheduled 2021-08-25 COVID-19 VACCINE (1) [facility] Test 16:16:21 [code = COVID-19 VACCINE (1)] Future Scheduled 2021-08-25 BREAST CANCER [facility] Test 16:16:21 SCREENING [code = BREAST CANCER SCREENING] Future Scheduled 2021-08-25 COLONOSCOPY SCREENING [facility] Test 16:16:21 [code = COLONOSCOPY SCREENING] Future Scheduled 2021-08-25 SHINGLES VACCINES (#1) [facility] Test 16:16:21 [code = SHINGLES VACCINES (#1)] Future Scheduled 2021-08-25 65+ PNEUMOCOCCAL [facility] Test 16:16:21 VACCINE (1 of 1 - PPSV23) [code = 65+ PNEUMOCOCCAL VACCINE (1 of 1 - PPSV23)] Future Scheduled 2021-08-25 INFLUENZA VACCINE Method [facility] Test 16:16:21 [code = INFLUENZA VACCINE] Future Scheduled COVID-19 [facility]ACCINE (1) [facility] [code = COVID-19 VACCINE (1)] Future Scheduled [facility] Test SCREENING [code = BREAST CANCER [...] ist Hospital Test [code = INFLUENZA VACCINE] Encounters Start End Encounter Admission Attending Care Care Encounter Source Date/Time Date/Time Type Type Clinicians Facility Department ID 2022-07-11 Outpatient [facility] [id number] [place] 14:43:51 [id number] [facility] 2022-06-27 Outpatient [facility] [id number] [place] 15:54:29 [id number] [facility] 2022-06-17 Outpatient [facility] [id number] [place] 10:04:52 [id number] [facility] 2021-11-27 Outpatient [facility] [id number] [place] 04:09:25 [id number] [facility] 2021-07-03 Emergency [facility] [id number] [facility] 2023-02-22 Outpatient Seth LOWE [facility] [id number] Univers 13:40:00 14:29:43 [facility]-22 2023-02-22 Urgent Meg Lowe [facility] 1.2.840.11 [id number] Univers 13:40:00 14:29:43 Care Unknown, Attending HEALTH 350.1.13.10 ity [facility] 4.2.7.2.686 Rtay as JOON?BLEA [id number] [address] MEDICAL OFFICE BUILDING 2023-01-22 2023-01-22 Outpatient ANGELIQUE BECKETT [id number] Angelique 00:00:00 00:00:00 KELLY jennings 2022-11-22 2022-11-22 Urgent Larissa Lee [facility] 1.2.840.114 [id number] Univers 19:20:00 19:40:00 Care Unknown, Attending HEALTH 350.1.13.10 ity of [facility] 4.2.7.2.686 Tray as JOON?BLEA [id number] [address] MEDICAL OFFICE [facility] 2022-11-22 2022-11-22 Outpatient Seth LEE [facility] [id number] [facility] 19:20:00 19:20:00 LARISSA ity [facility] 2022-11-22 2022-11-22 Orders Doctor YA 1.2.840.114 [id number] [facility] 00:00:00 00:00:00 Only Unassigned, CONOR 350.1.13.10 [facility] 4.2.7.2.686 Tray as [id number] [address] 2022-11-19 2022-11-19 Outpatient ANGELIQUE BECKETT [id number] Angelique 00:00:00 00:00:00 KELLY jennings 2022-09-20 2022-09-20 Outpatient ANGELIQUE BECKETT [id number] Angelique 00:00:00 00:00:00 KELLY jennings 2022-08-23 2022-08-23 Outpatient ANGELIQUE BECKETT [id number] Angelique 00:00:00 00:00:00 KELLY jennings 2022-07-11 2022-07-11 Outpatient JAY, [facility] [id number] [place] 13:30:00 15:35:57 [facility] 2022-05-03 2022-05-03 Drake Lee [facility] [id number] [facility] 00:00:00 00:00:00 Larissa HEALTH 350.1.13.10 it y of [facility] 4.2.7.2.686 Tray as JOON?BLEA [id number] [address] MEDICAL OFFICE [facility] 2022-05-03 2022-05-03 Telephone Prince RIDOMINIC 1.2.840.114 [id number] [facility] 00:00:00 00:00:00 Kelly HEALTH 350.1.13.10 it y of [facility] 4.2.7.2.686 Tray as JOON?BLEA [id number] [facility] [address] MEDICAL OFFICE [facility] 2022-05-02 2022-05-02 Outpatient [facility] [id number] Univers 19:33:59 23:59:00 LARISSA ity of [facility] 2022-05-02 2022-05-02 [facility] 1.2.840.114 [id number] Univers 19:33:59 23:59:00 Encounter Larissa HEALTH 350.1.13.10 ity of [place] 4.2.7.2.686 Tray as JOON?BLEA [id number] [facility] [address] MEDICAL OFFICE [facility] 2022-05-02 2022-05-02 [facility] 1.2.840.114 [id number] Univers 19:33:59 23:59:00 Encounter Larissa HEALTH 350.1.13.10 ity of [place] 4.2.7.2.686 Tray as JOON?BLEA [id number] [facility] [address] [facility] OFFICE [facility] 2022-05-02 2022-05-02 [facility] 1.2.840.114 [id number] Univers 19:33:58 23:59:00 Encounter Larissa HEALTH 350.1.13.10 ity of [place] 4.2.7.2.686 Tray as JOON?BLEA [id number] [facility] [address] [facility] OFFICE [facility] 2022-05-02 2022-05-02 Outpatient [facility] [id number] Univers 19:20:00 19:44:57 LARISSA ity [facility] 2022-05-02 2022-05-02 [facility] 1.2.840.114 [id number] Univers 19:20:00 19:44:57 Care Larissa HEALTH 350.1.13.10 it y of [place] 4.2.7.2.686 Tray as JOON?BLEA [id number] [facility] [address] MEDICAL OFFICE [facility] 2022-05-02 2022-05-02 Orders Doctor PANDYA 1.2.840.114 [id number] Univers 00:00:00 00:00:00 Only Unassigned, CONOR 350.1.13.10 ity of [place] [facility] 4.2.7.2.686 Tray as [id number] [facility] 009 Branch 2022-03-14 2022-03-14 Laboratory Only, Ang Db Test [facility] 1.2.8 40.114 [id number] Univers 12:45:00 13:00:00 Only Karolyn Stovall 350.1.13.10 ity of [facility] 4.2.7.2.686 Tray as JOON?BLEA [id number] [address] MEDICAL OFFICE BUILDING 2022-03-14 2022-03-14 Outpatient R WILMAN [facility] [id number] Univers 12:45:00 12:45:00 KAROLYN ittania o f [facility] 2022-03-14 2022-03-14 Letter Doctor YA 1.2.840.114 [id number] Univers 00:00:00 00:00:00 (Out) Unassigned, CONOR 350.1.13.10 ity of [place] [facility] 4.2.7.2.686 Tray as [id number] [facility] 044 Branch 2021-11-30 2021-11-30 Outpatient ANGELIQUE BECKETT [id number] Angelique 13:30:00 13:30:00 KELLY jennings 2021-11-30 2021-11-30 Outpatient ANGELIQUE BECKETT [id number] Angelique 00:00:00 00:00:00 KELLY jennings 2021-11-02 2021-11-02 Office Zachary Beckett 1.2.840.114 [id number] Angelique 10:45:00 11:15:00 Visit Kelly Almonte 350.1.13.13 Se sarah Ramos 1.2.7.2.686 [id number] 2021-10-05 2021-10-05 Outpatient LAB90 ANGELIQUE MERINO [id number] Angelique 10:05:00 10:05:00 Semiguelol dick 2021-10-05 2021-10-05 Office Zachary Beckett 1.2.840.114 [id number] Angelique 09:30:00 09:45:00 Visit Kelly Almonte 350.1.13.13 Se yblisandra Somogyi 1.2.7.2.686 [id number] 2021-09-13 2021-09-13 Emergency X LAINEY [facility] ERT [id number] Univers 13:13:00 17:20:00 VANESSA [facility] [place] 2021-09-13 2021-09-13 [facility] 1.2.942.059 [id number] Univers 13:13:00 17:20:00 Vanessa KIM 350.1.13.10 [facility] 4.2.7.2.686 [place] [facility] [id number] [address] 2021-09-13 2021-09-13 Outpatient ANGELIQUE BECKETT [id number] Angelique 00:00:00 00:00:00 KELLY jennings 2021-09-10 2021-09-10 Laboratory Only, Ang Db Test [facility] 1.2.8 40.114 [id number] Univers 12:15:00 12:30:00 Only Kevin Rodríguez [facility] 350.1.13. 10 [employer] [facility] 4.2.7.2.686 Tray as JOON?BLEA [id number] [address] MEDICAL OFFICE BUILDING 2021-09-10 2021-09-10 Outpatient Seth RODRÍGUEZ [facility] [id number] Univers 12:15:00 12:15:00 [facility] 2021-08-02 2021-08-02 Outpatient CAROLE CORTEZ [id number] Angelique 00:00:00 00:00:00 Seybol d 2021-05-24 2021-05-24 Office Zachary Beckett 1.2.840.114 [id number] Angelique 13:45:59 14:15:59 Visit Kelly Almonte 350.1.13.13 Se sarah Somogyi 1.2.7.2.686 [id number] 2021-05-20 2021-05-20 Outpatient ANGELIQUE BECKETT [id number] Angelique 14:00:00 14:00:00 KELLY Alvarezol dick 2021-05-11 2021-05-11 Outpatient LAB90 ANGELIQUE MERINO [id number] Angelique 14:20:00 14:20:00 Seybol d 2021-05-11 2021-05-11 Office Zachary Beckett 1.2.840.114 [id number] Angelique 13:33:51 14:03:51 Visit Kelly Almonte 350.1.13.13 sarah Ramos 1.2.7.2.686 [id number] 2021-04-30 2021-04-30 Outpatient TESTING, PL ANGELIQUE MERINO [id number] Angelique 15:45:00 15:45:00 Seybol d 2021-04-28 2021-04-28 Outpatient LAB90 ANGELIQUE MERINO [id number] Angelique 15:15:00 15:15:00 Seybol d 2021-04-28 2021-04-28 Outpatient ANGELIQUE BECKETT [id number] Angelique 14:30:00 14:30:00 KELLY jennings 2021-04-28 2021-04-28 Letter YA Arango 1.2.840.114 [id number] Univers 00:00:00 00:00:00 (Out) Christine Snow CONOR 350.1.13.10 it y of [facility] 4.2.7.2.686 Tray as [id number] [address] 2021-04-27 2021-04-27 Celso Lee [facility] 1.2.840.114 [id number] Univers 18:54:12 19:14:[address] [facility] 350.1.13.10 it y of [place] 4.2.7.2.686 Tray as Joon?Blea [id number] [address] Medical Office Building 2021-04-27 2021-04-27 Outpatient R MONALISA [facility] [id number] [facility] 19:00:00 19:00:00 [facility] 2021-04-27 2021-04-27 Outpatient ANGELIQUE BECKETT [id number] Angelique 00:00:00 00:00:00 KELLY jennings 2021-04-27 2021-04-27 Letter Doctor PANDYA 1.2.840.[id number] [place] [address] 00:00:00 00:00:00 (Out) Unassigned, CONOR 350.1.13.10 ity of [place] [facility] 4.2.7.2.686 Tray as [phone] [facility] [address] 2021-04-27 2021-04-27 Orders Doctor YA 1.2.840.114 [id number] Univers 00:00:00 00:00:00 Only Unassigned, CONOR 350.1.13.10 ity of [place] [facility] 4.2.7.2.686 Tray as [id number] [facility] [address] 2021-04-27 2021-04-27 Letter Doctor YA 1.2.840.114 [id number] Univers 00:00:00 00:00:00 (Out) Unassigned, CONOR 350.1.13.10 ity of [place] [facility] 4.2.7.2.686 Tray as [id number] [facility] [address] [place] 2020-10-01 2020-09-29 Inpatient EL Victoria, [facility]AT[facility] SURG [id number] [facility] 14:20:00 14:20:00 Vanessa [facility] 2020-09-24 2020-09-24 Emergency , [facility] 1.2.587.571 [id number] 13:18:00 17:07:00 Dmitriy Kim 350.1.13.10 [place] 4.2.7.2.686 [place] [id number] [facility] 2020-09-24 2020-09-24 Emergency Singer [facility] 1.2.043.049 [id number] [facility] 13:18:00 17:07:00 Dmitriy Kim 350.1.13.10 i ty of [place] 4.2.7.2.686 [facility] [id number] [place] [id number] [place] 2019-11-20 2019-11-20 Outpatient [facility] [id number] 7-2 [facility] 00:00:00 00:00:00 [id number] 2019-11-04 2019-11-04 Orders Doctor YA 1.2.840.114 [id number] 00:00:00 00:00:00 Only Unassigned, CONOR 350.1.13.10 [place] [facility] 4.2.7.2.686 [id number] 009 2019-11-04 2019-11-04 Orders Doctor YA 1.2.840.114 [id number] Univers 00:00:00 00:00:00 Only Unassigned, CONOR 350.1.13.10 [facility]y [facility] [place] [facility] 4.2.7.2.686 Tray as [phone] [facility] [address] 2019-10-07 2019-10-07 [facility] 1.2.840.114 [id number] 10:00:00 23:59:00 Encounter [place] 350.1.13.10 [place] 4.2.7.2.686 [place] [id number] 2019-10-07 2019-10-07 [facility] 1.2.840.114 [id number] Univers 10:00:00 23:59:00 Encounter [place] 350.1.13.10 it[place]2.[place] [id number] [address] [place] [address] 2019-09-13 2019-09-18 [id number] 10:30:00 04:41:58 Markie 58 [facility] are [facility] 2019-09-06 2019-09-11 Inpatient [facility] ENDO [id number] [facility] 08:30:00 23:45:52 Markie 88 [facility] are [facility] Results Test Description Test Time Test Comments Results Result Comments Source POCT MOLECULAR FLU 2023-02-22 19:24:40 Test Item Value Reference Range Interpretation Comme nts POCT Molecular FluA (test code = 75749-4) Negative Negative POCT Molecular FluB (test code = 14628-6) Negative Negative Lab Interpretation (test code = 33683-2) Normal [facility] MOLECULAR [id number] 19:17:28 Test Item Value Reference Range Interpretation Comments POCT Molecular Strep (test code = Negative Negative 90259-3) Lab Interpretation (test code = Normal 99614-1) [facility] SARS-COV-2 ANTIGEN (BINAX NOW)2023-02-22 19:16:00 Test Item Value Reference Range Interpretation Comments POCT SARS-COV-2 ANTIGEN Positive Not Detected A (test code = 69047-2) On board controls Yes acceptable with C Line (test code = 3574) MARVA (test code = MARVA) accurate development and interpretation of all internal controls Lab Interpretation Abnormal (test code = 99269-8) [facility] SARS-COV-2 ANTIGEN (BINAX NOW)2022-11-23 00:35:00 Test Item Value Reference Range Interpretation Comments POCT SARS-COV-2 ANTIGEN Not Detected Not Detected (test code = 32362-5) On board controls Yes acceptable with C Line (test code = 3574) MARVA (test code = AMRVA) accurate development and interpretation of all internal controls Lab Interpretation Normal (test code = 54886-7) [facility] [id number] 19:34:00 Test Item Value Reference Range Interpretation Comments UD KETONES (test code = neg 5-160 847423) UD GLUCOSE (test code = neg 100-2000 284169) UD PROTEIN (test code = neg Trace - 2000 mg/dL 795223) UD LEUKOCYTES (test neg Trace - Large @ 2 code = 675300) min. UD NITRITE (test code = neg Neg. - Pos. @ 60 658663) sec. UD UROBILINOGEN (test 0.2 mg/dL 0.2-8 code = 069674) UD PH (test code = See_Comment [Automat ed 885492) message] The sy stem which generated this result transmitted reference range : 5.0 - 8.5 @ 60 sec.. The refer ence range was not u sed to interpret th is result as normal/abnormal . UD BLOOD (test code = neg Neg. - Large @ 60 764507) sec. UD SPECIFIC GRAVITY See_Comment [Automa ann (test code = 602448) message ] The system which generated this result transmitted reference range : 1.000 - 1.030 @ 45 sec.. The refer ence range was not u sed to interpret th is result as normal/abnormal . UD BILIRUBIN (test code neg Neg. - Large @ 45 = 959362) sec. Lab Interpretation Normal (test code = 52901-6) Angelique Velásquez 19 Asymptomatic IH [id number] 15:12:00 Test Item Value Reference Range Interpretation Comments COVID 19 Asymptomatic IH AG (test NEGATIVE NEGATIVE code = COVNONPUIAG) SURGICAL [id number] 11:39:00 RUN DATE: 09/17/19 [facility] - LAB PAGE 1 RUN TIME: 113 Specimen Inquiry RUN USER: INTERFACE -------- ----PATIENT: JENNIFER VALLADARES LOC: APARNA U #: [id number] AGE/SX: 64/F ROOM: RE09/13/19REG DR: Markie Holman MD : 53 BED: DIS: STATUS: MAGAN ELLISON TLOC: SPEC #: [id number] RECD: 09/13/19 STATUS: NORMA GONZALES #: [id number] FACUNDO: 09/13/[address]: Markie Holman MD [...] 0.7 cm. Entirely submitted in one cassette. YG/eb MICROSCOPIC DESCRIPTION Microscopic performed. Signed SIGNATURE ON FILE Kierra Angel 09/17/19 1139 END OF REPORT SURGICAL [id number] 12:11:00 RUN DATE: 09/10/19 [facility] - LAB PAGE 1 RUN TIME: 1211 Specimen Inquiry RUN USER: INTERFACE ------- -----PATIENT: JENNIFER VALLADARES LOC: APARNA U #: [id number] AGE/SX: 64/F ROOM: RE09/06/19[facility] DR:Markie Holman MD : 53 BED: DIS: STATUS: [facility] TLOC: SPEC #: [id number] RECD: 09/06/19 STATUS: NORMA REQ #: [id number] FACUNDO: 09/06/[address] [facility] [address]: Markie Holman MD ENTERED: 09/06/19 SP TYPE: SURG OTHR DR: Gayle Provider ORDERED: PATHGM4/2, PATH SPEC, H E STAIN/2, IHC AB STAIN I/2 HISTOLOGY: TISSUE ID BLK PCS CHRIS LEV / PROCEDURE DISPOSITION ____ ___ ___ ___ GASTRIC BIOPSY A 1 3 1 GASTRIC POLYP B 1 3 1 TISSUES: A. GASTRIC BIOPSY - Gastric Antrum Bx B. GASTRIC POLYP - Gastric Polyp X2 CLINICAL HISTORY Abdominal Pain/ Family Hx OfPolyps FINAL DIAGNOSIS A-GASTRIC ANTRUM BIOPSY: - Antral [...] hyperplastic polyp. - Negative for H. pylori organisms(H. pylori immunostain). GROSS DESCRIPTION A-GASTRIC ANTRUM: Two pieces of tissue which measure 2 mmeach. Entirely submitted in a single cassette. B-GASTRIC POLYP X2: Three pices of tissue which measure less than 1 mm to 2 mm. Entirely submitted in single cassette. RAB/eb MICROSCOPIC DESCRIPTION Microscopic performed. CONTINUED ON NEXT PAGE RUN DATE: 09/10/19 [facility] - LAB PAGE 2 RUN TIME: 1211 Specimen Inquiry RUN USER: INTERFACE SPEC #: [id number] PATIENT: JENNIFER VALLADARES #[id number] (Continu ed) ----- ------- Signed SIGNATURE ON FILE ShannonNata Mendoza MD 09/10/19 1211 END OF REPORT Notes Date/Time Note Provider Source 2020-10-01 08:26:00-00:00 [id number] [place] [address] PATIENT NAME: JENNIFER VALLADARES ADMIT DATE: ACCOUNT NO: [id number] ROOM NO: AGE: 65 REPORT TYPE: OPERATIVE REPORT SEX: F ADMITTING PHYSICIAN: ATTENDING PHYSICIAN:Vanessa Victoria MD OPERATION DATE: 10/01/2020 PREOPERATIVE DIAGNOSIS: Comminuted intraarticula r fracture, right distal radius, S52.571A. POSTOPERATIVE DIAGNOSIS: Comminuted intraarticul ar fracture, right distal radius, S52.571A. OPERATIVE PROCEDURES PERFORMED: Open reduction a nd internal fixation, right distal radius fracture involving 3 or more [facility] ents, [address]. ANESTHESIA: General. TOURNIQUET TIME: 42 minutes. ESTIMATED BLOOD LOSS: None. SURGEON: Vanessa Victoria MD FIELD SERVICES DIRECTOR: Slim Miranda, DANISH/LSA CLINICAL INDICATIONS: Ms. Queenie gonzalez is a 65-year-old fpnhf-hfra-hlebdfli female from [place], [place], who sustained a traumatic injur y to her right wrist, status post fall one week earlier. Her clinical as well as radiographic evaluation revealed a comminuted intraarticular fracture of the right distal radius. She is admitted for open reduction and internal fixa tion. PROCEDURE IN DETAIL: OPEN REDUCTION AND INTERNAL FIXATION, COMMINUTED INTRAARTICULAR FRACTURE, RIGHT DISTAL RADIUS, 25 499. Ms. Valladares was brought into e operative suite, at which time, she was placed in supine on the operating room table. Rout ine monitors were established. General anesthesia was delivered. Af ter satisfactory induction of general anesthesia, a tourniquet was applied to the patient's right up per extremity per Mr. Miranda and the right ar m was circumferentially prepped and draped in usual sterile fashion per Mr. Miranda. The arm was then elevated, exsanguinated, tourniquet insufflated to 250 mmHg. A volar Henr y approach was performed. The interval between the FCR and neurovascular bundl e was identified. Fascia was divided in line with the skin incision. Pronator quadratus muscle was taken sharply off the volar aspect of the distal radius. The fracture was visualized. Hematoma and soft tissue were resected from the fracture site. Under direct visualization, the 3-part fracture was reduced. PATIENT NAME: JENNIFER VALLADARES ACCOUNT #: [id number] At this time, a Synthes volar distal radius plat e was applied to the volar aspect of the radius. Proximal fixation was achi eved with 3.5-mm bicortical screw. C-arm image was used to verify optimal po sition of the plate. Three locking screws were then placed in the dis leana aspect of the plate. The first one engaged in the rad ial styloid fracture, the second one engaged in the ulnar fracture. Under direct visualization, the anatomic reduction of the fracture was achieved with optimal implant positioning. Further proximal fixation was achieved with 2.7- mm locking screw. Copious antibiotic lavage was performed at the surgical site. Skin closure was performed with subcuticular 2-0 Vicryl f ollowed by 4-0 nylon vertical mattress suture. Sterile dressing was applied. e patient was then extubated, taken to recovery room awake and aler t without any anesthetic or operative complications. At the end of the case, sponge and needle count s were correct x2. During the procedure, Mr. Pradip murillo was invaluable in positioning the patient along with preparation and draping of the extrem ity. He was also responsible for providing surgical expos ure throughout the procedure in addition to closure of the postoperative incision and application of postoperative dressing and splint. Dictated By: Vanessa Victoria MD WT: OP:MELINA/IESHA/NTS Conf#: [id number]/DID#: [id number] Authenticated and Edited by Vanessa Victoria MD O n 10/01/20 4:21:40 PM Electronically Signed by Vanessa Victoria MD on 0 10/01/20 at 1624 PATIENT NAME: JENNIFER VALLADARES ACCOUNT #: [id number] 2020-10-01 08:19:00-00:00 [facility] ([facility]) Brief Op Note REPORT#:[id number] REPORT STATUS: Signed DATE:10/01/20 TIME: 818 PATIENT: JENNIFER VALLADARES UNIT #: [id number] ROOM/BED: : 53 AGE: 65 SEX: F ATTEND: David Victoria MD ADM AUTHOR: Vanessa Victoria MD * ALL edits or amendments must be made on the el [employer]ronic/computer document * Op/Inv Proc Note - Brief Pre-procedure diagnosis: right distal radius fracture Post-procedure diagnosis: same as pre procedure dx Procedures performed: ORIF [id number] Primary Surgeon: Julien Warehouse Coordinator(s): Ruth OPA/LSA Findings: as above Complications: none Estimated blood loss in ml's: none Specimens removed/altered: none Electronically Signed by Vanessa Victoria MD on at 0821 RPT #:[id number] END OF REPORT 2020-09-30 06:41:00-00:00 [id number] [place] [address] PATIENT NAME: JENNIFER VALLADARES ADMIT DATE: ACCOUNT NO: [id number] ROOM NO: AGE: 65 REPORT TYPE: HISTORY AND PHYSICAL SEX: F ADMITTING PHYSICIAN: ATTENDING PHYSICIAN:Vanessa Victoria MD ADMISSION DATE: 09/29/2020 ADMITTING DIAGNOSIS: Comminuted intraarticular f racture, right distal radius, S52.571A. HISTORY OF PRESENT ILLNESS: Ms. Valladares is a 65-yea r-old jpcyl-bixg-xpjelcdi female, who sustained a traumatic injury to her right wrist after a fall approximately 1 week earlier. As a result of the fall, she has sustained a comminuted displaced intraar ticular fracture of the right distal radius. She is admitted for open reduction and internal fixatio n of the said fracture. PAST MEDICAL HISTORY: Hypertension, renal stones , osteoarthritis, gout, anxiety, depression, skin carcinoma. PAST SURGICAL HISTORY: Include abdominal procedu re, appendectomy, cholecystectomy, knee arthroscopy. MEDICATIONS: She lists no medications. ALLERGIES: SHE NOTES ALLERGIES TO PENICILLIN. TH ERE IS NO ANAPHYLAXIS NOTED. REVIEW OF SYSTEMS: Negative. SOCIAL HISTORY: She is . She does not smo ke. She drinks an occasional glass of wine. PHYSICAL EXAMINATION: HEENT: Within normal limits. CARDIAC: Regular rate and rhythm. No murmur. CHEST: Clear. ABDOMEN: Benign. BACK: No CVA tenderness. PERTINENT ORTHOPEDIC EVALUATION: Examination of the right wrist reveals moderate swelling and deformity. There are no sk in lesions noted. 2+ pulses are palpable. Radial, median, and ulnar nerves a re intact. Examination of the right elbow and right shoulder were entirely wit hin normal limits. DIAGNOSTIC DATA: Radiographic evaluation demonst rates a displaced intraarticular fracture of the right distal radi us. ASSESSMENT: Displaced comminuted intraarticular fracture of the right distal radius. PATIENT NAME: JENNIFER VALLADARES ACCOUNT #: [id number] SURGICAL PLAN: Will be to proceed with o pen reduction and internal fixation. I have gone over at length with the patient the as sociated risks involved with this procedure. She understa nds that these include but not limited to bleeding, infection, neurovascular dam age, malunion, nonunion, need for further operative intervention to aid in fracture healing, implant failure, need for implant removal, posttraumatic arthritis, loss of motion , decreased esol instructor strength, painful scar along with comp lications secondary to anesthesia. Ms. Valladares further understands that there are a bsolutely no guarantees or warranties that she will be pain free as a result of the procedure. She a ccepts these risks and gives her informed consent to proceed. Dictated By: Vanessa Victoria MD WT: HP:MELINA/IESHA/PADDY Conf#: [id number]/DID#: [id number] Authenticated by Vanessa Victoria MD On 10:34:19 AM Electronically Signed by Vanessa Victoria MD on 0 09/30/20 at 1034 PATIENT NAME: JENNIFER VALLADARES ACCOUNT #: [id number] 2019-09-13 11:00:00-00:00 [id number] [facility] [address] [place] [address] PATIENT NAME: JENNIFER VALLADARES ADMIT DATE: ACCOUNT NO: [id number] ROOM NO: AGE: 64 REPORT TYPE: ENDOSCOPY REPORT SEX: F ADMITTING PHYSICIAN: ATTENDING PHYSICIAN:Markie Holman MD [facility] Gastroenterology Patient Name: Dread Jennifer Attending MD: Markie Carroll MD Procedure Date: 09/13/2019 11:00 AM 75 Date of : 05/15 Admit Type: Preadmit Age: 64 Room: Room 1 Gender: Female Note Status: Finalized Procedure: Colonoscopy Pre Procedure Diagnosis: Screening for colorecta l malignant neoplasm Assistants: Markie Holman MD, Kendell Shane RN (Nurse), Beth Fernando, Affiliate Manager, Brigida Winslow CRNA Anesthesia: Monitored Anesthesia Care Introduction: Last Colonoscopy: date unknown. Un able to locate last colonoscopy report. Procedure: Pre-Anesthesia Assessment: - Prior to the procedure, a History and Physica l was performed, and patient medications and allergies were reviewed. The patient is compete nt. The risks and benefits of the procedure and th e sedation options and risks were discussed with the patient. All questions were answered and inform ed consent was obtained. Patient identification an d proposed procedure were verified by the physici an, the nurse, the anesthesiologist, the anestheti st and the clinical pharmacy technician in the pre-procedure area in the procedure room in the endoscopy suite. Mental Status Examination: normal. Airway Examination: normal oropharyngeal airway and neck mobility. Respiratory Examination: clear to auscultation . CV Examination: normal. ASA Grade Assessment: II - A patient with mild systemic disease. After revie wing the risks and benefits, the patient was deemed in satisfactory condition to undergo the procedure . The anesthesia plan was to use monitored anest hesia care (MAC). Immediately prior to administration of medications, the patient was re-assessed for adequacy to receive sedatives. The heart rate, respiratory rate, oxygen saturations, blood pressure, adequacy of pulmonary ventilation, a nd PATIENT NAME: JENNIFER VALLADARES ACCOUNT #: [id number] response to care were monitored throughout the procedure. The physical status of the patient w as re-assessed after the procedure. The benefits, risks, and alternatives to the procedure were discussed and informed consent w as obtained from the patient. I've assesed the pat ient on this date and reviewed the medical history, drug history, and previous anesthesia experience. Af ter obtaining informed consent, the scope was pass ed under direct vision. Throughout the procedure, the patient's blood pressure, pulse, and oxygen saturations were monitored continuously. The Colonoscope was introduced through the anus and advanced to the cecum, identified by appendice al orifice and ileocecal valve. The colonoscopy wa s performed without difficulty. The patient sruthi ated the procedure well. The quality of the bowel preparation was adequate. Post Procedure Findings: The perianal and digital rectal examinations we re normal. Pertinent negatives include normal sphincter tone and no palpable rectal lesions. A diminutive polyp was found in the ascending c olon. The polyp was sessile. The polyp was removed with a cold biop sy forceps. Resection and retrieval were complete. Estimated blood loss w as minimal. To prevent bleeding after the polypectomy, one hemostatic clip was successfully placed. There was no bleeding at the end of the procedure. The exam was otherwise without abnormality. Complications: No immediate complications. Estim ated blood loss: Minimal. Estimated Blood Loss: Post Procedure Diagnosis: - One diminutive polyp in the ascending colon, removed with a cold biopsy forceps. Resected a nd retrieved. Clip was placed. - The examination was otherwise normal. Recommendation: - Discharge patient to home (via wheelchair). - Resume previous diet. - Continue present medications. - Await pathology results. - Repeat colonoscopy in 5 years for screening purposes. - Return to my office PRN. - Telephone my office for pathology results in 1 week. Markie Holman MD Markie Holman MD 09/13/2019 11:31:41 AM This report has been signed electronically. Number of Addenda: 0 PATIENT NAME: JENNIFER VALLADARES ACCOUNT #: [id number] Note Initiated On: 09/13/2019 11:00 AM Procedure Date: 09/13/2019 11:00:48 AM Provation {[id number]}.pdf ProVation FT PDF at 1131 PATIENT NAME: JENNIFER VALLADARES ACCOUNT #: [id number] 2019-09-06 08:23:00-00:00 1231-[address] [facility] [address] [place] [address], [place] [address] PATIENT NAME: JENNIFER VALLADARES ADMIT DATE: ACCOUNT NO: [id number] ROOM NO: AGE: 64 REPORT TYPE: ENDOSCOPY REPORT SEX: F ADMITTING PHYSICIAN: ATTENDING PHYSICIAN:Markie Holman MD [facility] Gastroenterology Patient Name: Dread Gonzalez Attending MD: Markie Carroll MD Procedure Date: 09/06/2019 8:23 AM Date of : 05/15 Admit Type: Preadmit Age: 64 Room: Room 1 Gender: Female Note Status: Finalized Procedure: Upper GI endoscopy Pre Procedure Diagnosis: Epigastric abdominal pa in Assistants: Markie Holman MD, Janelle Marie RN (Nurse), Mer Camejo, Affiliate Manager, Sammi Lopez Anesthesia: Monitored Anesthesia Care Procedure: Pre-Anesthesia Assessment: - Prior to the procedure, a History and Physic al was performed, and patient medications and allergies were reviewed. The patient is compete nt. The risks and benefits of the procedure and the sedation options and risks were discussed with the patient. All questions were answered and infor med consent was obtained. Patient identification an d proposed procedure were verified by the physici an, the nurse, the anesthesiologist, the anesthetis t and the clinical pharmacy technician in the pre-procedure area in the procedure room in the endoscopy suite. Mental Status Examination: alert and oriented. Airway Examination: normal oropharyngeal airway and ne ck mobility. Respiratory Examination: clear to auscultation. CV Examination: normal. ASA Grade Assessment: II - A patient with mild systemic disease. After reviewing the risks and benefits , the patient was deemed in satisfactory conditio n to undergo the procedure. The anesthesia plan was to use monitored anesthesia care (MAC). Immediatel y prior to administration of medications, the pa tient was re-assessed for adequacy to receive sedativ es. The heart rate, respiratory rate, oxygen saturations, blood pressure, adequacy of pulmon mare ventilation, and response to care were monitore d throughout the procedure. The physical status o f PATIENT NAME: JENNIFER VALLADARES ACCOUNT #: [id number] the patient was re-assessed after the procedure . The benefits, risks, and alternatives to the procedure were discussed and informed consent w as obtained from the patient. I've assesed the pa tient on this date and reviewed the medical history, drug history, and previous anesthesia experience. Af ter obtaining informed consent, the scope was passe d under direct vision. Throughout the procedure, the patient's blood pressure, pulse, and oxygen saturations were monitored continuously.s were monitored continuously. The Endoscope was introduced through the mouth, and advanced to t he third part of duodenum. The upper GI endoscopy was accomplished without difficulty. The patient tolerated the procedure well. Post Procedure Findings: The hypopharynx was normal. The upper third of the esophagus, middle third of the esophagus and lower third of the esophagus were normal. The Z-line was irregular and was found at the g astroesophageal junction. A medium-sized hiatal hernia was present. Multiple small sessile polyps with no bleeding and no stigmata of recent bleeding were found on the lesser curvature of the stomach. The polyp was removed with a piecemeal technique using a cold biopsy forceps. Resection and retrieval were complete. Estimate d blood loss was minimal. Mild inflammation characterized by congestion ( edema), erythema and granularity was found in the prepyloric region of the stomach. Biopsies were taken with a cold forceps for histology. E stimated blood loss was minimal. Mild inflammation characterized by granularity was found in the duodenal bulb. Complications: No immediate complications. Estim ated blood loss: Minimal. Estimated Blood Loss: Post Procedure Diagnosis: - Normal hypopharynx. - Normal upper third of esophagus, middle third of esophagus and lower third of esophagus. - Z-line irregular, at the gastroesophageal junction. - Medium-sized hiatal hernia. - Multiple gastric polyps. Resected and retriev ed. - Gastritis. Biopsied. - Duodenitis. Recommendation: - Discharge patient to home (via wheelchair). - Resume previous diet. - Continue present medications. - Await pathology results. - Return to my office in 1 week. Markie Holman MD PATIENT NAME: JENNIFER VALLADARES ACCOUNT #: [id number] Markie Holman MD 09/06/2019 8:54:21 AM This report has been signed electronically. Number of Addenda: 0 Note Initiated On: 09/06/2019 8:23 AM Procedure Date: 09/06/2019 8:23:14 AM Provation {[id number]}.pdf ProVation FT PDF at 0854 PATIENT NAME: JENNIFER VALLADARES ACCOUNT #: [id number]
--- NOTE | 2023-03-21 16:22 | RAD REPORT ---
EXAM DESCRIPTION: CTAbdomen Pelvis W Contrast - 03/21/2023 3:56 pm CLINICAL HISTORY: Abdominal pain. right flank pain, UTI COMPARISON: <Comparisons> TECHNIQUE: Biphasic CT imaging of the abdomen and pelvis was performed with 100 ml non-ionic IV cont rast. All CT scans are performed using dose optimization technique as appropriate and may include automated exposure control or mA/KV adjustment according to patient size. FINDINGS: The lung bases are clear.Cholecystectomy clips. The liver, spleen, pancreas, adrenal glands and kidneys are within normal limits. No bowel obstruction, free air, free fluid or abscess. Aortic atherosclerosis. Small fat containing u mbilical hernia. The appendix is normal. No evidence of significant lymphadenopathy. Lumbosacral degenerative changes. IMPRESSION: No acute intra-abdominal or pelvic finding.
[2023-03-21 16:40] LABS: Specific Gravity 1.015 (1.005-1.030); Urine Bacteria None Seen /HPF (<20); Urine Bilirubin NEGATIVE (Negative); Urine Blood Negative (Negative); Urine Clarity Extremely Turbid (Clear); Urine Color Light-Yellow (Yellow); Urine Glucose NEGATIVE (Negative); Urine Mucus Slight /HPF (None Seen); Urine Protein TRACE (Negative); Urine RBC <5 /HPF (None Seen); Urine Urobilinogen Normal (Normal)
--- NOTE | 2023-03-21 17:29 | EDPHYS ---
Physician Documentation [facility] Name: Carlos Canada Age: 67 yrs Sex: Female : 1955 Arrival Date: 03/21/2023 Time: 13:39 Bed 9 Private MD: ED Physician Emile Watkins HPI: 03/21 14:25 This 67 yrs old Female presents to ER via Ambulatory with complaints of Vomiting, rn Headache, Back Pain, Urinary Problem, Dehydration. 14:26 Pt reports taking cipro for 8 days now for UTI, feels like not getting better, now rn having headache, malaise, nausea/vomiting, right flank pain. Has hx of kidney stones. No abd pain. . Onset: The symptoms/episode began/occurred 8 day(s) ago. Severity of symptoms: At their worst the symptoms were moderate in the emergency department the symptoms are unchanged. The patient has not experienced similar symptoms in the past. The patient has been recently seen by a physician:. Historical: - Allergies: 13:56 PENICILLINS; aa5 13:56 Sulfa (Sulfonamide Antibiotics); aa5 - PMHx: 13:56 High Cholesterol; Hypertension; Hypothyroidism; aa5 - Immunization history:: Adult Immunizations unknown. - Social history:: Smoking status: Patient denies any tobacco usage or history of. - Family history:: not pertinent. - Hospitalizations: : No recent hospitalization is reported. ROS: 14:26 Constitutional: + subjective fever and chills Cardiovascular: Negative for chest pain, rn palpitations, and edema, Respiratory: Negative for shortness of breath, cough, wheezing, and pleuritic chest pain, Abdomen/GI: Negative for abdominal pain, diarrhea, and constipation, Back: + right flank pain : + dysuria MS/Extremity: Negative for injury and deformity, Skin: Negative for injury, rash, and discoloration, Neuro: Negative for weakness, numbness, tingling, and seizure Exam: 14:26 Constitutional: This is a well developed, well nourished patient who is awake, alert, rn and in no acute distress. Head/Face: Normocephalic, atraumatic. Cardiovascular: Tachycardic, regular. Respiratory: No increased work of breathing, no retractions or nasal flaring. Abdomen/GI: Soft, non-tender Back: No spinal tenderness. No costovertebral tenderness. Skin: Warm, dry MS/ Extremity: Pulses equal, no cyanosis. Neuro: Awake and alert, GCS 15 17:45 ECG was reviewed by the Attending Physician. rn Vital Signs: 13:54 BP 193 / 110; Pulse 109; Resp 20 S; Temp 98.2(O); Pulse Ox 95% on R/A; Weight 80.74 kg aa5 (R); Height 5 ft. 3 in. (R); 15:00 BP 147 / 77; Pulse 69; Resp 16; Pulse Ox 96% ; bp 16:00 BP 139 / 68; Pulse 68; Resp 16; Pulse Ox 96% ; bp 17:00 BP 138 / 62; Pulse 67; Resp 16; Pulse Ox 98% ; bp 18:03 BP 139 / 67; Pulse 64; Resp 16; Pulse Ox 97% ; bp 18:12 BP 173 / 96; Pulse 96; Resp 16; Pulse Ox 98% on R/A; iw 13:54 Body Mass Index 31.53 (80.74 kg, 160.02 cm) aa5 MDM: 13:54 Patient medically screened. rn 17:27 Differential Diagnosis UTI, pyelonephritis, viral syndrome. Data reviewed: vital signs, rn nurses notes, lab test result(s), radiologic studies, CT scan, and as a result, I will discharge patient. Counseling: I had a detailed discussion with the patient and/or guardian regarding: the historical points, exam findings, and any diagnostic results supporting the discharge/admit diagnosis, lab results, radiology results, the need for outpatient follow up, to return to the emergency department if symptoms worsen or persist or if there are any questions or concerns that arise at home. Response to treatment: the patient's symptoms have markedly improved after treatment, and as a result, I will discharge patient. Special discussion: I discussed with the patient/guardian in detail that at this point there is no indication for admission to the hospital. It is understood, however, that if the symptoms persist or worsen the patient needs to return immediately for re-evaluation. ED course: CT without acute findings, maybe residual UTI, COVID PCR + but patient states had COVID 5 weeks ago. Will dc home to finish her abx and will add prn zofran with return precautions.. 03/21 14:07 Order name: Blood Culture Adult (2) rn 03/21 14:07 Order name: CBC with Diff; Complete Time: 15:43 rn 03/21 14:07 Order name: CMP; Complete Time: 15:43 rn 03/21 14:07 Order name: Lactate w/ 2H reflex if indic.; Complete Time: 15:43 rn 03/21 14:07 Order name: Protime (+inr); Complete Time: 15:43 rn 03/21 14:07 Order name: Ptt, Activated; Complete Time: 15:43 rn 03/21 14:07 Order name: Urinalysis w/ reflexes; Complete Time: 16:43 rn 03/21 16:02 Order name: SARS-COV-2 RT PCR; Complete Time: 17:21 rn 03/21 18:20 Order name: Glucose, Ancillary Testing EDMS 03/21 14:07 Order name: CT Abd/Pelvis - IV Contrast Only; Complete Time: 16:23 rn 03/21 18:09 Order name: XRAY Ankle RIGHT 2 view rn 03/21 19:35 Order name: RAD EDMS 03/21 14:07 Order name: EKG; Complete Time: 14:08 rn 03/21 14:07 Order name: Accucheck; Complete Time: 14:35 rn 03/21 14:07 Order name: Cardiac monitoring; Complete Time: 14:35 rn 03/21 14:07 Order name: EKG - Nurse/Tech; Complete Time: 15:43 rn 03/21 14:07 Order name: IV Saline Lock - Large Bore; Complete Time: 14:25 rn 03/21 14:07 Order name: Labs collected and sent; Complete Time: 14:25 rn 03/21 14:07 Order name: O2 Per Protocol; Complete Time: 14:25 rn 03/21 14:07 Order name: O2 Sat Monitoring; Complete Time: 14:25 rn 03/21 14:07 Order name: Vital Signs; Complete Time: 14:35 rn EC:45 Rate is 62 beats/min. Rhythm is regular. QRS [place] is Normal. CO interval is normal. QRS rn interval is normal. QT interval is normal. No Q waves. T waves are Normal. No ST changes noted. Clinical impression: NSR w/ Non-specific ST/T Changes. Interpreted by me. Reviewed by me. Administered Medications: 14:35 Drug: Ondansetron IVP 4 mg Route: IVP; Site: right antecubital; bp 15:43 Follow up: Response: No adverse reaction bp 14:35 Drug: NS 0.9% IV 1000 ml Route: IV; Rate: 1000 ml; Site: right antecubital; bp 18:05 Follow up: IV Status: Completed infusion; IV Intake: 1000ml bp Disposition Summary: 03/21/23 18:08 Hospitalization Ordered Hospitalization Status: Observation rn Provider: Aakash Maynard rn Location: Telemetry/MedSurg (observation)(03/21/23 18:08) rn Condition: Stable(03/21/23 18:08) rn Problem: an ongoing problem(03/21/23 18:08) rn Symptoms: have improved(03/21/23 18:08) rn Bed/Room Type: Standard rn Room Assignment: [facility](03/21/23 19:43) kd3 Diagnosis - UTI/ Urinary tract infection, site not specified(03/21/23 18:08) rn - Dehydration rn - Syncope rn Forms: - Medication Reconciliation Form rn - SBAR form rn Signatures: Dispatcher [employer] EDEmile Greene MD MD rn Calderon, Audri, RN RN Shay Huitron, RN RN Luisa Chiang kj1 Claudette Barrera, RN RN kd3 Corrections: (The following items were deleted from the chart) 18:07 17:29 Home rn rn 18:07 17:29 an ongoing problem rn rn 18:07 17:29 have improved rn rn 18:07 17:29 Stable rn rn 18:07 17:29 UTI/ Urinary tract infection, site not specified rn rn 18:07 17:29 Nausea with vomiting, unspecified rn rn 18:44 18:08 rn kj1 19:43 18:44 207 kj1 kd3
--- NOTE | 2023-03-21 17:29 | ER ---
Nurse's Notes [facility] Name: Carlos Canada Age: 67 yrs Sex: Female : 1955 Arrival Date: 03/21/2023 Time: 13:39 Bed 9 Private MD: Diagnosis: UTI/ Urinary tract infection, site not specified;Dehydration;Syncope Presentation: 03/21 13:54 Chief complaint: Patient states: "I think I am dehydrated". Pt reports vomiting x 2 aa5 days ago, denies diarrhea. Reports right flank pain, taking Cipro for a UTI for approximately 8 days. 13:54 Coronavirus screen: At this time, the client does not indicate any symptoms associated aa5 with coronavirus-19. Ebola Screen: Patient denies travel to an Ebola-affected area in the 21 days before illness onset. Initial Sepsis Screen: Does the patient meet any 2 criteria? HR > 90 bpm. Does the patient have a suspected source of infection? Yes: Dysuria/Frequency/Urgency/UTI. Risk Assessment: Do you want to hurt yourself or someone else? Patient reports no desire to harm self or others. Onset of symptoms was March 2023. 13:54 Acuity: REGINE 3 aa5 13:54 Method Of Arrival: Ambulatory aa5 Triage Assessment: 14:00 General: Appears in no apparent distress. Behavior is calm, cooperative, appropriate bp for age. Pain: Complains of pain in back. EENT: No deficits noted. Neuro: No deficits noted. Cardiovascular: No deficits noted. Respiratory: No deficits noted. GI: Reports nausea, vomiting. : Reports pain in right flank(s). Derm: No deficits noted. Musculoskeletal: No deficits noted. Historical: - Allergies: 13:56 PENICILLINS; aa5 13:56 Sulfa (Sulfonamide Antibiotics); aa5 - PMHx: 13:56 High Cholesterol; Hypertension; Hypothyroidism; aa5 - Immunization history:: Adult Immunizations unknown. - Social history:: Smoking status: Patient denies any tobacco usage or history of. - Family history:: not pertinent. - Hospitalizations: : No recent hospitalization is reported. Screenin:45 [facility] ED Fall Risk Assessment (Adult) History of falling in the last 3 months, bp including since admission No falls in past 3 months (0 pts). Abuse screen: Denies threats or abuse. Denies injuries from another. Nutritional screening: No deficits noted. Tuberculosis screening: No symptoms or risk factors identified. Assessment: 14:00 General: SEE TRIAGE NOTE. bp 15:30 Reassessment: Patient appears in no apparent distress at this time. Patient is alert, bp oriented x 3, equal unlabored respirations, skin warm/dry/pink. GI: Abdomen is non-distended. 16:30 Reassessment: Patient appears in no apparent distress at this time. Patient is alert, bp oriented x 3, equal unlabored respirations, skin warm/dry/pink. 17:30 Neuro: Level of Consciousness is awake, alert, obeys commands, Oriented to Appropriate bp for age Gait is steady. 17:56 Reassessment: rapid response called to ED parking lot. pt reports feeling light headed kc6 and dizzy while ambulating to her car at discharge and fell. denies LOC. pt transferred to ER bed 9 by wheelchair for further eval. Dr. Watkins, housekeeper supervisor, and Johanne Rae RN at bedside. 18:00 Reassessment: PT DC AMBULATORY. bp 18:00 Reassessment: pt noted to have fallen while walking to the ER parking lot, pt was noted iw to be lying on right side, states she did not hit her head abrasions to abdoul knee , she states she got dizzy and fell to ground, pt was assisted to sitting position then assisted into wheelchair by ER staff, pt transported to ER room 9 , evaluated by Dr. Watkins. 18:10 General: Appears in no apparent distress. uncomfortable, Behavior is calm, cooperative, kc6 appropriate for age. Pain: Complains of pain in right foot, right knee and left knee, right ankle. Neuro: Level of Consciousness is awake, alert, obeys commands, Oriented to person, place, time, situation, Appropriate for age. Cardiovascular: Capillary refill < 3 seconds. Respiratory: Airway is patent Trachea midline Respiratory effort is even, unlabored, Respiratory pattern is regular, symmetrical. Derm: Skin is healthy with good turgor, Skin is pink, warm \\T\\ dry. Injury Description: Abrasion sustained to right knee and left knee. 18:52 Reassessment: attempted to call report to second floor. per Steph, equal opportunity assistant, kc6 stated "it will have to wait until after shift change." informed her I was notified I'm able to give report prior to shift change. she informed to talk to housekeeper supervisor. KATHLEEN Whiting notified. 19:13 Reassessment: report called to KATHLEEN Cueva. stated she does not have an isolation room kc6 available per her charge nurse and they will talk with housekeeper supervisor about a new room assignment. KATHLEEN Whiting notified. 19:17 Reassessment: attempted to call report to 4th floor. stated the nurse Denys will call kc6 back as he is still doing shift change. KATHLEEN Whiting and KATHLEEN Montelongo notified. 20:10 Reassessment: Patient and/or family updated on plan of care and expected duration. Pain ha1 level reassessed. Patient is alert, oriented x 3, equal unlabored respirations, skin warm/dry/pink. Vital Signs: 13:54 BP 193 / 110; Pulse 109; Resp 20 S; Temp 98.2(O); Pulse Ox 95% on R/A; Weight 80.74 kg aa5 (R); Height 5 ft. 3 in. (R); 15:00 BP 147 / 77; Pulse 69; Resp 16; Pulse Ox 96% ; bp 16:00 BP 139 / 68; Pulse 68; Resp 16; Pulse Ox 96% ; bp 17:00 BP 138 / 62; Pulse 67; Resp 16; Pulse Ox 98% ; bp 18:03 BP 139 / 67; Pulse 64; Resp 16; Pulse Ox 97% ; bp 18:12 BP 173 / 96; Pulse 96; Resp 16; Pulse Ox 98% on R/A; iw 13:54 Body Mass Index 31.53 (80.74 kg, 160.02 cm) aa5 ED Course: 13:45 Patient arrived in ED. mg5 13:54 Emile Watkins MD is Attending Physician. rn 13:54 Arm band placed on. aa5 13:55 Shay Meza, KATHLEEN is Primary Nurse. bp 13:59 Triage completed. aa5 14:25 Inserted saline lock: 20 gauge in right antecubital area, using aseptic technique. bp 15:45 Patient has correct armband on for positive identification. Bed in low position. Call bp light in reach. Side rails up X2. 15:58 CT Abd/Pelvis - IV Contrast Only In Process Unspecified. EDMS 18:00 IV discontinued, intact, bleeding controlled, No redness/swelling at site. Pressure bp dressing applied. 18:07 Aakash Maynard MD is Hospitalizing Provider. rn 19:00 Inserted saline lock: 20 gauge in right antecubital area, using aseptic technique. kc6 19:12 No provider procedures requiring assistance completed. kc6 20:16 Provided Education on: need for admission . ha1 Administered Medications: 14:35 Drug: Ondansetron IVP 4 mg Route: IVP; Site: right antecubital; bp 15:43 Follow up: Response: No adverse reaction bp 14:35 Drug: NS 0.9% IV 1000 ml Route: IV; Rate: 1000 ml; Site: right antecubital; bp 18:05 Follow up: IV Status: Completed infusion; IV Intake: 1000ml bp Medication: 19:13 VIS not applicable for this client. kc6 Intake: 18:05 IV: 1000ml; Total: 1000ml. bp Outcome: 17:29 Discharge ordered by MD. rn 18:08 Decision to Hospitalize by Provider. rn 19:13 Condition: stable kc6 20:16 Patient left the ED. 3 20:16 Admitted to Tele accompanied by nurse, via wheelchair, room 417, with chart, Report ha1 called to Bedside report given to KATHLEEN Mcfarlane 20:16 Discharge instructions given to patient, Instructed on the need for admit, Demonstrated understanding of instructions. Signatures: Dispatcher [employer] Johanne Wilson, Emile Clifford RN, MD MD rn Calderon, Audri, KATHLEEN RN aa5 Shay Meza RN RN bp Hall, Erin, RN RN [facility] Abida Fischer RN RN ha1 Lianet Decker RN RN [address] [place] [id number] Corrections: (The following items were deleted from the chart) 18:11 18:00 Reassessment: pt noted to have fallen while walking to the ER parking lot, pt was iw noted to be lying on right side, states she did not hit her head abrasions to abdoul knee , she states she got dizzy and fell to ground, pt was assisted to sitting position then assisted into wheelchair by ER staff, pt transported to ER room 9 , evaluated by Dr. Watkins iw 18:12 17:56 Reassessment: rapid response called to ED parking lot. pt reports feeling light kc6 headed and dizzy while ambulating to her car at discharge and fell. denies LOC. pt transferred to ER bed 9 for further eval, Dr. Watkins, housekeeper supervisor, and Johanne Rae RN at bedside kc6 19:18 19:17 Reassessment: attempted to call report to 4th floor. stated the nurse Denys will kc6 call back as he is still doing shift change. KATHLEEN Whiting and KATHLEEN Dominguez notified. kc6
--- NOTE | 2023-03-21 19:34 | RAD REPORT ---
EXAM DESCRIPTION: RAD - Ankle Right 2 View - 03/21/2023 7:06 pm CLINICAL HISTORY: PAIN COMPARISON: <Comparisons> FINDINGS: Moderate soft tissue swelling is seen adjacent to the lateral malleolus. Small plantar paul caneal spur. No acute fracture or dislocation.
[2023-03-21] MEDS ORDERED: NA CHLORIDE 0.9% 1,000 ML IV SCH (20:23)
[2023-03-21] MEDS ORDERED: ONDANSETRON 4 MG/2 ML VIAL IV PRN (20:23)
[2023-03-21] MEDS ORDERED: ACETAMINOPHEN 500 MG TAB PO PRN (20:23)
[2023-03-21] MEDS ORDERED: TRAMADOL HCL 50 MG TAB PO PRN (22:41)
[2023-03-22 00:18] VITALS: BMI 31.5
[2023-03-22 05:18] LABS: Absolute Lymphocytes (CBC) 2.6 K/uL (0.7-4.9); Hematocrit 33.6 % (36.0-45.0); Lymphocytes % 27.5 % (15.3-44.8); MCV 88.4 fL (80-100); MPV 8.6 fL (7.6-11.3)
[2023-03-22 05:27] LABS: Potassium 3.7 mEq/L (3.5-5.1)
[2023-03-22] MEDS ORDERED: LEVOTHYROXINE SOD 0.088 MG TAB PO SCH (08:00)
[2023-03-22] MEDS: allopurinoL 100 MG TAB PO SCH ×2 (08:59→09:00)
[2023-03-22] MEDS ORDERED: CIPROFLOXACIN HCL 500 MG TAB PO SCH (09:00)
[2023-03-22] MEDS ORDERED: PANTOPRAZOLE 40MG TABLET PO SCH (09:00)
[2023-03-22] MEDS ORDERED: MONTELUKAST 10 MG TAB PO SCH (09:00)
[2023-03-22] MEDS ORDERED: HOME MED 1 EA UNK (Omeprazole [Omeprazole] 20 MG Capsule.Dr) PO SCH (09:00)
[2023-03-22] MEDS ORDERED: ASPIRIN 81 MG CHEWABLE TABLET PO SCH (09:00)
[2023-03-22] MEDS ORDERED: NIRMATRELVIR/RITONAVIR TABLET PO SCH (09:00)
[2023-03-22] MEDS ORDERED: VENLAFAXINE HCL XR 75 MG CAP PO SCH (09:00)
[2023-03-22] MEDS ORDERED: VALSARTAN 160 MG TAB PO SCH (09:00)
[2023-03-22] MEDS ORDERED: HOME MED 1 EA UNK (Valsartan/Hydrochlorothiazide [Valsartan-Hctz 160-12.5 Mg Tab] 1 EACH T PO SCH (09:00)
[2023-03-22] MEDS ORDERED: hydroCHLOROthiazide 12.5 MG CAP PO SCH (09:00)
[2023-03-22 09:03] VITALS: O2SAT 96
[2023-03-22 11:02] VITALS: BP 126/70; TEMP 98.7
--- NOTE | 2023-03-22 13:17 | EKG ---
Test Date: 2023-03-21 Test Time: 15:26:03 Oil Well Driller: BP MEASUREMENT RESULTS: Intervals: Rate: 62 MI: 130 QRSD: 76 QT: 426 QTc: 432 [place]: P: 39 MI: 130 QRS: 30 T: 49 INTERPRETIVE STATEMENTS: Normal sinus rhythm Anterior infarct, age undetermined Abnormal ECG Compared to ECG 12/28/2022 10:51:19 Myocardial infarct finding now present Electronically Signed On 03-22-23 13:15:39 CDT by Vini Churchill
[2023-03-22] MEDS ORDERED: ATORVASTATIN 10 MG TAB PO SCH (21:00)
--- NOTE | 2023-03-22 21:15 | P.SSS ---
Patient History Date of Service: 03/22/23 Reason for admission: FALL, WEAKNESS, COVID POS History of Present Illness: JENNIFER HAD UTI AND WAS GIVEN CIPRO BY MY OFFICE. SHE LATER DEVELOPED WEAKNESS AND FELL DOWN. IN ER SHEW WAS FOUND TO HAVE COVID INFECTION. SHE DOES NOT KNOW HOW SHE GOT INFECTED BUT IT MAY BE FROM FAMILY. SHE IS LOT BETTER TODAY. SHE IS ABLE TO AMBLUATE WITH ALEX WRAP ON R ANKLE THAT SHE INJURED. THERE IS NO FRACTURE. SHE GOT A DOSE OF PAXLOVID. Allergies Penicillins Allergy (Verified 01/03/23 08:12) Unknown Sulfa (Sulfonamide Allergy (Uncoded 01/03/23 08:12) Unknown SULFA (SULFONAMIDES) Allergy (Uncoded 01/03/23 08:12) Unknown Home Medications: Allopurinol 1 tab PO DAILY 01/03/23 Aspirin [Vazalore] 1 cap PO DAILY 01/03/23 Atorvastatin Calcium [Lipitor*] 1 tab PO BEDTIME 01/03/23 Levothyroxine [Synthroid*] 1 tab PO DAILY 01/03/23 Valsartan/Hydrochlorothiazide [Valsartan-Hctz 160-12.5 mg Tab] 1 tab PO DAILY 01/03/23 Venlafaxine HCl *Xr* [Effexor XR] 1 cap PO DAILY 01/03/23 Ciprofloxacin HCl [Cipro] 1 tab PO BID 03/21/23 Montelukast [Singulair*] 10 mg PO DAILY 03/21/23 Omeprazole 20 mg PO DAILY 03/21/23 Vits A,C,E/Lutein/Minerals [Eye Health Plus Lutein Tablet] 1 tab PO DAILY 03/21/23 - Past Medical/Surgical History Has patient received pneumonia vaccine in the past: No Diabetic: No -: HTN -: hyperlipidemia -: hypothyroid -: UTI -: gout -: cataract sx - Social History Smoking Status: Never smoker Alcohol use: No CD- Drugs: No Caffeine use: Yes Place of Residence: Home Review of Systems 10-point ROS is otherwise unremarkable General: Weakness Physical Examination - Vital Signs Temperature: 98.7 F Blood Pressure: 126/70 Pulse: 93 Respirations: 16 Pulse Ox (%): 96 - Physical Exam General: Mild distress HEENT: Atraumatic, PERRLA, Mucous membr. moist/pink, EOMI, Sclerae nonicteric Neck: Supple, 2+ carotid pulse no bruit, No LAD, Without JVD or thyroid abnormality Respiratory: Clear to auscultation bilaterally, Normal air movement Cardiovascular: Regular rate/rhythm, Normal S1 S2 Gastrointestinal: Normal bowel sounds, No tenderness Musculoskeletal: No tenderness Integumentary: No rashes Neurological: Normal gait, Normal speech, Normal strength at 5/5 x4 extr, Normal tone, Normal affect Lymphatics: No axilla or inguinal lymphadenopathy - Diagnosis (Problem(s)) (1) COVID Status: Acute Plan: HER WEAKNESS MOST LIKELY IS FROM COVID SHE HAS NO SORE THROAT, COUGH OR FEVER. IV FLUIDS HELPED SHE WILL HYDRATE AT HOME. I CALLED IN PAXLOVID FROM OFFICE. (2) Near syncope Status: Acute Plan: MOSTLY FROM ABOVE. ABLE TO AMBULATE FU IN OFFICE IN TWO WEEKS. - Disposition Disposition: ROUTINE DISCHARGE Condition: FAIR
== END 2023-03-22 19:40 | disposition home or self-care (01) ==
LOC: ER 13:39 → ERHOLD 18:10 → 4TH 19:45
PROVIDERS: ADMIT Internal Medicine; ATTEND Internal Medicine
DX: U07.1 COVID-19 (principal); R55 Syncope and collapse; N39.0 Urinary tract infection, site not specified; E86.0 Dehydration; S99.911A Unspecified injury of right ankle, initial encounter; W19.XXXA Unspecified fall, initial encounter; Y93.9 Activity, unspecified; Y92.019 Unspecified place in single-family (private) house as the place of occurrence of the external cause; Z88.0 Allergy status to penicillin; Z88.2 Allergy status to sulfonamides
CPT/HCPCS: 96361; 93005; 87040 ×2; 85025 ×2; 81001; 80048; 36415; 85610; 82947; 83605; 85730; 80053; 87635; 74177; 73600; 94760 ×2; 96374; 99285; Q9967; J2405; J7030 ×2

== ENCOUNTER 2023-05-22 23:41 | Emergency (ER) | payer OTHER, MEDICARE ==
--- OUTSIDE RECORDS SUMMARY | 2023-05-22 23:48 | XMS REPORT | Continuity of Care Document ---
:1955 Author Organization [facility] t Address [address] [place] [address] [place] [id number] Care Team Providers Name Role Phone Asked, No Pcp Primary Care Physician Unavailable PREET BUCIO Attending Clinician Unavailable Preet Bucio PA-C Attending Clinician Unknown, Attending Attending Clinician Unavailable Doctor Unassigned, [place] Attending Clinician Unavailable LARISSA LEE Attending Clinician Unavailable Larissa Lee MD Attending Clinician MEG LOWE Attending Clinician Unavailable Meg Samano Attending Clinician KELLY BECKETT Attending Clinician Unavailable ABENA THOMPSON Attending Clinician Unavailable Kelly Beckett MD Attending Clinician Only, Ang Db Test Attending Clinician Unavailable Karolyn Cox Attending Clinician KAROLYN STOVALL Attending Clinician Unavailable Kelly Beckett MD Attending Clinician [phone] Attending Clinician Unavailable VANESSA YI Attending Clinician Unavailable Vanessa Yi MD Attending Clinician Kevin Rodríguez DO Attending Clinician KEVIN RODRÍGUEZ Attending Clinician Unavailable DANA CAROLE W Attending Clinician Unavailable TESTING, PL COVID Attending Clinician Unavailable Nba WANG, Christine Snow Attending Clinician Unavailable Vanessa Victoria Attending Clinician Unavailable Dmitriy Melendez DO Attending Clinician Radiology Attending Clinician Unavailable Markie Holman Attending Clinician Unavailable VANESSA YI Admitting Clinician Unavailable Physician, No Primary or Family Admitting Clinician UnavailKETTY Saunders Admitting Clinician Unavailable Payers Payer Name Policy Type Policy Number Effective Date Expiration Date S luna MEDICARE PART A AND [id number] 2018 B 00:00:00 $20 F [id number] 2015 00:00:00 CIGNA II [id number] 2016 00:00:00 MEDICARE PART A \T\ [id number] 2018 B 00:00:00 [facility] [id number] 2019 MEDICARE SUPPLEMENT 00:00:00 MEDICARE-PART B 5 [id number] 2020 00:00:00 AARP/IND 4 [id number] 2021 00:00:00 Problems Condition Condition Condition Status Onset Resolution Last Treating Co mments Source Name Details Category Date Date Treatment Clinician Date Other Other Disease Active Tirso Merino specified specified 02 Assessmen S eybold menopausal menopausal 00:00: t & Plan: and and 00 Formattin perimenopa perimenopa g of this usal usal note disorders disorders might be different from the original. Unchanged , cont Estradiol 0.05mg/24 h transderm al patch biweekly as prescribe d. DEXA scan ordered. Other Other Disease Active Tirso Merino hyperlipid hyperlipid 6-14 Assessmen Seybold emia emia 00:00: t & Plan: 00 Formattin g of this note might be different from the original. Controlle d, cont Atorvasta tin 10mg daily. Will increase as indicated pending lab results. Other Other Disease Active iTrso Merino chronic chronic 6-14 Assessmen Lamin ld pain pain 00:00: t [...] w/ HCTZ 12.5mg. Hypothyroi Hypothyroi Disease Active Last Jocelyn manju jennings d 4-08 Assessrichard De Los Santos [...] SOB Univers INGREDI 3-18 ity of 00:00: [address] Sulfur Propensi Active Shortness Of Says she [facility] Breath 3-18 [facility]: breath Medical reaction 00 Center s Sulfa DA Active SV 2019-0 [facility] (Sulfona 09-06 [place] mide 00:00: [facility] Antibiot 00 are ics) Medical Center Sulfa DA Active SV CAN'T 2020-0 [facility] (Sulfona BREATHE 09-06 [place] mide 00:00: [facility] Antibiot 00 are ics) Medical Center Sulfa Propensi Active Rash Univers (Sulfona ty to 2-06 ity of mide adverse 00:00: [place] Antibiot reaction 00 Medica l ics) s Branch Penicill Propensi Active Rash 0 Univer s ins ty to 2-06 ity of adverse 00:00: [place] reaction 00 Medical s Branch PENICILL Drug Active Rash Univers INS Class 2-06 ity of 00:00: [place] 00 Medical Branch SULFA Drug Active Rash Univers (SULFONA Class 2-06 ity of MIDE 00:00: [place] ANTIBIOT 00 Medical ICS) Branch Penicill DA Active MO 0 [facility] ins 09-15 [place] 00:[facility] Sulfa DA Active SV 0 [facility] (Sulfona 09-15 [facility] [place] [facility] [place] 00:00: [facility] Antibiot 00 dic ics) Hospita l adhesive DA Active MO 2016-0 [facility] tape 09-15 [place] 00:00: [facility] 00 dic Hospita l Penicill DA Active MO ITCH 2016-0 [facility] ins 09-15 [place] 00:00: [facility]ope 00 dic Hospita l Sulfa DA Active SV CANT BREATH [facility] (Sulfona 09-15 [facility] [place] [facility] [place] 00:00: Orthope Antibiot 00 dic ics) Hospita l adhesive DA Active MO RASH 2017-0 [facility] tape 09-15 [place] 00:00: Orthope 00 dic Hospita l Adhesive Propensi Active Rash 2017-0 Angelique ty to 12 Seybold adverse 00:00: reaction 00 s Adhesive Propensi Active Rash 0 Univer s ty to 112 ity of adverse 00:00: [place] reaction 00 Medical s Branch ADHESIVE Drug Active Rash 2017-0 Univers Class 1-12 ity of 00:00: [place] 00 Medical Branch Penicill Propensi Active Shortness Of 2015-09 Methodi ins ty to Breath 09-05 st adverse 00:00: Hospita reaction 00 l s to drug Penicill Propensi Active Shortness Of 2015-09 Methodi ins ty to Breath 1-02 st adverse 00:00: Hospita reaction 00 l s to drug Sulfa Propensi Active Shortness Of 2015-09 Me denis (Sulfona ty to Breath 1-02 st mide adverse 00:00: Hospita Antibiot reaction 00 l ics) s to drug Penicill Propensi Active Shortness of Angelique ins ty to Breath 6-12 Seybold adverse 00:00: reaction 00 s SULFUR Allergy Active [facility] Social History Social Habit Start Date Stop Date Quantity Comments Source History SDOH [facility] Alcohol Frequency Hospita l History SDOH [facility] Alcohol Std Drinks Hospit al History SDGA [facility] Sexual orientation [facility] Gender identity [facility] Tobacco use and 2023-03-29 2023-03-29 Smokeless Universit y of exposure 00:00:00 00:00:00 tobacco non-user [facility] dical [place] Exposure to 2022-04-22 2022-05-02 Not sure [facility]-CoV-2 (event) 00:00:00 19:16:00 [facility] History of Social 2017-03-05 2017-03-[address] function 00:00:00 00:00:00 Hospital Alcohol intake 2016-07-07 2016-07-07 Current drinker [facility] 00:00:00 00:00:00 of [facility] (finding) Alcohol Comment 2016-07-06 2016-07-06 socially [facility]ost[facility]ism 00:00:00 00:00:00 Hospital Sex Assigned At [birth year] [facility] 00:00:00 00:00:00 Medical Center Smoking Status Start Date Stop Date Source Never smoked tobacco [facility] Medications Ordered Filled Start Stop Current Ordering Indication Dosage Frequency Signature Comments Components Source Medication Medication Date Date Medication? Clinician (SIG) Name Name ondansetron 2022- No [id number] 4mg U nivers (ZOFRAN-ODT 05-11 ity of ) 21:30: 20:45 [place] disintegrat 00 :00 Medical [facility] Branch 4 mg ondansetron 2022- No [id number] 4mg 4 mg, Univers (ZOFRAN-ODT 05-11 Oral, ity of ) 21:30: 20:45 ONCE, 1 [place] disintegrat 00 :00 dose, On Medi paul ing tablet Eladia 05/11/23 Bra nch 4 mg at 1630, Routine ondansetron 2022-0 Yes [id number] 4mg Take 1 Univers 4 mg 9-07 tablet by ity of disintegrat 00:00: mouth [place] ing tablet 00 every 8 Medica l (eight) Branch hours as needed for Nausea and Vomiting (N/V). famotidine 2022-0 Yes [id number] 40mg Take 1 U nivers 40 mg 9-07 tablet by ity of tablet 00:00: mouth in [place] 00 the Medical morning. Branch albuterol 2022-0 2022- No [id number] 2.5mg Univers (PROVENTIL) 03-29 ity of 2.5 mg /3 23:15: 22:30 [place] mL (0.083 00 :00 Medical %) Branch nebulizer solution 2.5 mg albuterol 2022-0 2022- No [id number] 2.5mg 2.5 mg, Univers (PROVENTIL) 03-29 Inhalation i ty of 2.5 mg /3 23:15: 22:30 , ONCE [place] mL (0.083 00 :00 NOW, 1 Medical %) dose, On Branch nebulizer Wed solution 03/29/23 at 2.5 mg 1815, Routine ipratropium 2022- No [id number] .5mg Univers (ATROVENT) 03-29 ity of 0.02 % 23:00: 22:30 [place] nebulizer 00 :00 Medical solution Branch 0.5 mg methylPREDN 2022-0 2022- No [id number] 40mg Univers ISolone sod 03-29 ity of succ 23:00: 22:31 [place] (SOLU-MEDRO 00 :00 Medical L (PF)) Branch injection 40 mg methylPREDN 2022-0 2022- No [id number] 40mg 40 mg, Univers ISolone sod 03-29 Intramuscu i ty of succ 23:00: 22:31 lar, ONCE, [place] (SOLU-MEDRO 00 :00 1 dose, On Mn dical L (PF)) Wed Branch injection 03/29/23 at 40 mg 1800, Routine ipratropium 2022- No [id number] .5mg 0.5 mg, Univers (ATROVENT) 03-29 07-26 Inhalation it y of 0.02 % 23:00: 22:30 , ONCE, 1 [place] nebulizer 00 :00 dose, On Medica l solution Wed Branch 0.5 mg 03/29/23 at 1800, Routine gabapentin Yes 1 capsule Un sheila 300 mg 03-29 ity of capsule 17:01: [address] tiZANidine Yes 1 tablet Uni vers 2 mg tablet 03-29 as needed ity of 17:01: [address] gabapentin Yes 1 capsule Un sheila 300 mg 03-29 ity of capsule 17:01: [address] tiZANidine Yes 1 tablet Uni vers 2 mg tablet 03-29 as needed ity of 17:: [address] gabapentin Yes 1 capsule Un sheila 300 mg 03-29 ity of capsule 17:01: [address] tiZANidine Yes 1 tablet Uni vers 2 mg tablet 03-29 as needed ity of 17:01: [address] fluticasone Yes [id number] 2{puff} Inhale 2 Univers propionate 7-26 Puffs ity of (FLOVENT 00:00: every 12 [place] HFA) 220 00 (twelve) Medical mcg/actuati hours. Branch on inhaler fluticasone Yes [id number] 2{puff} Inhale 2 Univers propionate 7-26 Puffs ity of (FLOVENT 00:00: every 12 [place] HFA) 220 00 (twelve) Medical mcg/actuati hours. Branch on inhaler fluticasone Yes [id number] 2{puff} Inhale 2 Univers propionate 7-26 Puffs ity of (FLOVENT 00:00: every 12 [place] HFA) 220 00 (twelve) Medical mcg/actuati hours. Branch on inhaler benzonatate Yes [id number] 100mg Take 1 Univers (TESSALON 6-21 capsule by ity of JULITO) 100 00:00: mouth [place] mg capsule 00 every 8 Medica l (eight) Branch hours as needed for Cough. methylPREDN Yes [id number] Take by Univers ISolone 6-21 mouth ity of (MEDROL, 00:00: SEE-INSTRU Tray as JOAQUÍN,) 4 mg 00 CTIONS. Medica l tablets follow Branch package directions ondansetron 2023-0 Yes [id number] 4mg Take 1 Univers 4 mg 6-21 tablet by ity of disintegrat 00:00: mouth [place] ing tablet 00 every 8 Medica l (eight) Branch hours as needed for Nausea and Vomiting (N/V). benzonatate 2023-0 Yes [id number] 100mg Take 1 Univers (TESSALON 6-21 capsule by ity of PERLES) 100 00:00: mouth [place] mg capsule 00 every 8 Medica l (eight) Branch hours as needed for Cough. ondansetron 2023-0 Yes [id number] 4mg Take 1 Univers 4 mg 6-21 tablet by ity of disintegrat 00:00: mouth [place] ing tablet 00 every 8 Medica l (eight) Branch hours as needed for Nausea and Vomiting (N/V). benzonatate 2023-0 Yes [id number] 100mg Take 1 Univers (TESSALON 6-21 capsule by ity of PERLES) 100 00:00: mouth [place] mg capsule 00 every 8 Medica l (eight) Branch hours as needed for Cough. ondansetron 2023-0 Yes [id number] 4mg Take 1 Univers 4 mg 6-21 tablet by ity of disintegrat 00:00: mouth [place] ing tablet 00 every 8 Medica l (eight) Branch hours as needed for Nausea and Vomiting (N/V). benzonatate 2023-0 Yes [id number] 100mg Take 1 Univers (TESSALON 6-21 capsule by ity of PERLES) 100 00:00: mouth [place] mg capsule 00 every 8 Medica l (eight) Branch hours as needed for Cough. ondansetron 2023-0 Yes [id number] 4mg Take 1 Univers 4 mg 6-21 tablet by ity of disintegrat 00:00: mouth [place] ing tablet 00 every 8 Medica l (eight) Branch hours as needed for Nausea and Vomiting (N/V). methylPREDN 3-0 3- No [id number] Take by Univers ISolone 6-21 07-26 mouth ity of (MEDROL, 00:00: 00:00 SEE-INSTRU Te penny YANES,) 4 mg 00 :00 CTIONS. Medica l tablets follow Branch package directions gabapentin Yes 1 capsule Un sheila 300 mg 3-21 ity of capsule 19:22: [address] tiZANidine Yes 1 tablet Uni vers 2 mg tablet 3-21 as needed ity of 19:22: [address] gabapentin Yes 1 capsule Un sheila 300 mg 3-21 ity of capsule 19:22: [address] tiZANidine Yes 1 tablet Uni vers 2 mg tablet 3-21 as needed ity of 19:22: [address] Branch atorvastati Yes 10mg Take 1 Univ ers n 10 mg 3-21 tablet by ity of tablet 19:21: mouth at [place] [address] bedtime. Medical Branch hydroCHLORO Yes 12.5mg Take 1 Un sheila thiazide 3-21 capsule by ity o f 12.5 mg 19:21: mouth in [facility] 02 the Medical morning. Branch valsartan-h Yes 1{tbl} Take 1 Un sheila ydrochlorot 3-21 tablet by ity of hiazide 19:21: mouth in [place] 160-12.5 mg 02 the Medical per tablet morning. Branc h estradiol 1 Yes 1mg Take 1 Univ ers mg tablet 3-21 tablet by ity o f 19:21: mouth in [place] 02 the Medical morning. Branch PANTOPRAZOL Yes 40mg Take 40 mg Univers E SODIUM 3-21 by mouth. ity of (PANTOPRAZO 19:21: [place] LE ORAL) 02 Medical Branch allopurinol Yes 100mg Take 1 Uni vers 100 mg 3-21 tablet by ity of tablet 19:21: mouth in [place] 02 the Medical morning. Branch levothyroxi Yes 50ug Take 1 Univ ers ne 50 mcg 3-21 tablet by ity o f tablet 19:21: mouth [place] 02 every Medical morning. Branch DULoxetine Yes 30mg Take 1 Unive rs 30 mg 3-21 capsule by ity of capsule 19:21: mouth in [place] 02 the Medical morning. Branch atorvastati Yes 10mg Take 1 Univ ers n 10 mg 3-21 tablet by ity of tablet 19:21: mouth at [place] 02 bedtime. Medical Branch hydroCHLORO 2022-0 Yes 12.5mg Take 1 Un sheila thiazide 3-21 capsule by ity o f 12.5 mg 19:21: mouth in [place] capsule 02 the Medical morning. Branch valsartan-h 2022-0 Yes 1{tbl} Take 1 Un sheila ydrochlorot 3-21 tablet by ity of hiazide 19:21: mouth in [place] 160-12.5 mg 02 the Medical per tablet morning. Branc h estradiol 1 2022-0 Yes 1mg Take 1 Univ ers mg tablet 3-21 tablet by ity o f 19:21: mouth in [place] 02 the Medical morning. Branch PANTOPRAZOL 0 Yes 40mg Take 40 mg Univers E SODIUM 3-21 by mouth. ity of (PANTOPRAZO 19:21: [place] LE ORAL) 02 Medical Branch allopurinol 2022-0 Yes 100mg Take 1 Uni vers 100 mg 3-21 tablet by ity of tablet 19:21: mouth in [place] 02 the Medical morning. Branch levothyroxi 2022-0 Yes 50ug Take 1 Univ ers ne 50 mcg 3-21 tablet by ity o f tablet 19:21: mouth [place] 02 every Medical morning. Branch DULoxetine 2022-0 Yes 30mg Take 1 Unive rs 30 mg 3-21 capsule by ity of capsule 19:21: mouth in [place] 02 the Medical morning. Branch atorvastati 2022-0 Yes 10mg Take 1 Univ ers n 10 mg 3-21 tablet by ity of tablet 19:21: mouth at [place] 02 bedtime. Medical Branch hydroCHLORO 2022-0 Yes 12.5mg Take 1 Un sheila thiazide 3-21 capsule by ity o f 12.5 mg 19:21: mouth in [place] capsule 02 the Medical morning. Branch valsartan-h 2022-0 Yes 1{tbl} Take 1 Un sheila ydrochlorot 3-21 tablet by ity of hiazide 19:21: mouth in [place] 160-12.5 mg 02 the Medical per tablet morning. Branc h estradiol 1 2022-0 Yes 1mg Take 1 Univ ers mg tablet 3-21 tablet by ity o f 19:21: mouth in [place] 02 the Medical morning. Branch PANTOPRAZOL 0 Yes 40mg Take 40 mg Univers E SODIUM 3-21 by mouth. ity of (PANTOPRAZO 19:21: [place] LE ORAL) Medical Branch allopurinol 2022-0 Yes 100mg Take 1 Uni vers 100 mg 3-21 tablet by ity of tablet 19:21: mouth in [place] 02 the Medical morning. Branch levothyroxi 2022-0 Yes 50ug Take 1 Univ ers ne 50 mcg 3-21 tablet by ity o f tablet 19:21: mouth [place] 02 every Medical morning. Branch DULoxetine 2022-0 Yes 30mg Take 1 Unive rs 30 mg 3-21 capsule by ity of capsule 19:21: mouth in [place] 02 the Medical morning. Branch atorvastati 2022-0 Yes 10mg Take 1 Univ ers n 10 mg 3-21 tablet by ity of tablet 19:21: mouth at [place] [address] bedtime. Medical Branch hydroCHLORO 2022-0 Yes 12.5mg Take 1 Un sheila thiazide 3-21 capsule by ity o f 12.5 mg 19:21: mouth in [place] capsule 02 the Medical morning. Branch valsartan-h 2022-0 Yes 1{tbl} Take 1 Un sheila ydrochlorot 3-21 tablet by ity of hiazide 19:21: mouth in [place] 160-12.5 mg 02 the Medical per tablet morning. Branc h estradiol 1 0 Yes 1mg Take 1 Univ ers mg tablet 3-21 tablet by ity o f 19:21: mouth in [place] 02 the Medical morning. Branch PANTOPRAZOL 2022-0 Yes 40mg Take 40 mg Univers E SODIUM 3-21 by mouth. ity of (PANTOPRAZO 19:21: [place] LE ORAL) Medical Branch allopurinol 2022-0 Yes 100mg Take 1 Uni vers 100 mg 3-21 tablet by ity of tablet 19:21: mouth in [place] 02 the Medical morning. Branch levothyroxi 2022-0 Yes 50ug Take 1 Univ ers ne 50 mcg 3-21 tablet by ity o f tablet 19:21: mouth [place] 02 every Medical morning. Branch DULoxetine 2022-0 Yes 30mg Take 1 Unive rs 30 mg 3-21 capsule by ity of capsule 19:21: mouth in [place] 02 the Medical morning. Branch atorvastati 2022-0 Yes 10mg Take 1 Univ ers n 10 mg 3-21 tablet by ity of tablet 19:21: mouth at [place] 02 bedtime. Medical Branch hydroCHLORO 2022-0 Yes 12.5mg Take 1 Un sheila thiazide 3-21 capsule by ity o f 12.5 mg 19:21: mouth in [place] capsule 02 the Medical morning. Branch valsartan-h 2022-0 Yes 1{tbl} Take 1 Un sheila ydrochlorot 3-21 tablet by ity of hiazide 19:21: mouth in [place] 160-12.5 mg 02 the Medical per tablet morning. Branc h estradiol 1 2022-0 Yes 1mg Take 1 Univ ers mg tablet 3-21 tablet by ity o f 19:21: mouth in [place] 02 the Medical morning. Branch PANTOPRAZOL 0 Yes 40mg Take 40 mg Univers E SODIUM 3-21 by mouth. ity of (PANTOPRAZO 19:21: [place] LE ORAL) 02 Medical Branch allopurinol 2022-0 Yes 100mg Take 1 Uni vers 100 mg 3-21 tablet by ity of tablet 19:21: mouth in [place] 02 the Medical morning. Branch levothyroxi 0 Yes 50ug Take 1 Univ ers ne 50 mcg 3-21 tablet by ity o f tablet 19:21: mouth [place] 02 every Medical morning. Branch DULoxetine 0 Yes 30mg Take 1 Unive rs 30 mg 3-21 capsule by ity of capsule 19:21: mouth in [place] 02 the Medical morning. Branch benzonatate 2022-0 Yes [id number] 200mg Take 2 Univers 100 mg 3-21 capsules ity of capsule 00:00: by mouth [place] 00 every 8 Medical (eight) Branch hours as needed for Cough. ondansetron 2022-0 Yes [id number] 4mg Take 1 Univers 4 mg 3-21 tablet by ity of disintegrat 00:00: mouth [place] ing tablet 00 every 8 Medica l (eight) Branch hours as needed for Nausea and Vomiting (N/V). ibuprofen 2022-0 Yes [id number] 600mg Take 1 U nivers 600 mg 3-21 tablet by ity of tablet 00:00: mouth [place] 00 every 6 Medical (six) Branch hours as needed for Pain (scale 4-6) or Pain (scale 1-3). ibuprofen 2023-0 Yes [id number] 600mg Take 1 U nivers 600 mg 3-21 tablet by ity of tablet 00:00: mouth [place] 00 every 6 Medical (six) Branch hours as needed for Pain (scale 4-6) or Pain (scale 1-3). ibuprofen 0 Yes [id number] 600mg Take 1 U nivers 600 mg 3-21 tablet by ity of tablet 00:00: mouth [place] 00 every 6 Medical (six) Branch hours as needed for Pain (scale 4-6) or Pain (scale 1-3). ibuprofen 0 Yes [id number] 600mg Take 1 U nivers 600 mg 3-21 tablet by ity of tablet 00:00: mouth [place] 00 every 6 Medical (six) Branch hours as needed for Pain (scale 4-6) or Pain (scale 1-3). ibuprofen Yes [id number] 600mg Take 1 U nivers 600 mg 3-21 tablet by ity of tablet 00:00: mouth [place] 00 every 6 Medical (six) Branch hours as needed for Pain (scale 4-6) or Pain (scale 1-3). benzonatate 2022- No [id number] 200mg Take 2 Univers 100 mg 3-21 06-21 capsules ity of capsule 00:00: 00:00 by mouth [place] 00 :00 every 8 Medical (eight) Branch hours as needed for Cough. ondansetron 0 2022- No [id number] 4mg Take 1 Univers 4 mg 3-21 06-21 tablet by ity of disintegrat 00:00: 00:00 [...] ybold Capsule 10:40: mouth 47 daily hydroCHLORO 0 Yes 1{tbl} Take 1 Ke lsey thiazide 3-01 tablet by Seybol d 12.5 MG 10:40: mouth oral Tablet 47 daily Meloxicam Yes 1{tbl} Take 1 Vanessa ey 15 MG oral 3-01 tablet by Kim old Tablet 10:40: mouth 47 daily Omeprazole Yes 1{capsu Take 1 Ke lsey 40 MG oral 3- le} capsule by Michelle noble Delayed 10:40: mouth 3 Release 47 times Capsule daily Influenza Yes Fluzone Kelse y Vac Split 11-02 High-Dose Seybo ld High-Dose 10:40: (Fluzone 47 (PF) 180 High-Dose) mcg/0.5 mL 0.5 ML intramuscu intramuscul lar ar syringe Suspension ADM 0.5ML Prefilled IM UTD Syringe Zoster Vac Yes Shingrix Jonathan sey Recomb - (PF) 50 Seybold Adjuvanted 10:40: mcg/0.5 mL (Shingrix) 47 intramuscu 50 lar MCG/0.5ML suspension intramuscul , kit ar Recon Susp Losartan Yes 1{tbl} Take 1 Kelse y Potassium-H - tablet by Michelle noble CTZ 50-12.5 10:40: mouth MG oral 47 Tablet Venlafaxine Yes [id number] 37.5mg Take 1 Angelique HCl 37.5 MG - tablet Seybol d oral Tablet 00:00: (37.5 mg 00 total) by mouth daily Duloxetine 2021- No 30mg Take 30 mg Angelique HCl 30 MG 10-05 by mouth 3 Michelle noble oral Cap DR 09:55: 00:00 times Particles 08 :00 daily Estradiol Yes 1{patch Place 1 Ke lsey 0.05 2-01 } patch onto Seybold MG/24HR 09:38: the skin transdermal 14 once a PATCH week BIWEEKLY Gabapentin Yes 1{capsu Take 1 Ke lsey 300 MG oral 2- le} capsule by Se riveraold Capsule 09:38: mouth 14 daily hydroCHLORO Yes 1{tbl} Take 1 Ke l[place] thiazide 2-01 tablet by Seybol d 12.5 MG 09:38: mouth oral Tablet 14 daily Meloxicam Yes 1{tbl} Take 1 Vanessa ey 15 MG oral 2-01 tablet by Kim old Tablet 09:38: mouth 14 daily Omeprazole Yes 1{capsu Take 1 Ke lsey 40 MG oral 2-01 le} capsule by Michelle noble Delayed 09:38: mouth 3 Release 14 times Capsule daily Influenza Yes Fluzone Kelse y Vac Split 2- High-Dose Seybo ld High-Dose 09:38: (Fluzone 14 (PF) 180 High-Dose) mcg/0.5 mL 0.5 ML intramuscu intramuscul lar ar syringe Suspension ADM 0.5ML Prefilled IM UTD Syringe Zoster Vac Yes Shingrix Jonathan sey Recomb 2- (PF) 50 Seybold Adjuvanted 09:38: mcg/0.5 mL (Shingrix) 14 intramuscu 50 lar MCG/0.5ML suspension intramuscul , kit ar Recon Susp Losartan Yes 1{tbl} Take 1 Kelse y Potassium-H 2- tablet by Michelle noble CTZ 50-12.5 09:38: mouth MG oral 14 Tablet Doxycycline Yes [id number] 100mg Take 1 Angelique Hyclate 100 2-01 tablet Seybol d MG oral 00:00: (100 mg Tablet 00 total) by mouth 2 times daily Duloxetine Yes [id number] 30mg Take 1 K elsey HCl 30 MG 2-01 capsule Seybold oral Cap DR 00:00: (30 mg Particles 00 total) by mouth 3 times daily Doxycycline Yes [id number] 100mg Take 1 Angelique Hyclate 100 2-01 tablet Seybol d MG oral 00:00: (100 mg Tablet 00 total) by mouth 2 times daily Duloxetine Yes [id number] 30mg Take 1 K elsey HCl 30 [...] EVERY 24 HOURS FOR 7 DAYS Ondansetron 2022-0 Yes 8mg Q8H Take 8 mg K elsey (ZOFRAN) 8 1-10 by mouth Seybo ld MG oral 00:00: every 8 tablet 00 hours as needed Cetirizine 0 Yes 10mg Take 10 mg K elsey 10 MG oral 1-10 by mouth Seybo ld Tablet 00:00: daily 00 levoFLOXaci 0 Yes TAKE 1 Vanessa ey n 500 MG 1-10 TABLET BY Seybol d oral Tablet 00:00: MOUTH 00 EVERY 24 HOURS FOR 7 DAYS Ondansetron 0 Yes 8mg Q8H Take 8 mg K elsey (ZOFRAN) 8 1-10 by mouth Seybo ld MG oral 00:00: every 8 tablet 00 hours as needed ondansetron 0 Yes [id number] 8mg Take 1 Univers 8 mg tablet 1-10 tablet by ity of 00:00: mouth [place] 00 every 8 Medical (eight) Branch hours as needed for Nausea and Vomiting (N/V). cetirizine Yes [id number] 10mg Take 1 U nivers (ZYRTEC) 10 1-10 tablet by ity of mg tablet 00:00: mouth [place] 00 daily. Medical Branch ondansetron 0 Yes [id number] 8mg Take 1 Univers 8 mg tablet 1-10 tablet by ity of 00:00: mouth [place] 00 every 8 Medical (eight) Branch hours as needed for Nausea and Vomiting (N/V). cetirizine 0 Yes [id number] 10mg Take 1 U nivers (ZYRTEC) 10 1-10 tablet by ity of mg tablet 00:00: mouth [place] 00 daily. Medical Branch ondansetron 0 Yes [id number] 8mg Take 1 Univers 8 mg tablet 1-10 tablet by ity of 00:00: mouth [place] 00 every 8 Medical (eight) Branch hours as needed for Nausea and Vomiting (N/V). cetirizine 2021-0 Yes [id number] 10mg Take 1 U nivers (ZYRTEC) 10 1-10 tablet by ity of mg tablet 00:00: mouth [place] 00 daily. Medical Branch ondansetron 2021-0 Yes [id number] 8mg Take 1 Univers 8 mg tablet 1-10 tablet by ity of 00:00: mouth [place] 00 every 8 Medical (eight) Branch hours as needed for Nausea and Vomiting (N/V). cetirizine 0 Yes [id number] 10mg Take 1 U nivers (ZYRTEC) 10 1-10 tablet by ity of mg tablet 00:00: mouth [place] 00 daily. Medical Branch ondansetron 0 Yes [id number] 8mg Take 1 Univers 8 mg tablet 1-10 tablet by ity of 00:00: mouth [place] 00 every 8 Medical (eight) Branch hours as needed for Nausea and Vomiting (N/V). cetirizine Yes [id number] 10mg Take 1 U nivers (ZYRTEC) 10 1-10 tablet by ity of mg tablet 00:00: mouth [place] 00 daily. Medical Branch ondansetron Yes [id number] 8mg Take 1 [facility] 8 mg tablet 1-10 tablet by ity of 00:00: mouth [place] 00 every 8 Medical (eight) Branch hours as needed for Nausea and Vomiting (N/V). cetirizine Yes [id number] 10mg Take 1 U nivers (ZYRTEC) 10 1-10 tablet by ity of mg tablet 00:00: mouth [place] 00 daily. Medical Branch ondansetron 0 Yes [id number] 8mg Take 1 [facility] 8 mg tablet 1-10 tablet by ity of 00:00: mouth [place] 00 every 8 Medical (eight) Branch hours as needed for Nausea and Vomiting (N/V). cetirizine Yes [id number] 10mg Take 1 U nivers (ZYRTEC) 10 1-10 tablet by ity of mg tablet 00:00: mouth [place] 00 daily. Medical Branch cetirizine Yes [id number] 10mg Take 1 U nivers (ZYRTEC) 10 1-10 tablet by ity of mg tablet 00:00: mouth [place] 00 daily. Medical Branch cetirizine 0 Yes [id number] 10mg Take 1 U nivers (ZYRTEC) 10 1-10 tablet by ity of mg tablet 00:00: mouth [place] 00 daily. Medical Branch cetirizine 0 Yes [id number] 10mg Take 1 U nivers (ZYRTEC) 10 1-10 tablet by ity of mg tablet 00:00: mouth [place] 00 daily. Medical Branch cetirizine Yes [id number] 10mg Take 1 U nivers (ZYRTEC) 10 1-10 tablet by ity of mg tablet 00:00: mouth [place] 00 daily. Medical Branch cetirizine Yes [id number] 10mg Take 1 U nivers (ZYRTEC) 10 1-10 tablet by ity of mg tablet 00:00: mouth [place] 00 daily. Medical Branch ondansetron 2022- No [id number] 8mg Take 1 Univers 8 mg tablet [...] 1 Vanessa ey HCl 60 MG 0-26 - capsule Seybol d oral Cap DR 00:00: [...] 1 Ke lsey thiazide 9-20 tablet by ybol d 12.5 MG 14:03: mouth oral Tablet 39 daily Meloxicam Yes 1{tbl} Take 1 Vanessa ey 15 MG oral 9-20 tablet by Kim old Tablet 14:03: mouth 39 daily Omeprazole [...] MG oral 39 Tablet Fluconazole 2020- No [id number] 150mg Take 1 Angelique 150 MG oral 9-20 09-21 tablet Seybo ld Tablet 00:00: 04:59 (150 mg 00 :00 total) by mouth once for 1 dose Allopurinol Yes TAKE 1 Vanessa ey 100 MG oral 9-13 TABLET(100 Se ybold Tablet 00:00: MG) BY 00 MOUTH DAILY Nitrofurant Yes [id number] 100mg Take 1 Angelique oin Monohyd 9-08 capsule Seybo ld Macro 100 00:00: (100 mg MG oral 00 total) by Capsule mouth 2 times daily Nitrofurant Yes [id number] 100mg Take 1 Angelique oin Monohyd 9-08 capsule Seybo ld Macro 100 00:00: (100 mg MG oral 00 total) by Capsule mouth 2 times daily Nitrofurant Yes [id number] 100mg Take 1 Angelique oin Monohyd 05-12 capsule Seybabril ld Macro 100 00:00: (100 mg MG oral 00 total) by Capsule mouth 2 times daily Losartan Yes 1{tbl} Take 1 Kelse y Potassium-H 05-11 tablet by Michelle noble CTZ 50-12.5 13:39: [...] 1 Ke lsey thiazide 05-11 tablet by Kimol d 12.5 MG 13:39: mouth oral Tablet 44 daily Meloxicam Yes 1{tbl} Take 1 Vanessa ey 15 MG oral 05-11 tablet by Seyb old Tablet 13:39: mouth 44 daily Omeprazole Yes 1{capsu Take 1 Ke lsey 40 MG oral 05-11 le} capsule by Michelle noble Delayed 13:39: [...] every 12 hours FOR 7 DAYS Ciprofloxac 0 Yes 500mg Take 500 K elsey in HCl 500 8-28 mg by Seybold MG oral 00:00: mouth Tablet 00 every 12 hours FOR 7 DAYS Ciprofloxac Yes 500mg Take 500 K elsey in HCl 500 8-28 mg by Seybold MG oral 00:00: mouth Tablet 00 every 12 hours FOR 7 DAYS Promethazin Yes [id number] 25mg Q6H Take 1 Angelique e HCl 25 MG 8-25 tablet (25 Se ybold oral Tablet 00:00: mg total) 00 by mouth every 6 hours as needed for nausea Promethazin Yes [id number] 25mg Q6H Take 1 Angelique e HCl 25 MG 8-25 tablet (25 Se ybold oral Tablet 00:00: mg total) 00 by mouth every 6 hours as needed for nausea Nitrofurant Yes [id number] 100mg Take 1 Angelique oin Monohyd 8-25 capsule Seybo ld Macro 100 00:00: (100 mg MG oral 00 total) by Capsule mouth 2 times daily Promethazin Yes [id number] 25mg Q6H Take 1 Angelique e HCl 25 MG 8-25 tablet (25 Se ybold oral Tablet 00:00: mg total) 00 by mouth every 6 hours as needed for nausea Promethazin Yes [id number] 25mg Q6H Take 1 Angelique e HCl [...] 00:00: ns Tablet 00 Therapy Pack Tizanidine 2020-0 Yes [id number] Take 1-2 Angelique HCl 2 MG 5-12 tabs by Seybold oral Tablet 00:00: mouth 00 every 6-8 hours as needed for muscle spasm. Tizanidine Yes [id number] Take 1-2 Angelique HCl 2 MG 5-12 tabs by Seybold oral Tablet 00:00: mouth 00 every 6-8 hours as needed for muscle spasm. Tizanidine Yes [id number] Take 1-2 Angelique HCl 2 MG 5-12 tabs by Seybold oral Tablet 00:00: mouth 00 every 6-8 hours as needed for muscle spasm. Tizanidine Yes [id number] Take 1-2 Angelique HCl 2 MG 5-12 [...] 3 oral Tablet 00 times daily traMADol-Ac 2021-0 Yes 1{tbl} Take 1 Ke lsey etaminophen 3-15 tablet by Sey bold 37.5-325 MG 00:00: mouth 3 oral Tablet 00 times daily acetaminoph 2020-0 Yes [id number] 1{tbl} Take 1 Un sheila en-codeine 1-21 tablet by ity of (TYLENOL-CO 00:00: mouth [place] DEINE #3) 00 every 4 Medical 300-30 mg (four) Branch tablet hours as needed for Pain (scale 7-10). Indication s: acute pain ondansetron 2020-0 Yes [id number] 4mg Take 1 Univers 4 mg 1-21 [id number] tablet by ity of disintegrat 00:00: mouth [...] Indication s: acute pain ondansetron 2020-0 Yes [id number] 4mg Take 1 Univers 4 mg 1-21 [id number] tablet by ity of disintegrat 00:00: mouth [...] Indication s: acute pain ondansetron 2020-0 Yes [id number] 4mg Take 1 [facility] 4 mg 1-21 [id number] tablet by ity of disintegrat 00:00: mouth [place] ing tablet 00 every 8 Medica l (eight) Branch hours as needed for Nausea and Vomiting (N/V). acetaminoph 2020-0 Yes [id number] 1{tbl} Take 1 Un hseila en-codeine 1-21 tablet by ity of (TYLENOL-CO 00:00: mouth [place] DEINE #3) 00 every 4 Medical 300-30 mg (four) Branch tablet hours as needed for Pain (scale 7-10). Indication s: acute pain ondansetron 2021-0 Yes [id number] 4mg Take 1 Univers 4 mg 1-21 [id number] tablet by ity of disintegrat 00:00: mouth [...] Indication s: acute pain ondansetron 2020-0 Yes [id number] 4mg Take 1 Univers 4 mg 1-21 [id number] tablet by ity of disintegrat 00:00: mouth [...] Indication s: acute pain ondansetron 2020-0 Yes [id number] 4mg Take 1 [facility] 4 mg 1-21 [id number] tablet by ity of disintegrat 00:00: mouth [place] ing tablet 00 every 8 Medica l (eight) Branch hours as needed for Nausea and Vomiting (N/V). acetaminoph 1-0 Yes [id number] 1{tbl} Take 1 Un sheila en-codeine 1-21 tablet by ity of (TYLENOL-CO 00:00: mouth [place] DEINE #3) 00 every 4 Medical 300-30 mg (four) Branch tablet hours as needed for Pain (scale 7-10). Indication s: acute pain ondansetron 1-0 Yes [id number] 4mg Take 1 Univers 4 mg 1-21 [id number] tablet by ity of disintegrat 00:00: mouth [...] (scale 7-10). Indication s: acute pain acetaminoph 2020-0 Yes [id number] 1{tbl} Take 1 Un sheila en-codeine 1-21 tablet by ity of (TYLENOL-CO 00:00: mouth [place] DEINE #3) 00 every 4 Medical 300-30 mg (four) Branch tablet hours as needed for Pain (scale 7-10). Indication s: acute pain acetaminoph 2020-0 Yes [id number] 1{tbl} Take 1 Un sheila en-codeine 1-21 tablet by ity of (TYLENOL-CO 00:00: mouth [place] DEINE #3) 00 every 4 Medical 300-30 mg (four) Branch tablet hours as needed for Pain (scale 7-10). Indication s: acute pain acetaminoph 2020-0 Yes [id number] 1{tbl} Take 1 Un sheila en-codeine 1-21 tablet by ity of (TYLENOL-CO 00:00: mouth [place] DEINE #3) 00 every 4 Medical 300-30 mg (four) Branch tablet hours as needed for Pain (scale 7-10). Indication s: acute pain acetaminoph 2020-0 Yes [id number] 1{tbl} Take 1 Un sheila en-codeine 1-21 tablet by ity of (TYLENOL-CO 00:00: mouth [place] DEINE #3) 00 every 4 Medical 300-30 mg (four) Branch tablet hours as needed for Pain (scale 7-10). Indication s: acute pain ondansetron 2020-0 2023- No [id number] 4mg Take 1 [facility] 4 mg 09-24 [id number] tablet by ity of disintegrat 00:00: 00:00 [place] tablet 00 :00 every 8 Medica l (eight) Branch hours as needed for Nausea and Vomiting (N/V). atorvastati 2018-0 Yes 10mg Take 10 mg Univers n [...] 4-14 by mouth ity of 18:16: daily. [place] [address] Medical Branch PANTOPRAZOL Yes 40mg Take 40 [...] by mouth ity of capsule 18:16: daily. [place] [address] Medical Branch atorvastati Yes 10mg Take 10 [...] 4-14 by mouth ity of 18:16: daily. [place] [address] Medical Branch PANTOPRAZOL 0 Yes 40mg Take [...] by mouth ity of capsule 18:16: daily. [place] [address] Medical Branch atorvastati 0 Yes 10mg Take 10 mg Univers n 10 mg 4-14 by mouth ity of tablet 18:16: at [place] [address] bedtime. Medical Branch hydroCHLORO 0 Yes 12.5mg [...] 4-14 by mouth ity of 18:16: daily. [place] [address] Medical Branch PANTOPRAZOL 0 Yes 40mg Take 40 mg Univers E SODIUM 4-14 by mouth. ity of (PANTOPRAZO 18:16: [place] LE ORAL) 42 Medical Branch allopurinol 2017-0 Yes 100mg Take 100 U nivers 100 [...] by mouth ity of capsule 18:16: daily. [place] [address] Medical Branch atorvastati 0 Yes 10mg Take 10 mg Univers n 10 mg 4-14 by mouth ity of tablet 18:16: at [place] 42 bedtime. Medical Branch hydroCHLORO 0 Yes 12.5mg [...] 4-14 by mouth ity of 18:16: daily. [place] [address] Medical Branch PANTOPRAZOL Yes 40mg Take 40 [...] by mouth ity of capsule 18:16: daily. [place] [address] Medical Branch atorvastati Yes 10mg Take 10 [...] 4-14 by mouth ity of 18:16: daily. [place] [address] Medical Branch PANTOPRAZOL 0 Yes 40mg Take [...] by mouth ity of capsule 18:16: daily. [place] [address] Medical Branch atorvastati 0 Yes 10mg Take 10 mg Univers n 10 mg 4-14 by mouth ity of tablet 18:16: at [place] 42 bedtime. Medical Branch hydroCHLORO 0 Yes 12.5mg [...] 4-14 by mouth ity of 18:16: daily. [place] [address] Medical Branch PANTOPRAZOL 0 Yes 40mg Take [...] by mouth ity of capsule 18:16: daily. [place] [address] Medical Branch atorvastati 0 Yes 10mg Take 10 mg Univers n 10 mg 4-14 by mouth ity of tablet 18:16: at [place] 42 bedtime. Medical Branch hydroCHLORO 0 Yes 12.5mg Take 12.5 Univers thiazide 4-14 mg by ity of 12.5 mg 18:16: mouth [place] capsule 42 daily. Medical Branch valsartan-h 2018-0 Yes 1{tbl} Take 1 Un sheila ydrochlorot 4-14 tablet by ity of hiazide 18:16: mouth [place] 160-12.5 mg 42 daily. Medica l per tablet Branch estradiol 1 2017-0 Yes 1mg Take 1 mg U nivers mg tablet 4-14 by mouth ity of 18:16: daily. [place] [address] Medical Branch PANTOPRAZOL 2017-0 Yes 40mg Take 40 mg Univers E SODIUM 4-14 by mouth. ity of (PANTOPRAZO 18:16: [place] LE ORAL) 42 Medical Branch allopurinol 2018-0 Yes 100mg Take 100 U nivers 100 mg 4-14 mg by ity of tablet 18:16: mouth [place] 42 daily. Medical Branch levothyroxi 2017-0 Yes 50ug Take 50 Uni vers ne 4-14 mcg by ity of (SYNTHROID) 18:16: mouth [place] 50 mcg 42 every Medical tablet morning. Branch DULoxetine 0 Yes 30mg Take 30 mg U nivers 30 mg 4-14 by mouth ity of capsule 18:16: daily. [place] [address] Medical Branch hydrOXYzine 2017-0 Yes [id number] 1-2 tabs Univers 25 mg 4-14 Every ity of tablet 00:00: 3-6hr as [place] 00 needed for Medical itch or Branch rash, at least 3 times a day. hydrOXYzine 2017-0 Yes [id number] 1-2 tabs Univers 25 mg 4-14 Every ity of tablet 00:00: 3-6hr as [place] 00 needed for Medical itch or Branch rash, at least 3 times a day. hydrOXYzine 2017-0 Yes [id number] 1-2 tabs Univers 25 mg 4-14 Every ity of tablet 00:00: 3-6hr as [place] 00 needed for Medical itch or Branch rash, at least 3 times a day. hydrOXYzine 2017-0 Yes [id number] 1-2 tabs Univers 25 mg 4-14 Every ity of tablet 00:00: 3-6hr as [place] 00 needed for Medical itch or Branch rash, at least 3 times a day. hydrOXYzine 2017-0 Yes [id number] 1-2 tabs Univers 25 mg 4-14 Every ity of tablet 00:00: 3-6hr as [place] 00 needed for Medical itch or Branch rash, at least 3 times a day. hydrOXYzine 2017-0 Yes [id number] 1-2 tabs Univers 25 mg 4-14 Every ity of tablet 00:00: 3-6hr as [place] 00 needed for Medical itch or Branch rash, at least 3 times a day. hydrOXYzine 2018-0 Yes [id number] 1-2 tabs [facility] 25 mg 4-14 Every ity of tablet 00:00: 3-6hr as [place] 00 needed for Medical itch or Branch rash, at least 3 times a day. hydrOXYzine 2017-0 Yes [id number] 1-2 tabs [facility] 25 mg 4-14 Every ity of tablet 00:00: 3-6hr as [place] 00 needed for Medical itch or Branch rash, at least 3 times a day. hydrOXYzine 2017-0 Yes [id number] 1-2 tabs [facility] 25 mg 4-14 Every ity of tablet 00:00: 3-6hr as [place] 00 needed for Medical itch or Branch rash, at least 3 times a day. hydrOXYzine 2017- Yes [id number] 1-2 tabs [facility] 25 mg 4-14 Every ity of tablet 00:00: 3-6hr as [place] 00 needed for Medical itch or Branch rash, at least 3 times a day. hydrOXYzine 2017-0 Yes [id number] 1-2 tabs [facility] 25 mg 4-14 Every ity of tablet 00:00: 3-6hr as [place] 00 needed for Medical itch or Branch rash, at least 3 times a day. hydrOXYzine 2017-0 Yes [id number] 1-2 tabs [facility] 25 mg 4-14 Every [...] 15 daily. l DULoxetine 2015-09 Yes 30mg Q.[id number] Take 30 mg [facility] (CYMBALTA) 1-04 [id number] by mouth [address] 30 MG 08:03: [...] Take 1 mg [facility] (ESTRACE) 1 1-[address] MG tablet 08:03: daily. [facility] a 15 l omeprazole 2015-09 Yes 40mg QD Take 40 mg [facility] (PriLOSEC) 1-[address] 40 MG 08:03: daily. [facility] capsule 15 l gabapentin 2015-09 Yes 300mg Q.[id number] Take 300 [facility] (NEURONTIN) 1-04 [id number] mg by s t 300 MG 08:03: [...] capsule 15 l gabapentin 2015-09 Yes 300mg Q.[id number] Take 300 [facility] (NEURONTIN) -04 [id number] mg by s t 300 MG 03:03: 3D mouth 3 [facility]osp[facility] capsule 15 (three) l times a day. valsartan 2015-09 Yes 160mg QD Take 160 [facility] (DIOVAN) 1-[address] 160 MG 03:03: mouth [facility] tablet 15 daily. l DULoxetine 2015-09 Yes 30mg Q.[id number] Take 30 mg [facility] (CYMBALTA) -04 [id number] by mouth [facility] 30 MG 03:03: [...] capsule 15 l gabapentin 2015-09 Yes 300mg Q.[id number] Take 300 [facility] (NEURONTIN) -04 [id number] mg by s t 300 MG 03:03: 3D mouth 3 [facility]osp[facility] capsule 15 (three) l times a day. valsartan 2015-09 Yes 160mg QD Take 160 [facility] (DIOVAN) 1-[address] 160 MG 03:03: mouth [facility] tablet 15 daily. l DULoxetine 2015-09 Yes 30mg Q.[id number] Take 30 mg [facility] (CYMBALTA) 1-04 [id number] by mouth [facility] 30 MG 03:03: [...] capsule 15 l gabapentin 2015-09 Yes 300mg Q.[id number] Take 300 [facility] (NEURONTIN) 1-04 [id number] mg by s t 300 MG 03:03: 3D mouth 3 [facility]osp[facility] capsule 15 (three) l times a day. valsartan 2015-09 Yes 160mg QD Take 160 [facility] (DIOVAN) 1-[address] 160 MG 03:03: mouth [facility] tablet 15 daily. l DULoxetine 2015-09 Yes 30mg Q.[id number] Take 30 mg [facility] (CYMBALTA) 1-04 [id number] by mouth [facility] 30 MG 03:03: [...] capsule 15 l gabapentin 2015-09 Yes 300mg Q.[id number] Take 300 [facility] (NEURONTIN) -04 [id number] mg by s t 300 MG 03:03: 3D mouth 3 [facility]osp[facility] capsule 15 (three) l times a day. valsartan 2015-09 Yes 160mg QD Take 160 [facility] (DIOVAN) 1-[address] 160 MG 03:03: mouth [facility]osp[facility] tablet 15 daily. l DULoxetine 2015-09 Yes 30mg Q.[id number] Take 30 mg [facility] (CYMBALTA) -04 [id number] by mouth [address] 30 MG 03:03: [...] capsule 15 l gabapentin 2015-09 Yes 300mg Q.[id number] Take 300 [facility] (NEURONTIN) 1-04 [id number] mg by s t 300 MG 03:03: 3D mouth 3 [facility]ospita capsule 15 (three) l times a day. valsartan 2015-09 Yes 160mg QD Take 160 [facility] (DIOVAN) 1-[address] 160 MG 03:03: mouth [facility]osp[facility] tablet 15 daily. l DULoxetine 2015-09 Yes 30mg Q.[id number] Take 30 mg [facility] (CYMBALTA) 1-04 [id number] by mouth [facility] 30 MG 03:03: [...] And Up Covid-19 Vaccine 2020-11-29 Completed Angelique palmabold (Moderna), Mrna-lnp, 00:00:00 Guy Protein, Pf, 100 Mcg/0.5ml,IM Covid-19 Vaccine 2020-11-29 Completed Angelique palmabold (Moderna), Mrna-lnp, 00:00:00 Guy Protein, Pf, 100 Mcg/0.5ml,IM Covid-19 Vaccine 2020-11-29 Completed Angelique gonsalesld (Moderna), Mrna-lnp, 00:00:00 Guy Protein, Pf, 100 Mcg/0.5ml,IM Covid-19 Vaccine 2020-11-29 Completed Angelique gonsalesld Moderna (Spikevax), 00:00:00 Mrna-lnp, Guy Protein, Pf Covid-19 Vaccine 2020-11-29 Completed Angelique gonsalesld (Moderna), Mrna-lnp, 00:00:00 Guy Protein, Pf, 100 Mcg/0.5ml,IM Covid-19 Vaccine 2020-11-29 Completed Angelique gonsalesld (Moderna), Mrna-lnp, 00:00:00 Guy Protein, Pf, 100 Mcg/0.5ml,IM Covid-19 Vaccine 2020-11-01 Completed Angelique Saxena eybold (Moderna), Mrna-lnp, 00:00:00 Guy Protein, Pf, 100 Mcg/0.5ml,IM Covid-19 Vaccine 2020-11-01 Completed Angelique Saxena eybold (Moderna), Mrna-lnp, 00:00:00 Guy Protein, Pf, 100 Mcg/0.5ml,IM Covid-19 Vaccine 2020-11-01 Completed Angelique Saxena eybold (Moderna), Mrna-lnp, 00:00:00 Guy Protein, Pf, 100 Mcg/0.5ml,IM Covid-19 Vaccine 2020-11-01 Completed Angelique gonsalesld Moderna (Spikevax), 00:00:00 Mrna-lnp, Guy Protein, Pf Covid-19 Vaccine 2020-11-01 Completed Angelique palmabold (Moderna), [...] Seybold 00:00:00 Tdap- (Boostrix, 2015-11-04 Completed Angelique chung Adacel) 00:00:00 Pneumococcal Vaccine, 2015-11-04 Completed Jonathan vizcainoy Seybold Polysaccharide 00:00:00 Tdap- (Boostrix, 2015-11-04 Completed Angelique gonsalesld Adacel) 00:00:00 Pneumococcal Vaccine, 2015-11-04 Completed Jonathan [...] Time Observation Value Comments Source Systolic blood 2023-05-11 20:15:00 135 [facility]Hg[facility]-11 20:15:00 70 mm[facility]Hg] [facility] 2023-05-11 20:15:00 94 /min [facility] Body temperature 2023-05-11 20:15:00 37.06 Katie [facility] Respiratory rate 2023-05-11 20:15:00 18 /min [facility] Body weight 2023-05-11 20:15:00 76.885 kg [facility] BMI 2023-05-11 20:15:00 30.03 kg/m2 [facility] Oxygen saturation in 2023-05-11 20:15:00 98 /min [facility] Arterial blood by [facility] Pulse oximetry [place] Systolic blood 2023-03-29 22:00:00 136 mm[Hg] Univer sity [facility] Diastolic blood 2023-03-29 22:00:00 81 mm[Hg] [facility] Heart rate 2023-03-29 22:00:00 88 /min [facility] Body temperature 2023-03-29 22:00:00 36.94 Katie [facility] [place] [facility] Respiratory rate 2023-03-29 22:00:00 13 /min [facility] [place] [facility] Body weight 2023-03-29 22:00:00 79.833 kg [facility] [place] [facility] BMI 2023-03-29 22:00:00 31.18 kg/m2 [facility] [place] [facility] Oxygen saturation in 2023-03-29 22:00:00 97 /min University of Arterial blood by [facility] paul Pulse oximetry Branch Systolic blood 2023-02-22 19:05:00 107 mm[Hg] Univer sity of pressure [place] [facility] Diastolic blood 2023-02-22 19:05:00 67 mm[Hg] Unive rsity of pressure [place] [facility] Heart rate 2023-02-22 19:05:00 105 /min [facility] [place] [facility] Body temperature 2023-02-22 19:05:00 37.11 Katie [facility] [place] [facility] Respiratory rate 2023-02-22 19:05:00 17 /min [facility] [place] [facility] Body weight 2023-02-22 19:05:00 81.103 kg [facility] [place] [facility] BMI 2023-02-22 19:05:00 31.67 kg/m2 [facility] [place] [facility] Oxygen saturation in 2023-02-22 19:05:00 97 /min University of Arterial blood by [facility] Pulse oximetry Branch Systolic blood 2022-11-23 00:13:00 134 mm[Hg] Univer sity of pressure [place] [facility] Diastolic blood 2022-11-23 00:13:00 79 mm[Hg] Unive rsity of pressure [place] [facility] Heart rate 2022-11-23 00:13:00 98 /min [facility] [place] [facility] Body temperature 2022-11-23 00:13:00 37.72 Katie [facility] [place] [facility] Respiratory rate 2022-11-23 00:13:00 18 /min [facility] [place] [facility] Body height 2022-11-23 00:13:00 160 cm [facility] [place] [facility] Body weight 2022-11-23 00:13:00 87.635 kg [facility] [place] [facility] BMI 2022-11-23 00:13:00 34.22 kg/m2 Universi ty [facility] [place] Oxygen saturation in 2022-11-23 00:13:00 95 /min University of Arterial blood by [facility] Pulse oximetry Branch Systolic blood 2022-05-03 00:20:00 125 mm[Hg] Univer sity of pressure [place] [facility] [place] Diastolic blood 2022-05-03 00:20:00 84 mm[Hg] Unive rsity of pressure [facility] Heart rate 2022-05-03 00:18:00 106 /min [facility] [place] [facility] [place] Body temperature 2022-05-03 00:18:00 37.06 Katie [facility] Branch Respiratory rate 2022-05-03 00:18:00 16 /min Univ ersity of [facility] Body height 2022-05-03 00:18:00 160 cm [facility] [place] [facility] [place] Body weight 2022-05-03 00:18:00 82.736 kg Universi ty [facility] [place] BMI 2022-05-03 00:18:00 32.31 kg/m2 Universi ty [facility] [place] Oxygen saturation in 2022-05-03 00:18:00 98 /min University of Arterial blood by [facility] Pulse oximetry Branch Systolic blood 2021-11-02 16:35:00 [...] Body weight 2021-05-11 18:36:00 79.379 kg Angelique S eybold BMI 2021-05-11 18:36:00 31.00 kg/m2 Angelique Saxena minervaaide Oxygen saturation in 2021-05-11 18:36:00 98 /min Angelique De Los Santos Arterial blood by Pulse oximetry Procedures Procedure Date / Time Performed Performing Clinician [facility] e POCT SARS-COV-2 2023-05-11 21:25:00 Rupinder [facility] o f [place] ANTIGEN (BINAX NOW) Medical Bran ASSIGNMENT OF BENEFITS 2023-05-11 20:11:22 Doctor Unassigned, No [facility] Branch POCT SARS-COV-2 2023-02-22 19:15:00 Rupinder [facility] o [facility] [place] ANTIGEN (BINAX NOW) Medical [facility] POCT MOLECULAR FLU 2023-02-22 19:13:00 Unknown, Attending [facility] POCT MOLECULAR STREP 2023-02-22 19:10:00 Unknown, Attending [facility] POCT SARS-COV-2 2022-11-23 00:35:00 [facility] o [facility] [place] ANTIGEN (BINAX NOW) Medical [facility] PATIENT FINANCIAL 2022-11-23 00:11:51 Doctor Unassigned, No [facility] POLICY [facility] XR HIPS 2 VW LEFT 2022-05-03 00:55:00 Larissa Lee [facility] XR FOOT 3+ VW LEFT 2022-05-03 00:55:00 Larissa Lee [facility] XR ANKLE 3+ VW LEFT 2022-05-03 00:55:00 Larissa Lee [facility] URINALYSIS NONAUTO W/O 2021-05-24 19:34:00 Kelly Beckett SCOPE Somogyi Plan of Care Planned Activity Planned Date Details Comments Source Future Scheduled 2023-05-08 [facility] Test 02:30:29 malignant neoplasm of colon (procedure) [code = 543119560] Future Scheduled 2023-05-08 [facility] Test 02:30:29 malignant neoplasm of colon (procedure) [code = 696047735] Future Scheduled 2023-05-08 [facility] Test 02:30:29 malignant neoplasm of colon (procedure) [code = 018865191] Future Scheduled 2023-05-08 COVID-19 VACCINE (#1) [place] [facility] Test 02:30:29 [code = COVID-19 VACCINE (#1)] Future Scheduled 2023-05-08 BREAST CANCER [facility] Test 02:30:29 SCREENING [code = BREAST CANCER SCREENING] Future Scheduled 2023-05-08 Screening for [facility] Test 02:30:29 malignant neoplasm of colon (procedure) [code = 463681618] Future Scheduled 2023-05-08 [facility] Test 02:30:29 malignant neoplasm of colon (procedure) [code = 502777354] Future Scheduled 2023-05-08 SHINGLES VACCINES (1 Met [facility] Test 02:30:29 of 2) [code = SHINGLES VACCINES (1 of 2)] Future Scheduled 2023-05-08 65+ PNEUMOCOCCAL [facility] Test 02:30:29 VACCINE (1 - PCV) [code = 65+ PNEUMOCOCCAL VACCINE (1 - PCV)] Future Scheduled 2023-05-08 INFLUENZA VACCINE (#1) [facility] Test 02:30:29 [code = INFLUENZA VACCINE (#1)] Future Scheduled 2023-02-16 [facility] Test 22:14:42 malignant neoplasm of colon (procedure) [code = 576779032] Future Scheduled 2023-02-16 [facility] Test 22:14:42 malignant neoplasm of colon (procedure) [code = 866997175] Future Scheduled 2023-02-16 Screening for [facility] Test 22:14:42 malignant neoplasm of colon (procedure) [code = 982573462] Future Scheduled 2023-02-16 COVID-19 VACCINE (#1) [place] [facility] Test 22:14:42 [code = COVID-19 VACCINE (#1)] Future Scheduled 2023-02-16 BREAST [facility] Test 22:14:42 SCREENING [code = BREAST CANCER SCREENING] Future Scheduled 2023-02-16 Screening [facility] 22:14:42 malignant neoplasm of colon (procedure) [code = 043221513] Future Scheduled 2023-02-16 Screening for [facility] Test 22:14:42 malignant neoplasm of colon (procedure) [code = 498843072] Future Scheduled 2023-02-16 SHINGLES VACCINES (1 Met [facility] Test 22:14:42 of 2) [code = SHINGLES VACCINES (1 of 2)] Future Scheduled 2023-02-16 65+ P[facility]UMOCOCCAL [facility] Test 22:14:42 VACCINE (1 - PCV) [code = 65+ PNEUMOCOCCAL VACCINE (1 - PCV)] Future Scheduled 2023-02-16 INFLUENZA VACCINE [facility] Test 22:14:42 [code = INFLUENZA VACCINE] Future Scheduled 2022-12-09 COVID-19 VACCINE (#1) [facility] Test 09:08:48 [code = COVID-19 VACCINE (#1)] Future Scheduled 2022-12-09 BREAST CANCER [facility] Test 09:08:48 SCREENING [code = BREAST CANCER SCREENING] Future Scheduled 2022-12-09 COLONOSCOPY SCREENING [facility] Test 09:08:48 [code = COLONOSCOPY SCREENING] Future Scheduled 2022-12-09 SHINGLES VACCINES (1 Met [facility] Test 09:08:48 of 2) [code = SHINGLES VACCINES (1 of 2)] Future Scheduled 2022-12-09 65+ P[facility]UMOCOCCAL [facility] Test 09:08:48 VACCINE (1 - PCV) [code = 65+ PNEUMOCOCCAL VACCINE (1 - PCV)] Future Scheduled 2022-12-09 INFLUENZA VACCINE Method [facility] Hospital Test 09:08:48 [code = INFLUENZA VACCINE] Future Scheduled 2021-08-25 COVID-19 VACCINE (1) [facility] Test 16:16:21 [code = COVID-19 VACCINE (1)] Future Scheduled 2021-08-25 BREAST CANCER [facility] Test 16:16:21 SCREENING [code = BREAST CANCER SCREENING] Future Scheduled 2021-08-25 COLONOSCOPY SCREENING [facility] Test 16:16:21 [code = COLONOSCOPY SCREENING] Future Scheduled 2021-08-25 SHINGLES VACCINES (#1) [facility] Test 16:16:21 [code = SHINGLES VACCINES (#1)] Future Scheduled 2021-08-25 65+ PNEUMOCOCCAL [facility] Test 16:16:21 VACCINE (1 of 1 - PPSV23) [code = 65+ PNEUMOCOCCAL VACCINE (1 of 1 - PPSV23)] Future Scheduled 2021-08-25 INFLUENZA VACCINE [facility] Test 16:16:21 [code = INFLUENZA VACCINE] Future Scheduled 2021-08-25 COVID-19 VACCINE (1) [facility] Test 16:16:21 [code = COVID-19 VACCINE (1)] Future Scheduled 2021-08-25 BREAST CANCER [facility] Test 16:16:21 SCREENING [code = BREAST CANCER SCREENING] Future Scheduled 2021-08-25 COLONOSCOPY SCREENING [facility] Test 16:16:21 [code = COLONOSCOPY SCREENING] Future Scheduled 2021-08-25 SHINGLES VACCINES (#1) [facility] Test 16:16:21 [code = SHINGLES VACCINES (#1)] Future Scheduled 2021-08-25 65+ [facility]OCOCC[address] [facility] Test 16:16:21 VACCINE (1 of 1 - PPSV23) [code = 65+ PNEUMOCOCCAL VACCINE (1 of 1 - PPSV23)] Future Scheduled 2021-08-25 INFLUENZA VACCINE Method [facility] Test 16:16:21 [code = INFLUENZA VACCINE] Future Scheduled COVID-19 VACCINE (1) [facility] Test [code = COVID-19 VACCINE (1)] Future Scheduled BREAST CANCER [facility] SCREENING [code = BREAST CANCER SCREENING] Future Scheduled COLONOSCOPY SCREENING [facility] Test [code = COLONOSCOPY SCREENING] Future Scheduled SHINGLES VACCINES (#1) [facility] Test [code = SHINGLES VACCINES (#1)] Future Scheduled 65+ [facility]OCOCC[facility] Test VACCINE (1 of 1 - PPSV23) [code = 65+ PNEUMOCOCCAL VACCINE (1 of 1 - PPSV23)] Future Scheduled INFLUENZA VACCINE [facility] Test [code = INFLUENZA VACCINE] Encounters Start End Encounter Admission Attending Care Care Encounter Source Date/Time Date/Time Type Type Clinicians Facility Department ID 2022-07-11 Outpatient [facility] [id number] [place] 14:43:51 [id number] Health 2022-06-27 Outpatient [facility] [id number] [place] 15:54:29 [id number] Health 2022-06-17 Outpatient [facility] [id number] [place] 10:04:52 [id number] Health 2021-11-27 Outpatient [facility] [id number] [place] 04:09:[id number] [facility] 2021-07-03 Emergency [facility] [id number] [facility]-1120[facility]-05-11 Outpatient R RUPINDER [facility] [id number] Univers 15:20:00 15:51:31 PREET tania [facility] 2023-05-11 2023-05-11 Urgent Preet Bucio [facility] 1.2.840.11 [id number] Univers 15:20:00 15:51:31 Care Unknown, Attending HEALTH 350.1.13.10 ity of [place] 4.2.7.2.686 Tray as JOON?BLEA [id number] [address] MEDICAL OFFICE [facility] 2023-05-11 2023-05-11 Orders Doctor YA 1.2.840.114 [id number] Univers 00:00:00 00:00:00 Only Unassigned, CONOR 350.1.13.10 ity of [place] [facility] 4.2.7.2.686 Tray as [id number] [address] 2023-03-29 2023-03-29 Outpatient R JESUS [facility] [id number] Univers 16:40:00 17:36:47 LARISSA tania [facility] 2023-03-29 2023-03-29 Urgent JesusLarissa [facility] 1.2.840.114 [id number] Univers 16:40:00 17:00:00 Care Unknown, Attending [facility] 350.1.13.10 ity of [place] 4.2.7.2.686 Tray as JOON?BLEA [id number] [address] MEDICAL OFFICE [facility] 2023-02-22 2023-02-22 Outpatient R MYNOR [facility] [id number] Univers 13:40:00 14:29:43 MEG valentin [facility] 2023-02-22 2023-02-22 Urgent Meg Lowe [facility] 1.2.840.11 4 [id number] Univers 13:40:00 14:29:43 Care Unknown, Attending HEALTH 350.1.13.10 ity of [place] 4.2.7.2.686 Tray as JOON?BLEA [phone] [address] MEDICAL OFFICE [facility] 2023-01-22 2023-01-22 Outpatient ANGELIQUE BECKETT [id number] Angelique 00:00:00 00:00:00 KELLY jennings 2022-11-22 2022-11-22 Urgent [facility] 1.2.840.114 [id number] Univers 19:20:00 19:40:00 Care Unknown, Attending [facility] 350.1.13.10 ity of [place] [facility] 4.2.7.2.686 Tray as JOON?BLEA [id number] [address] MEDICAL OFFICE [facility] 2022-11-22 2022-11-22 Outpatient R JESUS [facility] [id number] Univers 19:20:00 19:20:00 [facility] 2022-11-22 2022-11-22 Orders Doctor YA 1.2.840.114 [id number] [facility] 00:00:00 00:00:00 Only Unassigned, CON[facility] 350.1.13.10 [facility] 4.2.7.2.686 Tray as [id number] [address] 2022-11-19 2022-11-19 Outpatient ANGELIQUE BECKETT [id number] Angelique 00:00:00 00:00:00 KELLY jennings 2022-09-20 2022-09-20 Outpatient ANGELIQUE BECKETT [id number] Angelique 00:00:00 00:00:00 KELLY jennings 2022-08-23 2022-08-23 Outpatient ANGELIQUE BECKETT [id number] Angelique 00:00:00 00:00:00 KELLY jennings 2022-07-11 2022-07-11 Outpatient JAY [facility] [id number] [place] 13:30:00 15:35:57 [facility] 2022-05-03 2022-05-03 [facility] 1.2.202.410 [id number] Univers 00:00:00 00:00:00 [facility] 350.1.13.10 it y of [place] 4.2.7.2.686 Tray as JOON?BLEA [id number] [address] MEDICAL OFFICE [facility] 2022-05-03 2022-05-03 Telephone [facility] 1.2.840.114 [id number] Univers 00:00:00 00:00:00 Kelly HEALTH 350.1.13.10 it y of [place] 4.2.7.2.686 Tray as JOON?BLEA [id number] [facility] P[facility]Y [address] MEDICAL OFFICE [facility] 2022-05-02 2022-05-02 [facility] [id number] Univers 19:33:59 23:59:00 [facility] 2022-05-02 2022-05-02 [facility] 1.2.840.114 [id number] Univers 19:33:59 23:59:00 Encounter Larissa HEALTH 350.1.13.10 ity of [place] 4.2.7.2.686 Tray as JOON?BLEA [id number] [facility] PARRY 808 [facility] OFFICE [facility] 2022-05-02 2022-05-02 [facility] 1.2.840.114 [id number] Univers 19:33:59 23:59:00 Encounter Larissa HEALTH 350.1.13.10 ity of [place] 4.2.7.2.686 Tray as JOON?BLEA [id number] Mn haris PARRY 808 [facility] OFFICE [facility] 2022-05-02 2022-05-02 [facility] 1.2.840.114 [id number] Univers 19:33:58 23:59:00 Encounter Larissa HEALTH 350.1.13.10 ity of [place] 4.2.7.2.686 Tray as JOON?BLEA [id number] [facility] PARRY 808 [facility] OFFICE [facility] 2022-05-02 2022-05-02 Outpatient R [facility] [id number] Univers 19:20:00 19:44:57 LARISSA [facility] 2022-05-02 2022-05-02 [facility] 1.2.840.114 [id number] Univers 19:20:00 19:44:57 Care Larissa HEALTH 350.1.13.10 it y of [place] 4.2.7.2.686 Tray as JOON?BLEA [id number] [address] MEDICAL OFFICE BUILDING 2022-05-02 2022-05-02 Orders Doctor YA 1.2.840.114 [id number] Univers 00:00:00 00:00:00 Only Unassigned, CONOR 350.1.13.10 ity of [place] [facility] 4.2.7.2.686 Tray as [id number] [address] 2022-03-14 2022-03-14 Laboratory Only, Ang Db Test [facility] 1.2.8 40.114 [id number] Univers 12:45:00 13:00:00 Only Karolyn Stovall [facility] 350.1.13.10 ity of [place] 4.2.7.2.686 Tray as JOON?BLEA [id number] [address] MEDICAL OFFICE [facility] 2022-03-14 2022-03-14 Outpatient R WILMAN [facility] [id number] Univers 12:45:00 12:45:00 KAROLYN tracyy o f [facility] 2022-03-14 2022-03-14 Letter Doctor YA 1.2.840.114 [id number] Univers 00:00:00 00:00:00 (Out) Unassigned, CONOR 350.1.13.10 ity of [place] [facility] 4.2.7.2.686 Tray as [id number] [address] 2021-11-30 2021-11-30 Outpatient ANGELIQUE BECKETT [id number] Angelique 13:30:00 13:30:00 KELLY jennings 2021-11-30 2021-11-30 Outpatient ANGELIQUE BECKETT [id number] Angelique 00:00:00 00:00:00 KELLY Alvarezol dick 2021-11-02 2021-11-02 Office Zachary Beckett 1.2.840.114 [id number] Angelique 10:45:00 11:15:00 Visit Kelly Almonte 350.1.13.13 Se sarah Ramos 1.2.7.2.686 [id number] 2021-10-05 2021-10-05 Outpatient LAB90 ANGELIQUE MERINO [id number] Angelique 10:05:00 10:05:00 Seybol d 2021-10-05 2021-10-05 Office Zachary Beckett 1.2.840.114 [id number] Angelique 09:30:00 09:45:00 Visit Kelly Almonte 350.1.13.13 Se sarah Somogyi 1.2.7.2.686 [id number] 2021-09-13 2021-09-13 Emergency [facility] [id number] Univers 13:13:00 17:20:00 [facility] 2021-09-13 2021-09-13 [facility] 1.2.253.546 [id number] Univers 13:13:00 17:20:00 Vanessa KIM 350.1.13.10 [facility] 4.2.7.2.686 [facility] [id number] [address] 2021-09-13 2021-09-13 Outpatient ANGELIQUE BECKETT [id number] Angelique 00:00:00 00:00:00 KELLY Alvarezol d 2021-09-10 2021-09-10 Laboratory Only, Ang Db Test [facility] 1.2.8 40.114 [id number] Univers 12:15:00 12:30:00 Only Kevin Rodríguez [facility] 350.1.13. [address] [facility] 4.2.7.2.686 Tray as JOON?BLEA [id number] [address] MEDICAL OFFICE BUILDING 2021-09-10 2021-09-10 Outpatient Seth RODRÍGUEZ [facility] [id number] Univers 12:15:00 12:15:00 KEVIN [facility] 2021-08-02 2021-08-02 Outpatient CAROLE CORTEZ [id number] Angelique 00:00:00 00:00:00 Seybol d 2021-05-24 2021-05-24 Office Zachary Beckett 1.2.840.114 [id number] Angelique 13:45:59 14:15:59 Visit Kelly Almonte 350.1.13.13 Se sarah Bennettogyi 1.2.7.2.686 [id number] 2021-05-20 2021-05-20 Outpatient ANGELIQUE BECKETT [id number] Angelique 14:00:00 14:00:00 KELLY Seybol d 2021-05-11 2021-05-11 Outpatient LAB90 ANGELIQUE MERINO [id number] Angelique 14:20:00 14:20:00 Seybol d 2021-05-11 2021-05-11 Office Zachary Beckett 1.2.840.114 [id number] Angelique 13:33:51 14:03:51 Visit Kelly Almonte 350.1.13.13 Se sarah Bennetthiginio 1.2.7.2.686 [id number] 2021-04-30 2021-04-30 Outpatient TESTING, PL ANGELIQUE MERINO [id number] Angelique 15:45:00 15:45:00 Seybol d 2021-04-28 2021-04-28 Outpatient LAB90 ANGELIQUE MERINO [id number] Angelique 15:15:00 15:15:00 Seybol d 2021-04-28 2021-04-28 Outpatient ANGELIQUE BECKETT [id number] Angelique 14:30:00 14:30:00 KELLY Alvarezol dick 2021-04-28 2021-04-28 Letter YA Arango 1.2.840.114 [id number] Univers 00:00:00 00:00:00 (Out) Christine PERDOMO 350.1.13.10 it y of [facility] 4.2.7.2.686 Tray as [id number] [address] 2021-04-27 2021-04-27 Urgent [facility] 1.2.840.114 [id number] Univers 18:54:12 19:14:12 Care [facility] 350.1.13.10 it y of [place] 4.2.7.2.686 Tray as Joon?Blea [id number] [address] Medical Office Building 2021-04-27 2021-04-27 Outpatient R JESUS [facility] [id number] Univers 19:00:00 19:00:00 LARISSAKISHA valentin [facility] 2021-04-27 2021-04-27 Outpatient ANGELIQUE BECKETT [id number] Angelique 00:00:00 00:00:00 KELLY jennings 2021-04-27 2021-04-27 Letter Doctor YA 1.2.840.114 [id number] Univers 00:00:00 00:00:00 (Out) Unassigned, CONOR 350.1.13.10 ity of [place] [facility] 4.2.7.2.686 Tray as [id number] [facility] [address] 2021-04-27 2021-04-27 Orders Doctor YA 1.2.840.114 [id number] Univers 00:00:00 00:00:00 Only Unassigned, CONOR 350.1.13.10 ity of [place] [facility] 4.2.7.2.686 Tray as [id number] [facility] [address] 2021-04-27 2021-04-27 Letter Doctor YA 1.2.840.114 [id number] Univers 00:00:00 00:00:00 (Out) Unassigned, CONOR 350.1.13.10 ity of [place] [facility] 4.2.7.2.686 Tray as [id number] [facility] [address] 2020-10-01 2020-09-29 Inpatient EL Victoria, [facility] SURG [id number] [facility] 14:20:00 14:20:00 Vanessa [facility] 2020-09-24 2020-09-24 Emergency Singer [facility] 1.2.556.723 [id number] [facility] 13:18:00 17:07:00 Dmitriy Kim 350.1.13.10 i [place] of [place] 4.2.7.2.[place] [id number] [facility] [address] 2020-09-24 2020-09-24 Emergency Singer [facility] 1.2.325.034 [id number] 13:18:00 17:07:00 Dmitriy Kim 350.1.13.10 [place] 4.2.7.2.686 [place] [id number] 084 2019-11-20 2019-11-20 Outpatient [facility] [id number] [facility] 00:00:00 00:00:00 [id number] 2019-11-04 2019-11-04 Orders Doctor YA 1.2.840.114 [id number] Univers 00:00:00 00:00:00 Only Unassigned, CONOR 350.1.13.10 ity of [place] [facility] 4.2.7.2.686 Tray as [id number] [facility] [address] 2019-11-04 2019-11-04 Orders Doctor YA 1.2.840.114 [id number] 00:00:00 00:00:00 Only Unassigned, [place] 350.1.13.10 [place] [facility] 4.2.7.2.686 [id number] 2019-10-07 2019-10-07 [facility] Radiology [facility] 1.2.840.114 [id number] [facility] 10:00:00 23:59:00 Encounter [place] 350.1.13.10 ity of [place] 4.2.7.2.[place] [id number] [facility] [address] 2019-10-07 2019-10-07 [facility] Radiology [facility] 1.2.840.114 [id number] 10:00:00 23:59:00 Encounter [place] 350.1.13.10 [place] 4.2.7.2.686 [place] [id number] 2019-09-13 2019-09-18 [facility] BP[facility] [id number] [facility] 10:30:00 04:41:58 Markie 58 [facility] 2019-09-06 2019-09-11 [facility]patient [facility] BP00 [id number] [facility] 08:30:00 23:45:52 Markie 88 [facility] Results Test Description Test Time Test Comments Results Result Comments Source POCT SARS-COV-2 ANTIGEN (BINAX NOW) 2023-05-11 21:26:00 Test Item Value Reference Range Interpretation Comme nts POCT SARS-COV-2 ANTIGEN (test code = 89892-3) Not Detected Not Dete cted On board controls acceptable with C Line (test code = Yes 3574) [facility] [id number] 19:24:40 Test Item Value Reference Range Interpretation Comments POCT Molecular FluA (test code = Negative Negative 49808-8) POCT Molecular FluB (test code = Negative Negative 70343-0) Lab Interpretation (test code = Normal 14845-5) [facility] MOLECULAR [id number] 19:17:28 Test Item Value Reference Range Interpretation Comments POCT Molecular Strep (test code = Negative Negative 67088-2) Lab Interpretation (test code = Normal 42566-2) [facility] SARS-COV-2 ANTIGEN (BINAX NOW)2023-02-22 19:16:00 Test Item Value Reference Range Interpretation Comments POCT SARS-COV-2 ANTIGEN Positive Not Detected A (test code = 73540-8) On board controls Yes acceptable with C Line (test code = 3574) MARVA (test code = MARVA) accurate development and interpretation of all internal controls Lab Interpretation Abnormal (test code = 89812-5) [facility] SARS-COV-2 ANTIGEN (BINAX NOW)2022-11-23 00:35:00 Test Item Value Reference Range Interpretation Comments POCT SARS-COV-2 ANTIGEN Not Detected Not Detected (test code = 85010-1) On board controls Yes acceptable with C Line (test code = 3574) MARVA (test code = MARVA) accurate development and interpretation of all internal controls Lab Interpretation Normal (test code = 94140-6) [facility] NONAUTO W/O [id number] 19:34:00 Test Item Value Reference Range Interpretation Comments UD KETONES (test code = neg 5-160 861851) UD GLUCOSE (test code = neg 100-2000 053079) UD PROTEIN (test code = neg Trace - 2000 mg/dL 586161) UD LEUKOCYTES (test neg Trace - Large @ 2 code = 449355) min. UD NITRITE (test code = neg Neg. - Pos. @ 60 008732) sec. UD UROBILINOGEN (test 0.2 mg/dL 0.2-8 code = 584091) UD PH (test code = See_Comment [Automat ed 016440) message] The sy stem which generated this result transmitted reference range : 5.0 - 8.5 @ 60 sec.. The refer ence range was not u sed to interpret th is result as normal/abnormal . UD BLOOD (test code = neg Neg. - Large @ 60 410074) sec. UD SPECIFIC GRAVITY See_Comment [Automa ann (test code = 464138) message ] The system which generated this result transmitted reference range : 1.000 - 1.030 @ 45 sec.. The refer ence range was not u sed to interpret th is result as normal/abnormal . UD BILIRUBIN (test code neg Neg. - Large @ 45 = 126613) sec. Lab Interpretation Normal (test code = 34410-8) Angelique Didier 19 Asymptomatic I[facility] [id number] 15:12:00 Test Item Value Reference Range Interpretation Comments COVID 19 Asymptomatic IH AG (test NEGATIVE NEGATIVE code = COVNONPUIAG) SURGICAL [id number] 11:39:00 RUN DATE: 09/17/19 [facility] - LAB PAGE 1 RUN TIME: 1139 Specimen Inquiry RUN USER: INTERFACE ------- -----PATIENT: JENNIFER VALLADARES LOC: APARNA U #: [id number] AGE/SX: 64/F ROOM: RE09/13/19REG DR:Markie Holman MD : 51 BED: DIS: STATUS: [facility] TLOC: SPEC #: [id number] RECD: 09/13/19 STATUS: NORMA GONZALES #: [id number] FACUNDO: 09/13/[address]: Markie Holman MD [...] Angel 09/17/19 1139 END OF REPORT SURGICAL [id number] 12:11:00 RUN DATE: 09/10/19 [facility] - LAB PAGE 1 RUN TIME: 1211 Specimen Inquiry RUN USER: INTERFACE -------- ----PATIENT: JENNIFER VALLADARES LOC: APARNA U #: [id number] AGE/SX: 64/F ROOM: RE09/06/19REG DR: Markie Holman MD : 51 BED: DIS: STATUS: MAGAN MARQUES TLOC: SPEC #: [id number] RECD: 09/06/19 STATUS: NORMA REVel #: [id number] FACUNDO: 09/06/[address] [facility] DR: Markie Holman MD ENTERED: 09/06/19 SP TYPE: SURG OTHR DR: Gayle Provider ORDERED: PATHGM4/2, PATH SPEC, H E STAIN/2, IHC AB STAIN I/2 HISTOLOGY: TISSUE ID BLK PCS CHRIS LEV / PROCEDURE DISPOSITION ____ ___ ___ ___ GASTRIC BIOPSY A 1 3 1 GASTRIC POLYP B 1 3 1 TISSUES: A. GASTRIC BIOPSY- Gastric Antrum Bx B. GASTRIC POLYP - Gastric Polyp X2 CLINICAL HISTORY Abdominal Pain/ Family Hx Of Polyps FINAL DIAGNOSIS A- GASTRIC ANTRUM BIOPSY: - Antral type gastric mucosa with mild chronic gastritis and reactive epithelial changes. - Negative for H. pylori organisms (H. pylori immunostain). B-GASTRIC POLYP X2, BIOPSY: - Two pieces of fundic gland polyp. - Separate piece of antral type gastricmucosa with mild chronic gastritis and reactive epithelial changes, including features suggestive ofreactive gastropathy/chemical gastritis versus hyperplastic polyp. - Negative [...] CONTINUED ON NEXT PAGE RUN DATE: 09/10/19 [facility] - LAB PAGE 2 RUN TIME: 1211 Specimen Inquiry RUN USER: INTERFACE SPEC #: [id number] PATIENT: JENNIFER VALLADARES #[id number] (Continu ed) ----- ------- Signed SIGNATURE ON FILE Nata Ortega MD 09/10/19 1211 END OF REPORT Notes Date/Time Note Provider Source 2020-10-01 08:26:00-00:00 [id number] [place] [id number] PATIENT NAME: JENNIFER VALLADARES ADMIT DATE: ACCOUNT NO: [id number] ROOM NO: AGE: 65 REPORT TYPE: OPERATIVE REPORT SEX: F ADMITTING PHYSICIAN: ATTENDING PHYSICIAN:Vanessa Victoria MD OPERATION DATE: 10/01/2020 PREOPERATIVE DIAGNOSIS: Comminuted intraarticula r fracture, right distal radius, S52.571A. POSTOPERATIVE DIAGNOSIS: Comminuted intraarticul ar fracture, right distal radius, S52.571A. OPERATIVE PROCEDURES PERFORMED: Open reduction a nd internal fixation, right distal radius fracture involving 3 or more frag ents, 40944. ANESTHESIA: General. TOURNIQUET TIME: 42 minutes. ESTIMATED BLOOD LOSS: None. SURGEON: Vanessa Victoria MD JOB PLACEMENT SPECIALIST: DANISH Engle/LSA CLINICAL INDICATIONS: Ms. Queenie gonzalez is a 65-year-old afxxx-jimf-tojicvnk female from [place], [place], who sustained a traumatic injur y to her right wrist, status post fall one week earlier. Her clinical as well as radiographic evaluation revealed a comminuted intraarticular fracture of the right distal radius. She is admitted for open reduction and internal fixa tion. PROCEDURE IN DETAIL: OPEN REDUCTION AND INTERNAL FIXATION, COMMINUTED INTRAARTICULAR FRACTURE, RIGHT DISTAL RADIUS, 25 609. Ms. Valladares was brought into [facility] operative suite, at which time, she was [...] PATIENT NAME: JENNIFER VALLADARES ACCOUNT #: [id number] At this time, a Synthes volar distal [...] vertical mattress suture. Sterile dressing was applied. Th e patient was then extubated, taken to [...] splint. Dictated By: Vanessa Victoria MD WT: OP:MELINA/IESHA/PADDY Conf#: [id number]/DID#: [id number] Authenticated and Edited by Vanessa Victoria MD O n 10/01/20 4:21:40 PM Electronically Signed by Vanessa Victoria MD on 0 10/01/20 at 1624 PATIENT NAME: JENNIFER VALLADARES ACCOUNT #: [id number] 2020-10-01 08:19:00-00:00 [facility] ([facility]) Brief Op Note REPORT#:[id number] REPORT STATUS: Signed DATE:10/01/20 TIME: 818 PATIENT: JENNIFER VALLADARES UNIT #: [id number] ROOM/BED: : 53 AGE: 65 SEX: F ATTEND: David Victoria MD ADM AUTHOR: Vanessa Victoria MD * ALL edits or amendments must be made on the el ectronic/computer document * Op/Inv Proc Note - Brief Pre-procedure diagnosis: right distal radius fracture Post-procedure diagnosis: same as pre procedure dx Procedures performed: ORIF [id number] Primary Surgeon: Julien Power Tong Operator(s): Ruth OPA/LSA Findings: as above Complications: none Estimated blood loss in ml's: none Specimens removed/altered: none Electronically Signed by Vanessa Victoria MD on at 0821 RPT #[id number] END OF REPORT 2020-09-30 06:41:00-00:00 [id number] [facility] [address] [address] PATIENT NAME: JENNIFER VALLADARES ADMIT DATE: ACCOUNT NO: [id number] ROOM NO: AGE: 65 REPORT TYPE: HISTORY AND PHYSICAL SEX: F ADMITTING PHYSICIAN: ATTENDING PHYSICIAN:Vanessa Victoria MD ADMISSION DATE: 09/29/2020 ADMITTING DIAGNOSIS: Comminuted intraarticular f racture, right distal radius, S52.571A. HISTORY OF PRESENT ILLNESS: Ms. Valladares is a 65-yea r-old gfqhd-aehi-yqhsikdo female, who sustained a traumatic injury to [...] PATIENT NAME: JENNIFER VALLADARES ACCOUNT #: [id number] SURGICAL PLAN: Will be to proceed with [...] posttraumatic arthritis, loss of motion , decreased kiln mechanic strength, painful scar along with comp lications secondary to anesthesia. Ms. Valladares further understands that there are a bsolutely no guarantees or warranties that she will be pain free as a result of the procedure. She a ccepts these risks and gives her informed consent to proceed. Dictated By: Vanessa Victoria MD WT: HP:MELINA/IESHA/PADDY Conf#: [id number]/DID#: [id number] Authenticated by Vanessa Victoria MD On 10:34:19 AM Electronically Signed by Vanessa Victoria MD on 0 09/30/20 at 1034 PATIENT NAME: JENNIFER VALLADARES ACCOUNT #: [id number] 2019-09-13 11:00:00-00:00 [id number] [facility] [address] [place] [address] PATIENT NAME: JENNIFER VALLADARES ADMIT DATE: ACCOUNT NO: [id number] ROOM NO: AGE: 64 REPORT TYPE: ENDOSCOPY REPORT SEX: F ADMITTING PHYSICIAN: ATTENDING PHYSICIAN:Markie Holman MD [facility] Patient Name: Dread Arizmendiangie Attending MD: Markie hopkins MD Procedure Date: 09/13/2019 11:00 AM 75 Date of : 05/15 Admit Type: Preadmit Age: 64 Room: Room 1 Gender: Female Note Status: Finalized Procedure: Colonoscopy Pre Procedure Diagnosis: Screening for colorecta l malignant neoplasm Assistants: Markie Holman MD, Kendell Shane RN (Nurse), Beth Fenrando, Cloud Automation Tester, Brigida Winslow CRNA Anesthesia: Monitored Anesthesia Care [...] the anesthesiologist, the anesthetis t and the telecasting technician in the pre-procedure area in the procedure room in the endoscopy suite. Mental Status Examination: normal. Airway Examination: normal oropharyngeal airway and neck mobility. Respiratory Examination: clear to auscultation. CV Examination: normal. ASA Grade Assessment: II - A patient with mild systemic disease. After revie wing the risks and benefits, the patient was deemed in satisfactory condition to undergo the procedure . The anesthesia plan was to use monitored anesth esia care (MAC). Immediately prior to administration of medications, the patient was re-assessed for adequacy to receive sedatives. The heart rate, respiratory rate, oxygen saturations, blood pressure, adequacy of pulmonary ventilation, an d PATIENT NAME: JENNIFER VALLADAERS ACCOUNT #: [id number] response to care were monitored throughout the [...] and advanced to the cecum, identified by appendicea l orifice and ileocecal valve. The colonoscopy wa [...] removed with a cold biopsy forceps. Resected an d retrieved. Clip was placed. - The examination was otherwise normal. Recommendation: - Discharge patient to home (vi a wheelchair). - Resume previous diet. - Continue present medications. - Await pathology results. - Repeat colonoscopy in 5 years for screening purposes. - Return to my office PRN. - Telephone my office for pathology results in 1 week. Markie Holman MD Markie Holman MD 09/13/2019 11:31:41 AM This report has been signed electronically. Number of Addenda: 0 PATIENT NAME: JENNIFER VALLADARESLEY ACCOUNT #: [id number] Note Initiated On: 09/13/2019 11:00 AM Procedure Date: 09/13/2019 11:00:48 AM Provation {[id number] ProVation FT PDF at 1131 PATIENT NAME: JENNIFER VALLADARESLEY ACCOUNT #: [id number] 2019-09-06 08:23:00-00:00 [id number] [facility] [address] [place] [address] PATIENT NAME: JENNIFER VALLADARES ADMIT DATE: ACCOUNT NO: [id number] ROOM NO: AGE: 64 REPORT TYPE: ENDOSCOPY REPORT SEX: F ADMITTING PHYSICIAN: ATTENDING PHYSICIAN:Markie Holman MD [facility] Patient Name: Dread Gonzalez Attending MD: Markie Craroll MD Procedure Date: 09/06/2019 8:23 AM Date of : 05/15 Admit Type: Preadmit Age: 64 Room: Room 1 Gender: Female Note Status: Finalized Procedure: Upper GI endoscopy Pre Procedure Diagnosis: Epigastric abdominal pa in Assistants: Markie Holman MD, Janelle Marie RN (Nurse), Mer Camejo, Cloud Automation Tester, Sammi Lopez Anesthesia: Monitored Anesthesia Care Procedure: [...] the anesthesiologist, the anesthetis t and the telecasting technician in the pre-procedure area in the [...] y prior to administration of medications, the pat ient was re-assessed for adequacy to receive sedativ es. The heart rate, respiratory rate, oxygen saturations, blood pressure, adequacy of pulmon mare ventilation, and response to care were monitore d throughout the procedure. The physical status o f PATIENT NAME: JENNIFER VALLADARES ACCOUNT #: [id number] the patient was re-assessed after the procedure . The benefits, risks, and alternatives to the procedure were discussed and informed consent w as obtained from the patient. I've assesed the shayne tiemichael on this date and reviewed the medical [...] was irregular and was found at the gastroesophageal junction. A medium-sized hiatal hernia was present. [...] PATIENT NAME: JENNIFER VALLADARES ACCOUNT #: [id number] Markie Holman MD 09/06/2019 8:54:21 AM This report has been signed electronically. Number of Addenda: 0 Note Initiated On: 09/06/2019 8:23 AM Procedure Date: 09/06/2019 8:23:14 AM Provation {[id number]}.pdf ProVation FT PDF at 0854 PATIENT NAME: JENNIFER VALLADARES ACCOUNT #: [id number]
--- NOTE | 2023-05-23 00:32 | EDPHYS ---
Physician Documentation [facility] Name: Carlos Canada Age: 68 yrs Sex: Female : 1955 Arrival Date: 05/22/2023 Time: 23:41 Bed 11 Private MD: ED Physician Garrett Jc HPI: 05/23 00:46 This 68 yrs old Female presents to ER via Ambulatory with complaints of Possible spider kb bite on naval. 00:46 the patient presents with a swollen area of the right lower quadrant. Description: kb erythematous, swollen. Onset: The symptoms/episode began/occurred this morning. Possible cause(s): insect sting. Associated signs and symptoms: Pertinent positives: erythema, swelling. Modifying factors: the symptoms are alleviated by nothing, the symptoms are aggravated by nothing. Severity of symptoms: At their worst the symptoms were mild, in the emergency department the symptoms are unchanged. The patient has not experienced similar symptoms in the past. The patient has not recently seen a physician. pt believes she was bit by something at 0400 this morning. Has had itching and redness to area since then.. Historical: - Allergies: 00:32 PENICILLINS; me1 00:32 Sulfa (Sulfonamide Antibiotics); me1 - PMHx: 00:32 High Cholesterol; Hypertension; Hypothyroidism; me1 - PSHx: 00:32 breast reduction; tendon repair on right hand; me1 - Immunization history:: Adult Immunizations up to date. - Social history:: Smoking status: Patient denies any tobacco usage or history of. ROS: 00:45 Constitutional: Negative for fever, chills, and weight loss, kb 00:45 Skin: Positive for erythema, swelling, of the right lower quadrant, 00:45 All other systems are negative, Exam: 00:45 Constitutional: This is a well developed, well nourished patient who is awake, alert, kb and in no acute distress. Head/Face: Normocephalic, atraumatic. ENT: Moist Mucous membranes Cardiovascular: Regular rate Respiratory: Respirations even and unlabored. No increased work of breathing. Talking in full sentences MS/ Extremity: Pulses equal, no cyanosis. Neurovascular intact. Full, normal range of motion. Neuro: Awake and alert, GCS 15, oriented to person, place, time, and situation. Moves all extremities. Normal gait. 00:45 Skin: abscess, that is small, of the right lower quadrant, with induration, Vital Signs: 00:21 BP 146 / 86; Pulse 93; Resp 17; Temp 98.1(TE); Pulse Ox 98% on R/A; Weight 80.74 kg; me1 Height 5 ft. 3 in. ; 00:21 Body Mass Index 31.53 (80.74 kg, 160.02 cm) me1 MDM: 00:19 Patient medically screened. kb 00:45 Data reviewed: vital signs, nurses notes. kb 00:47 Differential diagnosis: abscess, allergic reaction, cellulitis, insect bite. kb Counseling: I had a detailed discussion with the patient and/or guardian regarding the historical points, exam findings, and any diagnostic results supporting the discharge/admit diagnosis, the need for outpatient follow up, a family practitioner, to return to the emergency department if symptoms worsen or persist or if there are any questions or concerns that arise at home. ED course: No drainable abscess appreciated. Pt given strict return precautions. Administered Medications: 00:44 Drug: Trimethoprim-Sulfamethoxazole PO (160 mg-800 mg (DS) 1 tablet PO once Route: PO; as6 00:44 Follow up: Response: No adverse reaction as6 Disposition: 08:42 Co-signature as Attending Physician, Garrett Jc MD I agree with the assessment sp4 and plan of care. I reviewed the patient's care provided by the Advanced Practice Provider and agree with the diagnosis and treatment plan. Disposition Summary: 05/23/23 00:32 Discharge Ordered Notes: Location: Home kb Condition: Stable kb Diagnosis - Cutaneous abscess of abdominal wall kb Followup: kb - With: Emergency Department - When: As needed - Reason: Worsening of condition Followup: kb - With: Private Physician - When: 2 - 3 days - Reason: Recheck today's complaints, Continuance of care, Re-evaluation by your physician Discharge Instructions: - Discharge Summary Sheet kb - Skin Abscess, Aogg-dw-Meoy kb Forms: - Medication Reconciliation Form kb - Thank You Letter kb - Antibiotic Education kb - Prescription Opioid Use kb - Patient Portal Instructions kb - Leadership Thank You Letter kb Prescriptions: - Bactrim DS 800-160 mg Oral Tablet - take 1 tablet by ORAL route every 12 hours for 10 days; 20 tablet; Refills: 0, kb Product Selection Permitted Signatures: Emeli Almonte, COMMUNICATIONS AGENT-C COMMUNICATIONS AGENT-Julio Arrieta, RN RN as6 Garrett Jc MD MD sp4 Rosa David RN RN me1 Corrections: (The following items were deleted from the chart) 00:47 00:46 pt believes she was bit by something at 0400 this morning. Has had itching to kb area since then. . kb
--- NOTE | 2023-05-23 00:32 | ER ---
Nurse's Notes [facility] Name: Carlos Canada Age: 68 yrs Sex: Female : 1955 Arrival Date: 05/22/2023 Time: 23:41 Bed 11 Private MD: Diagnosis: Cutaneous abscess of abdominal wall Presentation: 05/23 00:21 Chief complaint: Patient states: she thinks she was bitten by a spider early this me1 morning about 4 am. Now she has redness, warmth and an area of hardness on her RLQ. Coronavirus screen: Vaccine status: Patient reports receiving the 2nd dose of the covid vaccine. Ebola Screen: No symptoms or risks identified at this time. Initial Sepsis Screen: Does the patient meet any 2 criteria? No. Patient's initial sepsis screen is negative. Does the patient have a suspected source of infection? No. Patient's initial sepsis screen is negative. Risk Assessment: Do you want to hurt yourself or someone else? Patient reports no desire to harm self or others. Onset of symptoms was May 22, 2023. 00:21 Method Of Arrival: Ambulatory me1 00:21 Acuity: REGINE 4 me1 Historical: - Allergies: 00:32 PENICILLINS; me1 00:32 Sulfa (Sulfonamide Antibiotics); me1 - PMHx: 00:32 High Cholesterol; Hypertension; Hypothyroidism; me1 - PSHx: 00:32 breast reduction; tendon repair on right hand; me1 - Immunization history:: Adult Immunizations up to date. - Social history:: Smoking status: Patient denies any tobacco usage or history of. Screenin:44 [facility] ED Fall Risk Assessment (Adult) Score/Fall Risk Level 0 - 2 = Low Risk. Abuse as6 screen: Denies threats or abuse. Denies injuries from another. Nutritional screening: No deficits noted. Tuberculosis screening: No symptoms or risk factors identified. Assessment: 00:49 General: Appears in no apparent distress. Behavior is calm, cooperative. Pain: as6 Complains of pain in right lower quadrant. Respiratory: Respiratory effort is even, unlabored, Respiratory pattern is regular, symmetrical. Injury Description: Bite sustained to right lower quadrant caused by a spider, is superficial. Vital Signs: 00:21 BP 146 / 86; Pulse 93; Resp 17; Temp 98.1(TE); Pulse Ox 98% on R/A; Weight 80.74 kg; me1 Height 5 ft. 3 in. ; 00:21 Body Mass Index 31.53 (80.74 kg, 160.02 cm) me1 ED Course: 05/22 23:44 Patient arrived in ED. [email or web address] 05/23 00:06 [facility]monte [facility] 00:06 Garrett Jc MD is Attending Physician. kb 00:32 Triage completed. me1 00:32 Arm band placed on Patient placed in waiting room. me1 00:44 Bed in low position. Call light in reach. Provided Education on: abx teaching. as6 00:44 No provider procedures requiring assistance completed. Patient did not have IV access as6 during this emergency room visit. Administered Medications: 00:44 Drug: Trimethoprim-Sulfamethoxazole PO (160 mg-800 mg (DS) 1 tablet PO once Route: PO; as6 00:44 Follow up: Response: No adverse reaction as6 Medication: 00:44 VIS not applicable for this client. as6 Outcome: 00:32 Discharge ordered by . kb 00:44 Discharged to home ambulatory, as6 00:44 Condition: stable 00:44 Discharge instructions given to patient, Instructed on discharge instructions, follow up and referral plans. medication usage, Demonstrated understanding of instructions, follow-up care, medications, Prescriptions given X 1, 00:50 Patient left the ED. as6 Signatures: Emeli Almonte FNP-C FNP-Ckb Jeffries, Jennifer jj6 Julio Hall RN RN as6 Rosa David RN RN nv1
[2023-05-23] MEDS ORDERED: SMZ./TMP. 800/160 MG TABLET ONE (00:49)
[2023-05-23 02:31] VITALS: BP 146/86; TEMP 98.1; O2SAT 98
== END 2023-05-23 00:50 | disposition home or self-care (01) ==
LOC: ER 23:41
DX: L02.211 Cutaneous abscess of abdominal wall (principal); Z88.0 Allergy status to penicillin; Z88.2 Allergy status to sulfonamides

== ENCOUNTER 2023-06-29 07:34 | Day surgery (SDC) | payer OTHER, MEDICARE ==
[2023-06-29] MEDS ORDERED: Ringers Lactate 1,000 ML IV ONE (08:20)
[2023-06-29] MEDS ORDERED: LIDOCAINE 1% MPF 5 ML VIAL ONE (09:47)
[2023-06-29] MEDS ORDERED: propofoL 200 MG/20 ML VIAL IV ONE ×2 (09:47)
[2023-06-29 15:05] VITALS: BP 116/64; TEMP 97.3; O2SAT 100
== END 2023-06-29 11:33 | disposition home or self-care (01) ==
LOC: OR 07:34
PROVIDERS: ATTEND Internal Medicine Gastroenterology
PROC: 0DBE8ZX Excision of Large Intestine, Via Natural or Artificial Opening Endoscopic, Diagnostic (ICD-10-PCS; 2023-06-29)
PROC: 0DBH8ZX Excision of Cecum, Via Natural or Artificial Opening Endoscopic, Diagnostic (ICD-10-PCS; principal; 2023-06-29 09:30)
DX: R93.3 Abnormal findings on diagnostic imaging of other parts of digestive tract (principal); R10.84 Generalized abdominal pain; K59.1 Functional diarrhea; K64.8 Other hemorrhoids; K63.5 Polyp of colon; D12.2 Benign neoplasm of ascending colon; D12.0 Benign neoplasm of cecum; D12.4 Benign neoplasm of descending colon; D12.3 Benign neoplasm of transverse colon; Z86.010 Personal history of colon polyps
CPT/HCPCS: 88305; 45384; J2704 ×2; J2001; J7120

== ENCOUNTER 2024-11-06 12:11 | Inpatient (IN) | payer OTHER, MEDICARE ==
[2024-10-30 10:49] LABS: Absolute Basophils 0.1 K/uL (0-0.5); Absolute Eosinophils 0.1 K/uL (0-0.5); Absolute Lymphocytes (CBC) 1.8 K/uL (0.7-4.9); Absolute Monocytes 0.7 K/uL (0.1-1.3); Absolute Neutrophil 4.8 K/uL (1.8-8.0); Basophils % 0.8 % (0-1.3); Eosinophils % 0.7 % (0-4.4); Hematocrit 38.6 % (36.0-45.0); Hemoglobin 13.5 g/dL (12.0-15.0); Lymphocytes % 23.9 % (15.3-44.8); MCH 30.3 pg (27.0-35.0); MCHC 34.9 g/dL (32.0-36.0); MCV 86.9 fL (80-100); MPV 8.6 fL (7.6-11.3); Monocytes % 9.7 % (3.3-12.3); Neutrophils % 64.9 % (41.7-73.7); Platelets 286 thou/uL (152-406); RBC Red Blood Cell Count 4.44 M/uL (3.86-4.86); Red Cell Distribution Width 13.5 % (12.1-15.2)
[2024-10-30 10:59] LABS: PT Prothrombin Time 11.4 SECONDS (10.0-13.0); PTT, Activated Partial Thromb 27.9 SECONDS (24.3-36.9)
[2024-10-30 11:04] LABS: Anion Gap 12.7 mEq/L (5.0-15.0); Potassium 3.7 mEq/L (3.5-5.1)
--- NOTE | 2024-10-30 13:49 | RAD REPORT ---
EXAMINATION: TWO VIEW CHEST XR CLINICAL INDICATION: Female, 69 years old. [facility] MA[facility] pre procedures TECHNIQUE: 2 view radiographs of the chest were performed. COMPARISON: 12/28/2022 FINDINGS: The lungs are well inflated and clear. Elevation of the right hemidiaphragm again seen. No pneumothor ax or sizable effusion. The heart is normal in size. Mediastinal contours are unremarkable. IMPRESSION: No acute or significant abnormalities.
[2024-11-06] MEDS: NA CHLORIDE 0.9% 500 ML ONE ×2 (12:41→15:03)
[2024-11-06] MEDS ORDERED: HEPA 1000U/500MLS 2,000 UNIT/1,000 ML BAG IV ONE (13:52)
[2024-11-06] MEDS ORDERED: HEPARIN 10,000 UNIT/10 ML VIAL IV ONE ×2 (13:59→16:28)
[2024-11-06] MEDS ORDERED: TICAGRELOR 90 MG TABLET PO ONE (14:00)
[2024-11-06] MEDS ORDERED: ATROPINE SULF 1 MG/10 ML SYR IV ONE (14:00)
[2024-11-06] MEDS ORDERED: LIDOCAINE 1% 20 ML MDV ONE ×2 (14:00→15:44)
[2024-11-06] MEDS ORDERED: VERAPAMIL HCL 10 MG/4 ML VIAL IV ONE (14:00)
[2024-11-06] MEDS ORDERED: CLOPIDOGREL 75 MG TABLET ONE (14:00)
[2024-11-06] MEDS ORDERED: HEPARIN 5000 UNIT/ML 1 ML VIAL ONE (14:00)
[2024-11-06] MEDS ORDERED: ASPIRIN 325 MG TAB ONE (14:00)
[2024-11-06] MEDS ORDERED: FLUMAZENIL 0.1 MG/ML (5 mL VIAL) IV ONE (14:01)
[2024-11-06] MEDS ORDERED: NALOXONE 0.4 MG/ML VIAL ONE (14:01)
[2024-11-06] MEDS ORDERED: MIDAZOLAM HCL 2 MG/2 ML INJ ONE (14:18)
[2024-11-06] MEDS ORDERED: FENTANYL CITR 100 MCG/2 ML ONE (14:19)
[2024-11-06] MEDS ORDERED: REGADENOSON 0.4 MG/5 ML SYR IV ONE (16:05)
[2024-11-06] MEDS: HYDRALAZINE HCL 20 MG/ML VIAL ONE (17:21)
[2024-11-06] MEDS: HYDRALAZINE HCL 20 MG/ML VIAL IV ONE (17:30)
--- NOTE | 2024-11-06 19:41 | OP ---
Date of Procedure: 11/06/2024 Surgeon: PASQUALE VÁZQUEZ Procedures Performed: 1. Selective coronary angiogram. 2. Left heart catheterization. 3. Right heart catheterization. 4. PCI of severe proximal LAD stenosis, I used 2.75 x 16 mm Synergy drug-eluting stent. 5. PCI of critical mid LAD stenosis, I used 2.25 x 16 mm Synergy drug-eluting stent. Indications: 1. Unstable angina. 2. Severe shortness of breath. Access: 1. Right radial artery 6-Croatian closed with TR band. 2. Right common femoral vein 7-Croatian closed with manual pressure. Complications: None. Bleeding: Less than 50 mL. Anesthesia: Total sedation time was an hour and 10 minutes. I used fentanyl and Versed. Description Of Procedure: After risks, benefits, and alternatives were explained, patient agreed to procedure and signed informed consent. The patient was brought into cardiac catheterization laborato ry, prepped and draped in sterile fashion. Then, I accessed right radial artery using pediatric micr opuncture kit, ultrasound guidance, and placed 6-Croatian slender sheath and then I accessed right comm on femoral vein using ultrasound guidance, and micropuncture kit and placed a 7-Croatian [place] sheat h and took a 7-Croatian balloon-tipped Hanalei catheter through the venous access into the right atrium, r ight ventricle, pulmonary artery and wedge, obtained waveform and pressure and obtained cardiac outpu t by thermodilutional method. Then, removed the Hanalei and the IJ access was removed. Manual pressure was applied for hemostasis with good hemostasis and then I took 5-Croatian Philo 4.0 catheter over a J -wire through the radial access into the aortic root, across the aortic valve, measured the LVEDP. P ullback did not record any gradient, then engaged left main, took standard views, and then in the RCA , took standard views and then gave systemic heparin to assure ACT level above 250, loaded with 180 o f Brilinta and 325 mg of aspirin, and then took EBU3.5 guide with side holes into the aortic root, en gaged left main and took Runthrough wire into the LAD, placed it distally and then initially I pre-di lated the mid-LAD lesion using a 2.5 balloon, excellent expansion. Then, I placed 2.25 x 16 mm Syner gy drug-eluting stent, excellent expansion. No complications. Then, I pre-dilated the proximal LAD using a 3.0 balloon and then placed 2.75 x 16 mm Synergy drug-eluting stent. Excellent expansion and apposition and no complications. Took the wire out and final angiogram was satisfactory and then re moved the guide and the sheath, placed TR band with good hemostasis. Findings: 1. The coronary angiogram. a. Left main is normal. b. LAD; proximal 70%, status post successful PCI as above and then the LAD, there is diffuse dise ase that is 20% to 30%. Then at the diagonal 2 takeoff, there is a critical 90% to 99% stenosis wit h KHURRAM-2 flow, status post successful PCI restoring KHURRAM-3 flow. c. Ramus intermedius; small and normal. d. Left circumflex; moderate size and with luminal irregularities. e. RCA; large and dominant, mid diffuse long 50% stenosis, rest of it with luminal irregularities . 2. Right heart catheterization: The RA pressure was 5. RV pressure was 32/1, mean of 5. PA pressur e was 29/7, mean of 16. Pulmonary wedge was 13. LVEDP was 15 mmHg. Cardiac output was 5.7 L/minute on an average. Conclusion: 1. Severe proximal and mid LAD stenosis, likely the culprit for symptoms, status post successful PCI of both locations. 2. Borderline filling pressures. 3. Moderate disease of the RCA. Plan: 1. Aspirin, Brilinta, high-dose statin. 2. Medical management of coronary artery disease and we will plan for stress test in 6 months to re-e valuate the RCA. SR/MODL Voice ID: [id number] Report ID: [id number]
[2024-11-06] MEDS: ATROPINE SULF 1 MG/10 ML SYR IV ONE (20:23)
[2024-11-06] MEDS ORDERED: ONDANSETRON 4 MG/2 ML VIAL IV PRN (21:35)
--- NOTE | 2024-11-06 21:48 | P.HP ---
Certification for Inpatient Patient admitted to: Inpatient With expected LOS: <2 Midnights Practitioner: I am a practitioner with admitting privileges, knowledge of patient current condition, hospital course, and medical plan of care. Services: Services provided to patient in accordance with Admission requirements found in Title 42 Section 412.3 of the Code of Federal Regulations Patient History Date of Service: 11/06/24 Reason for admission: Unstable angina History of Present Illness: 69-year-old female with a past medical history of CAD, hypertension, hypothyroidism, high cholesterol who was taken for selective coronary angiogram found to have severe proximal LAD stenosis and mid LAD stenosis requiring [address] Churchill earlier this evening. A rapid response was called overhead and she was seen resting in the PACU. Vital signs and blood sugars were within normal limit. She has been dosed with aspirin and Brilinta and admitted to the ICU for further observation. At this time she denies any new complaints. Allergies Penicillins Allergy (Verified 06/27/23 14:59) Itching Sulfa (Sulfonamide Allergy (Uncoded 06/27/23 14:59) Anaphylaxis SULFA (SULFONAMIDES) Allergy (Uncoded 06/27/23 14:59) Anaphylaxis Home Medications: Allopurinol 1 tab PO DAILY 01/03/23 Aspirin [Vazalore] 1 cap PO DAILY 01/03/23 Atorvastatin Calcium [Lipitor*] 1 tab PO BEDTIME 01/03/23 Levothyroxine [Synthroid*] 1 tab PO DAILY 01/03/23 Valsartan/Hydrochlorothiazide [Valsartan-Hctz 160-12.5 mg Tab] 1 tab PO DAILY Venlafaxine HCl *Xr* [Effexor XR] 1 cap PO DAILY 01/03/23 Montelukast [Singulair*] 10 mg PO DAILY AFTER SUPPER 03/21/23 Vits A,C,E/Lutein/Minerals [Eye Health Plus Lutein Tablet] 1 tab PO DAILY 03/21/23 Pantoprazole [Protonix Tab*] DAILY 11/06/24 - Past Medical/Surgical History Diabetic: No -: HTN -: hyperlipidemia -: hypothyroid -: UTI -: gout -: cataract sx - Family History Father -: Cancer Mother -: Cancer Brother -: Cancer Sister -: Heart disease, Cancer - Social History Alcohol use: No CD- Drugs: No Caffeine use: Yes Review of Systems General: Weakness Eyes: Unremarkable ENT: Unremarkable Respiratory: Unremarkable Cardiovascular: Unremarkable Gastrointestinal: Unremarkable Genitourinary: Unremarkable Musculoskeletal: Unremarkable Integumentary: Unremarkable Neurological: Unremarkable Lymphatics: Unremarkable Physical Examination - Vital Signs Blood Pressure: 143/56 Pulse: 77 Respirations: 16 - Physical Exam General: Alert, In no apparent distress HEENT: Atraumatic, Normocephalic Neck: Supple Respiratory: Clear to auscultation bilaterally Cardiovascular: Normal pulses Capillary refill: <2 Seconds Gastrointestinal: Normal bowel sounds Musculoskeletal: No clubbing Integumentary: No rashes Neurological: Normal speech Assessment and Plan - Plan Unstable angina Elevated lactic acid CAD Hypothyroidism Hypercholesterolemia Hypertension Gout Admit to ICU Drug-eluting stents placed earlier in the LAD, continue Brilinta, high-dose statin, and aspirin Obtain blood cultures, urinalysis, CRP, trend lactate Continuous telemetry Continue levothyroxine Repeat hemoglobin Continue Singulair Cardiology following. Dr. Churchill consulted Valsartan/HCTZ held due to low blood pressures in the PACU Holding allopurinol for now DVT prophylaxis with SCD - Advance Directives Does patient have a Living Will: No Does patient have a Durable POA for Healthcare: No
--- NOTE | 2024-11-06 22:12 | RAD REPORT ---
EXAM: Chest Single View HISTORY: 69 years Female Rule out pneumonia COMPARISON: 10/30/2024 FINDINGS: LUNGS/PLEURA: The lungs are clear. No pleural effusions or pneumothorax. No pulmonary edema. Similar elevated right hemidiaphragm. CARDIAC/MEDIASTINUM: The cardiac silhouette is within normal limits. UPPER ABDOMEN: No significant abnormality. BONES: No acute abnormality. LINES/TUBES/OTHER: N/A IMPRESSION: No evidence of acute cardiopulmonary disease.
[2024-11-06] MEDS: TICAGRELOR 90 MG TABLET PO SCH (23:15)
[2024-11-07] MEDS ORDERED: HEPARIN 5000 UNIT/ML 1 ML VIAL SQ SCH (01:00)
[2024-11-07 01:35] LABS: Urine Bilirubin NEGATIVE (Negative); Urine Blood Negative (Negative); Urine Clarity Clear (Clear); Urine Color Light-Yellow (Yellow); Urine Glucose NEGATIVE (Negative); Urine Ketones NEGATIVE (Negative); Urine Microscopic Reflex YN NO UMIC; Urine Nitrite NEGATIVE (Negative); Urine Protein NEGATIVE (Negative); Urine Urobilinogen Normal (Normal); Urine pH 6.5 (5.0-7.0)
[2024-11-07 01:37] LABS: Specific Gravity > 1.030 (1.005-1.030)
[2024-11-07 05:58] LABS: Absolute Eosinophils 0.1 K/uL (0-0.5); Absolute Lymphocytes (CBC) 2.1 K/uL (0.7-4.9); Absolute Monocytes 0.7 K/uL (0.1-1.3); Absolute Neutrophil 5.3 K/uL (1.8-8.0); Basophils % 0.5 % (0-1.3); Eosinophils % 1.1 % (0-4.4); Hematocrit 32.5 % (36.0-45.0); Hemoglobin 11.3 g/dL (12.0-15.0); Lymphocytes % 25.8 % (15.3-44.8); MCHC 34.8 g/dL (32.0-36.0); MCV 86.2 fL (80-100); MPV 8.6 fL (7.6-11.3); Monocytes % 8.2 % (3.3-12.3); Neutrophils % 64.4 % (41.7-73.7); Platelets 279 thou/uL (152-406); RBC Red Blood Cell Count 3.77 M/uL (3.86-4.86); Red Cell Distribution Width 13.4 % (12.1-15.2)
[2024-11-07 06:14] LABS: Albumin 3.2 g/dL (3.4-5.0); Bilirubin Total 0.4 mg/dL (0.2-1.0); Globulin 3.3 g/dL (2.3-3.5); Protein, Total 6.5 g/dL (6.4-8.2)
[2024-11-07] MEDS: LEVOTHYROXINE SOD 0.088 MG TAB PO SCH (06:15)
[2024-11-07] MEDS: ACETAMINOPHEN 500 MG TAB PO PRN (08:57)
[2024-11-07] MEDS: ASPIRIN 81 MG CHEWABLE TABLET PO SCH (08:57)
[2024-11-07] MEDS ORDERED: TICAGRELOR 90 MG TABLET PO SCH (09:00)
[2024-11-07] MEDS ORDERED: HOME MED 1 EA UNK (Aspirin [Vazalore] 81 MG Capsule) PO SCH (09:00)
--- NOTE | 2024-11-07 11:54 | P.CNS ---
Date of Consult: 11/07/24 Chief Complaint: Unstable angina History of Present Illness: Patient with PMH of HTN, CAD was admitted after having bradycardia and hypotension after PCI, most liley vagal response, denies chest pain, no breathing problem, no chest pain overnight. Allergies Penicillins Allergy (Verified 06/27/23 14:59) Itching Sulfa (Sulfonamide Allergy (Uncoded 06/27/23 14:59) Anaphylaxis SULFA (SULFONAMIDES) Allergy (Uncoded 06/27/23 14:59) Anaphylaxis Home medications list reviewed: Yes Home Medications: Allopurinol 1 tab PO DAILY 01/03/23 Aspirin [Vazalore] 1 cap PO DAILY 01/03/23 Atorvastatin Calcium [Lipitor*] 1 tab PO BEDTIME 01/03/23 Levothyroxine [Synthroid*] 1 tab PO DAILY 01/03/23 Valsartan/Hydrochlorothiazide [Valsartan-Hctz 160-12.5 mg Tab] 1 tab PO DAILY 01/03/23 Venlafaxine HCl *Xr* [Effexor XR] 1 cap PO DAILY 01/03/23 Montelukast [Singulair*] 10 mg PO DAILY AFTER SUPPER 03/21/23 Pantoprazole [Protonix Tab*] 40 mg PO DAILY 11/06/24 - Past Medical/Surgical History Diabetic: No -: HTN -: hyperlipidemia -: hypothyroid -: UTI -: gout -: cataract sx - Family History Father Medical History: Cancer Mother Medical History: Cancer Brother Medical History: Cancer Sister Medical History: Heart disease, Cancer - Social History Alcohol use: No CD- Drugs: No Caffeine use: Yes Place of Residence: Home Review of Systems 10-point ROS is otherwise unremarkable Physical Examination Temp Pulse Resp BP Pulse Ox 98.0 F 82 20 159/65 H 98 11/07/24 08:00 11/07/24 11:00 11/07/24 11:00 11/07/24 11:00 11/07/24 11:00 General: Alert, In no apparent distress HEENT: Atraumatic, PERRLA, Mucous membr. moist/pink, EOMI, Sclerae nonicteric Neck: Supple, 2+ carotid pulse no bruit, No LAD, Without JVD or thyroid abnormality Respiratory: Clear to auscultation bilaterally, Normal air movement Cardiovascular: Regular rate/rhythm, Normal S1 S2 Gastrointestinal: Normal bowel sounds, No tenderness Musculoskeletal: No tenderness Integumentary: No rashes Neurological: Normal gait, Normal speech, Normal tone, Normal affect Lymphatics: No axilla or inguinal lymphadenopathy Laboratory Data (last 24 hrs) 11/07/24 11/07/24 11/07/24 05:36 05:36 03:00 WBC 8.20 Hgb 11.3 L Cancelled Hct 32.5 L Plt Count 279 Sodium 144 Potassium 4.0 BUN 12 Creatinine 0.83 Glucose 112 H Total Bilirubin 0.4 AST 38 H ALT 45 Alkaline Phosphatase 92 - Problems (1) CAD (coronary artery disease) Current Visit: Yes Status: Acute Plan: a/p PCI LAD, echo shows normal EF and wall motion ASA 81 mg daily Brilinta 90 mg po BID Lipitor 40 mg daily (2) HTN (hypertension) Current Visit: Yes Status: Acute Plan: reconcile and resume home medications (3) Near syncope Current Visit: No Status: Acute Plan: most likely vasovagal, feels better, no further cardiac work up needed.
[2024-11-07] MEDS: FLU (Fluarix Triv) TS24-25(6MOS UP)/PF 45 MCG/0.5 ML Syringe IM ONE (12:00)
--- NOTE | 2024-11-07 14:18 | ECHO ---
HEIGHT: 5 ft 2 in WEIGHT: 192 lb 0 oz DATE OF STUDY: 11/07/[address]: Jesenia Art MD 2-DIMENSIONAL: YES M.MODE: YES DOPPLER: YES COLOR FLOW: YES TDS: YES PORTABLE: YES DEFINITY: BUBBLE STUDY: DIAGNOSIS: UNSTABLE ANGINA, S/P 2 STENTS IN LEFT ANTERIOR DESCENDING CARDIAC HISTORY: CATHERIZATION: YES SURGERY: NO PROSTHETIC VALVE: NO PACEMAKER: NO MEASUREMENTS (cm) DIASTOLIC (NORMALS) SYSTOLIC (NORMALS) IVSd 1.1 (0.6-1.2) LA Diam 3.0 (1.9-4.0) LVEF 60-65% LVIDd 3.5 (3.5-5.7) LVIDs 2.2 (2.0-3.5) %FS 38% LVPWd 1.1 (0.6-1.2) Ao Diam 2.4 (2.0-3.7) 2 DIMENSIONAL ASSESSMENT: RIGHT ATRIUM: NORMAL LEFT ATRIUM: NORMAL RIGHT VENTRICLE: NORMAL LEFT VENTRICLE: NORMAL TRICUSPID VALVE: NORMAL MITRAL VALVE: NORMAL PULMONIC VALVE: NORMAL AORTIC VALVE: NORMAL PERICARDIAL EFFUSION: NONE AORTIC ROOT: NORMAL LEFT VENTRICULAR WALL MOTION: NORMAL DOPPLER/COLOR FLOW: NORMAL COMMENTS: 1. NORMAL LEFT VENTRICULAR SYSTOLIC FUNCTION, EJECTION FRACTION 60-65%, NORMAL WALL MOTION TECHNOLOGIST: ROYAL JAUREGUI
[2024-11-07] MEDS: MONTELUKAST 10 MG TAB PO SCH (16:25)
[2024-11-07] MEDS ORDERED: ATORVASTATIN 10 MG TAB PO SCH (21:00)
[2024-11-07] MEDS: ATORVASTATIN 40 MG TAB PO SCH (21:01)
[2024-11-07 23:27] VITALS: BMI 34.7
[2024-11-08 04:06] VITALS: TEMP 98.8
[2024-11-08 06:01] LABS: Anion Gap 9.8 mEq/L (5.0-15.0); Magnesium 2.3 mg/dL (1.6-2.4); Phosphorus 2.9 mg/dL (2.5-4.9); Potassium 3.8 mEq/L (3.5-5.1)
[2024-11-08 06:23] LABS: Absolute Eosinophils 0.1 K/uL (0-0.5); Absolute Lymphocytes (CBC) 2.6 K/uL (0.7-4.9); Absolute Monocytes 0.7 K/uL (0.1-1.3); Absolute Neutrophil 3.7 K/uL (1.8-8.0); Basophils % 0.5 % (0-1.3); Eosinophils % 1.2 % (0-4.4); Hematocrit 32.6 % (36.0-45.0); Hemoglobin 11.3 g/dL (12.0-15.0); Lymphocytes % 36.6 % (15.3-44.8); MCH 30.2 pg (27.0-35.0); MCHC 34.8 g/dL (32.0-36.0); MPV 8.9 fL (7.6-11.3); Monocytes % 9.7 % (3.3-12.3); Nucleated Red Blood Cells % 0.1 % (0-0); Platelets 288 thou/uL (152-406); RBC Red Blood Cell Count 3.75 M/uL (3.86-4.86); Red Cell Distribution Width 13.4 % (12.1-15.2)
[2024-11-08] MEDS: VENLAFAXINE HCL XR 75 MG CAP PO SCH (09:09)
[2024-11-08] MEDS: allopurinoL 100 MG TAB PO SCH (09:09)
[2024-11-08 09:41] VITALS: O2SAT 96
[2024-11-08 12:07] VITALS: BP 159/65
--- NOTE | 2024-11-08 12:35 | P.HP ---
Patient History Date of Service: 11/07/24 Reason for admission: Unstable angina History of Present Illness: JENNIFER IS A PATIENT WITH ARTHRITIS, DEPRESSION AND HYPERTENSION WHO IS NOT A SMOKER. SHE KEPT ON HAVING ANGINA SO I ASKED DR. VÁZQUEZ AND HE DID ANGIOGRAM TO PLACE IN [place]. DETAILS PER HIS NOTE. POST OP SHE HAD EPISODE OF BRADYCARDIA BUT SHE IS STABLE NOW. SHE IS ABLE TO AMBULATE AND READY FOR HOME IN AM. Allergies Penicillins Allergy (Verified 06/27/23 14:59) Itching Sulfa (Sulfonamide Allergy (Uncoded 06/27/23 14:59) Anaphylaxis SULFA (SULFONAMIDES) Allergy (Uncoded 06/27/23 14:59) Anaphylaxis Home Medications: Allopurinol 1 tab PO DAILY 01/03/23 Aspirin [Vazalore] 1 cap PO DAILY 01/03/23 Atorvastatin Calcium [Lipitor*] 1 tab PO BEDTIME 01/03/23 Levothyroxine [Synthroid*] 1 tab PO DAILY 01/03/23 Valsartan/Hydrochlorothiazide [Valsartan-Hctz 160-12.5 mg Tab] 1 tab PO DAILY 01/03/23 Venlafaxine HCl *Xr* [Effexor XR] 1 cap PO DAILY 01/03/23 Montelukast [Singulair*] 10 mg PO DAILY AFTER SUPPER 03/21/23 Pantoprazole [Protonix Tab*] 40 mg PO DAILY 11/06/24 - Past Medical/Surgical History Has patient received pneumonia vaccine in the past: Yes Diabetic: No -: HTN -: hyperlipidemia -: hypothyroid -: UTI -: gout -: cataract sx - Family History Father -: Cancer Mother -: Cancer Brother -: Cancer Sister -: Heart disease, Cancer - Social History Smoking Status: Never smoker Alcohol use: No CD- Drugs: No Caffeine use: Yes Place of Residence: Home Review of Systems 10-point ROS is otherwise unremarkable Physical Examination - Vital Signs Temperature: 98.8 F Blood Pressure: 159/65 Pulse: 70 Respirations: 19 Pulse Ox (%): 98 - Physical Exam General: Alert, In no apparent distress, Other (POST PROCEDURE FATIGUE.) HEENT: Atraumatic, PERRLA, Mucous membr. moist/pink, EOMI, Sclerae nonicteric Neck: Supple, 2+ carotid pulse no bruit, No LAD, Without JVD or thyroid abnormality Respiratory: Clear to auscultation bilaterally, Normal air movement Cardiovascular: Regular rate/rhythm, Normal S1 S2 Gastrointestinal: Normal bowel sounds, No tenderness Musculoskeletal: No tenderness Integumentary: No rashes Neurological: Normal gait, Normal speech, Normal strength at 5/5 x4 extr, Normal tone, Normal affect Lymphatics: No axilla or inguinal lymphadenopathy - Studies Laboratory Data (last 24 hrs) 11/08/24 11/08/24 05:04 05:04 WBC 7.00 Hgb 11.3 L Hct 32.6 L Plt Count 288 Sodium 142 Potassium 3.8 BUN 12 Creatinine 0.92 Glucose 114 H Phosphorus 2.9 Magnesium 2.3 Assessment and Plan - Problems (Diagnosis) (1) CAD (coronary artery disease) Current Visit: Yes Status: Acute Plan: [id number]: 1. The coronary angiogram. a. Left main is normal. b. LAD; proximal 70%, status post successful PCI as above and then the LAD, there is diffuse disease that is 20% to 30%. Then at the diagonal 2 takeoff, there is a critical 90% to 99% stenosis with KHURRAM-2 flow, status post successful PCI restoring KHURRAM-3 flow. c. Ramus intermedius; small and normal. d. Left circumflex; moderate size and with luminal irregularities. e. RCA; large and dominant, mid diffuse long 50% stenosis, rest of it with luminal irregularities. 2. Right heart catheterization: The RA pressure was 5. RV pressure was 32/1, mean of 5. PA pressure was 29/7, mean of 16. Pulmonary wedge was 13. LVEDP was 15 mmHg. Cardiac output was 5.7 L/minute on an average. Conclusion: 1. Severe proximal and mid LAD stenosis, likely the culprit for symptoms, status post successful PCI of both locations. 2. Borderline filling pressures. 3. Moderate disease of the RCA. ABOVE ARE FROM DR. VÁZQUEZ'S NOTE. - Advance Directives Does patient have a Living Will: No Does patient have a Durable POA for Healthcare: No
--- NOTE | 2024-11-08 12:36 | P.DS ---
Admission Date: 11/06/24 Discharge Date: 11/08/24 Reason for Admission: Unstable angina - Problems (1) CAD (coronary artery disease) Current Visit: Yes Status: Acute Brief History of Present Illness: JENNIFER IS A PATIENT WITH ARTHRITIS, DEPRESSION AND HYPERTENSION WHO IS NOT A SMOKER. SHE KEPT ON HAVING ANGINA SO I ASKED DR. VÁZQUEZ AND HE DID ANGIOGRAM TO PLACE IN [place]. DETAILS PER HIS NOTE. POST OP SHE HAD EPISODE OF BRADYCARDIA BUT SHE IS STABLE NOW. SHE IS ABLE TO AMBULATE AND READY FOR HOME IN AM. Hospital Course: PATIENT IS PAINFREE AND DOING GOOD THIS AM. SHE IS STABLE AND AMBULATING FOR HOME. DR ALVARES CLEARED DC. I CALLED IN BRLLINTA AND ATORVASTATIN FROM OFFICE. Vital Signs/Physical Exam: Temp Pulse Resp BP Pulse Ox 98.8 F 70 19 159/65 H 98 11/08/24 12:35 11/08/24 12:35 11/08/24 12:35 11/08/24 12:35 11/08/24 12:35 Laboratory Data at Discharge: WBC 7.00 thou/uL (4.3-10.9) 11/08/24 05:04 Hgb 11.3 g/dL (12.0-15.0) L 11/08/24 05:04 Hct 32.6 % (36.0-45.0) L 11/08/24 05:04 Plt Count 288 thou/uL (152-406) 11/08/24 05:04 PT 11.4 SECONDS (10.0-13.0) 10/30/24 10:36 INR 1.00 10/30/24 10:36 APTT 27.9 SECONDS (24.3-36.9) 10/30/24 10:36 Sodium 142 mEq/L (136-145) 11/08/24 05:04 Potassium 3.8 mEq/L (3.5-5.1) 11/08/24 05:04 BUN 12 mg/dL (7-18) 11/08/24 05:04 Creatinine 0.92 mg/dL (0.55-1.02) 11/08/24 05:04 Glucose 114 mg/dL (74-106) H 11/08/24 05:04 Phosphorus 2.9 mg/dL (2.5-4.9) 11/08/24 05:04 Magnesium 2.3 mg/dL (1.6-2.4) 11/08/24 05:04 Total Bilirubin 0.4 mg/dL (0.2-1.0) 11/07/24 05:36 AST 38 U/L (15-37) H 11/07/24 05:36 ALT 45 U/L (13-56) 11/07/24 05:36 Alkaline Phosphatase 92 U/L (45-117) 11/07/24 05:36 Home Medications: Allopurinol 1 tab PO DAILY 01/03/23 Aspirin [Vazalore] 1 cap PO DAILY 01/03/23 Atorvastatin Calcium [Lipitor*] 1 tab PO BEDTIME 01/03/23 Levothyroxine [Synthroid*] 1 tab PO DAILY 01/03/23 Valsartan/Hydrochlorothiazide [Valsartan-Hctz 160-12.5 mg Tab] 1 tab PO DAILY 01/03/23 Venlafaxine HCl *Xr* [Effexor XR] 1 cap PO DAILY 01/03/23 Montelukast [Singulair*] 10 mg PO DAILY AFTER SUPPER 03/21/23 Pantoprazole [Protonix Tab*] 40 mg PO DAILY 11/06/24 Followup: Aakash Maynard MD [Primary Care Provider] -
--- NOTE | 2024-11-12 11:20 | EKG ---
Test Date: 2024-11-07 Test Time: 22:47:22 [employer]: [employer] MEASUREMENT RESULTS: Intervals: Rate: 65 [place]: 144 QRSD: 76 QT: 414 QTc: 430 [place]: P: 45 [place]: 144 QRS: 60 T: 46 INTERPRETIVE STATEMENTS: Normal sinus rhythm Normal ECG Compared to ECG 11/06/2024 21:07:26 T-wave abnormality no longer present Electronically Signed On 11-12-24 11:05:11 CDT by Abhishek Mendez
--- NOTE | 2024-11-12 11:26 | EKG ---
Test Date: 2024-11-06 Test Time: 21:07:26 Outbound Telemarketing Representative: DELANEY MEASUREMENT RESULTS: Intervals: Rate: 72 [place]: 150 QRSD: 82 QT: 386 QTc: 422 [place]: P: 53 [place]: 150 QRS: 56 T: 13 INTERPRETIVE STATEMENTS: Normal sinus rhythm Nonspecific T wave abnormality Abnormal ECG Compared to ECG 03/21/2023 15:26:03 T-wave abnormality now present Myocardial infarct finding no longer present Electronically Signed On 11-12-24 11:08:59 CDT by Abhishek Mendez
== END 2024-11-08 13:40 | disposition home health service (06) | DRG 322 ==
LOC: CCL 12:11 → 3RD-ICU 20:42
PROVIDERS: ADMIT Internal Medicine; ATTEND Internal Medicine
PROC: 027035Z Dilation of Coronary Artery, One Artery with Two Drug-eluting Intraluminal Devices, Percutaneous Approach (ICD-10-PCS; principal; 2024-11-06)
PROC: 4A023N8 Measurement of Cardiac Sampling and Pressure, Bilateral, Percutaneous Approach (ICD-10-PCS; 2024-11-06)
PROC: B2111ZZ Fluoroscopy of Multiple Coronary Arteries using Low Osmolar Contrast (ICD-10-PCS; 2024-11-06)
DX: I25.110 Atherosclerotic heart disease of native coronary artery with unstable angina pectoris (principal); I10 Essential (primary) hypertension; M10.9 Gout, unspecified; E78.5 Hyperlipidemia, unspecified; E03.9 Hypothyroidism, unspecified; M19.90 Unspecified osteoarthritis, unspecified site; I35.1 Nonrheumatic aortic (valve) insufficiency; I65.23 Occlusion and stenosis of bilateral carotid arteries; Z88.0 Allergy status to penicillin; Z88.2 Allergy status to sulfonamides; Z79.82 Long term (current) use of aspirin; Z79.890 Hormone replacement therapy; Z79.899 Other long term (current) drug therapy
CPT/HCPCS: 36415; 71045; 71046; 76937; 80048; 80053; 81003; 82947; 83605; 83735; 84100; 84484; 85025; 85347; 85610; 85730; 86140; 87040; 92928; 93005; 93306; 93460; 99152; C1725; C1893; C9600; C9601; J0360; J0461; J1644; J2003; J2250; J2310; J2785; J3010; J7040; Q9967

== ENCOUNTER 2025-01-19 08:18 | Emergency (ER) | payer OTHER, MEDICARE ==
[2025-01-19 09:11] LABS: Absolute Basophils 0.1 K/uL (0-0.5); Absolute Eosinophils 0.1 K/uL (0-0.5); Absolute Lymphocytes (CBC) 2.1 K/uL (0.7-4.9); Absolute Monocytes 0.7 K/uL (0.1-1.3); Absolute Neutrophil 7.3 K/uL (1.8-8.0); Basophils % 0.9 % (0-1.3); Eosinophils % 1.3 % (0-4.4); Hematocrit 36.7 % (36.0-45.0); Hemoglobin 12.8 g/dL (12.0-15.0); Lymphocytes % 20.2 % (15.3-44.8); MCHC 34.8 g/dL (32.0-36.0); MCV 86.1 fL (80-100); MPV 8.8 fL (7.6-11.3); Monocytes % 6.6 % (3.3-12.3); Nucleated Red Blood Cells % 0.2 % (0-0); Platelets 288 thou/uL (152-406); RBC Red Blood Cell Count 4.26 M/uL (3.86-4.86); Red Cell Distribution Width 13.4 % (12.1-15.2)
[2025-01-19 09:17] LABS: PT Prothrombin Time 11.9 SECONDS (10-13.0); Protime INR 1.05
[2025-01-19 09:29] LABS: ALT/SGPT 32 U/L (13-56); AST/SGOT 29 U/L (15-37); Albumin 3.3 g/dL (3.4-5.0); Albumin/Globulin Ratio 0.8 (1.1-1.8); Alkaline Phosphatase 120 U/L (45-117); BUN Blood Urea Nitrogen 12 mg/dL (7-18); Bicarbonate 28 mEq/L (21-32); Bilirubin Total 0.4 mg/dL (0.2-1.0); Globulin 3.9 g/dL (2.3-3.5); Glomerular Filtration Rate 62 ml/min (=/>90); Glucose Level 111 mg/dL (74-106); NT PRO-BNP 59 pg/mL (<125); Protein, Total 7.2 g/dL (6.4-8.2); Sodium Level 142 mEq/L (136-145)
[2025-01-19 09:30] LABS: Magnesium 1.9 mg/dL (1.6-2.4)
[2025-01-19 09:33] LABS: Bilirubin Direct < 0.2 mg/dL (0-0.2); Bilirubin Indirect, Calculated 0.2 mg/dL (0.2-0.8)
--- NOTE | 2025-01-19 09:43 | RAD REPORT ---
EXAM: Chest Single View HISTORY: 69 years Female Dyspnea;Cough COMPARISON: 11/06/2024 FINDINGS: LUNGS/PLEURA: The lungs are clear. No pleural effusions or pneumothorax. No pulmonary edema. Similar low lung volumes and elevated right hemidiaphragm. CARDIAC/MEDIASTINUM: Stable size and configuration. UPPER ABDOMEN: No significant abnormality. BONES: No acute abnormality. LINES/TUBES/OTHER: N/A IMPRESSION: No evidence of acute cardiopulmonary disease. No significant change from prior.
[2025-01-19 09:54] LABS: Influenza A Ag Negative; Influenza B Ag Negative; SARS-CoV-2 Antigen Rapid Res Negative (Negative)
--- NOTE | 2025-01-19 09:58 | EDPHYS ---
Physician Documentation [facility] Name: Carlos Canada Age: 69 yrs Sex: Female : 1955 Arrival Date: 01/19/2025 Time: 08:18 Bed 14 Private MD: ED Physician Parth Velazco HPI: 01/19 09:10 This 69 yrs old Female presents to ER via Wheelchair with complaints of Breathing sp3 Difficulty, Cough. 09:10 69-year-old female with history of hypertension, hyperlipidemia currently on aspirin sp3 and Plavix, who sees Dr. Maynard and Dr. Churchill now presents to the ED with chief complaint cough, congestion and shortness of breath. Patient states that she "mowed the yard" yesterday and her symptoms had started after that. She denies any chest pain, back pain, abdominal pain, vomiting, diarrhea, syncope, fever, or any other signs or symptoms on ROS at this time.. Historical: - Allergies: 08:29 PENICILLINS; ll1 08:29 Sulfa (Sulfonamide Antibiotics); ll1 - PMHx: 08:29 High Cholesterol; Hypertension; Hypothyroidism; ll1 - PSHx: 08:29 Appendectomy; breast reduction; Cholecystectomy; tendon repair on right hand; 2 heart ll1 stents (tendon repair on right hand); - Immunization history:: Adult Immunizations up to date. - Infectious Disease History:: Denies. - Social history:: Smoking status: Patient denies any tobacco usage or history of. ROS: 09:11 Constitutional: Negative for fever, chills, and weight loss, Eyes: Negative for injury, sp3 pain, redness, and discharge, ENT: Negative for injury, pain, and discharge, Neck: Negative for injury, pain, and swelling, Cardiovascular: Negative for chest pain, palpitations, and edema, Abdomen/GI: Negative for abdominal pain, nausea, vomiting, diarrhea, and constipation, Back: Negative for injury and pain, MS/Extremity: Negative for injury and deformity, Skin: Negative for injury, rash, and discoloration, Neuro: Negative for headache, weakness, numbness, tingling, and seizure, 09:11 All other systems are negative, Exam: 09:11 Constitutional: This is a well developed, well nourished patient who is awake, alert, sp3 and in no acute distress. Head/Face: Normocephalic, atraumatic. Eyes: Pupils equal round and reactive to light, extra-ocular motions intact. Lids and lashes normal. Conjunctiva and sclera are non-icteric and not injected. Cornea within normal limits. Periorbital areas with no swelling, redness, or edema. Neck: Trachea midline, no thyromegaly or masses palpated, and no cervical lymphadenopathy. Supple, full range of motion without nuchal rigidity, or vertebral point tenderness. No Meningismus. Chest/axilla: Normal chest wall appearance and motion. Nontender with no deformity. No lesions are appreciated. Cardiovascular: Regular rate and rhythm with a normal S1 and S2. No gallops, murmurs, or rubs. Normal PMI, no JVD. No pulse deficits. Abdomen/GI: Soft, non-tender, with normal bowel sounds. No distension or tympany. No guarding or rebound. No evidence of tenderness throughout. Back: No spinal tenderness. No costovertebral tenderness. Full range of motion. Skin: Warm, dry with normal turgor. Normal color with no rashes, no lesions, and no evidence of cellulitis. MS/ Extremity: Pulses equal, no cyanosis. Neurovascular intact. Full, normal range of motion. Neuro: Awake and alert, GCS 15, oriented to person, place, time, and situation. Cranial nerves II-XII grossly intact. Motor strength 5/5 in all extremities. Sensory grossly intact. Cerebellar exam normal. Normal gait. Psych: Awake, alert, with orientation to person, place and time. Behavior, mood, and affect are within normal limits. 09:11 Respiratory: Active cough noted mildly productive. Coarse breath sounds bilaterally., Vital Signs: 08:29 BP 155 / 71; Pulse 80; Resp 18; Temp 98.8; Pulse Ox 98% ; Weight 86.18 kg; Height 5 ft. ll1 2 in. ; Pain 9/10; 09:03 BP 137 / 82; Pulse 82; Resp 18; Pulse Ox 98% on R/A; db 10:12 BP 166 / 87; Pulse 75; Resp 16; Pulse Ox 100% on R/A; db 08:29 Body Mass Index 34.75 (86.18 kg, 157.48 cm) ll1 08:29 Pain Scale: Adult ll1 MDM: 08:49 Medical Screening Exam initiated sp3 09:13 Data reviewed: vital signs, nurses notes, old medical records, lab test result(s), EKG, sp3 radiologic studies. ED course: 69-year-old female with PMH above now with shortness of breath. Differential diagnosis includes congestive heart failure, ACS, bronchitis, pneumonia, viral illness, COVID-19, influenza, among others. Workup will include chest x-ray, EKG, viral swabs and general labs with disposition pending workup and patient course.. 09:56 ED course: Full workup negative including swabs. I believe patient's activity involving sp3 the grass contributed to this. Will place on Medrol Dosepak and follow-up to PCP. I spoke to Dr. Maynard about this we will follow-up in the office.. 01/19 08:50 Order name: Basic Metabolic Panel; Complete Time: 09:46 sp3 01/19 08:50 Order name: CBC with Diff; Complete Time: 09:46 sp3 01/19 08:50 Order name: LFT's; Complete Time: 09:46 sp3 01/19 08:50 Order name: Magnesium; Complete Time: 09:46 sp3 01/19 08:50 Order name: NT PRO-BNP; Complete Time: 09:46 sp3 01/19 08:50 Order name: PT-INR; Complete Time: 09:46 sp3 01/19 08:50 Order name: Troponin HS; Complete Time: 09:46 sp3 01/19 08:50 Order name: COVID-19 Ag + Flu A+B Ag; Complete Time: 09:56 sp3 01/19 08:50 Order name: XRAY Chest (1 view); Complete Time: 09:46 sp3 01/19 08:50 Order name: Cardiac monitoring; Complete Time: 09:04 sp3 01/19 08:50 Order name: EKG - Nurse/Tech; Complete Time: 09:04 sp3 01/19 08:50 Order name: IV Saline Lock; Complete Time: 09:04 sp3 01/19 08:50 Order name: Labs collected and sent; Complete Time: 09:04 sp3 01/19 08:50 Order name: O2 Per Protocol; Complete Time: 09:04 sp3 01/19 08:50 Order name: O2 Sat Monitoring; Complete Time: 09:04 sp3 Administered Medications: No medications were administered Disposition Summary: 01/19/25 09:57 Discharge Ordered Notes: Location: Home sp3 Condition: Stable sp3 Diagnosis - Shortness of breath, cough, allergy sp3 Followup: sp3 - With: Private Physician - When: Upon discharge from the Emergency Department - Reason: Continuance of care Discharge Instructions: - Discharge Summary Sheet sp3 - Cough, Adult sp3 Forms: - Medication Reconciliation Form sp3 - Antibiotic Education sp3 - Prescription Opioid Use sp3 - Patient Portal Instructions sp3 - Leadership Thank You Letter sp3 Prescriptions: - Tessalon Perles 100 mg Oral Capsule - take 1 capsule ORAL route every 8 hours As needed; 15 capsule; Refills: 0, sp3 Product Selection Permitted - Medrol (Alexei) 4 mg Oral Tablets, Dose Pack - take 1 tablet ORAL route as directed - follow package instructions; 1 packet; sp3 Refills: 0, Product Selection Permitted Signatures: Dispatcher [employer] EDAnirudh Bangura RN RN ll1 Parth Velazco MD MD sp3 Pita Mendes RN RN db Corrections: (The following items were deleted from the chart) 08:50 08:50 BASIC METABOLIC PANEL+C.LAB.BRZ ordered. EDMS EDMS 08:50 08:50 CBC+H.LAB.BRZ ordered. EDMS EDMS 08:50 08:50 HEPATIC FUNCTION+C.LAB.BRZ ordered. EDMS EDMS 08:50 08:50 MAGNESIUM+C.LAB.BRZ ordered. EDMS EDMS 08:50 08:50 PROBNP+C.LAB.BRZ ordered. EDMS EDMS 08:50 08:50 PROTIME (+INR)+COAG.LAB.BRZ ordered. EDMS EDMS 08:50 08:50 Troponin High Sensitivity+C.LAB.BRZ ordered. EDMS EDMS 08:50 08:50 COVID-19 Ag + Flu A+B Ag+I.LAB.BRZ ordered. EDMS EDMS 08:50 08:50 Chest Single View+RAD.RAD.BRZ ordered. EDMS EDMS
--- NOTE | 2025-01-19 09:58 | ER ---
Nurse's Notes [facility] Name: Carlos Canada Age: 69 yrs Sex: Female : 1955 Arrival Date: 01/19/2025 Time: 08:18 Bed 14 Private MD: Diagnosis: Shortness of breath, cough, allergy Presentation: 01/19 08:29 Chief complaint: Patient states: Cough, JAMES, weak, nausea for 3 days. No fever. Change ll1 of medications recently, see's Dr. Maynard and Dr. Churchill. Coronavirus screen: Client denies travel out of the [place] in the last 14 days. congestion, cough unrelated to allergies, diarrhea, difficulty breathing, fatigue, headache, shortness of breath, Client presents with at least one sign or symptom that may indicate coronavirus-19. Standard/surgical mask placed on the client. Ebola Screen: Patient denies travel to an Ebola-affected area in the 21 days before illness onset. Initial Sepsis Screen: Does the patient meet any 2 criteria? No. Patient's initial sepsis screen is negative. Does the patient have a suspected source of infection? No. Patient's initial sepsis screen is negative. Risk Assessment: Do you want to hurt yourself or someone else? Patient reports no desire to harm self or others. Onset of symptoms was January 17, 2025. 08:29 Method Of Arrival: Wheelchair ll1 08:29 Acuity: REGINE 3 ll1 Triage Assessment: 08:33 General: Appears uncomfortable, Behavior is calm, cooperative, appropriate for age, ll1 Reports feeling ill for fatigue for. Pain: Complains of pain in head Pain currently is 9 out of 10 on a pain scale. Quality of pain is described as aching. Neuro: Reports headache weakness. Respiratory: Reports shortness of breath cough that is labored breathing. GI: Reports diarrhea, nausea. Historical: - Allergies: 08:29 PENICILLINS; ll1 08:29 Sulfa (Sulfonamide Antibiotics); ll1 - PMHx: 08:29 High Cholesterol; Hypertension; Hypothyroidism; ll1 - PSHx: 08:29 Appendectomy; breast reduction; Cholecystectomy; tendon repair on right hand; 2 heart ll1 stents (tendon repair on right hand); - Immunization history:: Adult Immunizations up to date. - Infectious Disease History:: Denies. - Social history:: Smoking status: Patient denies any tobacco usage or history of. Screenin:07 [facility] ED Fall Risk Assessment (Adult) History of falling in the last 3 months, db including since admission No falls in past 3 months (0 pts) Confusion or Disorientation No (0 pts) Intoxicated or Sedated No (0 pts) Impaired Gait No (0 pts) Mobility Assist Device Used No (0 pt) Altered Elimination No (0 pt) Score/Fall Risk Level 0 - 2 = Low Risk Oriented to surroundings, Maintained a safe environment. Abuse screen: Denies threats or abuse. Denies injuries from another. Nutritional screening: No deficits noted. Tuberculosis screening: No symptoms or risk factors identified. Assessment: 08:52 Reassessment: Patient and/or family updated on plan of care and expected duration. Pain ll1 level reassessed. 09:00 Reassessment: Patient appears in no apparent distress at this time. Patient and/or db family updated on plan of care and expected duration. Pain level reassessed. Patient is alert, oriented x 3, equal unlabored respirations, skin warm/dry/pink. General: Appears in no apparent distress. comfortable, Behavior is calm, cooperative. Neuro: Level of Consciousness is awake, alert, obeys commands, Oriented to person, place, time, situation. Cardiovascular: Rhythm is regular. Respiratory: Airway is patent Respiratory effort is even, unlabored, Respiratory pattern is regular, symmetrical. EENT: Reports hoarse voice. 10:13 Reassessment: PT AMBULATORY WALKING. REPORTS A SMALL ABOUT OF DIZZINESS WHILE db AMBULATING. Respiratory: Breath sounds are clear. Vital Signs: 08:29 BP 155 / 71; Pulse 80; Resp 18; Temp 98.8; Pulse Ox 98% ; Weight 86.18 kg; Height 5 ft. ll1 2 in. ; Pain 9/10; 09:03 BP 137 / 82; Pulse 82; Resp 18; Pulse Ox 98% on R/A; db 10:12 BP 166 / 87; Pulse 75; Resp 16; Pulse Ox 100% on R/A; db 08:29 Body Mass Index 34.75 (86.18 kg, 157.48 cm) ll1 08:29 Pain Scale: Adult ll1 ED Course: 08:24 Patient arrived in ED. sj2 08:31 Triage completed. ll1 08:31 Arm band placed on. ll1 08:48 Parth Velazco MD is Attending Physician. sp3 08:52 Pita Mendes, RN is Primary Nurse. db 08:52 Patient placed in an exam room, on a stretcher. ll1 08:52 Warm blanket given. ll1 09:00 Initial lab(s) drawn, by me, sent to lab. Inserted saline lock: 20 gauge in left db antecubital area, using aseptic technique. Blood collected. Flushed with 10 mL NS. 09:04 COVID-19 Ag + Flu A+B Ag Sent. db 09:04 LFT's Sent. db 09:05 EKG done, by ED staff, reviewed by Parth Velazco MD. em1 09:30 XRAY Chest (1 view) In Process Unspecified. EDMS 10:15 Patient has correct armband on for positive identification. Bed in low position. Call db light in reach. Side rails up X2. Provided Education on: FOLLOWUP AND HOME SAFETY. Client placed on continuous cardiac and pulse oximetry monitoring. NIBP monitoring applied. garbage collector supervisor on. Pulse ox on. NIBP on. 10:15 No provider procedures requiring assistance completed. db 10:21 IV discontinued, intact, bleeding controlled, No redness/swelling at site. Pressure db dressing applied. Administered Medications: No medications were administered Medication: 10:15 VIS not applicable for this client. db Outcome: 09:57 Discharge ordered by . sp3 10:22 Discharged to home via wheelchair, db 10:22 Condition: stable 10:22 Discharge instructions given to patient, family, Instructed on discharge instructions, follow up and referral plans. Demonstrated understanding of instructions, follow-up care, medications, Prescriptions given X 2, 10:22 Patient left the ED. db Signatures: Dispatcher [employer] EDMS Raffy Duran em1 Anirudh Hayes, RN RN 1 Parth Velazco MD MD sp3 Pita Mendes, RN RN db Jennifer Valdez 2
[2025-01-19 10:36] VITALS: TEMP 98.8; O2SAT 98
[2025-01-19 10:38] VITALS: BP 137/82
== END 2025-01-19 10:22 | disposition home or self-care (01) ==
LOC: ER 08:18
DX: R06.02 Shortness of breath (principal); R05.9 Cough, unspecified; Z11.52 Encounter for screening for COVID-19
CPT/HCPCS: 36415; 71045; 80048; 80076; 83735; 83880; 84484; 85025; 85610; 87428; 93005; 99284